=== PATIENT | female | born 1985 | race Caucasian/White ===

== ENCOUNTER → 2020-01-05 | Outpatient (REF) | payer OTHER ==
[2020-01-05 17:22] LABS: BASO % 0.4 % (0.0-1.0); EOS # 0.1 10^3/uL (0.0-0.5); HEMATOCRIT 44.6 % (36.0-47.0); HEMOGLOBIN 14.8 g/dl (12.0-15.5); LYMPH # 2.4 10^3/uL (1.5-5.0); LYMPH % 30.1 % (24.0-44.0); MEAN CORPUSCULAR HEMOGLOBIN 30.1 pg (27.0-33.0); MEAN CORPUSCULAR HGB CONC 33.2 g/dl (32.0-36.5); MEAN CORPUSCULAR VOLUME 90.8 fl (80.0-96.0); MONO # 0.5 10^3/uL (0.0-0.8); MONO % 6.7 % (0.0-5.0); NEUTROPHILS # 4.8 10^3/uL (1.5-8.5); NEUTROPHILS % 61.7 % (36.0-66.0); PLATELET COUNT, AUTOMATED 226 10^3/uL (150-450); RED BLOOD COUNT 4.91 10^6/uL (4.00-5.40); WHITE BLOOD COUNT 7.8 10^3/uL (4.0-10.0)
[2020-01-05 18:02] LABS: ALBUMIN 3.8 GM/DL (3.2-5.2); ALT/SGPT 25 U/L (12-78); BILIRUBIN,TOTAL 0.3 MG/DL (0.2-1.0); BLOOD UREA NITROGEN 18 MG/DL (7-18); CALCIUM LEVEL 8.4 MG/DL (8.5-10.1); CARBON DIOXIDE LEVEL 25 MEQ/L (21-32); CHLORIDE LEVEL 107 MEQ/L (98-107); CHOLESTEROL LEVEL 192 MG/DL (<200); CREATININE FOR GFR 0.81 MG/DL (0.55-1.30); GLOMERULAR FILTRATION RATE > 60.0 (>60); GLUCOSE, FASTING 75 MG/DL (70-100); HDL CHOLESTEROL 55 MG/DL (>40); LDL CHOLESTEROL 112 MG/DL (<100); NON-HDL-C 137 MG/DL; POTASSIUM SERUM 4.4 MEQ/L (3.5-5.1); SODIUM LEVEL 142 MEQ/L (136-145); TOTAL PROTEIN 6.8 GM/DL (6.4-8.2); TRIGLYCERIDES LEVEL 123 MG/DL (<150)
== END ==
LOC: M LAB REF 16:31
PROVIDERS: ATTEND Family Medicine Addiction Medicine
DX: Z00.00 Encounter for general adult medical examination without abnormal findings (principal); F41.9 Anxiety disorder, unspecified

== ENCOUNTER 2020-05-10 11:20 | Emergency (ER) | payer OTHER ==
[~2020-05-10] VITALS: Ht 154.9 cm; Wt 92.9 kg
[2020-05-10] MEDS ORDERED: AMPH1CAP14 (11:31)
[2020-05-10] MEDS ORDERED: LORA-674 (11:31)
[2020-05-10] MEDS ORDERED: MONT10TA4 (11:31)
[2020-05-10] MEDS ORDERED: ESCI20TA (11:31)
--- NOTE | 2020-05-10 12:25 | REP ---
RIGHT ANKLE SERIES: Four views. HISTORY: Injury in a fall. FINDINGS: Four views right ankle demonstrate intact ankle mortise. No fracture or subluxation is seen. Soft tissues are unremarkable. IMPRESSION: Negative radiographs of the right ankle. Electronically Signed by Magdy Lindsay MD 05/10/2020 01:38 P
[2020-05-10 12:29] VITALS: BP 125/69
== END 2020-05-10 12:30 | disposition home or self-care (01) ==
LOC: M ED 11:20
DX: S93.601A Unspecified sprain of right foot, initial encounter (principal); S80.211A Abrasion, right knee, initial encounter; S80.212A Abrasion, left knee, initial encounter; X50.9XXA Other and unspecified overexertion or strenuous movements or postures, initial encounter; Y92.89 Other specified places as the place of occurrence of the external cause; Y99.0 Civilian activity done for income or pay; F33.9 Major depressive disorder, recurrent, unspecified; F41.9 Anxiety disorder, unspecified; N80.9 Endometriosis, unspecified; Z79.899 Other long term (current) drug therapy; F17.210 Nicotine dependence, cigarettes, uncomplicated

== ENCOUNTER 2020-11-15 16:19 | Emergency (ER) | payer OTHER ==
[~2020-11-15] VITALS: Ht 154.9 cm; Wt 93.6 kg
[~2020-11-15 16:19] MED LIST: AMPH1CAP14; ESCI20TA; LORA-674; MONT5TAB2
[2020-11-15] MEDS ORDERED: CETI-24 (16:33)
[2020-11-15] MEDS ORDERED: DULO1CAP5 (16:33)
[2020-11-15] MEDS ORDERED: ALBU8.5H (16:33)
[2020-11-15] MEDS ORDERED: IPRA0.00 (16:33)
[2020-11-15] MEDS ORDERED: HYDR-3363 (16:33)
[2020-11-15] MEDS ORDERED: QUET5TAB (16:33)
[2020-11-15] MEDS ORDERED: KETOROLAC 60MG 2ML VIAL IM ONE (17:15)
[2020-11-15] MEDS ORDERED: NS 1,000 ML IV ONE (17:30)
[2020-11-15] MEDS ORDERED: KETOROLAC 30 MG/ML 1ML VIAL IV ONE (17:30)
[2020-11-15 17:57] LABS: BASO % 0.4 % (0.0-1.0); EOS # 0.1 10^3/uL (0.0-0.5); EOS % 1.3 % (0.0-3.0); HEMATOCRIT 42.4 % (36.0-47.0); HEMOGLOBIN 13.6 g/dl (12.0-15.5); MEAN CORPUSCULAR HGB CONC 32.1 g/dl (32.0-36.5); MEAN CORPUSCULAR VOLUME 90.4 fl (80.0-96.0); MONO # 0.6 10^3/uL (0.0-0.8); MONO % 7.7 % (0.0-5.0); NEUTROPHILS % 64.3 % (36.0-66.0); PLATELET COUNT, AUTOMATED 249 10^3/uL (150-450); RED BLOOD COUNT 4.69 10^6/uL (4.00-5.40); WHITE BLOOD COUNT 7.8 10^3/uL (4.0-10.0)
[2020-11-15 18:22] LABS: BLOOD UREA NITROGEN 12 MG/DL (7-18); CALCIUM LEVEL 8.9 MG/DL (8.5-10.1); CARBON DIOXIDE LEVEL 28 MEQ/L (21-32); CHLORIDE LEVEL 109 MEQ/L (98-107); CK-MB VALUE MASS 1.5 NG/ML (<3.6); CPK CREATINE PHOSPHOKINASE 109 U/L (26-192); CREATININE FOR GFR 0.82 MG/DL (0.55-1.30); GLOMERULAR FILTRATION RATE > 60.0 (>60); GLUCOSE, FASTING 81 MG/DL (70-100); MB/CK RELATIVE INDEX 1.38 (< OR =4); NT-PRO BNP 134 PG/ML (<125); SODIUM LEVEL 142 MEQ/L (136-145); TROPONIN I < 0.02 NG/ML (< 0.10)
[2020-11-15 18:25] LABS: RSV AMPLIFICATION NEGATIVE (NEGATIVE)
[2020-11-15] MEDS ORDERED: ALBUTEROL 90 MCG/ACT 8GM HFA INHALER INH ONE (19:30)
--- NOTE | 2020-11-15 19:52 | REPVR ---
PROCEDURE INFORMATION: Exam: XR Chest, 2 Views Exam date and time: 11/15/2020 5:15 PM Age: 35 years old Clinical indication: Chest pain; Type not specified; Additional info: SOB c exertion, chest pain TECHNIQUE: Imaging protocol: XR of the chest Views: 2 views. COMPARISON: No relevant prior studies available. FINDINGS: Lungs: Unremarkable. No consolidation. Pleural space: Unremarkable. No pleural effusion. No pneumothorax. Heart/Mediastinum: Unremarkable. No cardiomegaly. Bones/joints: Unremarkable. Soft tissues: There are moderately generous overlying soft tissues. IMPRESSION: Negative chest. Electronically signed by: Dewayne Ochoa On 11/15/2020 19:52:45 PM
[2020-11-15 20:01] VITALS: BP 126/68
--- NOTE | 2020-11-16 07:42 | ECGEPIP ---
[facility] - ED Test Date: 2020-11-15 Pat Name: KIRSTIN MERRILL Department: Room: - Gender: Female Senior Windows Engineer: : 1985 Requested By: REUBEN Almanza PA-C Order Number: [id number] Reading MD: Sheridan Bates Measurements Intervals [place] Rate: 67 P: 36 PA: 157 QRS: 58 QRSD: 78 T: 29 QT: 417 QTc: 442 Interpretive Statements SINUS RHYTHM No prior Electronically Signed on 11-16-2020 7:42:11 EST by Sheridan Bates
== END 2020-11-15 20:10 | disposition home or self-care (01) ==
LOC: M ED 16:19
DX: R06.00 Dyspnea, unspecified (principal); R07.89 Other chest pain; R53.83 Other fatigue; R05 Cough; J45.909 Unspecified asthma, uncomplicated; N80.9 Endometriosis, unspecified; Z79.899 Other long term (current) drug therapy; Z91.040 Latex allergy status; F17.210 Nicotine dependence, cigarettes, uncomplicated
CPT/HCPCS: 71046; 80048; 82550; 82553; 83880; 84702; 85025; 85379; 87631; 93005; 96361; 96374; 99284; J1885

== ENCOUNTER 2021-01-11 12:53 | Emergency (ER) | payer OTHER ==
[~2021-01-11] VITALS: Ht 154.9 cm; Wt 95.5 kg
[~2021-01-11 12:53] MED LIST changes: +ALBU8.5H; +CETI-24; +DULO1CAP5; -ESCI20TA; +ESCI20TA16; +HYDR-3363; +IPRA0.00; +MONT10TA10; -MONT5TAB2; +QUET50TA3
--- OUTSIDE RECORDS SUMMARY | 2021-01-11 12:59 | CCD ---
Author Organization Unknown Address [address] [place] [address] Phone [phone] Care Team Providers Care Cathode Ray Tube Salvage Processor Name Role Phone Petey Linder Unavailable Unavailable Allergies Code Code System Name Reaction Severity Status Onset 5092167 RxNorm Latex Active 11/08/2019 Medications Name Status Start Date Stop Date albuterol sulfate HFA 90 mcg/actuation aerosol inhaler Active Not available amoxicillin 875 mg-potassium clavulanate 125 mg tablet TAKE ONE TABLET BY MOUTH EVERY 12 HOURS FOR 14 DAYS Active Not available azithromycin 250 mg tablet Completed 09/19 Banophen 50 mg capsule Completed 0 benzonatate 200 mg capsule Completed 09/19 betamethasone dipropionate 0.05 % topical ointment Completed 11/02/2020 cetirizine 10 mg tablet TAKE ONE TABLET BY MOUTH EVERY DAY Active Not available Chantix Continuing Month Box 1 mg tablet Completed 09/19/2020 Chantix Starting Month Box 0.5 mg (11)-1 mg (42) tablets in dose pack Completed 09/19/2020 Comp-Air Nebulizer Compressor USE DIRECTED NEEDED Active Not available dextroamphetamine-amphetamine ER 10 mg 24hr capsule,extend relea se Completed 09/19/2020 duloxetine 20 mg capsule,delayed release TAKE ONE CAPSULE BY MOUTH EVERY DAY Completed 03/2021 duloxetine 30 mg capsule,delayed release Completed 11/30/2020 duloxetine 60 mg capsule,delayed release TAKE ONE CAPSULE BY MOUTH EVERY DAY Active Not available escitalopram 10 mg tablet Completed 2019 escitalopram 20 mg tablet Completed 2019 fluconazole 150 mg tablet Active Not av ailable fluoxetine 20 mg capsule Completed 020 fluticasone propionate 50 mcg/actuation nasal spray,suspension C ompleted 11/02/2020 hydroxyzine HCl 25 mg tablet Completed ipratropium 0.5 mg-albuterol 3 mg (2.5 m g base)/3 mL nebulization soln INHALE THE CONTENTS OF ONE VIAL VIA NEBULIZER THREE TIMES A DAY NEEDED Active Not available ketoprofen 25 mg capsule Completed 020 Lamictal 25 mg tablet Take 1 tablet every day by oral route. Active Not available loratadine 10 mg tablet Completed 09/19/20 montelukast 10 mg tablet Active Not nima ilable niacin 500 mg tablet Completed 09/19/2020 oseltamivir 75 mg capsule Completed 2019 prednisone 10 mg tablet Completed 09/19/20 prednisone 20 mg tablet TAKE TWO TABLETS BY MOUTH EVERY DAY WITH A MEAL FOR 5 DAYS Active Not available prednisone 5 mg tablet Completed 0 Probiotic and Acidophilus 300 million ce ll-250 mg capsule 1 tablet once daily Active Not available quetiapine 50 mg tablet TAKE ONE TABLET BY MOUTH AT BEDTIME Completed sumatriptan 25 mg tablet TAKE ONE TABLET BY MOUTH AT ONSET OF HEADACHE REPEAT IN 2 HOURS NEEDED Completed 12/11/2020 venlafaxine ER 75 mg capsule,extended release 24 hr Completed 09/19/2020 Vyvanse 30 mg capsule Completed 09/19/2020 Vyvanse 40 mg capsule Take 1 capsule every day by oral route in the morning for 30 days. Active Not available Problems Name Status Onset Date Source Nicotine Dependence Active 11/08/2019 History Screening for Malignant Neoplasm of Cervix Unknown 11/08 History Eruption Unknown 12/21/[address] Concept Unknown 12/21/2019 History Influenza Vaccine Needed Unknown 12/28/2019 History Chronic Urticaria Active 01/05/2020 History Severe Recurrent Major Depression without Psychotic Features Unk nown 03/05/2020 History Generalized Anxiety Disorder Unknown 03/05/2020 His tory Attention Deficit Hyperactivity Disorder , Predominantly Hyperactive Impulsive Type Active 04/13/2020 History Finding of Lower Limb Unknown 04/13/2020 History Mild Intermittent Asthma Active 10/12/2020 Migraine Active 11/02/2020 Bipolar II Disorder, Most Recent Episode Major Depressive Active 11/30/2020 Procedures Notes: x2 Results Lab Results Date Name Specimen Result Interpretation Description Value Range Status Address 11/15/2020 Istat B-HCG Normal Istat B-HCG < 5.0 F [facility]: [address] [facility] 11/02/2020 Rapid Flu (A+B) Flu negative [facility]: [address], [place] 11/01/2020 SARS CoV 2 RdRp Gene, QL Probe, Respiratory Spec imen Nasopharyngeal Normal Sars-cov-2 negative negative Final [facility]: [address] [facility] Past Encounters 12/11/2020 Bipolar II Disorder, Most Recent Episode Major Depressive; Attention Deficit Hyperactivity Disorder, Combined Type Radha Gupta, NPP: [address] [place] [address], Ph. 12/07/2020 Bipolar II Disorder, Most Recent Episode Major Depressive Hafsa Merida, [facility]: [address] [facility], [facility] [address], [place] [address], Ph. 12/07/2020 Diarrhea; Acute Vaginitis; Bipolar II Disorder, Most Recent Episode Major Depressive; Acute Sinusitis Loraine NAYANA Marie-C: [address] [place] [address], Ph. 11/30/2020 Bipolar Disorder; Acute Sinusitis Loraine Marie PA-C: [address] [place] [address], Ph. 11/30/2020 Bipolar II Disorder, Most Recent Episode Major Depressive Hafsa Merida, [facility]: [address] [facility], [facility] [address], [place] [address], Ph. 11/27/2020 Bipolar Disorder; Acute Upper Respiratory Infection SNEHAL BarajasC: [address] [facility], [facility] [address], [place] [address], Ph. 11/06/2020 Generalized Anxiety Disorder; Severe Recurrent Major Depression without Psychotic Features Hafsa Merida [facility]: [address] [facility], [facility] [address], [place] [address], Ph. 11/02/2020 Fever; Mild Intermittent Asthma; Migraine Petey Linder RPA-C: [address] [facility], [facility] [address], [place] [address], Ph. 11/01/2020 Exposure to SARS-CoV-2 Melecio Qiu MD: [address] [place] [address], Ph. 10/12/2020 Chronic Urticaria; Mild Intermittent Asthma; Severe Recurrent Major Depression without Psychotic Features; Generalized Anxiety Disorder; Nicotine Dependence Petey Linder, [facility]-C: [address] [facility], [facility] [address], [place] [address], Ph. 10/12/2020 Severe Recurrent Major Depression without Psychotic Features; Generalized Anxiety Disorder Hafsa Merida [facility]: [address] [facility], [facility] [address], [place] [address], Ph. Social History Tobacco Smoking Status Light Tobacco Smoker (11/26 PPD) Vaccine List Vaccine Type influenza, injectable, quadrivalent, pre servative free 12/28/20190.5 mL influenza, unspecified formulation 12/21/2019 Plan of Care Patient Instructions Start on lamictal and follow-up in -thu Reminders Provider Appointments None recorded. Lab None recorded. Referral None recorded. Procedures None recorded. Surgeries None recorded. Imaging None recorded. Vitals 12/11/2020 01:00PM TELEPSYCH 60 Height Weight BMI 61 in 222 lbs 41.9 kg/m2 12/07/2020 08:40AM TELEHEALTH 20 Height 61 in 11/30/2020 02:20PM ESTABLISHED [id number] Height Weight BMI Blood Pressure 61 in 224 lbs 16 oz 42.5 kg/m2 133/79 mm[Hg] 11/27/2020 11:50AM TELEHEALTH 20 Height 61 in 11/02/2020 02:30PM TELEHEALTH 20 Height 61 in 07/18/2020 Height Weight Blood Pressure 61 in 211 lbs 9.6 oz 104/65 mm[Hg] 04/13/2020 Height 61 in 01/20/2020 Height Weight Blood Pressure 61 in 213 lbs 103/68 mm[Hg] 01/18/2020 Height Weight Blood Pressure 61 in 213 lbs 150/69 mm[Hg] 01/05/2020 Height Weight Blood Pressure 61 in 209 lbs 6.4 oz 118/76 mm[Hg] 12/21/2019 Height Weight Blood Pressure 61 in 209 lbs 121/76 mm[Hg] 11/08/2019 Height Weight Blood Pressure 61 in 205 lbs 135/81 mm[Hg]
--- OUTSIDE RECORDS SUMMARY | 2021-01-11 12:59 | CCD ---
Author Organization Unknown Address [address] [place] [address] Phone [phone] Care Team Providers Care Animal Nurse Name Role Phone Petey Linder Unavailable Unavailable Allergies Code Code System Name Reaction Severity Status Onset [id number] RxNorm Latex Active 11/08/2019 Medications Name Status Start Date Stop Date albuterol sulfate HFA 90 mcg/actuation aerosol inhaler Active Not available Align 4 mg capsule Take 1 capsule by oral route in the morning for 30 days. Active Not available amoxicillin 875 mg-potassium clavulanate 125 mg tablet TAKE ONE TABLET BY MOUTH EVERY 12 HOURS FOR 14 DAYS Completed 12/25/2020 azithromycin 250 mg tablet Completed 09/19 Banophen [...] (42) tablets in dose pack Completed 09/19/2020 clarithromycin ER 500 mg tablet,extended release 24 hr Take 2 tablets every day by oral route for 7 days. Active Not available Comp-Air Nebulizer Compressor USE DIRECTED NEEDED Active [...] 020 fluticasone propionate 50 mcg/actuation nasal spray,suspension [place] 1 spray every day by intranasal route. Active Not available hydroxyzine HCl 25 mg tablet Completed ipratropium 0.5 mg-albuterol 3 mg (2.5 m g base)/3 mL nebulization soln INHALE THE CONTENTS OF ONE VIAL VIA NEBULIZER THREE TIMES A DAY NEEDED Active Not available ketoprofen 25 mg capsule Completed lamotrigine 25 mg tablet TAKE ONE TABLET BY MOUTH EVERY DAY FOR 2 WEEKS THEN 2 DAILY THEREAFTER Active Not available loratadine 10 mg tablet Completed 09/19/20 montelukast 10 mg tablet Active Not nima ilable niacin 500 mg tablet Completed 09/19/2020 oseltamivir 75 mg capsule Completed 2019 prednisone 10 mg tablet Completed 09/19/20 prednisone 20 mg tablet TAKE TWO TABLETS BY MOUTH EVERY DAY WITH A MEAL FOR 5 DAYS Completed 12/25/2020 prednisone 5 mg tablet Completed 0 Probiotic [...] capsule Completed 09/19/2020 Vyvanse 40 mg capsule Active Not availa ble Problems Name Status Onset Date Source Nicotine [...] Finding of Lower Limb Unknown 04/13/2020 History Allergic Rhinitis Active 08/22/2020 History Mild Intermittent Asthma Active 10/12/2020 Migraine Active 11/02/2020 Bipolar II Disorder, Most Recent Episode Major Depressive Active 11/30/2020 Procedures Notes: x2 Results Lab Results Date Name Specimen Result Interpretation Description Value Range Status Address 11/15/2020 Istat B-HCG Normal Istat B-HCG < 5.0 F [facility]: [address] [facility] 11/02/2020 Rapid Flu (A+B) Flu negative [facility] Medical: [address] [facility] [address], [place] 11/01/2020 SARS CoV 2 RdRp Gene, QL Probe, Respiratory Spec imen Nasopharyngeal Normal Sars-cov-2 negative negative Final [facility] Medical: [address] [facility] Past Encounters 12/25/2020 Congestion of Nasal Sinus; Respiratory Tract Congestion and Cough; Antibiotic- associated Diarrhea; Bipolar II Disorder, Most Recent Episode Major Depressive Connie Lambert MD: [address] [facility] [address], [place] [address], Ph. 12/21/2020 Bipolar II Disorder, Most Recent Episode Major Depressive [facility] [address] [facility] [address], [place] [address], Ph. 12/11/2020 Bipolar II Disorder, Most Recent Episode Major Depressive; Attention Deficit Hyperactivity Disorder, Combined Type Radha Gupta, [facility]: [address] [place] [address], Ph. 12/07/2020 Bipolar II Disorder, Most Recent Episode Major Depressive [facility] [address] [facility] [address], [place] [address], Ph. 12/07/2020 Diarrhea; Acute Vaginitis; Bipolar II Disorder, Most Recent Episode Major Depressive; Acute Sinusitis Loraine Marie PA-C: [address] [place] [address], Ph. 11/30/2020 Bipolar Disorder; Acute Sinusitis Loraine Marie PA-C: [address] [place] [address], Ph. 11/30/2020 Bipolar II Disorder, Most Recent Episode Major Depressive [facility] [address] [facility] [address], [place] [address], Ph. 11/27/2020 Bipolar Disorder; Acute Upper Respiratory Infection Loraine Marie PA-C: [address] [facility], [facility] [address], [place] [address], Ph. 11/06/2020 Generalized Anxiety Disorder; Severe Recurrent Major Depression without Psychotic Features Hafsajeff Merida [facility]: [address] [facility] [address], [place] [address], Ph. 11/02/2020 Fever; Mild Intermittent Asthma; Migraine JENNA NguyenC: [address] [facility] [address], [place] [address], Ph. 11/01/2020 Exposure to SARS-CoV-2 Melecio Qiu MD: [address] [place] [address], Ph. 10/12/2020 Chronic Urticaria; Mild Intermittent Asthma; Severe Recurrent Major Depression without Psychotic Features; Generalized Anxiety Disorder; Nicotine Dependence Petey Linder RPA-C: [address] [facility], [facility] [address], [place] [address], Ph. 10/12/2020 Severe Recurrent Major Depression without Psychotic Features; Generalized Anxiety Disorder Hafsajeff Merida [facility]: [address] [facility] [address], [place] [address], Ph. Social History Tobacco Smoking Status Light Tobacco Smoker (11/26 PPD) Vaccine List Vaccine Type influenza, injectable, quadrivalent, pre servative free 12/28/20190.5 mL 08/22/20200.5 mL influenza, unspecified formulation 12/21/2019 Plan of Care Patient Instructions Use the nebulizer 4 times daily, start p robiotic, alternate antibiotic for symptoms with suspicion of atypical infection (hives). Stool testing for c.diff. Start on lamictal and follow-up in 1-mon th Reminders Provider Appointments None recorded. Lab None recorded. Referral None recorded. Procedures None recorded. Surgeries None recorded. Imaging None recorded. Vitals 12/25/2020 10:00AM TELEHEALTH 20 Height 61 in 12/11/2020 01:00PM TELEPSYCH 60 Height Weight BMI 61 in 222 lbs 41.9 kg/m2 12/07/2020 08:40AM TELEHEALTH 20 Height 61 in 11/30/2020 02:20PM ESTABLISHED [id number] Height Weight BMI Blood Pressure 61 in 224 lbs 16 oz 42.5 kg/m2 133/79 mm[Hg] 11/27/2020 11:50AM TELEHEALTH 20 Height 61 in 11/02/2020 02:30PM TELEHEALTH 20 Height 61 in 08/22/2020 Height Weight BMI Blood Pressure 61 in 216 lbs 6.4 oz 41.04 kg/m2 167/93 mm[Hg ] 07/18/2020 Height Weight BMI Blood Pressure 61 in 211 lbs 9.6 oz 40.13 kg/m2 104/65 mm[Hg ] 04/13/2020 Height 61 in 01/20/2020 Height Weight BMI Blood Pressure 61 in 213 lbs 40.39 kg/m2 103/68 mm[Hg] 01/18/2020 Height Weight BMI Blood Pressure 61 in 213 lbs 40.39 kg/m2 150/69 mm[Hg] 01/05/2020 Height Weight BMI Blood Pressure 61 in 209 lbs 6.4 oz 39.71 kg/m2 118/76 mm[Hg ] 12/21/2019 Height Weight BMI Blood Pressure 61 in 209 lbs 39.63 kg/m2 121/76 mm[Hg] 11/08/2019 Height Weight BMI Blood Pressure 61 in 205 lbs 38.87 kg/m2 135/81 mm[Hg]
--- OUTSIDE RECORDS SUMMARY | 2021-01-11 12:59 | CCD ---
Author Organization Unknown Address [address] [place] [address] Phone [phone] Care Team Providers Care Coke Loader Name Role Phone Petey Linder Unavailable Unavailable Allergies Code Code System Name Reaction Severity Status Onset [id number] RxNorm Latex Active 11/08/2019 Medications Name Status Start Date Stop Date albuterol sulfate HFA 90 mcg/actuation aerosol inhaler Active Not available amoxicillin 875 mg-potassium clavulanate 125 mg tablet Completed 09/19/2020 azithromycin 250 mg tablet Completed 09/19 Banophen [...] Completed 03/2021 duloxetine 30 mg capsule,delayed release Active Not available escitalopram 10 mg tablet Completed 2019 escitalopram 20 mg tablet Completed 2019 fluconazole 150 mg tablet Completed 2019 fluoxetine 20 mg capsule Completed fluticasone propionate 50 mcg/actuation nasal spray,suspension C ompleted 11/02/2020 hydroxyzine HCl 25 mg tablet Completed ipratropium 0.5 mg-albuterol 3 mg (2.5 m g base)/3 mL nebulization soln INHALE THE CONTENTS OF ONE VIAL VIA NEBULIZER THREE TIMES A DAY NEEDED Active Not available ketoprofen 25 mg capsule Completed 10/28/2 020 loratadine 10 mg tablet Completed 09/19/20 20 montelukast 10 mg tablet Active Not nima ilable niacin 500 mg tablet Completed 09/19/2020 oseltamivir 75 mg capsule Completed 2019 prednisone 10 mg tablet Completed 09/19/20 20 prednisone 20 mg tablet Completed 11/02/20 20 prednisone 5 mg tablet Completed 0 quetiapine 50 mg tablet TAKE ONE TABLET BY MOUTH AT BEDTIME Active Not available sumatriptan 25 mg tablet TAKE ONE TABLET BY MOUTH AT ONSET OF HEADACHE REPEAT IN 2 HOURS NEEDED Active Not available venlafaxine ER 75 mg capsule,extended release 24 hr Completed 09/19/2020 Vyvanse 30 mg capsule Completed 09/19/2020 Vyvanse 40 mg capsule TAKE ONE CAPSULE BY MOUTH EVERY MORNING MAXIMUM DAILY DOSE 1 CAPSULE Active Not available Problems Name Status Onset Date Source Nicotine Dependence Active 11/08/2019 History Screening for Malignant Neoplasm of Cervix Unknown 11/08 History Eruption Unknown 12/21/[address] Concept Unknown 12/21/2019 History Influenza Vaccine Needed Unknown 12/28/2019 History Chronic Urticaria Active 01/05/2020 History Severe Recurrent Major Depression without Psychotic Features Act [place] 03/05/2020 History Generalized Anxiety Disorder Active 03/05/2020 His tory Attention Deficit Hyperactivity Disorder , Predominantly Hyperactive Impulsive Type Active 04/13/2020 History Finding of Lower Limb Unknown 04/13/2020 History Mild Intermittent Asthma Active 10/12/2020 Migraine Active 11/02/2020 Procedures Notes: x2 Results Lab Results Date Name Specimen Result Interpretation Description Value Range Status Address 11/15/2020 Istat B-HCG Normal Istat B-HCG < 5.0 F [facility]: [address] [facility] 11/02/2020 Rapid Flu (A+B) Flu negative [facility] Medical: [address] [facility] [address], [place] 11/01/2020 SARS CoV 2 RdRp Gene, QL Probe, Respiratory Spec imen Nasopharyngeal Normal Sars-cov-2 negative negative Final [facility]: [address] [facility] Past Encounters 11/27/2020 Bipolar Disorder; Acute Upper Respiratory Infection SNEHAL BarajasC: [address] [facility], [facility] [address], [place] [address], Ph. 11/06/2020 Generalized Anxiety Disorder; Severe Recurrent Major Depression without Psychotic Features Hafsa Fuad [facility]: [address] [facility] [address], [place] [address], Ph. 11/02/2020 Fever; Mild Intermittent Asthma; Migraine Petey Linder, RPA-C: [address] [facility], [facility] [address], [place] [address], Ph. 11/01/2020 Exposure to SARS-CoV-2 Melecio Qiu MD: [address] [place] [address], Ph. 10/12/2020 Chronic Urticaria; Mild Intermittent Asthma; Severe Recurrent Major Depression without Psychotic Features; Generalized Anxiety Disorder; Nicotine Dependence Petey Linder, RPA-C: [address] [facility] [address], [place] [address], Ph. 10/12/2020 Severe Recurrent Major Depression without Psychotic Features; Generalized Anxiety Disorder Hafsa Merida [facility]: [address] [facility] [address], [place] [address], Ph. Social History Tobacco Smoking Status Light Tobacco Smoker (11/26 PPD) Vaccine List Vaccine Type influenza, injectable, quadrivalent, pre servative free 12/28/20190.5 mL influenza, unspecified formulation 12/21/2019 Plan of Care Reminders Provider Appointments None recorded. Lab None recorded. Referral None recorded. Procedures None recorded. Surgeries None recorded. Imaging None recorded. Vitals 11/27/2020 11:50AM TELEHEALTH 20 Height 61 in [...]
--- OUTSIDE RECORDS SUMMARY | 2021-01-11 12:59 | CCD ---
Author Organization Unknown Address [address] [place] [address] Phone [phone] Care Team Providers Care Machine Egg Washer Name Role Phone Petey Linder Sarah Unavailable Unavailable Allergies Code Code System Name Reaction Severity Status Onset [id number] RxNorm Latex Active 11/08/2019 Medications Name Status [...] B-HCG Normal Istat B-HCG < 5.0 F [facility]: [address] [facility] 11/02/2020 Rapid Flu (A+B) Flu negative [facility]: [address] [facility] [address], [place] 11/01/2020 SARS CoV 2 RdRp Gene, QL Probe, Respiratory Spec imen Nasopharyngeal Normal Sars-cov-2 negative negative Final [facility]: [address] [facility] [place] [facility] Past Encounters 12/21/2020 Bipolar II Disorder, Most Recent Episode Major Depressive Hafsa Merida, [facility]: [address] [facility], [facility] [address], [place] [address], Ph. 12/11/2020 Bipolar II Disorder, Most Recent Episode Major Depressive; Attention Deficit Hyperactivity Disorder, Combined Type Rdaha Gupta, NPP: [address] [place] [address], Ph. 12/07/2020 Bipolar II Disorder, Most Recent Episode Major Depressive Hafsa Merida, [facility]: [address] [facility], [facility] [address], [place] [address], Ph. 12/07/2020 Diarrhea; Acute Vaginitis; Bipolar II Disorder, Most Recent Episode Major Depressive; Acute Sinusitis SNEHAL BarajasC: [address] [place] [address], Ph. 11/30/2020 Bipolar Disorder; Acute Sinusitis Loraine SNEHAL MarieC: [address] [place] [address], Ph. 11/30/2020 Bipolar II Disorder, Most Recent Episode Major Depressive Hafsa Merida, [facility]: [address] [facility], [address], [place] [address], Ph. 11/27/2020 Bipolar Disorder; Acute Upper Respiratory Infection SNEHAL BarajasC: [address] [facility], [address], [place] [address], Ph. 11/06/2020 Generalized Anxiety Disorder; Severe Recurrent Major Depression without Psychotic Features Hafsa Merida, [facility]: [address] [facility], [address], [place] [address], Ph. 11/02/2020 Fever; Mild Intermittent Asthma; Migraine Petey Smith Kailash, RPA-C: [address] [facility], [facility] [address], [place] [address], Ph. 11/01/2020 Exposure to SARS-CoV-2 Melecio Qiu MD: [address] [place] [address], Ph. 10/12/2020 Chronic Urticaria; Mild Intermittent Asthma; Severe Recurrent Major Depression without Psychotic Features; Generalized Anxiety Disorder; Nicotine Dependence Pteey Linder RPA-C: [address] [facility], [facility] [address], [place] [address], Ph. 10/12/2020 Severe Recurrent Major Depression without Psychotic Features; Generalized Anxiety Disorder Hafsa Merida [facility]: [address] [facility], [facility] [address], [place] [address], Ph. Social History Tobacco Smoking Status Light [...] 20 Height 61 in 11/30/2020 02:20PM ESTABLISHED [id number] Height Weight BMI Blood Pressure 61 in [...]
--- OUTSIDE RECORDS SUMMARY | 2021-01-11 12:59 | CCD ---
Author Organization Unknown Address [address] [place] [address] Phone [phone] Care Team Providers Care Coroner Technician Name Role Phone Petey Linder Unavailable Unavailable Allergies Code Code System Name Reaction Severity Status Onset [id number] RxNorm Latex Active 11/08/2019 Medications Name Status [...] available ketoprofen 25 mg capsule Completed 020 loratadine 10 mg tablet Completed 09/19/20 montelukast [...] B-HCG Normal Istat B-HCG < 5.0 F [facility]: [address] [facility], [place] 11/02/2020 Rapid Flu (A+B) Flu negative [facility]: [address] [facility] [address], [place] 11/01/2020 SARS CoV 2 RdRp Gene, QL Probe, Respiratory Spec imen Nasopharyngeal Normal Sars-cov-2 negative negative Final [facility]: [address] [facility] Past Encounters 12/07/2020 Bipolar II Disorder, Most Recent Episode Major Depressive Hafsa Merida [facility]: [address] [facility], [facility] [address], [place] [address], Ph. 12/07/2020 Diarrhea; Acute Vaginitis; Bipolar II Disorder, Most Recent Episode Major Depressive; Acute Sinusitis SNEHAL BarajasC: [address] [place] [address], Ph. 11/30/2020 Bipolar Disorder; Acute Sinusitis Loraine SNEHAL MarieC: [address] [place] [address], Ph. 11/30/2020 Bipolar II Disorder, Most Recent Episode [facility] Dep[facility] [address] [facility], [facility] [address], [place] [address], Ph. 11/27/2020 Bipolar Disorder; Acute Upper Respiratory Infection SNEHLA BarajasC: [address] [facility], [facility] [address], [place] [address], Ph. 11/06/2020 Generalized Anxiety Disorder; Severe Recurrent Major Depression without Psychotic Features [facility] [address] [facility], [facility] [address], [place] [address], Ph. 11/02/2020 Fever; Mild Intermittent Asthma; Migraine Petey Linder RPA-C: [address] [facility], [facility] [address], [place] [address], Ph. 11/01/2020 Exposure to SARS-CoV-2 Melecio Qiu MD: [address] [place] [address], Ph. 10/12/2020 Chronic Urticaria; Mild Intermittent Asthma; Severe Recurrent Major Depression without Psychotic Features; Generalized Anxiety Disorder; Nicotine Dependence Petey Linder RPA-C: [address] [facility], [facility] [address], [place] [address], Ph. 10/12/2020 Severe Recurrent Major Depression without Psychotic Features; Generalized Anxiety Disorder Hafsa ShahLELO henrySW: [address], [place] [address], Ph. Social History Tobacco Smoking Status Light Tobacco Smoker (/ PPD) Vaccine List Vaccine Type influenza, injectable, quadrivalent, pre servative free 12/28/20190.5 mL influenza, unspecified formulation 12/21/2019 Plan of Care Reminders Provider Appointments None recorded. Lab None recorded. Referral None recorded. Procedures None recorded. Surgeries None recorded. Imaging None recorded. Vitals 12/07/2020 08:40AM TELEHEALTH 20 Height 61 in 11/30/2020 02:20PM ESTABLISHED [id number] Height Weight BMI Blood Pressure 61 in [...]
--- OUTSIDE RECORDS SUMMARY | 2021-01-11 12:59 | CCD ---
Author Organization Unknown Address [address] [place] [address] Phone [phone] Care Team Providers Care Fish Receiver Name Role Phone Petey Linder Unavailable Unavailable Allergies Code Code System Name Reaction Severity Status Onset [id number] RxNorm Latex Active 11/08/2019 Medications Name Status [...] tablet Completed 2019 fluconazole 150 mg tablet 1 tablet on day 1 and repeat on day 3 if symptoms are persistent Active Not available fluoxetine 20 mg capsule Completed 020 fluticasone [...] B-HCG Normal Istat B-HCG < 5.0 F [facility]: [address] [facility], [place] 11/02/2020 Rapid Flu (A+B) Flu negative [facility]: [address] [facility] [address], [place] 11/01/2020 SARS CoV 2 RdRp Gene, QL Probe, Respiratory Spec imen Nasopharyngeal Normal Sars-cov-2 negative negative Final [facility]: [address] [facility] Past Encounters 12/07/2020 Bipolar II Disorder, Most Recent Episode [facility] [address] [facility], [facility] [address], [place] [address], Ph. 12/07/2020 Diarrhea; Acute Vaginitis; Bipolar II Disorder, Most Recent Episode Major Depressive Loraine Marie PA-C: [address] [place] [address], Ph. 11/30/2020 Bipolar Disorder; Acute Sinusitis Loraine Marie PA-C: [address] [place] [address], Ph. 11/30/2020 Bipolar II Disorder, Most Recent Episode Major Depressive [facility] [address] [facility], [facility] [address], [place] [address], Ph. 11/27/2020 Bipolar Disorder; Acute Upper Respiratory Infection Loraine Marie PA-C: [address] [facility], [facility] [address], [place] [address], Ph. 11/06/2020 Generalized Anxiety Disorder; Severe Recurrent Major Depression without Psychotic Features [facility] [address] [facility] [address], [place] [address], Ph. 11/02/2020 Fever; Mild Intermittent Asthma; Migraine Petey Linder RPA-C: [address] [facility], [facility] [address], [place] [address], Ph. 11/01/2020 Exposure to SARS-CoV-2 Melecio Qiu MD: [address] [place] [address], Ph. 10/12/2020 Chronic Urticaria; Mild Intermittent Asthma; Severe Recurrent Major Depression without Psychotic Features; Generalized Anxiety Disorder; Nicotine Dependence Petey Linder RPA-C: [address] [facility], [facility] [address], [place] [address], Ph. 10/12/2020 Severe Recurrent Major Depression without Psychotic Features; Generalized Anxiety Disorder Hafsa Merida [facility]: [address] [facility], [facility] [address], [place] [address], Ph. Social History Tobacco Smoking Status Light Tobacco Smoker (11/26 PPD) Vaccine List Vaccine Type influenza, injectable, quadrivalent, pre servative free 12/28/20190.5 mL influenza, unspecified formulation 12/21/2019 Plan of Care Reminders Provider Appointments None recorded. Lab None recorded. Referral None recorded. Procedures None recorded. Surgeries None recorded. Imaging None recorded. Vitals 12/07/2020 08:40AM TELEHEALTH 20 Height 61 in 11/30/2020 02:20PM ESTABLISHED [id number] Height Weight BMI Blood Pressure 61 in [...]
--- OUTSIDE RECORDS SUMMARY | 2021-01-11 12:59 | CCD ---
Author Organization Unknown Address [address] [place] [address] Phone [phone] Care Team Providers Care Computing Machine Operator Name Role Phone Petey Linder Unavailable Unavailable Allergies Code Code System Name Reaction Severity Status Onset [id number] RxNorm Latex Active 11/08/2019 Medications Name Status Start Date Stop Date albuterol sulfate HFA 90 mcg/actuation aerosol inhaler Active Not available Augmentin 875 mg-125 mg tablet Take 1 tablet every 12 hours by oral route for 14 days. Active Not available azithromycin 250 mg tablet [...] Completed 11/30/2020 duloxetine 60 mg capsule,delayed release Take 1 capsule every day by oral route. Active Not available escitalopram 10 mg tablet Completed 2019 escitalopram 20 mg tablet Completed 2019 fluconazole 150 mg tablet Completed 2019 fluoxetine 20 mg capsule Completed 020 fluticasone [...] tablet Completed 09/19/20 prednisone 20 mg tablet Take 2 tablets every day by oral route with meals for 5 days. Active Not available prednisone 5 mg tablet Completed 0 quetiapine [...] B-HCG Normal Istat B-HCG < 5.0 F [facility]: [address] [facility], [place] 11/02/2020 Rapid Flu (A+B) Flu negative [facility]: [address] [facility] [address], [place] 11/01/2020 SARS CoV 2 RdRp Gene, QL Probe, Respiratory Spec imen Nasopharyngeal Normal Sars-cov-2 negative negative Final [facility]: [address] [facility] [place] [facility] Past Encounters 11/30/2020 Bipolar Disorder; Acute Sinusitis Loraine VERNA Marie: [address] [place] [address], Ph. 11/30/2020 Bipolar II Disorder, Most Recent Episode Major Depressive Hafsa Merida [facility]: [address] [facility], [facility] [address], [place] [address], Ph. 11/27/2020 Bipolar Disorder; Acute Upper Respiratory Infection Loraine Marie PA-C: [address] [facility], [facility] [address], [place] [address], Ph. 11/06/2020 Generalized Anxiety Disorder; Severe Recurrent Major Depression without Psychotic Features Hafsa Merida [facility]: [address] [facility], [facility] [address], [place] [address], Ph. 11/02/2020 Fever; Mild Intermittent Asthma; Migraine Petey Linder RPA-C: [address] [facility], [facility] [address], [place] [address], Ph. 11/01/2020 Exposure to SARS-CoV-2 Melecio Qiu MD: [address] [place] [address], Ph. 10/12/2020 Chronic Urticaria; Mild Intermittent Asthma; Severe Recurrent Major Depression without Psychotic Features; Generalized Anxiety Disorder; Nicotine Dependence Petey Linder RPA-C: [address] [facility], [facility] [address], [place] [address], Ph. 10/12/2020 Severe Recurrent Major Depression without Psychotic Features; Generalized Anxiety Disorder Hafsa Shahcarl [facility]: [address] [facility] [address], [place] [address], Ph. Social History Tobacco Smoking Status Light Tobacco Smoker (/ PPD) Vaccine List Vaccine Type influenza, injectable, quadrivalent, pre servative free 12/28/20190.5 mL influenza, unspecified formulation 12/21/2019 Plan of Care Reminders Provider Appointments None recorded. Lab None recorded. Referral None recorded. Procedures None recorded. Surgeries None recorded. Imaging None recorded. Vitals 11/30/2020 02:20PM ESTABLISHED [id number] Height Weight BMI Blood Pressure 61 in [...]
--- OUTSIDE RECORDS SUMMARY | 2021-01-11 12:59 | CCD ---
Author Organization Unknown Address [address] [place] [address] Phone [phone] Care Team Providers Care Claim Approver Name Role Phone Petey Linder Unavailable Unavailable Allergies Code Code System Name Reaction Severity Status Onset [id number] RxNorm Latex Active 11/08/2019 Medications Name Status [...] B-HCG Normal Istat B-HCG < 5.0 F [facility]: [address] [facility], [place] 11/02/2020 Rapid Flu (A+B) Flu negative [facility]: [address] [facility] [address], [place] 11/01/2020 SARS CoV 2 RdRp Gene, QL Probe, Respiratory Spec imen Nasopharyngeal Normal Sars-cov-2 negative negative Final [facility]: [address] [facility] Past Encounters 11/30/2020 Bipolar Disorder; Acute Sinusitis Loraine VERNA Marie: [address] [place] [address], Ph. 11/30/2020 Hafsa Mreida [facility]: [address] [facility] [address], [place] [address], Ph. 11/27/2020 Bipolar Disorder; Acute Upper Respiratory Infection Loraine Marie PA-C: [address] [facility], [facility] [address], [place] [address], Ph. 11/06/2020 Generalized Anxiety Disorder; Severe Recurrent Major Depression without Psychotic Features Hafsa Merida [facility]: [address] [facility], [facility] [address], [place] [address], Ph. 11/02/2020 Fever; Mild Intermittent Asthma; Migraine JENNA NguyenC: [address] [facility], [facility] [address], [place] [address], Ph. 11/01/2020 Exposure to SARS-CoV-2 Melecio Qiu MD: [address] [place] [address], Ph. 10/12/2020 Chronic Urticaria; Mild Intermittent Asthma; Severe Recurrent Major Depression without Psychotic Features; Generalized Anxiety Disorder; Nicotine Dependence JENNA NguyenC: [address] [facility] [address], [place] [address], Ph. 10/12/2020 Severe Recurrent Major Depression without Psychotic Features; Generalized Anxiety Disorder Hafsa Merida [facility]: [address] [facility] [address], [place] [address], Ph. Social History Tobacco Smoking Status Light Tobacco Smoker (11/26 PPD) Vaccine List Vaccine Type influenza, injectable, quadrivalent, pre servative free 12/28/20190.5 mL influenza, unspecified formulation 12/21/2019 Plan of Care Reminders Provider Appointments None recorded. Lab None recorded. Referral None recorded. Procedures None recorded. Surgeries None recorded. Imaging None recorded. Vitals 11/30/2020 02:20PM ESTABLISHED [id number] Height Weight BMI Blood Pressure 61 in [...]
--- OUTSIDE RECORDS SUMMARY | 2021-01-11 13:01 | CCD ---
Author Author [facility] Organization [facility] Address Unknown Phone Unavailable Care Team Providers Care Adhesive Sprayer Name Role Phone LINDER, ELADIA PETEY RPA-C Unavailable Unavailable LINDER, ELADIA PETEY RPA-C Unavailable Unavailable LINDER, ELADIA PETEY RPA-C Unavailable Unavailable LINDER, ELADIA PETEY RPA-C Unavailable Unavailable LINDER, ELADIA PETEY RPA-C Unavailable Unavailable LINDER, ELADIA PETEY RPA-C Unavailable Unavailable LINDER, ELADIA PETEY RPA-C Unavailable Unavailable LINDER, ELADIA PETEY RPA-C Unavailable Unavailable LINDER, ELADIA PETEY RPA-C Unavailable Unavailable LINDER, ELADIA PETEY RPA-C Unavailable Unavailable LINDER, ELADIA PETEY RPA-C Unavailable Unavailable LINDER, ELADIA PETEY RPA-C Unavailable Unavailable LINDER, ELADIA PETEY RPA-C Unavailable Unavailable LINDER, ELADIA PETEY RPA-C Unavailable Unavailable LINDER, ELADIA PETEY RPA-C Unavailable Unavailable LINDER, ELADIA PETEY RPA-C Unavailable Unavailable LINDER, ELADIA PETEY RPA-C Unavailable Unavailable LINDER, ELADIA PETEY RPA-C Unavailable Unavailable LINDER, ELADIA PETEY RPA-C Unavailable Unavailable LINDER, ELADIA PETEY RPA-C Unavailable Unavailable LINDER, ELADIA PETEY RPA-C Unavailable Unavailable LINDER, ELADIA PETEY RPA-C Unavailable Unavailable LINDER, ELADIA PETEY RPA-C Unavailable Unavailable LINDER, ELADIA PETEY RPA-C Unavailable Unavailable LINDER, ELADIA PETEY RPA-C Unavailable Unavailable LINDER, ELADIA PETEY RPA-C Unavailable Unavailable LINDER, ELADIA PETEY RPA-C Unavailable Unavailable LINDER, ELADIA PETEY RPA-C Unavailable Unavailable LINDER, ELADIA PETEY RPA-C Unavailable Unavailable LINDER, ELADIA PETEY RPA-C Unavailable Unavailable LINDER, ELADIA PETEY RPA-C Unavailable Unavailable LINDER, ELADIA PETEY RPA-C Unavailable Unavailable LINDER, ELADIA PETEY RPA-C Unavailable Unavailable LINDER, ELADIA PETEY RPA-C Unavailable Unavailable LINDER, ELADIA PETEY RPA-C Unavailable Unavailable LINDER, ELADIA PETEY RPA-C Unavailable Unavailable LINDER, ELADIA PETEY RPA-C Unavailable Unavailable LINDER, ELADIA PETEY RPA-C Unavailable Unavailable LINDER, ELADIA PETEY RPA-C Unavailable Unavailable MONSERRAT, RADHA DRAFTER ELECTRICAL Unavailable Unavailable MONSERRAT, RADHA DRAFTER ELECTRICAL Unavailable Unavailable MONSERRAT, RADHA DRAFTER ELECTRICAL Unavailable Unavailable MONSERRAT, RADHA DRAFTER ELECTRICAL Unavailable Unavailable MONSERRAT, RADHA DRAFTER ELECTRICAL Unavailable Unavailable MONSERRAT, RADHA DRAFTER ELECTRICAL Unavailable Unavailable Sarah Qiu MD Unavailable Unavailable Sarah Qiu MD Unavailable Unavailable Sarah Qiu MD Unavailable Unavailable Sarah Qiu MD Unavailable Unavailable Sarah Qiu MD Unavailable Unavailable Sarah Qiu MD Unavailable Unavailable Sarah Qiu MD Unavailable Unavailable Sarah Qiu MD Unavailable Unavailable Sarah Qiu MD Unavailable Unavailable Sarah Qiu MD Unavailable Unavailable Sarah Qiu MD Unavailable Unavailable Sarah Qiu MD Unavailable Unavailable Sarah Qiu MD Unavailable Unavailable Sarah Qiu MD Unavailable Unavailable Sarah Qiu MD Unavailable Unavailable Sarah Qiu MD Unavailable Unavailable Sarah Qiu MD Unavailable Unavailable Sarah Qiu MD Unavailable Unavailable Sarah Qiu MD Unavailable Unavailable Sarah Qiu MD Unavailable Unavailable Sarah Qiu MD Unavailable Unavailable Sarah Qiu MD Unavailable Unavailable Sarah Qiu MD Unavailable Unavailable Sarah Qiu MD Unavailable Unavailable Sarah Qiu MD Unavailable Unavailable Sarah Qiu MD Unavailable Unavailable Sarah Qiu MD Unavailable Unavailable Sarah Qiu MD Unavailable Unavailable Sarah Qiu MD Unavailable Unavailable Sarah Qiu MD Unavailable Unavailable Sarah Qiu MD Unavailable Unavailable Sarah Qiu MD Unavailable Unavailable Sarah Qiu MD Unavailable Unavailable Sarah Qiu MD Unavailable Unavailable Sarah Qiu MD Unavailable Unavailable Sarah Qiu MD Unavailable Unavailable Sarah Qiu MD Unavailable Unavailable Sarah Qiu MD Unavailable Unavailable Sarah Qiu MD Unavailable Unavailable Sarah Qiu MD Unavailable Unavailable Sarah Qiu MD Unavailable Unavailable Sarah Qiu MD Unavailable Unavailable Sarah Qiu MD Unavailable Unavailable Sarah Qiu MD Unavailable Unavailable Sarah Qiu MD Unavailable Unavailable Sarah Qiu MD Unavailable Unavailable Sarah Qiu MD Unavailable Unavailable Sarah Qiu MD Unavailable Unavailable Sarah Qiu MD Unavailable Unavailable Sarah Qiu MD Unavailable Unavailable Sarah Qiu MD Unavailable Unavailable Sarah Qiu MD Unavailable Unavailable Sarah Qiu MD Unavailable Unavailable Sarah Qiu MD Unavailable Unavailable Sarah Qiu MD Unavailable Unavailable Sarah Qiu MD Unavailable Unavailable Sarah Qiu MD Unavailable Unavailable Sarah Qiu MD Unavailable Unavailable Sarah Qiu MD Unavailable Unavailable Sarah Qiu MD Unavailable Unavailable Sarah Qiu MD Unavailable Unavailable Sarah Qiu MD Unavailable Unavailable Sarah Qiu MD Unavailable Unavailable Sarah Qiu MD Unavailable Unavailable Sarah Qiu MD Unavailable Unavailable Sarah Qiu MD Unavailable Unavailable Sarah Qiu MD Unavailable Unavailable Sarah Qiu MD Unavailable Unavailable Sarah Qiu MD Unavailable Unavailable Sarah Qiu MD Unavailable Unavailable Sarah Qiu MD Unavailable Unavailable Sarah Qiu MD Unavailable Unavailable Sarah Qiu MD Unavailable Unavailable Sarah Qiu MD Unavailable Unavailable Sarah Qiu MD Unavailable Unavailable Sarah Qiu MD Unavailable Unavailable Sarah Qiu MD Unavailable Unavailable Sarah Qiu MD Unavailable Unavailable Sarah Qiu MD Unavailable Unavailable Sarah Qiu MD Unavailable Unavailable Sarah Qiu MD Unavailable Unavailable Sarah Qiu MD Unavailable Unavailable Sarah Qiu MD Unavailable Unavailable Sarah Qiu MD Unavailable Unavailable Sarah Qiu MD Unavailable Unavailable Saarh Qiu MD Unavailable Unavailable Sarah Qiu MD Unavailable Unavailable Sarah Qiu MD Unavailable Unavailable Sarah Qiu MD Unavailable Unavailable Scordo, M Loraine PA Unavailable Unavailable Scordo, M Loraine PA Unavailable Unavailable Scordo, M Loraine PA Unavailable Unavailable Scordo, M Loraine PA Unavailable Unavailable Scordo, M Loraine PA Unavailable Unavailable Scordo, M Loraine PA Unavailable Unavailable Scordo, M Loraine PA Unavailable Unavailable Scordo, M Loraine PA Unavailable Unavailable Scordo, M Loraine PA Unavailable Unavailable Scordo, M Loraine PA Unavailable Unavailable Scordo, M Loraine PA Unavailable Unavailable Scordo, M Loraine PA Unavailable Unavailable Scordo, M Loraine PA Unavailable Unavailable Scordo, M Loraine PA Unavailable Unavailable Scordo, M Loraine PA Unavailable Unavailable Scordo, M Loraine PA Unavailable Unavailable Scordo, M Loraine PA Unavailable Unavailable Scordo, M Loraine PA Unavailable Unavailable Scordo, M Loraine PA Unavailable Unavailable Scordo, M Loraine PA Unavailable Unavailable Scordo, M Loraine PA Unavailable Unavailable Scordo, M Loraine PA Unavailable Unavailable Scordo, M Loraine PA Unavailable Unavailable Scordo, M Loraine PA Unavailable Unavailable Scordo, M Loranie PA Unavailable Unavailable Scordo, M Loraine PA Unavailable Unavailable Scordo, M Loraine PA Unavailable Unavailable Scordo, M Loraine PA Unavailable Unavailable Scordo, M Loraine PA Unavailable Unavailable Scordo, M Loraine PA Unavailable Unavailable Scordo, M Loraine PA Unavailable Unavailable Scordo, M Loraine PA Unavailable Unavailable Scordo, M Loraine PA Unavailable Unavailable Scordo, M Loraine PA Unavailable Unavailable Scordo, M Loraine PA Unavailable Unavailable Scordo, M Loraine PA Unavailable Unavailable Scordo, M Loraine PA Unavailable Unavailable Scordo, M Loraine PA Unavailable Unavailable Scordo, M Loraine PA Unavailable Unavailable Scordo, M Loraine PA Unavailable Unavailable Scordo, M Loraine PA Unavailable Unavailable Scordo, M Loraine PA Unavailable Unavailable Scordo, M Loraine PA Unavailable Unavailable Pupillo, Hafsa Unavailable [phone] Sarah Qiu MD Unavailable Unavailable Sarah Qiu MD Unavailable Unavailable Sarah Qiu MD Unavailable Unavailable Sarah Qiu MD Unavailable Unavailable Sarah Qiu MD Unavailable Unavailable Sarah Qiu MD Unavailable Unavailable Sarah Qiu MD Unavailable Unavailable Sarah Qiu MD Unavailable Unavailable Sarah Qiu MD Unavailable Unavailable Sarah Qiu MD Unavailable Unavailable Sarah Qiu MD Unavailable Unavailable Sarah Qiu MD Unavailable Unavailable Sarah Qiu MD Unavailable Unavailable Sarah Qiu MD Unavailable Unavailable Sarah Qiu MD Unavailable Unavailable Sarah Qiu MD Unavailable Unavailable Sarah Qiu MD Unavailable Unavailable Sarah Qiu MD Unavailable Unavailable Sarah Qiu MD Unavailable Unavailable Sarah Qiu MD Unavailable Unavailable Sarah Qiu MD Unavailable Unavailable Sarah Qiu MD Unavailable Unavailable Sarah Qiu MD Unavailable Unavailable Sarah Qiu MD Unavailable Unavailable Sarah Qiu MD Unavailable Unavailable Sarah Qiu MD Unavailable Unavailable Sarah Qiu MD Unavailable Unavailable Sarah Qiu MD Unavailable Unavailable Sarah Qiu MD Unavailable Unavailable Sarah Qiu MD Unavailable Unavailable Sarah Qiu MD Unavailable Unavailable Sarah Qiu MD Unavailable Unavailable Sarah Qiu MD Unavailable Unavailable Sarah Qiu MD Unavailable Unavailable Sarah Qiu MD Unavailable Unavailable Sarah Qiu MD Unavailable Unavailable Sarah Qiu MD Unavailable Unavailable Sarah Qiu MD Unavailable Unavailable Sarah Qiu MD Unavailable Unavailable Sarah Qiu MD Unavailable Unavailable Sarah Qiu MD Unavailable Unavailable Sarah Qiu MD Unavailable Unavailable Sarah Qiu MD Unavailable Unavailable Sarah Qiu MD Unavailable Unavailable Sarah Qiu MD Unavailable Unavailable Sarah Qiu MD Unavailable Unavailable Sarah Qiu MD Unavailable Unavailable Sarah Qiu MD Unavailable Unavailable Sarah Qiu MD Unavailable Unavailable Sarah Qiu MD Unavailable Unavailable Sarah Qiu MD Unavailable Unavailable Sarah Qiu MD Unavailable Unavailable Sarah Qiu MD Unavailable Unavailable Sarah Qiu MD Unavailable Unavailable Sarah Qiu MD Unavailable Unavailable Sarah Qiu MD Unavailable Unavailable Sarah Qiu MD Unavailable Unavailable Sarah Qiu MD Unavailable Unavailable Sarah Qiu MD Unavailable Unavailable Sarah Qiu MD Unavailable Unavailable Sarah Qiu MD Unavailable Unavailable Sarah Qiu MD Unavailable Unavailable Sarah Qiu MD Unavailable Unavailable Sarah Qiu MD Unavailable Unavailable Sarah Qiu MD Unavailable Unavailable Sarah Qiu MD Unavailable Unavailable Sarah Qiu MD Unavailable Unavailable Sarah Qiu MD Unavailable Unavailable Sarah Qiu MD Unavailable Unavailable Sarah Qiu MD Unavailable Unavailable Sarah Qiu MD Unavailable Unavailable Sarah Qiu MD Unavailable Unavailable Sarah Qiu MD Unavailable Unavailable Sarah Qiu MD Unavailable Unavailable Sarah Qiu MD Unavailable Unavailable Sarah Qiu MD Unavailable Unavailable Sarah Qiu MD Unavailable Unavailable Sarah Qiu MD Unavailable Unavailable Sarah Qiu MD Unavailable Unavailable Sarah Qiu MD Unavailable Unavailable Sarah Qiu MD Unavailable Unavailable Sarah Qiu MD Unavailable Unavailable Sarah Qiu MD Unavailable Unavailable Sarah iQu MD Unavailable Unavailable Sarah Qiu MD Unavailable Unavailable Sarah Qiu MD Unavailable Unavailable Sarah Qiu MD Unavailable Unavailable Sarah Qiu MD Unavailable Unavailable Sarah Qiu MD Unavailable Unavailable MollisonSylvie MD Unavailable Unavailable MollisonSylvie MD Unavailable Unavailable MollisonSylvie MD Unavailable Unavailable MollisonSylvie MD Unavailable Unavailable MollisonSylvie MD Unavailable Unavailable MollisonSylvie MD Unavailable Unavailable MollisonSylvie MD Unavailable Unavailable MollisonSylvie MD Unavailable Unavailable MollisonSylvie MD Unavailable Unavailable MollisonSylvie MD Unavailable Unavailable MollisonSylvie MD Unavailable Unavailable MollisonSylvie MD Unavailable Unavailable MollisonSylvie MD Unavailable Unavailable MollisonSylvie MD Unavailable Unavailable MollisonSylvie MD Unavailable Unavailable MollisonSylvie MD Unavailable Unavailable MollisonSylvie MD Unavailable Unavailable MollisonSylvie MD Unavailable Unavailable MollisonSylvie MD Unavailable Unavailable MollisonSylvie MD Unavailable Unavailable MollisonSylvie MD Unavailable Unavailable MollisonSylvie MD Unavailable Unavailable Sylvie Jones MD Unavailable Unavailable Sylvie Jones MD Unavailable Unavailable Sylvie Jones MD Unavailable Unavailable Damaso MOSER MD Unavailable Unavailable Damaso MOSER MD Unavailable Unavailable Damaso MOSER MD Unavailable Unavailable Damaso MOSER MD Unavailable Unavailable Damaso MOSER MD Unavailable Unavailable Damaso MOSER MD Unavailable Unavailable Damaso MOSER MD Unavailable Unavailable Damaso MOSER MD Unavailable Unavailable Damaso MOSER MD Unavailable Unavailable Damaso MOSER MD Unavailable Unavailable Damaso MOSER MD Unavailable Unavailable Damaso MOSER MD Unavailable Unavailable Damaso MOSER MD Unavailable Unavailable Damaso MOSER MD Unavailable Unavailable Damaso MOSER MD Unavailable Unavailable Damaso MOSER MD Unavailable Unavailable Damaso MOSER MD Unavailable Unavailable Damaso MOSER MD Unavailable Unavailable Damaso MOSER MD Unavailable Unavailable Damaso MOSER MD Unavailable Unavailable Damaso MOSER MD Unavailable Unavailable Damaso MOSER MD Unavailable Unavailable Damaso MOSER MD Unavailable Unavailable Damaso MOSER MD Unavailable Unavailable Damaso MOSER MD Unavailable Unavailable Damaso MOSER MD Unavailable Unavailable Damaso MOSER MD Unavailable Unavailable Damaso MOSER MD Unavailable Unavailable Damaso MOSER MD Unavailable Unavailable Damaso MOSER MD Unavailable Unavailable Damaso MOSER MD Unavailable Unavailable Damaso MOSER MD Unavailable Unavailable Damaso MOSER MD Unavailable Unavailable Damaso MOSER MD Unavailable Unavailable Damaso MOSER MD Unavailable Unavailable Damaso MOSER MD Unavailable Unavailable Damaso MOSER MD Unavailable Unavailable Damaso MOSER MD Unavailable Unavailable Damaso MOSER MD Unavailable Unavailable Damaso MOSER MD Unavailable Unavailable Damaso MOSER MD Unavailable Unavailable Damaso MOSER MD Unavailable Unavailable Damaso MOSER MD Unavailable Unavailable Damaso MOSER MD Unavailable Unavailable Damaso MOSER MD Unavailable Unavailable Damaso MOSER MD Unavailable Unavailable Damaso MOSER MD Unavailable Unavailable Damaso MOSER MD Unavailable Unavailable Damaso MOSER MD Unavailable Unavailable Damaso MOSER MD Unavailable Unavailable Damaso MOSER MD Unavailable Unavailable Damaso MOSER MD Unavailable Unavailable Damaso MOSER MD Unavailable Unavailable Damaso MOSER MD Unavailable Unavailable Damaso MOSER MD Unavailable Unavailable Damaso MOSER MD Unavailable Unavailable Damaso MOSER MD Unavailable Unavailable Damaso MOSER MD Unavailable Unavailable Damaso MOSER MD Unavailable Unavailable Damaso MOSER MD Unavailable Unavailable Damaso MOSER MD Unavailable Unavailable Damaso MOSER MD Unavailable Unavailable Damaso MOSER MD Unavailable Unavailable Damaso MOSER MD Unavailable Unavailable Damaso MOSER MD Unavailable Unavailable Damaso MOSER MD Unavailable Unavailable Damaso MOSER MD Unavailable Unavailable Damaso MOSER MD Unavailable Unavailable Damaso MOSER MD Unavailable Unavailable Damaso MOSER MD Unavailable Unavailable Damaso MOSER MD Unavailable Unavailable Damaso MOSER MD Unavailable Unavailable Damaso MOSER MD Unavailable Unavailable Damaso MOSER MD Unavailable Unavailable Damaso MOSER MD Unavailable Unavailable Damaso MOSER MD Unavailable Unavailable Damaso MOSER MD Unavailable Unavailable Damaso MOSER MD Unavailable Unavailable Damaso MOSER MD Unavailable Unavailable Damaso MOSER MD Unavailable Unavailable Damaso MOSER MD Unavailable Unavailable Damaso MOSER MD Unavailable Unavailable Damaso MOSER MD Unavailable Unavailable LINDERELADIAIN RPA-C Unavailable Unavailable LINDERELADIA PETEY RPA-C Unavailable Unavailable LINDER, ELADIA PETEY RPA-C Unavailable Unavailable LINDER, ELADIA PETEY RPA-C Unavailable Unavailable LINDER, ELADIA PETEY RPA-C Unavailable Unavailable LINDER, ELADIA PETEY RPA-C Unavailable Unavailable LINDER, ELADIA PETEY RPA-C Unavailable Unavailable LINDER, ELADIA PETEY RPA-C Unavailable Unavailable LINDER, ELADIA PETEY RPA-C Unavailable Unavailable LINDER, ELADIA PETEY RPA-C Unavailable Unavailable LINDER, ELADIA PETEY RPA-C Unavailable Unavailable LINDER, ELADIA PETEY RPA-C Unavailable Unavailable LINDER, ELADIA PETEY RPA-C Unavailable Unavailable LINDER, ELADIA PETEY RPA-C Unavailable Unavailable LINDER, ELADIA PETEY RPA-C Unavailable Unavailable LINDER, ELADIA PETEY RPA-C Unavailable Unavailable LINDER, ELADIA PETEY RPA-C Unavailable Unavailable LINDER, ELADIA PETEY RPA-C Unavailable Unavailable LINDER, ELADIA PETEY RPA-C Unavailable Unavailable LINDER, ELADIA PETEY RPA-C Unavailable Unavailable LINDER, ELADIA PETEY RPA-C Unavailable Unavailable LINDER, ELADIA PETEY RPA-C Unavailable Unavailable LINDER, ELADIA PETEY RPA-C Unavailable Unavailable LINDER, ELADIA PETEY RPA-C Unavailable Unavailable LINDER, ELADIA PETEY RPA-C Unavailable Unavailable LINDER, ELADIA PETEY RPA-C Unavailable Unavailable LINDER, ELADIA PETEY RPA-C Unavailable Unavailable LINDER, ELADIA PETEY RPA-C Unavailable Unavailable LINDER, ELADIA PETEY RPA-C Unavailable Unavailable LINDER, ELADIA PETEY RPA-C Unavailable Unavailable LINDER, ELADIA PETEY RPA-C Unavailable Unavailable LINDER, ELADIA PETEY RPA-C Unavailable Unavailable LINDER, ELADIA PETEY RPA-C Unavailable Unavailable LINDER, ELADIA PETEY RPA-C Unavailable Unavailable LINDER, ELADIA PETEY RPA-C Unavailable Unavailable LINDER, ELADIA PETEY RPA-C Unavailable Unavailable LINDER, ELADIA PETEY RPA-C Unavailable Unavailable LIDNER, ELADIA PETEY RPA-C Unavailable Unavailable LINDER, ELADIA PETEY RPA-C Unavailable Unavailable Connie Lambert Unavailable [phone] Connie Lambert Unavailable [phone] [facility], RFROST LINDER PA PETEY Unavailable Unavailable Re-disclosure Warning The records that you are about to access may contain information from federally-assisted alcohol or drug abuse programs. If such information is present, then the following federally mandated warning applies: This information has been disclosed to you from records protected by federal confidentiality rules (42 CFR part 2). The federal rules prohibit you from making any further disclosure of this information unless further disclosure is expressly permitted by the written consent of the person to whom it pertains or as otherwise permitted by 42 CFR part 2. A general authorization for the release of medical or other information is NOT sufficient for this purpose. The Federal rules restrict any use of the information to criminally investigate or prosecute any alcohol or drug abuse patient.The records that you are about to access may contain highly sensitive health information, the redisclosure of which is protected by Article 27-F of the [facility] Public Health law. If you continue you may have access to information: Regarding HIV / AIDS; Provided by facilities licensed or operated by the [facility] Office of Mental Health; or Provided by the [facility] Office for People With Developmental Disabilities. If such information is present, then the following [facility] mandated warning applies: This information has been disclosed to you from confidential records which are protected by state law. State law prohibits you from making any further disclosure of this information without the specific written consent of the person to whom it pertains, or as otherwise permitted by law. Any unauthorized further disclosure in violation of state law may result in a fine or shelter sentence or both. A general authorization for the release of medical or other information is NOT sufficient authorization for further disc losure. Encounters Encounter Providers Location Date Indications Data Source(s ) Connie Lambert MD: [address], [place] [address], Ph. Attender: Connie Lambert [facility] 12/25/2020 12:00:00 AM ROGER OLIVEIRA ([facility]) Hafsa Merida LMSW: [address], [place] [address], Ph. Attender: Hafsa Merida [facility] 12/21/2020 12:00:00 AM EST TEE ([facility]) Hafsa Merida LMSW: [address], [place] [address], Ph. Attender: Hafsa Merida [facility] 12/21/2020 12:00:00 AM EST TEE ([facility]) Radha German, NPP: [address], [place] [address], Ph. Attender: RADHA GERMAN NP [facility] 12/11/2020 12:00:00 AM EST TEE ([facility]) Radha German NPP: [address], [place] [address], Ph. Attender: RADHA GERMAN NP [facility] 12/11/2020 12:00:00 AM EST TEE ([facility]) Radha German NPP: [address], [place] [address], Ph. Attender: RADHA GERMAN NP [facility] 12/11/2020 12:00:00 AM EST TEE ([facility]) SNEHAL BarajasC: [address], [facility] [place] [address], Ph. Attender: Loraine KRAUS [facility] 12/07/2020 12:00:00 AM EST TEE ([facility]) Hafsa Merida, [facility]: [address], [place] [address], Ph. Attender: Hafsa Merida [facility] 12/07/2020 12:00:00 AM EST TEE ([facility]) SNEHAL BarajasC: [address], [place] [address], Ph. Attender: Loraine KRAUS [facility] 12/07/2020 12:00:00 AM EST TEE ([facility]) Hafsa Merida, NETWORK ACCOUNT MANAGER: [address], [place] [address], Ph. Attender: Hafsa Pablocarl [facility] 12/07/2020 12:00:00 AM EST TEE ([facility]) Loraine Marie PA-C: [address], [place] [address], Ph. Attender: Loraine KRAUS [facility] 12/07/2020 12:00:00 AM EST TEE ([facility]) Hafsa Merida, NETWORK ACCOUNT MANAGER: [address], [place] [address], Ph. Attender: Hafsa Merida [facility] 12/07/2020 12:00:00 AM EST TEE ([facility]) Loraine Marie PA-C: [address], [place] [address], Ph. Attender: Loraine KRAUS [facility] 12/07/2020 12:00:00 AM EST TEE ([facility]) Hafsa Merida, NETWORK ACCOUNT MANAGER: [address], [place] [address], Ph. Attender: Hafsa Pablocarl [facility] 12/07/2020 12:00:00 AM EST TEE ([facility]) Loraine Marie PA-C: [address], [place] [address], Ph. Attender: Loraine KRAUS [facility] 12/07/2020 12:00:00 AM EST TEE ([facility]) Hafsa Merida, NETWORK ACCOUNT MANAGER: [address], [place] [address], Ph. Attender: Hafsa Merida [facility] 12/07/2020 12:00:00 AM EST TEE ([facility]) Hafsa Merida, NETWORK ACCOUNT MANAGER: [address], [place] [address], Ph. Attender: Hafsa Merida [facility] 11/30/2020 12:00:00 AM EST TEE ([facility]) Loraine Marie PA-C: [address], [place] [address], Ph. Attender: Loraine KRAUS [facility] Medical 11/30/2020 12:00:00 AM EST TEE ([facility]) Hafsa Merida, NETWORK ACCOUNT MANAGER: [address], [place] [address], Ph. Attender: Hafsa Pablocarl [facility] 11/30/2020 12:00:00 AM EST TEE ([facility]) SNEHAL BarajasC: [address], [place] [address], Ph. Attender: Loraine KRAUS [facility] Medical 11/30/2020 12:00:00 AM EST TEE ([facility]) Hafsa Merida, NETWORK ACCOUNT MANAGER: [address], [place] [address], Ph. Attender: Hafsa Merida [facility] 11/30/2020 12:00:00 AM EST TEE ([facility]) Loraine Marie PA-C: [address], [place] [facility] [place] [address], Ph. Attender: Loraine [facility] Medical 11/30/2020 12:00:00 AM EST TEE ([facility]) Hafsa Merida, NETWORK ACCOUNT MANAGER: [address], [place] [address], Ph. Attender: Hafsajeff Merida [facility] Medical 11/30/2020 12:00:00 AM EST TEE ([facility]) Loraine Marie PA-C: [address], [place] [address], Ph. Attender: Loraine [facility] Medical 11/30/2020 12:00:00 AM EST TEE ([facility]) Hafsa Fuad, NETWORK ACCOUNT MANAGER: [address], [place] [address], Ph. Attender: Hafsa Merida [facility] Medical 11/30/2020 12:00:00 AM EST TEE ([facility]) Loraine Marie PA-C: [address], [place] [address], Ph. Attender: Loraine [facility] Medical 11/30/2020 12:00:00 AM EST TEE ([facility]) Hafsajeff Merida, NETWORK ACCOUNT MANAGER: [address], [place] [address], Ph. Attender: Hafsa Merida [facility] Medical 11/30/2020 12:00:00 AM EST TEE ([facility]) Loraine Marie PA-C: [address], [place] [address], Ph. Attender: Loraine KRAUS [facility] Medical 11/30/2020 12:00:00 AM EST TEE ([facility]) Hafsa Merida, [facility]: [address], [address], [place] [address], Ph. Attender: Hafsa Pablocarl [facility] Medical 11/30/2020 12:00:00 AM EST TEE ([facility]) Loraine Marie PA-C: [address], [place] [address], Ph. Attender: Loraine KRAUS [facility] Medical 11/30/2020 12:00:00 AM EST TEE ([facility]) Loraine Marie PA-C: [address], [place] [address], Ph. Attender: Loraine KRAUS [facility] Medical 11/27/2020 12:00:00 AM EST TEE ([facility]) Loraine Marie PA-C: [address], [address], [place] [address], Ph. Attender: Loraine KRAUS [facility] Medical 11/27/2020 12:00:00 AM EST TEE ([facility]) Loraine Marie PA-C: [address], [address], [place] [address], Ph. Attender: Loraine KRAUS [facility] Medical 11/27/2020 12:00:00 AM EST TEE ([facility]) Loraine Marie PA-C: [address], [address], [place] [address], Ph. Attender: Loraine KRAUS [facility] Medical 11/27/2020 12:00:00 AM EST TEE ([facility]) Loraine Marie PA-C: [address], [address], [place] [address], Ph. Attender: Loraine KRAUS [facility] Medical 11/27/2020 12:00:00 AM EST TEE ([facility]) Loraine Marie PA-C: [address], [address], [place] [address], Ph. Attender: Loraine KRAUS [facility] Medical 11/27/2020 12:00:00 AM EST TEE ([facility]) Loraine Marie PA-C: [address], [address], [place] [address], Ph. Attender: Loraine KRAUS [facility] Medical 11/27/2020 12:00:00 AM EST TEE ([facility]) Loraine Marie PA-C: [address], [address], [place] [address], Ph. Attender: Loraine KRAUS [facility] Medical 11/27/2020 12:00:00 AM EST TEE ([facility]) Hafsa Merida LMSW: [address], [place] [address], Ph. Attender: Hafsa Merida [facility] Medical 11/06/2020 12:00:00 AM EST TEE ([facility]) Hafsa Merida, NETWORK ACCOUNT MANAGER: [address], [place] [address], Ph. Attender: Hafsa Merida [facility] Medical 11/06/2020 12:00:00 AM EST TEE ([facility]) Hafsa Merida, NETWORK ACCOUNT MANAGER: [address], [place] [address], Ph. Attender: Hafsa Merida [facility] Medical 11/06/2020 12:00:00 AM EST TEE ([facility]) Hafsa Merida, NETWORK ACCOUNT MANAGER: [address], [address], [place] [address], Ph. Attender: Hafsa Merida [facility] Medical 11/06/2020 12:00:00 AM EST TEE ([facility]) Hafsa Merida, NETWORK ACCOUNT MANAGER: [address], [place] [address], Ph. Attender: Hafsa Merida [facility] Medical 11/06/2020 12:00:00 AM EST TEE ([facility]) Hafsa Merida, NETWORK ACCOUNT MANAGER: [address], [place] [address], Ph. Attender: Hafsa Merida [facility] Medical 11/06/2020 12:00:00 AM EST TEE ([facility]) Hafsa Merida, NETWORK ACCOUNT MANAGER: [address], [place] [address], Ph. Attender: Hafsa Merida [facility] Medical 11/06/2020 12:00:00 AM EST TEE ([facility]) Hafsa Merida, NETWORK ACCOUNT MANAGER: [address], [place] [address], Ph. Attender: Hafsa Merida [facility] Medical 11/06/2020 12:00:00 AM EST TEE ([facility]) Hafsa Merida, [facility]: [address], [address], [place] [address], Ph. Attender: Hafsa Merida [facility] Medical 11/06/2020 12:00:00 AM EST TEE ([facility]) Hafsa Merida [facility]: [address], [place] [address], Ph. Attender: Hafsa Merida [facility] Medical 11/06/2020 12:00:00 AM EST TEE ([facility]) Petey Linder RPA-C: [address], [address], [place] [address], Ph. Attender: PETEY LINDER RPA-C [facility] Medical 11/02/2020 12:00:00 AM EST TEE ([facility]) Petey Linder RPA-C: [address], [place] [address], Ph. Attender: PETEY LINDER RPA-C [facility] Medical 11/02/2020 12:00:00 AM EST TEE ([facility]) Petey Linder RPA-C: [address], [address], [place] [address], Ph. Attender: PETEY LINDER RPA-C [facility] Medical 11/02/2020 12:00:00 AM EST TEE ([facility]) Petey Linder RPA-C: [address], [place] [address], Ph. Attender: PETEY LINDER RPA-C [facility] Medical 11/02/2020 12:00:00 AM EST TEE ([facility]) Petey Linder RPA-C: [address], [address], [place] [address], Ph. Attender: PETEY LINDER RPA-C [facility] Medical 11/02/2020 12:00:00 AM EST TEE ([facility]) Petey Linder RPA-C: [address], [address], [place] [address], Ph. Attender: PETEY LINDER RPA-C [facility] Medical 11/02/2020 12:00:00 AM EST TEE ([facility]) Petey Linder RPA-C: [address], [place] [address], Ph. Attender: PETEY LINDER RPA-C [facility] Medical 11/02/2020 12:00:00 AM EST TEE ([facility]) Petey Linder RPA-C: [address], [place] [address], Ph. Attender: PETEY LINEDR RPA-C [facility] Medical 11/02/2020 12:00:00 AM EST TEE ([facility]) Petey D Linder, RPA-C: [address], [address], [place] [address], Ph. Attender: PETEY LINDER RPA-C [facility] Medical 11/02/2020 12:00:00 AM EST TEE ([facility]) Petey Linder RPA-C: [address], [address], [place] [address], Ph. Attender: PETEY LINDER RPA-C [facility] Medical 11/02/2020 12:00:00 AM EST TEE ([facility]) Melecio Qiu MD: [address] [place] [address], Ph. Attender: Melecio Qiu MD [facility] Medical 11/01/2020 12:00:00 AM EST TEE ([facility]) Melecio Qiu MD: [address] [place] [address], Ph. Attender: Melecio Qiu MD [facility] Medical 11/01/2020 12:00:00 AM EST TEE ([facility]) Melecio Qiu MD: [address] [place] [address], Ph. Attender: Melecio Qiu MD [facility] Medical 11/01/2020 12:00:00 AM EST TEE ([facility]) Melecio Qiu MD: [address] [place] [address], Ph. Attender: Melecio Qiu MD [facility] Medical 11/01/2020 12:00:00 AM EST TEE ([facility]) Melecio Qiu MD: [address] [place] [address], Ph. Attender: Melecio Qiu MD [facility] Medical 11/01/2020 12:00:00 AM EST TEE ([facility]) Melecio Qiu MD: [address] [place] [address], Ph. Attender: Melecio Qiu MD [facility] Medical 11/01/2020 12:00:00 AM EST TEE ([facility]) Melecio Qiu MD: [address] [place] [address], Ph. Attender: Melecio Qiu MD [facility] Medical 11/01/2020 12:00:00 AM EST TEE ([facility]) Melecio Qiu MD: [address] [place] [address], Ph. Attender: Melecio Qiu MD [facility] Medical 11/01/2020 12:00:00 AM EST TEE ([facility]) Melecio Qiu MD: [address] [place] [address], Ph. Attender: Melecio Qiu MD [facility] Medical 11/01/2020 12:00:00 AM EST TEE ([facility]) Melecio Qiu MD: [address] [place] [address], Ph. Attender: Melecio Qiu MD [facility] Medical 11/01/2020 12:00:00 AM EST TEE ([facility]) Melecio Qiu MD: [address] [place] [address], Ph. Attender: Melecio Qiu MD [facility] Medical 11/01/2020 12:00:00 AM EST TEE ([facility]) Hafsa Merida, NETWORK ACCOUNT MANAGER: [address], [address], [place] [address], Ph. Attender: Hafsa Merida [facility] Medical 10/12/2020 12:00:00 AM EST TEE ([facility]) Petey Linder RPA-C: [address], [address], [place] [address], Ph. Attender: PETEY LINDER RPA-C [facility] Medical 10/12/2020 12:00:00 AM EST TEE ([facility]) Hafsa Merida, NETWORK ACCOUNT MANAGER: [address], [address], [place] [address], Ph. Attender: Hafsa Pablocarl [facility] Medical 10/12/2020 12:00:00 AM EST TEE ([facility]) Petey Linder RPA-C: [address], [address], [place] [address], Ph. Attender: PETEY LINDER RPA-C [facility] Medical 10/12/2020 12:00:00 AM EST TEE ([facility]) Hafsa Merida, [facility]: [address], [address], [place] [address], Ph. Attender: Hafsa Pablocarl [facility] Medical 10/12/2020 12:00:00 AM EST TEE ([facility]) Petey Linder RPA-C: [address], [address], [place] [address], Ph. Attender: PETEY LINDER RPA-C [facility] Medical 10/12/2020 12:00:00 AM EST TEE ([facility]) Hafsa Merida, NETWORK ACCOUNT MANAGER: [address], [address], [place] [address], Ph. Attender: Hafsa Shahcarl [facility] Medical 10/12/2020 12:00:00 AM EST TEE ([facility]) Petey Linder RPA-C: [address], [address], [place] [address], Ph. Attender: PETEY LINDER RPA-C [facility] Medical 10/12/2020 12:00:00 AM EST TEE ([facility]) Hafsa Merida, NETWORK ACCOUNT MANAGER: [address], [address], [place] [address], Ph. Attender: Hafsa Shahcarl [facility] Medical 10/12/2020 12:00:00 AM EST TEE ([facility]) Petey Linder RPA-C: [address], [address], [place] [address], Ph. Attender: PETEY LINDER RPA-C [facility] Medical 10/12/2020 12:00:00 AM EST TEE ([facility]) Hafsa Merida, NETWORK ACCOUNT MANAGER: [address], [address], [place] [address], Ph. Attender: Hafsa Pablocarl [facility] Medical 10/12/2020 12:00:00 AM EST TEE ([facility]) ePtey Linder RPA-C: [address], [address], [place] [address], Ph. Attender: PETEY LINDER RPA-C [facility] Medical 10/12/2020 12:00:00 AM EST TEE ([facility]) Hafsa Merida, NETWORK ACCOUNT MANAGER: [address], [address], [place] [address], Ph. Attender: Hafsa Merida [facility] Medical 10/12/2020 12:00:00 AM EST TEE ([facility]) Petey Linder RPA-C: [address], [address], [place] [address], Ph. Attender: PETEY LINDER RPA-C [facility] Medical 10/12/2020 12:00:00 AM EST TEE ([facility]) Hafsa Merida, NETWORK ACCOUNT MANAGER: [address], [address], [place] [address], Ph. Attender: Hafsa Merida [facility] Medical 10/12/2020 12:00:00 AM EST TEE ([facility]) Petey Linder RPA-C: [address], [address], [place] [address], Ph. Attender: PETEY LINDER RPA-C [facility] Medical 10/12/2020 12:00:00 AM EST TEE ([facility]) Hafsa Merida, NETWORK ACCOUNT MANAGER: [address], [address], [place] [address], Ph. Attender: Hafsa Merida [facility] Medical 10/12/2020 12:00:00 AM EST TEE ([facility]) Petey Linder RPA-C: [address], [address], [place] [address], Ph. Attender: PETEY LINDER RPA-C [facility] Medical 10/12/2020 12:00:00 AM EST TEE ([facility]) Hafsa Merida, NETWORK ACCOUNT MANAGER: [address], [address], [place] [address], Ph. Attender: Hafsa Merida [facility] Medical 10/12/2020 12:00:00 AM EST TEE ([facility]) Petey Linder RPA-C: [address], [address], [place] [address], Ph. Attender: PETEY LINDER RPA-C [facility] Medical 10/12/2020 12:00:00 AM EST TEE ([facility]) Hafsa Merida, NETWORK ACCOUNT MANAGER: [address], [place] [address], Ph. Attender: Hafsa Merida [facility] Medical 10/12/2020 12:00:00 AM EST TEE ([facility]) Petey Linder RPA-C: [address], [address], [place] [address], Ph. Attender: PETEY LINDER RPA-C [facility] Medical 10/12/2020 12:00:00 AM EST TEE ([facility]) Hafsa Merida, NETWORK ACCOUNT MANAGER: [address], [address], [place] [address], Ph. Attender: Hafsa Merida [facility] Medical 10/12/2020 12:00:00 AM EST TEE ([facility]) Petey Linder RPA-C: [address], [address], [place] [address], Ph. Attender: PETEY LINDER RPA-C [facility] Medical 10/12/2020 12:00:00 AM EST TEE ([facility]) Petey Linder RPA-C: [address], [place] [address], Ph. Attender: PETEY LINDER RPA-C [facility] 10/12/2020 12:00:00 AM EST TEE ([facility]) Outpatient Attender: RFROST LINDER NAYANA [facility] 08/23 08:01:03 PM EDT [facility] Outpatient Attender: RFROST LINDER PA [facility] 08/23 05:20:02 PM EDT [facility] Outpatient Attender: RFROST LINDER PA [facility] 08/23 05:10:59 PM EDT [facility] Outpatient Attender: RFROST LINDER PA [facility] 08/23 04:31:01 PM EDT [facility] Outpatient Attender: RFROST LINDER PA [facility] 07/2020 10:34:01 AM EDT [facility] Outpatient Attender: RFROST LINDER PA [facility] 12/2019 02:57:01 PM EDT [facility] Outpatient Attender: RFROST LINDER PA [facility] 12/2019 02:55:02 PM EDT [facility] Outpatient Attender: PETEY LINDER RPA-C [facility] 08/22/2020 04:28:02 PM EDT [facility] Outpatient Attender: RFROST LINDER PA [facility] 07/24 09:28:00 AM EDT [facility] Outpatient Attender: RFROST LINDER PA [facility] 07/24 08:01:05 PM EDT [facility] Outpatient Attender: PETEY NUNOST RPA-C [facility] 08/03/2020 09:48:01 AM EDT [facility] Outpatient Attender: RFROST LINDER PA [facility] 07/24 08:05:01 AM EDT [facility] Outpatient Attender: PETEY LINDER RPA-C 08/02/2020 03:45:01 PM EDT [facility] Outpatient Attender: PETEY LINDER RPA-C 08/02/2020 03:41:00 PM EDT [facility] Outpatient Attender: SANDRA LINDER NAYANA [facility] FP 08/02/2020 02:50:48 PM EDT [facility] Outpatient Attender: PETEY LINDER RPA-C FP 07/31/2020 08:01:07 PM EDT [facility] Outpatient Attender: PETEY LINDER RPA-C FP 07/27/2020 03:49:00 PM EDT [facility] Outpatient Attender: SANDRA KEYS COMPA FP 07/09/2020 11:58:02 AM EDT [facility] Outpatient Attender: PETEY LINDER RPA-C FP 07/06/2020 12:34:01 PM EDT [facility] Outpatient Attender: Melecio Liu/Carisa/Taran/Re indl 06/28/2020 09:40:00 AM EDT [facility] Outpatient Attender: SANDRA LINDER NAYANA PETEY COMPA FP 05/18/2020 08:01:06 PM EDT [facility] Outpatient Attender: PETEY LINDER RPA-C FP 05/18/2020 08:01:03 PM EDT [facility] Outpatient Attender: SANDRA KEYS COMPA FP 05/18/2020 01:11:00 PM EDT [facility] Outpatient Attender: PETEY LINDER RPA-C FP 05/18/2020 01:02:00 PM EDT [facility] Outpatient 05/18/2020 11:35:00 AM EDT [facility] Outpatient Attender: Melecio Qiu MD FP 05/17/2020 01:44:00 PM EDT [facility] Outpatient Attender: Melecio Liu/Carisa/Taran/Re indl 05/15/2020 02:00:00 PM EDT [facility] ([facility]) Outpatient Attender: Melecio Qiu MD FP 05/15/2020 09:08:01 AM EDT [facility] Outpatient Attender: Melecio Qiu MD FP 05/14/2020 04:11:00 PM EDT [facility] Outpatient Attender: Melecio Qiu MD FP 05/11/2020 11:21:00 AM EDT [facility] Outpatient Attender: Melecio Qiu MD FP 05/03/2020 03:41:01 PM EDT [facility] Outpatient Attender: Melecio Qiu MD FP 05/01/2020 08:01:04 PM EDT [facility] Outpatient Attender: Melecio Qiu MD FP 05/01/2020 09:37:01 AM EDT [facility] Outpatient Attender: Melecio Qiu MD FP 04/30/2020 04:58:01 PM EDT [facility] Outpatient Attender: Melecio Qiu MD FP 04/13/2020 11:23:59 AM EDT [facility] Outpatient Attender: Melecio Qiu MD FP 04/11/2020 02:04:00 PM EDT [facility] Outpatient Attender: Melecio Qiu MD FP 03/29/2020 03:42:00 PM EDT [facility] Outpatient Attender: Melecio Qiu MD FP 03/29/2020 01:58:01 PM EDT [facility] Outpatient Attender: Melecio Qiu MD FP 03/29/2020 01:08:00 PM EDT [facility] Outpatient Attender: Melecio Qiu MD FP 03/12/2020 08:01:03 PM EDT [facility] Outpatient Attender: Melecio Qiu MD FP 03/12/2020 08:01:02 PM EDT [facility] Outpatient Attender: Melecio Qiu MD FP 03/12/2020 10:33:01 AM EDT [facility] Outpatient Attender: Melecio Qiu MD FP 03/05/2020 04:15:01 PM EDT [facility] Outpatient Attender: Melecio Qiu MD FP 03/05/2020 12:16:01 PM EDT [facility] Outpatient Attender: Melecio Qiu MD FP 03/01/2020 03:25:00 PM EDT [facility] Outpatient Attender: Melecio Qui MD FP 02/23/2020 11:12:00 AM EDT [facility] Outpatient Attender: Melecio Qiu MD FP 02/10/2020 04:30:04 PM EDT [facility] Outpatient Attender: Mleecio Qiu MD FP 02/08/2020 10:32:01 AM EDT [facility] Outpatient Attender: Melecio Qiu MD FP 02/07/2020 10:43:01 AM EDT [facility] Outpatient Attender: Melecio Qiu MD FP 02/07/2020 10:21:01 AM EDT [facility] Outpatient Attender: Melecio Qiu MD FP 02/03/2020 09:18:03 AM [facility] Outpatient Attender: Melecio Qiu MD FP 01/30/2020 09:32:01 AM [facility] Outpatient Attender: Melecio Qiu MD 01/20/2020 10:22:01 AM [facility] Outpatient Attender: Melecio Qiu MD 01/20/2020 09:57:01 AM [facility] Outpatient Attender: Melecio Qiu MD 01/18/2020 11:39:02 AM [facility] Outpatient Attender: Melecio Qiu MD 01/18/2020 10:39:01 AM [facility] Outpatient Attender: Melecio Qiu MD 01/16/2020 03:30:01 PM [facility] Outpatient Attender: GUERA MOSER MD 01/10/2020 11:54:02 A [facility] Outpatient Attender: GUERA MOSER MD 01/10/2020 11:54:01 A [facility] Outpatient Attender: GUERA MOSER MD 01/10/2020 10:44:01 A [facility] Outpatient Attender: GUERA MOSER MD 01/06/2020 09:28:07 A [facility] Outpatient Attender: GUERA MOSER MD 01/06/2020 09:25:28 A [facility] Outpatient Attender: GUERA MOSER MD 01/06/2020 09:16:55 A [facility] Outpatient Attender: GUERA MOSER MD 01/04/2020 01:51:00 P [facility] Outpatient Attender: GUERA MOSER MD 12/29/2019 06:03:59 P [facility] Outpatient Attender: GUERA MOSER MD 12/29/2019 06:03:01 P [facility] Outpatient Attender: GUERA MOSER MD 12/28/2019 11:23:00 A [facility] Outpatient Attender: GUERA MOSER MD 12/26/2019 03:57:01 P [facility] Outpatient Attender: GUERA MOSER MD 12/26/2019 01:32:11 P [facility] Outpatient Attender: GUERA MOSER MD 12/21/2019 04:46:02 P M EST [facility] Outpatient Attender: GUERA MOSER MD FP 12/21/2019 04:45:02 P Outpatient Attender: GUERA MOSER MD FP 12/20/2019 03:50:01 P Outpatient Attender: GUERA MOSER MD FP 12/13/2019 10:37:01 A [facility] Outpatient Attender: GUERA MOSER MD FP 12/12/2019 02:52:00 P Outpatient Attender: GUERA MOSER MD FP 12/07/2019 02:07:00 P Outpatient Attender: GUERA MOSER MD FP 11/18/2019 03:42:01 P Immunizations Vaccine Date Status Description Data Source(s) New in 2011. IIV4 08/22/2020 12:00:00 AM EDT completed .5 mL TEE ([facility]) New in 2011. IIV4 12/28/2019 12:00:00 AM EST completed .5 mL TEE ([facility]) New in 2011. IIV4 12/28/2019 12:00:00 AM EST completed .5 mL TEE ([facility]) New in 2011. IIV4 12/28/2019 12:00:00 AM EST completed .5 mL TEE ([facility]) New in 2011. IIV4 12/28/2019 12:00:00 AM EST completed .5 mL TEE ([facility]) New in 2011. IIV4 12/28/2019 12:00:00 AM EST completed .5 mL TEE ([facility]) New in 2011. IIV4 12/28/2019 12:00:00 AM EST completed .5 mL TEE ([facility]) New in 2011. IIV4 12/28/2019 12:00:00 AM EST completed .5 mL TEE ([facility]) New in 2011. IIV4 12/28/2019 12:00:00 AM EST completed 0.5 mL TEE ([facility]) New in 2011. IIV4 12/28/2019 12:00:00 AM EST completed 0.5 mL TEE ([facility]) New in 2011. IIV4 12/28/2019 12:00:00 AM EST completed 0.5 mL TEE ([facility]) New in 2011. IIV4 12/28/2019 12:00:00 AM EST completed 0.5 mL TEE ([facility]) New in 2011. IIV4 12/28/2019 12:00:00 AM EST completed 0.5 mL TEE ([facility]) New in 2011. IIV4 12/28/2019 12:00:00 AM EST completed 0.5 mL TEE ([facility]) This CVX code allows reporting of a vacc ination when formulation is unknown (for example, when recording a Influenza vaccination when noted on a vaccination card) 12/21/2019 12:00:00 AM EST completed 12/21/2019 NATE Christensen ([facility]) This CVX code allows reporting of a vacc ination when formulation is unknown (for example, when recording a Influenza vaccination when noted on a vaccination card) 12/21/2019 12:00:00 AM EST completed 12/21/2019 NATE Christensen ([facility]) This CVX code allows reporting of a vacc ination when formulation is unknown (for example, when recording a Influenza vaccination when noted on a vaccination card) 12/21/2019 12:00:00 AM EST completed 12/21/2019 NATE Christensen ([facility]) This CVX code allows reporting of a vacc ination when formulation is unknown (for example, when recording a Influenza vaccination when noted on a vaccination card) 12/21/2019 12:00:00 AM EST completed 12/21/2019 NATE Christensen ([facility]) This CVX code allows reporting of a vacc ination when formulation is unknown (for example, when recording a Influenza vaccination when noted on a vaccination card) 12/21/2019 12:00:00 AM EST completed 12/21/2019 [facility] ([facility]) This CVX code allows reporting of a vacc ination when formulation is unknown (for example, when recording a Influenza vaccination when noted on a vaccination card) 12/21/2019 12:00:00 AM EST completed 12/21/2019 [facility] ([facility]) This CVX code allows reporting of a vacc ination when formulation is unknown (for example, when recording a Influenza vaccination when noted on a vaccination card) 12/21/2019 12:00:00 AM EST completed 12/21/2019 [facility] ([facility]) This CVX code allows reporting of a vacc ination when formulation is unknown (for example, when recording a Influenza vaccination when noted on a vaccination card) 12/21/2019 12:00:00 AM EST completed 12/21/2019 [facility]) This CVX code allows reporting of a vacc ination when formulation is unknown (for example, when recording a Influenza vaccination when noted on a vaccination card) 12/21/2019 12:00:00 AM EST completed 12/21/2019 [facility] ([facility]) This CVX code allows reporting of a vacc ination when formulation is unknown (for example, when recording a Influenza vaccination when noted on a vaccination card) 12/21/2019 12:00:00 AM EST completed 12/21/2019 [facility] ([facility]) This CVX code allows reporting of a vacc ination when formulation is unknown (for example, when recording a Influenza vaccination when noted on a vaccination card) 12/21/2019 12:00:00 AM EST completed 12/21/2019 [facility] ([facility]) This CVX code allows reporting of a vacc ination when formulation is unknown (for example, when recording a Influenza vaccination when noted on a vaccination card) 12/21/2019 12:00:00 AM EST completed 12/21/2019 [facility] ([facility]) This CVX code allows reporting of a vacc ination when formulation is unknown (for example, when recording a Influenza vaccination when noted on a vaccination card) 12/21/2019 12:00:00 AM EST completed 12/21/2019 [facility] ([facility]) Medications Medication Brand Name Start Date Product Form Dose Route Admi nistrative Instructions Pharmacy Instructions Status Indications Reaction Description Data Source(s) 0.5 mg (11)- 1 mg (42) 02/10/2020 12:00:00 AM EDT tablets,do se pack 53 USE DIRECTED USE DIRECTED SOLD: 02/11/2020 [facility] 0.05 % 02/01/2020 12:00:00 AM EDT ointment 75 APPLY LOCALLY TO RASH UP TO TWO TIMES A DAY, RUB N OINTMENT APPLY LOCALLY TO RASH UP TO TWO TIMES A DAY, RUB N OINTMENT SOLD: 02/03/2020 [facility] 50 mg 01/31/2020 12:00:00 AM EDT capsule 60 TAKE ONE CAPSULE BY MOUTH UP TO THREE TIMES A DAY NEEDED FOR BREAKTHROUGH RASH TAKE ONE CAPSULE BY MOUTH UP TO THREE TIMES A DAY NEEDED FOR BREAKTHROUGH RASH SOLD: 02/03/2020 [facility] 10 mg 01/21/2020 12:00:00 AM EST tablet 30 TAKE ONE TABLET BY MOUTH EVERY DAY NEEDED BREAK THROUGH RASH TAKE ONE TABLET BY MOUTH EVERY DAY NE EDED BREAK THROUGH RASH SOLD: 01/22/2020 [facility] Escitalopram 20 MG Oral Tablet ESCITALOPRAM OXALATE 01/18/2020 1 2:00:00 AM EST tablet 30 TAKE ONE TABLET BY MOUTH EVERY D AY TAKE ONE TABLET BY MOUTH EVERY DAY SOLD: 01/22/2020 [facility] 75 mg 01/07/2020 12:00:00 AM EST capsule 7 TAKE ONE CAPSULE BY MOUTH EVERY DAY FOR 7 DAYS TAKE ONE CAPSULE BY MOUTH EVERY DAY FOR 7 DAYS SOLD: 020 [facility] montelukast 10 MG Oral Tablet MONTELUKAST SODIUM 01/05/2020 12:0 0:00 AM EST tablet 30 TAKE ONE TABLET BY MOUTH EVERY D AY TAKE ONE TABLET BY MOUTH EVERY DAY SOLD: 01/05/2020 [facility] montelukast 10 MG Oral Tablet MONTELUKAST SODIUM 01/05/2020 12:0 0:00 AM EST tablet 30 TAKE ONE TABLET BY MOUTH EVERY D AY TAKE ONE TABLET BY MOUTH EVERY DAY SOLD: 02/04/2020 [facility] 10 mg 01/05/2020 12:00:00 AM EST tablet 30 TAKE FOUR TABLETS BY MOUTH ONCE DAILY, DECREASE BY 1 TABLET EVERY 3 DAYS TAKE FOUR TABLETS BY MOUTH ONCE DAILY, DECREASE BY 1 TABLET EVERY 3 DAYS SOLD: 01/05/2020 [facility] Escitalopram 20 MG Oral Tablet ESCITALOPRAM OXALATE 12/27/2019 1 2:00:00 AM EST tablet 30 TAKE ONE TABLET BY MOUTH EVERY D AY TAKE ONE TABLET BY MOUTH EVERY DAY SOLD: 12/28/2019 [facility] 1 mg 12/14/2019 12:00:00 AM EST tablet 56 USE A S DIRECTED USE DIRECTED SOLD: 12/14/2019 [facility] 5 mg 11/24/2019 12:00:00 AM EST tablet 15 TAKE ONE-HALF TABLET BY MOUTH EVERY DAY FOR 3 DAYS ONCE 10MG TABLETS ARE DONE TAKE ONE-HALF TABLET BY MOUTH EVERY DAY FOR 3 DAYS ONCE 10MG TABLETS ARE DONE SOLD: 11/24/2019 [facility] 10 mg 11/24/2019 12:00:00 AM EST tablet 20 TAKE THREE TABLETS BY MOUTH EVERY DAY FOR 3 DAYS THEN 2 FOR 3 DAYS THEN 1 FOR 3 DAYS THEN TAKE ONE-HALF TABLET FOR 3 DAYS TAKE THREE TABLETS BY MOUTH EVERY DAY FO R 3 DAYS THEN 2 FOR 3 DAYS THEN 1 FOR 3 DAYS THEN TAKE ONE-HALF TABLET FOR 3 DAYS SOLD: 11/24/2019 [facility] Escitalopram 10 MG Oral Tablet ESCITALOPRAM OXALATE 11/08/2019 1 2:00:00 AM EST tablet 30 TAKE ONE TABLET BY MOUTH EVERY D AY TAKE ONE TABLET BY MOUTH EVERY DAY SOLD: 12/10/2019 [facility] 24 HR Amphetamine aspartate 2.5 MG / Amp hetamine Sulfate 2.5 MG / Dextroamphetamine saccharate 2.5 MG / Dextroamphetamine Sulfate 2.5 MG Extended Release Oral Capsule dextroamphetamine-amphetamine ER 10 mg 24hr capsule,extend release dextroamphetamine-amphetamine ER 10 mg 24hr capsule,extend relea se completed 24 HR amph etamine aspartate 2.5 MG / amphetamine sulfate 2.5 MG / dextroamphetamine saccharate 2.5 MG / dextroamphetamine sulfate 2.5 MG Extended Release Oral Capsule TEE ([facility]) Amoxicillin 875 MG / Clavulanate 125 MG Oral Tablet amoxicillin 875 mg-potassium clavulanate 125 mg tablet amoxicillin 875 mg-potassium clavulanate 125 mg tablet completed amoxicillin 875 MG / clavulanate 125 MG Oral Tablet TEE ([facility]) Niacin 500 MG Oral Tablet niacin 500 mg tablet niacin 500 mg tablet completed niacin 500 MG Oral Tablet TEE ([facility]) 24 HR venlafaxine 75 MG Extended Release Oral Capsule venlafaxine ER 75 mg capsule,extended release 24 hr venlafaxine ER 75 mg capsule,extended re lease 24 hr completed 24 HR v enlafaxine 75 MG Extended Release Oral Capsule TEE ([facility]) Escitalopram 20 MG Oral Tablet escitalopram 20 mg tabl et escitalopram 20 mg tablet completed escitalopram 20 MG Oral Tablet [facility] ([facility]) Escitalopram 20 MG Oral Tablet escitalopram 20 mg tabl et escitalopram 20 mg tablet completed escitalopram 20 MG Oral Tablet [facility] ([facility]) Prednisone 5 MG Oral Tablet prednisone 5 mg tablet prednisone 5 mg ta blet completed prednisone 5 MG Oral Tablet [facility] ([facility]) 24 HR Amphetamine aspartate 2.5 MG / Amp hetamine Sulfate 2.5 MG / Dextroamphetamine saccharate 2.5 MG / Dextroamphetamine Sulfate 2.5 MG Extended Release Oral Capsule dextroamphetamine-amphetamine ER 10 mg 24hr capsule,extend release dextroamphetamine-amphetamine ER 10 mg 24hr capsule,extend relea se completed 24 HR amph etamine aspartate 2.5 MG / amphetamine sulfate 2.5 MG / dextroamphetamine saccharate 2.5 MG / dextroamphetamine sulfate 2.5 MG Extended Release Oral Capsule TEE ([facility]) Azithromycin 250 MG Oral Tablet azithromycin 250 mg ta blet azithromycin 250 mg tablet completed azithromycin 25 0 MG Oral Tablet [facility] ([facility]) lisdexamfetamine dimesylate 30 MG Oral Capsule [Vyvans e] Vyvanse 30 mg capsule Vyvanse 30 mg capsule completed lisdexamfetamine dimesylate 30 MG Oral Capsule [Vyvanse] TEE ([facility]) 24 HR Amphetamine aspartate 2.5 MG / Amp hetamine Sulfate 2.5 MG / Dextroamphetamine saccharate 2.5 MG / Dextroamphetamine Sulfate 2.5 MG Extended Release Oral Capsule dextroamphetamine-amphetamine ER 10 mg 24hr capsule,extend release dextroamphetamine-amphetamine ER 10 mg 24hr capsule,extend relea se completed 24 HR amph etamine aspartate 2.5 MG / amphetamine sulfate 2.5 MG / dextroamphetamine saccharate 2.5 MG / dextroamphetamine sulfate 2.5 MG Extended Release Oral Capsule TEE ([facility]) Fluoxetine 20 MG Oral Capsule fluoxetine 20 mg capsule fluox etine 20 mg capsule completed fluoxetine 20 MG Oral Capsule TEE ([facility]) Prednisone 5 MG Oral Tablet prednisone 5 mg tablet prednisone 5 mg ta blet completed prednisone 5 MG Oral Tablet TEE ([facility]) Prednisone 20 MG Oral Tablet prednisone 20 mg tablet prednisone 20 mg tablet completed prednisone 20 MG Oral Tablet TEE ([facility]) Prednisone 20 MG Oral Tablet prednisone 20 mg tablet prednisone 20 mg tablet completed prednisone 20 MG Oral Tablet TEE ([facility]) Escitalopram 10 MG Oral Tablet escitalopram 10 mg tabl et escitalopram 10 mg tablet completed escitalopram 10 MG Oral Tablet TEE ([facility]) Chantix Starting Month Box 0.5 mg (11)-1 mg (42) tablets in dose pack [id number] completed Chantix Starti ng Month Box 0.5 mg (11)-1 mg (42) tablets in dose pack TEE ([facility]) varenicline 1 MG Oral Tablet Chantix Continuing Month Box 1 mg tablet Chantix Continuing Month Box 1 mg tablet compl eted varenicline 1 MG Oral Tablet TEE ([facility]) Ketoprofen 25 MG Oral Capsule ketoprofen 25 mg capsule ketop rofen 25 mg capsule completed ketoprofen 25 MG Oral Capsule [facility] ([facility]) lisdexamfetamine dimesylate 30 MG Oral Capsule [Vyvans e] Vyvanse 30 mg capsule Vyvanse 30 mg capsule completed lisdexamfetamine dimesylate 30 MG Oral Capsule [Vyvanse] TEE ([facility]) Escitalopram 10 MG Oral Tablet escitalopram 10 mg tabl et escitalopram 10 mg tablet completed escitalopram 10 MG Oral Tablet TEE ([facility]) Fluoxetine 20 MG Oral Capsule fluoxetine 20 mg capsule fluox etine 20 mg capsule completed fluoxetine 20 MG Oral Capsule TEE ([facility]) Chantix Starting Month Box 0.5 mg (11)-1 mg (42) tablets in dose pack [id number] completed Chantix Starti ng Month Box 0.5 mg (11)-1 mg (42) tablets in dose pack TEE ([facility]) Loratadine 10 MG Oral Tablet loratadine 10 mg tablet loratadine 10 mg tablet completed loratadine 10 MG Oral Tablet TEE ([facility]) Betamethasone 0.0005 MG/MG Topical Ointm ent betamethasone dipropionate 0.05 % topical ointment betamethasone dipropionate 0.05 % topical ointment completed betamethasone 0.0005 MG/MG Topic al Ointment TEE ([facility]) 24 HR Amphetamine aspartate 2.5 MG / Amp hetamine Sulfate 2.5 MG / Dextroamphetamine saccharate 2.5 MG / Dextroamphetamine Sulfate 2.5 MG Extended Release Oral Capsule dextroamphetamine-amphetamine ER 10 mg 24hr capsule,extend release dextroamphetamine-amphetamine ER 10 mg 24hr capsule,extend relea se completed 24 HR amph etamine aspartate 2.5 MG / amphetamine sulfate 2.5 MG / dextroamphetamine saccharate 2.5 MG / dextroamphetamine sulfate 2.5 MG Extended Release Oral Capsule TEE ([facility]) Hydroxyzine Hydrochloride 25 MG Oral Tablet hydroxyzin e HCl 25 mg tablet hydroxyzine HCl 25 mg tablet completed hydroxyzine hydrochloride 25 MG Oral Tablet TEE ([facility]) varenicline 1 MG Oral Tablet Chantix Continuing Month Box 1 mg tablet Chantix Continuing Month Box 1 mg tablet compl eted varenicline 1 MG Oral Tablet TEE ([facility]) 24 HR Amphetamine aspartate 2.5 MG / Amp hetamine Sulfate 2.5 MG / Dextroamphetamine saccharate 2.5 MG / Dextroamphetamine Sulfate 2.5 MG Extended Release Oral Capsule dextroamphetamine-amphetamine ER 10 mg 24hr capsule,extend release dextroamphetamine-amphetamine ER 10 mg 24hr capsule,extend relea se completed 24 HR amph etamine aspartate 2.5 MG / amphetamine sulfate 2.5 MG / dextroamphetamine saccharate 2.5 MG / dextroamphetamine sulfate 2.5 MG Extended Release Oral Capsule TEE ([facility]) 24 HR venlafaxine 75 MG Extended Release Oral Capsule venlafaxine ER 75 mg capsule,extended release 24 hr venlafaxine ER 75 mg capsule,extended re lease 24 hr completed 24 HR v enlafaxine 75 MG Extended Release Oral Capsule TEE ([facility]) benzonatate 200 MG Oral Capsule benzonatate 200 mg cap herlinda benzonatate 200 mg capsule completed benzonatate 20 0 MG Oral Capsule TEE ([facility]) Fluconazole 150 MG Oral Tablet fluconazole 150 mg tabl et fluconazole 150 mg tablet completed fluconazole 150 MG Oral Tablet TEE ([facility]) Hydroxyzine Hydrochloride 25 MG Oral Tablet hydroxyzin e HCl 25 mg tablet hydroxyzine HCl 25 mg tablet completed hydroxyzine hydrochloride 25 MG Oral Tablet TEE ([facility]) benzonatate 200 MG Oral Capsule benzonatate 200 mg cap herlinda benzonatate 200 mg capsule completed benzonatate 20 0 MG Oral Capsule [facility] ([facility]) varenicline 1 MG Oral Tablet Chantix Continuing Month Box 1 mg tablet Chantix Continuing Month Box 1 mg tablet compl eted varenicline 1 MG Oral Tablet [facility] ([facility]) lisdexamfetamine dimesylate 30 MG Oral Capsule [Vyvans e] Vyvanse 30 mg capsule Vyvanse 30 mg capsule completed lisdexamfetamine dimesylate 30 MG Oral Capsule [Vyvanse] [facility] ([facility]) Niacin 500 MG Oral Tablet niacin 500 mg tablet niacin 500 mg tablet completed niacin 500 MG Oral Tablet [facility] ([facility]) Oseltamivir 75 MG Oral Capsule oseltamivir 75 mg capsu le oseltamivir 75 mg capsule completed oseltamivir 75 MG Oral Capsule [facility] ([facility]) Escitalopram 20 MG Oral Tablet escitalopram 20 mg tabl et escitalopram 20 mg tablet completed escitalopram 20 MG Oral Tablet [facility] ([facility]) Amoxicillin 875 MG / Clavulanate 125 MG Oral Tablet amoxicillin 875 mg-potassium clavulanate 125 mg tablet amoxicillin 875 mg-potassium clavulanate 125 mg tablet completed amoxici llin 875 MG / clavulanate 125 MG Oral Tablet ETE ([facility]) lisdexamfetamine dimesylate 30 MG Oral Capsule [Vyvans e] Vyvanse 30 mg capsule Vyvanse 30 mg capsule completed lisdexamfetamine dimesylate 30 MG Oral Capsule [Vyvanse] TEE ([facility]) Prednisone 5 MG Oral Tablet prednisone 5 mg tablet prednisone 5 mg ta blet completed prednisone 5 MG Oral Tablet TEE ([facility]) Oseltamivir 75 MG Oral Capsule oseltamivir 75 mg capsu le oseltamivir 75 mg capsule completed oseltamivir 75 MG Oral Capsule [facility] ([facility]) duloxetine 30 MG Delayed Release Oral Ca psule duloxetine 30 mg capsule,delayed release duloxetine 30 mg capsule,delayed release completed duloxetine 30 MG Delayed Release Oral Capsule [facility] ([facility]) Escitalopram 10 MG Oral Tablet escitalopram 10 mg tabl et escitalopram 10 mg tablet completed escitalopram 10 MG Oral Tablet [facility] ([facility]) Chantix Starting Month Box 0.5 mg (11)-1 mg (42) tablets in dose pack [id number] completed Chantix Starti ng Month Box 0.5 mg (11)-1 mg (42) tablets in dose pack [facility]ANCE ([facility]) duloxetine 20 MG Delayed Release Oral Ca psule duloxetine 20 mg capsule,delayed release TAKE ONE CAPSULE BY MOUTH EVERY DAY duloxetine 20 mg capsule,delayed release TAKE ONE CAPSULE BY MOUTH EVERY DAY completed duloxetine 20 MG Delayed Release Oral Capsule [facility] ([facility]) Diphenhydramine Hydrochloride 50 MG Oral Capsule [Banophen] Banophen 50 mg capsule Banophen 50 mg capsule completed diphenhydramine hydrochloride 50 MG Oral Capsule [Banophen] [facility] ([facility]) Azithromycin 250 MG Oral Tablet azithromycin 250 mg ta blet azithromycin 250 mg tablet completed azithromycin 25 0 MG Oral Tablet [facility]) Hydroxyzine Hydrochloride 25 MG Oral Tablet hydroxyzin e HCl 25 mg tablet hydroxyzine HCl 25 mg tablet completed hydroxyzine hydrochloride 25 MG Oral Tablet [facility] ([facility]) Escitalopram 10 MG Oral Tablet escitalopram 10 mg tabl et escitalopram 10 mg tablet completed escitalopram 10 MG Oral Tablet [facility] ([facility]) Amoxicillin 875 MG / Clavulanate 125 MG Oral Tablet amoxicillin 875 mg-potassium clavulanate 125 mg tablet amoxicillin 875 mg-potassium clavulanate 125 mg tablet completed amoxici llin 875 MG / clavulanate 125 MG Oral Tablet ESP[facility] ([facility]) Ketoprofen 25 MG Oral Capsule ketoprofen 25 mg capsule ketop rofen 25 mg capsule completed ketoprofen 25 MG Oral Capsule [facility]) Niacin 500 MG Oral Tablet niacin 500 mg tablet niacin 500 mg tablet completed niacin 500 MG Oral Tablet TEE ([facility]) Prednisone 5 MG Oral Tablet prednisone 5 mg tablet prednisone 5 mg ta blet completed prednisone 5 MG Oral Tablet TEE ([facility]) Ketoprofen 25 MG Oral Capsule ketoprofen 25 mg capsule ketop rofen 25 mg capsule completed ketoprofen 25 MG Oral Capsule TEE ([facility]) Prednisone 5 MG Oral Tablet prednisone 5 mg tablet prednisone 5 mg ta blet completed prednisone 5 MG Oral Tablet TEE ([facility]) 24 HR venlafaxine 75 MG Extended Release Oral Capsule venlafaxine ER 75 mg capsule,extended release 24 hr venlafaxine ER 75 mg capsule,extended re lease 24 hr completed 24 HR v enlafaxine 75 MG Extended Release Oral Capsule TEE ([facility]) Betamethasone 0.0005 MG/MG Topical Ointm ent betamethasone dipropionate 0.05 % topical ointment betamethasone dipropionate 0.05 % topical ointment completed betamethasone 0.0005 MG/MG Topic al Ointment TEE ([facility]) Niacin 500 MG Oral Tablet niacin 500 mg tablet niacin 500 mg tablet completed niacin 500 MG Oral Tablet TEE ([facility]) Prednisone 10 MG Oral Tablet prednisone 10 mg tablet prednisone 10 mg tablet completed prednisone 10 MG Oral Tablet TEE ([facility]) varenicline 1 MG Oral Tablet Chantix Continuing Month Box 1 mg tablet Chantix Continuing Month Box 1 mg tablet compl eted varenicline 1 MG Oral Tablet TEE ([facility]) Niacin 500 MG Oral Tablet niacin 500 mg tablet niacin 500 mg tablet completed niacin 500 MG Oral Tablet TEE ([facility]) 24 HR Amphetamine aspartate 2.5 MG / Amp hetamine Sulfate 2.5 MG / Dextroamphetamine saccharate 2.5 MG / Dextroamphetamine Sulfate 2.5 MG Extended Release Oral Capsule dextroamphetamine-amphetamine ER 10 mg 24hr capsule,extend release dextroamphetamine-amphetamine ER 10 mg 24hr capsule,extend relea se completed 24 HR amph etamine aspartate 2.5 MG / amphetamine sulfate 2.5 MG / dextroamphetamine saccharate 2.5 MG / dextroamphetamine sulfate 2.5 MG Extended Release Oral Capsule TEE ([facility]) Fluoxetine 20 MG Oral Capsule fluoxetine 20 mg capsule fluox etine 20 mg capsule completed fluoxetine 20 MG Oral Capsule [facility] ([facility]) fluticasone propionate 50 mcg/actuation nasal spray,suspension [id number] completed fluticasone propionate 0.05 MG/ACTUAT Metered Dose Nasal Cadet [facility] ([facility]) duloxetine 30 MG Delayed Release Oral Ca psule duloxetine 30 mg capsule,delayed release duloxetine 30 mg capsule,delayed release completed duloxetine 30 MG Delayed Release Oral Capsule TEE ([facility]) Amoxicillin 875 MG / Clavulanate 125 MG Oral Tablet amoxicillin 875 mg-potassium clavulanate 125 mg tablet TAKE ONE TABLET BY MOUTH EVERY 12 HOURS FOR 14 DAYS amoxicillin 875 mg-potassium clavulanate 125 mg tablet TAKE ONE TABLET BY MOUTH EVERY 12 HOURS FOR 14 DAYS completed amoxicillin 875 MG / clavulanate 125 MG Oral Tablet TEE ([facility]) Hydroxyzine Hydrochloride 25 MG Oral Tablet hydroxyzin e HCl 25 mg tablet hydroxyzine HCl 25 mg tablet completed hydroxyzine hydrochloride 25 MG Oral Tablet TEE ([facility]) Chantix Starting Month Box 0.5 mg (11)-1 mg (42) tablets in dose pack [id number] completed Chantix Starti ng Month Box 0.5 mg (11)-1 mg (42) tablets in dose pack ESPERANCE ([facility]) Prednisone 10 MG Oral Tablet prednisone 10 mg tablet prednisone 10 mg tablet completed prednisone 10 MG Oral Tablet [facility] ([facility]) Loratadine 10 MG Oral Tablet loratadine 10 mg tablet loratadine 10 mg tablet completed loratadine 10 MG Oral Tablet TEE ([facility]) Ketoprofen 25 MG Oral Capsule ketoprofen 25 mg capsule ketop rofen 25 mg capsule completed ketoprofen 25 MG Oral Capsule [facility] ([facility]) lisdexamfetamine dimesylate 30 MG Oral Capsule [Vyvans e] Vyvanse 30 mg capsule Vyvanse 30 mg capsule completed lisdexamfetamine dimesylate 30 MG Oral Capsule [Vyvanse] TEE ([facility]) Sumatriptan 25 MG Oral Tablet sumatripta n 25 mg tablet TAKE ONE TABLET BY MOUTH AT ONSET OF HEADACHE REPEAT IN 2 HOURS NEEDED sumatriptan 25 mg tablet TAKE ONE TABLET BY MOUTH AT ONSET OF HEADACHE REPEAT IN 2 HOURS NEEDED completed sumatriptan 25 MG Oral Table t [facility] ([facility]) Loratadine 10 MG Oral Tablet loratadine 10 mg tablet loratadine 10 mg tablet completed loratadine 10 MG Oral Tablet [facility] ([facility]) fluticasone propionate 50 mcg/actuation nasal spray,suspension [id number] completed fluticasone propionate 0.05 MG/ACTUAT Metered Dose Nasal [employer]et [facility] ([facility]) Chantix Starting Month Box 0.5 mg (11)-1 mg (42) tablets in dose pack [id number] completed Chantix Starti ng Month Box 0.5 mg (11)-1 mg (42) tablets in dose pack ESP[facility]ANCE ([facility]) Ketoprofen 25 MG Oral Capsule ketoprofen 25 mg capsule ketop rofen 25 mg capsule completed ketoprofen 25 MG Oral Capsule ESPERANCE ([facility]) Chantix Starting Month Box 0.5 mg (11)-1 mg (42) tablets in dose pack [id number] completed Chantix Starti ng Month Box 0.5 mg (11)-1 mg (42) tablets in dose pack ESPERANCE ([facility]) Betamethasone 0.0005 MG/MG Topical Ointm ent betamethasone dipropionate 0.05 % topical ointment betamethasone dipropionate 0.05 % topical ointment completed betamethasone 0.0005 MG/MG Topic al Ointment ESPERANCE ([facility]) Diphenhydramine Hydrochloride 50 MG Oral Capsule [Banophen] Banophen 50 mg capsule Banophen 50 mg capsule completed diphenhydramine hydrochloride 50 MG Oral Capsule [Banophen] ESPERANCE ([facility]) 24 HR venlafaxine 75 MG Extended Release Oral Capsule venlafaxine ER 75 mg capsule,extended release 24 hr venlafaxine ER 75 mg capsule,extended re lease 24 hr completed 24 HR v enlafaxine 75 MG Extended Release Oral Capsule ESPERANCE ([facility]) benzonatate 200 MG Oral Capsule benzonatate 200 mg cap herlinda benzonatate 200 mg capsule completed benzonatate 20 0 MG Oral Capsule ESPERANCE ([facility]) Betamethasone 0.0005 MG/MG Topical Ointm ent betamethasone dipropionate 0.05 % topical ointment betamethasone dipropionate 0.05 % topical ointment completed betamethasone 0.0005 MG/MG Topic al Ointment ESPERANCE ([facility]) Sumatriptan 25 MG Oral Tablet sumatripta n 25 mg tablet TAKE ONE TABLET BY MOUTH AT ONSET OF HEADACHE REPEAT IN 2 HOURS NEEDED sumatriptan 25 mg tablet TAKE ONE TABLET BY MOUTH AT ONSET OF HEADACHE REPEAT IN 2 HOURS NEEDED completed sumatriptan 25 MG Oral Table t ESPERANCE ([facility]) duloxetine 20 MG Delayed Release Oral Ca psule duloxetine 20 mg capsule,delayed release TAKE ONE CAPSULE BY MOUTH EVERY DAY duloxetine 20 mg capsule,delayed release TAKE ONE CAPSULE BY MOUTH EVERY DAY completed duloxetine 20 MG Delayed Release Oral Capsule ESPERANCE ([facility]) Escitalopram 10 MG Oral Tablet escitalopram 10 mg tabl et escitalopram 10 mg tablet completed escitalopram 10 MG Oral Tablet ESPERANCE ([facility]) Betamethasone 0.0005 MG/MG Topical Ointm ent betamethasone dipropionate 0.05 % topical ointment betamethasone dipropionate 0.05 % topical ointment completed betamethasone 0.0005 MG/MG Topic al Ointment ESPERANCE ([facility]) Fluconazole 150 MG Oral Tablet fluconazole 150 mg tabl et fluconazole 150 mg tablet completed fluconazole 150 MG Oral Tablet ESPERANCE ([facility]) lisdexamfetamine dimesylate 30 MG Oral Capsule [Vyvans e] Vyvanse 30 mg capsule Vyvanse 30 mg capsule completed lisdexamfetamine dimesylate 30 MG Oral Capsule [Vyvanse] ESPERANCE ([facility]) Azithromycin 250 MG Oral Tablet azithromycin 250 mg ta blet azithromycin 250 mg tablet completed azithromycin 25 0 MG Oral Tablet ESPERANCE ([facility]) Oseltamivir 75 MG Oral Capsule oseltamivir 75 mg capsu le oseltamivir 75 mg capsule completed oseltamivir 75 MG Oral Capsule ESPERANCE ([facility]) Escitalopram 20 MG Oral Tablet escitalopram 20 mg tabl et escitalopram 20 mg tablet completed escitalopram 20 MG Oral Tablet ESPERANCE ([facility]) Ketoprofen 25 MG Oral Capsule ketoprofen 25 mg capsule ketop rofen 25 mg capsule completed ketoprofen 25 MG Oral Capsule ESPERANCE ([facility]) varenicline 1 MG Oral Tablet Chantix Continuing Month Box 1 mg tablet Chantix Continuing Month Box 1 mg tablet compl eted varenicline 1 MG Oral Tablet TEE ([facility]) fluticasone propionate 50 mcg/actuation nasal spray,suspension [id number] completed fluticasone propionate 0.05 MG/ACTUAT Metered Dose Nasal Cadet ESPERANCE ([facility]) duloxetine 30 MG Delayed Release Oral Ca psule duloxetine 30 mg capsule,delayed release duloxetine 30 mg capsule,delayed release completed duloxetine 30 MG Delayed Release Oral Capsule ESPERANCE ([facility]) 24 HR Amphetamine aspartate 2.5 MG / Amp hetamine Sulfate 2.5 MG / Dextroamphetamine saccharate 2.5 MG / Dextroamphetamine Sulfate 2.5 MG Extended Release Oral Capsule dextroamphetamine-amphetamine ER 10 mg 24hr capsule,extend release dextroamphetamine-amphetamine ER 10 mg 24hr capsule,extend relea se completed 24 HR amph etamine aspartate 2.5 MG / amphetamine sulfate 2.5 MG / dextroamphetamine saccharate 2.5 MG / dextroamphetamine sulfate 2.5 MG Extended Release Oral Capsule TEE ([facility]) 24 HR venlafaxine 75 MG Extended Release Oral Capsule venlafaxine ER 75 mg capsule,extended release 24 hr venlafaxine ER 75 mg capsule,extended re lease 24 hr completed 24 HR v enlafaxine 75 MG Extended Release Oral Capsule TEE ([facility]) Chantix Starting Month Box 0.5 mg (11)-1 mg (42) tablets in dose pack [id number] completed Chantix Starti ng Month Box 0.5 mg (11)-1 mg (42) tablets in dose pack TEE ([facility]) Azithromycin 250 MG Oral Tablet azithromycin 250 mg ta blet azithromycin 250 mg tablet completed azithromycin 25 0 MG Oral Tablet ESPERANCE ([facility]) Betamethasone 0.0005 MG/MG Topical Ointm ent betamethasone dipropionate 0.05 % topical ointment betamethasone dipropionate 0.05 % topical ointment completed betamethasone 0.0005 MG/MG Topic al Ointment ESPERANCE ([facility]) duloxetine 30 MG Delayed Release Oral Ca psule duloxetine 30 mg capsule,delayed release duloxetine 30 mg capsule,delayed release completed duloxetine 30 MG Delayed Release Oral Capsule ESPERANCE ([facility]) Fluoxetine 20 MG Oral Capsule fluoxetine 20 mg capsule fluox etine 20 mg capsule completed fluoxetine 20 MG Oral Capsule ESPERANCE ([facility]) Prednisone 10 MG Oral Tablet prednisone 10 mg tablet prednisone 10 mg tablet completed prednisone 10 MG Oral Tablet ESPERANCE ([facility]) 24 HR Amphetamine aspartate 2.5 MG / Amp hetamine Sulfate 2.5 MG / Dextroamphetamine saccharate 2.5 MG / Dextroamphetamine Sulfate 2.5 MG Extended Release Oral Capsule dextroamphetamine-amphetamine ER 10 mg 24hr capsule,extend release dextroamphetamine-amphetamine ER 10 mg 24hr capsule,extend relea se completed 24 HR amph etamine aspartate 2.5 MG / amphetamine sulfate 2.5 MG / dextroamphetamine saccharate 2.5 MG / dextroamphetamine sulfate 2.5 MG Extended Release Oral Capsule ESPERANCE ([facility]) Fluoxetine 20 MG Oral Capsule fluoxetine 20 mg capsule fluox etine 20 mg capsule completed fluoxetine 20 MG Oral Capsule ESPERANCE ([facility]) Niacin 500 MG Oral Tablet niacin 500 mg tablet niacin 500 mg tablet completed niacin 500 MG Oral Tablet ESPERANCE ([facility]) Escitalopram 20 MG Oral Tablet escitalopram 20 mg tabl et escitalopram 20 mg tablet completed escitalopram 20 MG Oral Tablet ESPERANCE ([facility]) Escitalopram 20 MG Oral Tablet escitalopram 20 mg tabl et escitalopram 20 mg tablet completed escitalopram 20 MG Oral Tablet ESPERANCE ([facility]) Chantix Starting Month Box 0.5 mg (11)-1 mg (42) tablets in dose pack [id number] completed Chantix Starti ng Month Box 0.5 mg (11)-1 mg (42) tablets in dose pack ESPERANCE ([facility]) varenicline 1 MG Oral Tablet Chantix Continuing Month Box 1 mg tablet Chantix Continuing Month Box 1 mg tablet compl eted varenicline 1 MG Oral Tablet ESPERANCE ([facility]) 24 HR Amphetamine aspartate 2.5 MG / Amp hetamine Sulfate 2.5 MG / Dextroamphetamine saccharate 2.5 MG / Dextroamphetamine Sulfate 2.5 MG Extended Release Oral Capsule dextroamphetamine-amphetamine ER 10 mg 24hr capsule,extend release dextroamphetamine-amphetamine ER 10 mg 24hr capsule,extend relea se completed 24 HR amph etamine aspartate 2.5 MG / amphetamine sulfate 2.5 MG / dextroamphetamine saccharate 2.5 MG / dextroamphetamine sulfate 2.5 MG Extended Release Oral Capsule ESPERANCE ([facility]) quetiapine 50 MG Oral Tablet quetiapine 50 mg tablet TAKE ONE TABLET BY MOUTH AT BEDTIME quetiapine 50 mg tablet TAKE ONE TABLET BY MOUTH AT BEDTIME completed quetiapine 50 MG Oral Tablet ESPERANCE ([facility]) Hydroxyzine Hydrochloride 25 MG Oral Tablet hydroxyzin e HCl 25 mg tablet hydroxyzine HCl 25 mg tablet completed hydroxyzine hydrochloride 25 MG Oral Tablet ESPERANCE ([facility]) Fluconazole 150 MG Oral Tablet fluconazole 150 mg tabl et fluconazole 150 mg tablet completed fluconazole 150 MG Oral Tablet ESPERANCE ([facility]) Oseltamivir 75 MG Oral Capsule oseltamivir 75 mg capsu le oseltamivir 75 mg capsule completed oseltamivir 75 MG Oral Capsule ESPERANCE ([facility]) Fluoxetine 20 MG Oral Capsule fluoxetine 20 mg capsule fluox etine 20 mg capsule completed fluoxetine 20 MG Oral Capsule ESPERANCE ([facility]) Oseltamivir 75 MG Oral Capsule oseltamivir 75 mg capsu le oseltamivir 75 mg capsule completed oseltamivir 75 MG Oral Capsule ESPERANCE ([facility]) Diphenhydramine Hydrochloride 50 MG Oral Capsule [Banophen] Banophen 50 mg capsule Banophen 50 mg capsule completed diphenhydramine hydrochloride 50 MG Oral Capsule [Banophen] ESPERANCE ([facility]) Escitalopram 20 MG Oral Tablet escitalopram 20 mg tabl et escitalopram 20 mg tablet completed escitalopram 20 MG Oral Tablet ESPERANCE ([facility]) varenicline 1 MG Oral Tablet Chantix Continuing Month Box 1 mg tablet Chantix Continuing Month Box 1 mg tablet compl eted varenicline 1 MG Oral Tablet ESPERANCE ([facility]) Azithromycin 250 MG Oral Tablet azithromycin 250 mg ta blet azithromycin 250 mg tablet completed azithromycin 25 0 MG Oral Tablet ESPERANCE ([facility]) 24 HR Amphetamine aspartate 2.5 MG / Amp hetamine Sulfate 2.5 MG / Dextroamphetamine saccharate 2.5 MG / Dextroamphetamine Sulfate 2.5 MG Extended Release Oral Capsule dextroamphetamine-amphetamine ER 10 mg 24hr capsule,extend release dextroamphetamine-amphetamine ER 10 mg 24hr capsule,extend relea se completed 24 HR amph etamine aspartate 2.5 MG / amphetamine sulfate 2.5 MG / dextroamphetamine saccharate 2.5 MG / dextroamphetamine sulfate 2.5 MG Extended Release Oral Capsule TEE ([facility]) Hydroxyzine Hydrochloride 25 MG Oral Tablet hydroxyzin e HCl 25 mg tablet hydroxyzine HCl 25 mg tablet completed hydroxyzine hydrochloride 25 MG Oral Tablet TEE ([facility]) Chantix Starting Month Box 0.5 mg (11)-1 mg (42) tablets in dose pack [id number] completed Chantix Starti ng Month Box 0.5 mg (11)-1 mg (42) tablets in dose pack TEE ([facility]) Oseltamivir 75 MG Oral Capsule oseltamivir 75 mg capsu le oseltamivir 75 mg capsule completed oseltamivir 75 MG Oral Capsule TEE ([facility]) Fluconazole 150 MG Oral Tablet fluconazole 150 mg tabl et fluconazole 150 mg tablet completed fluconazole 150 MG Oral Tablet ESPERANCE ([facility]) Azithromycin 250 MG Oral Tablet azithromycin 250 mg ta blet azithromycin 250 mg tablet completed azithromycin 25 0 MG Oral Tablet TEE ([facility]) Azithromycin 250 MG Oral Tablet azithromycin 250 mg ta blet azithromycin 250 mg tablet completed azithromycin 25 0 MG Oral Tablet ESPERANCE ([facility]) Prednisone 5 MG Oral Tablet prednisone 5 mg tablet prednisone 5 mg ta blet completed prednisone 5 MG Oral Tablet TEE ([facility]) Ketoprofen 25 MG Oral Capsule ketoprofen 25 mg capsule ketop rofen 25 mg capsule completed ketoprofen 25 MG Oral Capsule ESPERANCE ([facility]) benzonatate 200 MG Oral Capsule benzonatate 200 mg cap herlinda benzonatate 200 mg capsule completed benzonatate 20 0 MG Oral Capsule TEE ([facility]) Loratadine 10 MG Oral Tablet loratadine 10 mg tablet loratadine 10 mg tablet completed loratadine 10 MG Oral Tablet ESPERANCE ([facility]) benzonatate 200 MG Oral Capsule benzonatate 200 mg cap herlinda benzonatate 200 mg capsule completed benzonatate 20 0 MG Oral Capsule TEE ([facility]) duloxetine 30 MG Delayed Release Oral Ca psule duloxetine 30 mg capsule,delayed release duloxetine 30 mg capsule,delayed release completed duloxetine 30 MG Delayed Release Oral Capsule ESPERANCE ([facility]) Sumatriptan 25 MG Oral Tablet sumatripta n 25 mg tablet TAKE ONE TABLET BY MOUTH AT ONSET OF HEADACHE REPEAT IN 2 HOURS NEEDED sumatriptan 25 mg tablet TAKE ONE TABLET BY MOUTH AT ONSET OF HEADACHE REPEAT IN 2 HOURS NEEDED completed sumatriptan 25 MG Oral Table t TEE ([facility]) Prednisone 10 MG Oral Tablet prednisone 10 mg tablet prednisone 10 mg tablet completed prednisone 10 MG Oral Tablet ESPERANCE ([facility]) 24 HR Amphetamine aspartate 2.5 MG / Amp hetamine Sulfate 2.5 MG / Dextroamphetamine saccharate 2.5 MG / Dextroamphetamine Sulfate 2.5 MG Extended Release Oral Capsule dextroamphetamine-amphetamine ER 10 mg 24hr capsule,extend release dextroamphetamine-amphetamine ER 10 mg 24hr capsule,extend relea se completed 24 HR amph etamine aspartate 2.5 MG / amphetamine sulfate 2.5 MG / dextroamphetamine saccharate 2.5 MG / dextroamphetamine sulfate 2.5 MG Extended Release Oral Capsule ESPERANCE ([facility]) varenicline 1 MG Oral Tablet Chantix Continuing Month Box 1 mg tablet Chantix Continuing Month Box 1 mg tablet compl eted varenicline 1 MG Oral Tablet ESPERANCE ([facility]) Niacin 500 MG Oral Tablet niacin 500 mg tablet niacin 500 mg tablet completed niacin 500 MG Oral Tablet ESPERANCE ([facility]) Oseltamivir 75 MG Oral Capsule oseltamivir 75 mg capsu le oseltamivir 75 mg capsule completed oseltamivir 75 MG Oral Capsule ESPERANCE ([facility]) Escitalopram 20 MG Oral Tablet escitalopram 20 mg tabl et escitalopram 20 mg tablet completed escitalopram 20 MG Oral Tablet ESPERANCE ([facility]) lisdexamfetamine dimesylate 30 MG Oral Capsule [Vyvans e] Vyvanse 30 mg capsule Vyvanse 30 mg capsule completed lisdexamfetamine dimesylate 30 MG Oral Capsule [Vyvanse] ESPERANCE ([facility]) Prednisone 5 MG Oral Tablet prednisone 5 mg tablet prednisone 5 mg ta blet completed prednisone 5 MG Oral Tablet TEE ([facility]) Azithromycin 250 MG Oral Tablet azithromycin 250 mg ta blet azithromycin 250 mg tablet completed azithromycin 25 0 MG Oral Tablet TEE ([facility]) benzonatate 200 MG Oral Capsule benzonatate 200 mg cap herlinda benzonatate 200 mg capsule completed benzonatate 20 0 MG Oral Capsule TEE ([facility]) varenicline 1 MG Oral Tablet Chantix Continuing Month Box 1 mg tablet Chantix Continuing Month Box 1 mg tablet compl eted varenicline 1 MG Oral Tablet TEE ([facility]) Prednisone 10 MG Oral Tablet prednisone 10 mg tablet prednisone 10 mg tablet completed prednisone 10 MG Oral Tablet TEE ([facility]) Hydroxyzine Hydrochloride 25 MG Oral Tablet hydroxyzin e HCl 25 mg tablet hydroxyzine HCl 25 mg tablet completed hydroxyzine hydrochloride 25 MG Oral Tablet TEE ([facility]) Niacin 500 MG Oral Tablet niacin 500 mg tablet niacin 500 mg tablet completed niacin 500 MG Oral Tablet TEE ([facility]) Escitalopram 10 MG Oral Tablet escitalopram 10 mg tabl et escitalopram 10 mg tablet completed escitalopram 10 MG Oral Tablet TEE ([facility]) Prednisone 5 MG Oral Tablet prednisone 5 mg tablet prednisone 5 mg ta blet completed prednisone 5 MG Oral Tablet TEE ([facility]) varenicline 1 MG Oral Tablet Chantix Continuing Month Box 1 mg tablet Chantix Continuing Month Box 1 mg tablet compl eted varenicline 1 MG Oral Tablet TEE ([facility]) duloxetine 20 MG Delayed Release Oral Ca psule duloxetine 20 mg capsule,delayed release TAKE ONE CAPSULE BY MOUTH EVERY DAY duloxetine 20 mg capsule,delayed release TAKE ONE CAPSULE BY MOUTH EVERY DAY completed duloxetine 20 MG Delayed Release Oral Capsule TEE ([facility]) 24 HR venlafaxine 75 MG Extended Release Oral Capsule venlafaxine ER 75 mg capsule,extended release 24 hr venlafaxine ER 75 mg capsule,extended re lease 24 hr completed 24 HR v enlafaxine 75 MG Extended Release Oral Capsule TEE ([facility]) Loratadine 10 MG Oral Tablet loratadine 10 mg tablet loratadine 10 mg tablet completed loratadine 10 MG Oral Tablet TEE ([facility]) Niacin 500 MG Oral Tablet niacin 500 mg tablet niacin 500 mg tablet completed niacin 500 MG Oral Tablet ESPERANCE ([facility]) Azithromycin 250 MG Oral Tablet azithromycin 250 mg ta blet azithromycin 250 mg tablet completed azithromycin 25 0 MG Oral Tablet ESPERANCE ([facility]) Oseltamivir 75 MG Oral Capsule oseltamivir 75 mg capsu le oseltamivir 75 mg capsule completed oseltamivir 75 MG Oral Capsule ESPERANCE ([facility]) Diphenhydramine Hydrochloride 50 MG Oral Capsule [Banophen] Banophen 50 mg capsule Banophen 50 mg capsule completed diphenhydramine hydrochloride 50 MG Oral Capsule [Banophen] ESPERANCE ([facility]) Oseltamivir 75 MG Oral Capsule oseltamivir 75 mg capsu le oseltamivir 75 mg capsule completed oseltamivir 75 MG Oral Capsule ESPERANCE ([facility]) duloxetine 20 MG Delayed Release Oral Ca psule duloxetine 20 mg capsule,delayed release TAKE ONE CAPSULE BY MOUTH EVERY DAY duloxetine 20 mg capsule,delayed release TAKE ONE CAPSULE BY MOUTH EVERY DAY completed duloxetine 20 MG Delayed Release Oral Capsule ESPERANCE ([facility]) Hydroxyzine Hydrochloride 25 MG Oral Tablet hydroxyzin e HCl 25 mg tablet hydroxyzine HCl 25 mg tablet completed hydroxyzine hydrochloride 25 MG Oral Tablet ESPERANCE ([facility]) Prednisone 5 MG Oral Tablet prednisone 5 mg tablet prednisone 5 mg ta blet completed prednisone 5 MG Oral Tablet ESPERANCE ([facility]) Prednisone 5 MG Oral Tablet prednisone 5 mg tablet prednisone 5 mg ta blet completed prednisone 5 MG Oral Tablet ESPERANCE ([facility]) 24 HR venlafaxine 75 MG Extended Release Oral Capsule venlafaxine ER 75 mg capsule,extended release 24 hr venlafaxine ER 75 mg capsule,extended re lease 24 hr completed 24 HR v enlafaxine 75 MG Extended Release Oral Capsule ESPERANCE ([facility]) Fluconazole 150 MG Oral Tablet fluconazole 150 mg tabl et fluconazole 150 mg tablet completed fluconazole 150 MG Oral Tablet ESPERANCE ([facility]) Diphenhydramine Hydrochloride 50 MG Oral Capsule [Banophen] Banophen 50 mg capsule Banophen 50 mg capsule completed diphenhydramine hydrochloride 50 MG Oral Capsule [Banophen] [facility]) Loratadine 10 MG Oral Tablet loratadine 10 mg tablet loratadine 10 mg tablet completed loratadine 10 MG Oral Tablet ESPERANCE ([facility]) Loratadine 10 MG Oral Tablet loratadine 10 mg tablet loratadine 10 mg tablet completed loratadine 10 MG Oral Tablet ESPERANCE ([facility]) benzonatate 200 MG Oral Capsule benzonatate 200 mg cap herlinda benzonatate 200 mg capsule completed benzonatate 20 0 MG Oral Capsule ESPERANCE ([facility]) Fluconazole 150 MG Oral Tablet fluconazole 150 mg tabl et fluconazole 150 mg tablet completed fluconazole 150 MG Oral Tablet ESPERANCE ([facility]) lisdexamfetamine dimesylate 30 MG Oral Capsule [Vyvans e] Vyvanse 30 mg capsule Vyvanse 30 mg capsule completed lisdexamfetamine dimesylate 30 MG Oral Capsule [Vyvanse] [facility]) Escitalopram 20 MG Oral Tablet escitalopram 20 mg tabl et escitalopram 20 mg tablet completed escitalopram 20 MG Oral Tablet [facility]) Betamethasone 0.0005 MG/MG Topical Ointm ent betamethasone dipropionate 0.05 % topical ointment betamethasone dipropionate 0.05 % topical ointment completed betamethasone 0.0005 MG/MG Topic al Ointment [facility]) Hydroxyzine Hydrochloride 25 MG Oral Tablet hydroxyzin e HCl 25 mg tablet hydroxyzine HCl 25 mg tablet completed hydroxyzine hydrochloride 25 MG Oral Tablet [facility]) Prednisone 10 MG Oral Tablet prednisone 10 mg tablet prednisone 10 mg tablet completed prednisone 10 MG Oral Tablet [facility]) fluticasone propionate 50 mcg/actuation nasal spray,suspension [id number] completed fluticasone propionate 0.05 MG/ACTUAT Metered Dose Nasal Cadet ESPERANCE ([facility]) Oseltamivir 75 MG Oral Capsule oseltamivir 75 mg capsu le oseltamivir 75 mg capsule completed oseltamivir 75 MG Oral Capsule [facility]) Escitalopram 10 MG Oral Tablet escitalopram 10 mg tabl et escitalopram 10 mg tablet completed escitalopram 10 MG Oral Tablet [facility]) quetiapine 50 MG Oral Tablet quetiapine 50 mg tablet TAKE ONE TABLET BY MOUTH AT BEDTIME quetiapine 50 mg tablet TAKE ONE TABLET BY MOUTH AT BEDTIME completed quetiapine 50 MG Oral Tablet TEE ([facility]) Escitalopram 10 MG Oral Tablet escitalopram 10 mg tabl et escitalopram 10 mg tablet completed escitalopram 10 MG Oral Tablet TEE ([facility]) Chantix Starting Month Box 0.5 mg (11)-1 mg (42) tablets in dose pack [id number] completed Chantix Starti ng Month Box 0.5 mg (11)-1 mg (42) tablets in dose pack TEE ([facility]) Diphenhydramine Hydrochloride 50 MG Oral Capsule [Banophen] Banophen 50 mg capsule Banophen 50 mg capsule completed diphenhydramine hydrochloride 50 MG Oral Capsule [Banophen] TEE ([facility]) lisdexamfetamine dimesylate 30 MG Oral Capsule [Vyvans e] Vyvanse 30 mg capsule Vyvanse 30 mg capsule completed lisdexamfetamine dimesylate 30 MG Oral Capsule [Vyvanse] TEE ([facility]) duloxetine 20 MG Delayed Release Oral Ca psule duloxetine 20 mg capsule,delayed release TAKE ONE CAPSULE BY MOUTH EVERY DAY duloxetine 20 mg capsule,delayed release TAKE ONE CAPSULE BY MOUTH EVERY DAY completed duloxetine 20 MG Delayed Release Oral Capsule TEE ([facility]) Chantix Starting Month Box 0.5 mg (11)-1 mg (42) tablets in dose pack [id number] completed Chantix Starti ng Month Box 0.5 mg (11)-1 mg (42) tablets in dose pack TEE ([facility]) benzonatate 200 MG Oral Capsule benzonatate 200 mg cap herlinda benzonatate 200 mg capsule completed benzonatate 20 0 MG Oral Capsule TEE ([facility]) Diphenhydramine Hydrochloride 50 MG Oral Capsule [Banophen] Banophen 50 mg capsule Banophen 50 mg capsule completed diphenhydramine hydrochloride 50 MG Oral Capsule [Banophen] TEE ([facility]) Hydroxyzine Hydrochloride 25 MG Oral Tablet hydroxyzin e HCl 25 mg tablet hydroxyzine HCl 25 mg tablet completed hydroxyzine hydrochloride 25 MG Oral Tablet TEE ([facility]) Chantix Starting Month Box 0.5 mg (11)-1 mg (42) tablets in dose pack [id number] completed Chantix Starti ng Month Box 0.5 mg (11)-1 mg (42) tablets in dose pack TEE ([facility]) Prednisone 20 MG Oral Tablet prednisone 20 mg tablet TAKE TWO TABLETS BY MOUTH EVERY DAY WITH A MEAL FOR 5 DAYS prednisone 20 mg tablet TAKE TWO TABLETS BY MOUTH EVERY DAY WITH A MEAL FOR 5 DAYS completed prednisone 20 MG Oral Tablet TEE ([facility]) Diphenhydramine Hydrochloride 50 MG Oral Capsule [Banophen] Banophen 50 mg capsule Banophen 50 mg capsule completed diphenhydramine hydrochloride 50 MG Oral Capsule [Banophen] TEE ([facility]) Prednisone 5 MG Oral Tablet prednisone 5 mg tablet prednisone 5 mg ta blet completed prednisone 5 MG Oral Tablet ESPERANCE ([facility]) Escitalopram 10 MG Oral Tablet escitalopram 10 mg tabl et escitalopram 10 mg tablet completed escitalopram 10 MG Oral Tablet ESPERANCE ([facility]) Ketoprofen 25 MG Oral Capsule ketoprofen 25 mg capsule ketop rofen 25 mg capsule completed ketoprofen 25 MG Oral Capsule TEE ([facility]) duloxetine 20 MG Delayed Release Oral Ca psule duloxetine 20 mg capsule,delayed release TAKE ONE CAPSULE BY MOUTH EVERY DAY duloxetine 20 mg capsule,delayed release TAKE ONE CAPSULE BY MOUTH EVERY DAY completed duloxetine 20 MG Delayed Release Oral Capsule TEE ([facility]) quetiapine 50 MG Oral Tablet quetiapine 50 mg tablet TAKE ONE TABLET BY MOUTH AT BEDTIME quetiapine 50 mg tablet TAKE ONE TABLET BY MOUTH AT BEDTIME completed quetiapine 50 MG Oral Tablet TEE ([facility]) Betamethasone 0.0005 MG/MG Topical Ointm ent betamethasone dipropionate 0.05 % topical ointment betamethasone dipropionate 0.05 % topical ointment completed betamethasone 0.0005 MG/MG Topic al Ointment TEE ([facility]) Fluoxetine 20 MG Oral Capsule fluoxetine 20 mg capsule fluox etine 20 mg capsule completed fluoxetine 20 MG Oral Capsule ESPERANCE ([facility]) Betamethasone 0.0005 MG/MG Topical Ointm ent betamethasone dipropionate 0.05 % topical ointment betamethasone dipropionate 0.05 % topical ointment completed betamethasone 0.0005 MG/MG Topic al Ointment TEE ([facility]) lisdexamfetamine dimesylate 30 MG Oral Capsule [Vyvans e] Vyvanse 30 mg capsule Vyvanse 30 mg capsule completed lisdexamfetamine dimesylate 30 MG Oral Capsule [Vyvanse] ESPERANCE ([facility]) benzonatate 200 MG Oral Capsule benzonatate 200 mg cap herlinda benzonatate 200 mg capsule completed benzonatate 20 0 MG Oral Capsule ESPERANCE ([facility]) lisdexamfetamine dimesylate 30 MG Oral Capsule [Vyvans e] Vyvanse 30 mg capsule Vyvanse 30 mg capsule completed lisdexamfetamine dimesylate 30 MG Oral Capsule [Vyvanse] ESPERANCE ([facility]) Diphenhydramine Hydrochloride 50 MG Oral Capsule [Banophen] Banophen 50 mg capsule Banophen 50 mg capsule completed diphenhydramine hydrochloride 50 MG Oral Capsule [Banophen] ESPERANCE ([facility]) Ketoprofen 25 MG Oral Capsule ketoprofen 25 mg capsule ketop rofen 25 mg capsule completed ketoprofen 25 MG Oral Capsule ESPERANCE ([facility]) Fluoxetine 20 MG Oral Capsule fluoxetine 20 mg capsule fluox etine 20 mg capsule completed fluoxetine 20 MG Oral Capsule ESPERANCE ([facility]) Diphenhydramine Hydrochloride 50 MG Oral Capsule [Banophen] Banophen 50 mg capsule Banophen 50 mg capsule completed diphenhydramine hydrochloride 50 MG Oral Capsule [Banophen] ESPERANCE ([facility]) benzonatate 200 MG Oral Capsule benzonatate 200 mg cap herlinda benzonatate 200 mg capsule completed benzonatate 20 0 MG Oral Capsule ESPERANCE ([facility]) Loratadine 10 MG Oral Tablet loratadine 10 mg tablet loratadine 10 mg tablet completed loratadine 10 MG Oral Tablet ESPERANCE ([facility]) Niacin 500 MG Oral Tablet niacin 500 mg tablet niacin 500 mg tablet completed niacin 500 MG Oral Tablet ESPERANCE ([facility]) duloxetine 30 MG Delayed Release Oral Ca psule duloxetine 30 mg capsule,delayed release duloxetine 30 mg capsule,delayed release completed duloxetine 30 MG Delayed Release Oral Capsule ESPERANCE ([facility]) varenicline 1 MG Oral Tablet Chantix Continuing Month Box 1 mg tablet Chantix Continuing Month Box 1 mg tablet compl eted varenicline 1 MG Oral Tablet ESPERANCE ([facility]) benzonatate 200 MG Oral Capsule benzonatate 200 mg cap herlinda benzonatate 200 mg capsule completed benzonatate 20 0 MG Oral Capsule ESPERANCE ([facility]) Ketoprofen 25 MG Oral Capsule ketoprofen 25 mg capsule ketop rofen 25 mg capsule completed ketoprofen 25 MG Oral Capsule ESPERANCE ([facility]) Azithromycin 250 MG Oral Tablet azithromycin 250 mg ta blet azithromycin 250 mg tablet completed azithromycin 25 0 MG Oral Tablet ESPERANCE ([facility]) Fluconazole 150 MG Oral Tablet fluconazole 150 mg tabl et fluconazole 150 mg tablet completed fluconazole 150 MG Oral Tablet ESPERANCE ([facility]) Ketoprofen 25 MG Oral Capsule ketoprofen 25 mg capsule ketop rofen 25 mg capsule completed ketoprofen 25 MG Oral Capsule ESPERANCE ([facility]) Prednisone 10 MG Oral Tablet prednisone 10 mg tablet prednisone 10 mg tablet completed prednisone 10 MG Oral Tablet ESPERANCE ([facility]) Escitalopram 10 MG Oral Tablet escitalopram 10 mg tabl et escitalopram 10 mg tablet completed escitalopram 10 MG Oral Tablet ESPERANCE ([facility]) Amoxicillin 875 MG / Clavulanate 125 MG Oral Tablet amoxicillin 875 mg-potassium clavulanate 125 mg tablet amoxicillin 875 mg-potassium clavulanate 125 mg tablet completed amoxici llin 875 MG / clavulanate 125 MG Oral Tablet ESPERANCE ([facility]) Amoxicillin 875 MG / Clavulanate 125 MG Oral Tablet amoxicillin 875 mg-potassium clavulanate 125 mg tablet amoxicillin 875 mg-potassium clavulanate 125 mg tablet completed amoxici llin 875 MG / clavulanate 125 MG Oral Tablet ESPERANCE ([facility]) 24 HR Amphetamine aspartate 2.5 MG / Amp hetamine Sulfate 2.5 MG / Dextroamphetamine saccharate 2.5 MG / Dextroamphetamine Sulfate 2.5 MG Extended Release Oral Capsule dextroamphetamine-amphetamine ER 10 mg 24hr capsule,extend release dextroamphetamine-amphetamine ER 10 mg 24hr capsule,extend relea se completed 24 HR amph etamine aspartate 2.5 MG / amphetamine sulfate 2.5 MG / dextroamphetamine saccharate 2.5 MG / dextroamphetamine sulfate 2.5 MG Extended Release Oral Capsule TEE ([facility]) 24 HR venlafaxine 75 MG Extended Release Oral Capsule venlafaxine ER 75 mg capsule,extended release 24 hr venlafaxine ER 75 mg capsule,extended re lease 24 hr completed 24 HR v enlafaxine 75 MG Extended Release Oral Capsule TEE ([facility]) fluticasone propionate 50 mcg/actuation nasal spray,suspension [id number] completed fluticasone propionate 0.05 MG/ACTUAT Metered Dose Nasal Cadet TEE ([facility]) fluticasone propionate 50 mcg/actuation nasal spray,suspension [id number] completed fluticasone propionate 0.05 MG/ACTUAT Metered Dose Nasal Cadet ESPERANCE ([facility]) Prednisone 10 MG Oral Tablet prednisone 10 mg tablet prednisone 10 mg tablet completed prednisone 10 MG Oral Tablet ESPERANCE ([facility]) Ketoprofen 25 MG Oral Capsule ketoprofen 25 mg capsule ketop rofen 25 mg capsule completed ketoprofen 25 MG Oral Capsule TEE ([facility]) 24 HR venlafaxine 75 MG Extended Release Oral Capsule venlafaxine ER 75 mg capsule,extended release 24 hr venlafaxine ER 75 mg capsule,extended re lease 24 hr completed 24 HR v enlafaxine 75 MG Extended Release Oral Capsule TEE ([facility]) 24 HR Amphetamine aspartate 2.5 MG / Amp hetamine Sulfate 2.5 MG / Dextroamphetamine saccharate 2.5 MG / Dextroamphetamine Sulfate 2.5 MG Extended Release Oral Capsule dextroamphetamine-amphetamine ER 10 mg 24hr capsule,extend release dextroamphetamine-amphetamine ER 10 mg 24hr capsule,extend relea se completed 24 HR amph etamine aspartate 2.5 MG / amphetamine sulfate 2.5 MG / dextroamphetamine saccharate 2.5 MG / dextroamphetamine sulfate 2.5 MG Extended Release Oral Capsule TEE ([facility]) Loratadine 10 MG Oral Tablet loratadine 10 mg tablet loratadine 10 mg tablet completed loratadine 10 MG Oral Tablet TEE ([facility]) Chantix Starting Month Box 0.5 mg (11)-1 mg (42) tablets in dose pack [id number] completed Chantix Starti ng Month Box 0.5 mg (11)-1 mg (42) tablets in dose pack TEE ([facility]) Oseltamivir 75 MG Oral Capsule oseltamivir 75 mg capsu le oseltamivir 75 mg capsule completed oseltamivir 75 MG Oral Capsule TEE ([facility]) Prednisone 10 MG Oral Tablet prednisone 10 mg tablet prednisone 10 mg tablet completed prednisone 10 MG Oral Tablet TEE ([facility]) Hydroxyzine Hydrochloride 25 MG Oral Tablet hydroxyzin e HCl 25 mg tablet hydroxyzine HCl 25 mg tablet completed hydroxyzine hydrochloride 25 MG Oral Tablet TEE ([facility]) duloxetine 30 MG Delayed Release Oral Ca psule duloxetine 30 mg capsule,delayed release duloxetine 30 mg capsule,delayed release completed duloxetine 30 MG Delayed Release Oral Capsule ESPERANCE ([facility]) varenicline 1 MG Oral Tablet Chantix Continuing Month Box 1 mg tablet Chantix Continuing Month Box 1 mg tablet compl eted varenicline 1 MG Oral Tablet TEE ([facility]) Loratadine 10 MG Oral Tablet loratadine 10 mg tablet loratadine 10 mg tablet completed loratadine 10 MG Oral Tablet ESPERANCE ([facility]) Diphenhydramine Hydrochloride 50 MG Oral Capsule [Banophen] Banophen 50 mg capsule Banophen 50 mg capsule completed diphenhydramine hydrochloride 50 MG Oral Capsule [Banophen] ESPERANCE ([facility]) Fluoxetine 20 MG Oral Capsule fluoxetine 20 mg capsule fluox etine 20 mg capsule completed fluoxetine 20 MG Oral Capsule ESPERANCE ([facility]) Prednisone 5 MG Oral Tablet prednisone 5 mg tablet prednisone 5 mg ta blet completed prednisone 5 MG Oral Tablet TEE ([facility]) Fluoxetine 20 MG Oral Capsule fluoxetine 20 mg capsule fluox etine 20 mg capsule completed fluoxetine 20 MG Oral Capsule ESPERANCE ([facility]) Escitalopram 20 MG Oral Tablet escitalopram 20 mg tabl et escitalopram 20 mg tablet completed escitalopram 20 MG Oral Tablet ESPERANCE ([facility]) Hydroxyzine Hydrochloride 25 MG Oral Tablet hydroxyzin e HCl 25 mg tablet hydroxyzine HCl 25 mg tablet completed hydroxyzine hydrochloride 25 MG Oral Tablet TEE ([facility]) Prednisone 10 MG Oral Tablet prednisone 10 mg tablet prednisone 10 mg tablet completed prednisone 10 MG Oral Tablet ESPERANCE ([facility]) Prednisone 10 MG Oral Tablet prednisone 10 mg tablet prednisone 10 mg tablet completed prednisone 10 MG Oral Tablet ESPERANCE ([facility]) duloxetine 20 MG Delayed Release Oral Ca psule duloxetine 20 mg capsule,delayed release TAKE ONE CAPSULE BY MOUTH EVERY DAY duloxetine 20 mg capsule,delayed release TAKE ONE CAPSULE BY MOUTH EVERY DAY completed duloxetine 20 MG Delayed Release Oral Capsule ESPERANCE ([facility]) Escitalopram 10 MG Oral Tablet escitalopram 10 mg tabl et escitalopram 10 mg tablet completed escitalopram 10 MG Oral Tablet ESPERANCE ([facility]) Fluconazole 150 MG Oral Tablet fluconazole 150 mg tabl et fluconazole 150 mg tablet completed fluconazole 150 MG Oral Tablet ESPERANCE ([facility]) fluticasone propionate 50 mcg/actuation nasal spray,suspension [id number] completed fluticasone propionate 0.05 MG/ACTUAT Metered Dose Nasal Cadet ESPERANCE ([facility]) Fluoxetine 20 MG Oral Capsule fluoxetine 20 mg capsule fluox etine 20 mg capsule completed fluoxetine 20 MG Oral Capsule ESPERANCE ([facility]) 24 HR venlafaxine 75 MG Extended Release Oral Capsule venlafaxine ER 75 mg capsule,extended release 24 hr venlafaxine ER 75 mg capsule,extended re lease 24 hr completed 24 HR v enlafaxine 75 MG Extended Release Oral Capsule ESPERANCE ([facility]) Prednisone 10 MG Oral Tablet prednisone 10 mg tablet prednisone 10 mg tablet completed prednisone 10 MG Oral Tablet ESPERANCE ([facility]) fluticasone propionate 50 mcg/actuation nasal spray,suspension [id number] completed fluticasone propionate 0.05 MG/ACTUAT Metered Dose Nasal Cadet ESPERANCE ([facility]) 24 HR venlafaxine 75 MG Extended Release Oral Capsule venlafaxine ER 75 mg capsule,extended release 24 hr venlafaxine ER 75 mg capsule,extended re lease 24 hr completed 24 HR v enlafaxine 75 MG Extended Release Oral Capsule ESPERANCE ([facility]) Fluoxetine 20 MG Oral Capsule fluoxetine 20 mg capsule fluox etine 20 mg capsule completed fluoxetine 20 MG Oral Capsule ESPERANCE ([facility]) Azithromycin 250 MG Oral Tablet azithromycin 250 mg ta blet azithromycin 250 mg tablet completed azithromycin 25 0 MG Oral Tablet TEE ([facility]) Escitalopram 20 MG Oral Tablet escitalopram 20 mg tabl et escitalopram 20 mg tablet completed escitalopram 20 MG Oral Tablet ESPERANCE ([facility]) Amoxicillin 875 MG / Clavulanate 125 MG Oral Tablet amoxicillin 875 mg-potassium clavulanate 125 mg tablet amoxicillin 875 mg-potassium clavulanate 125 mg tablet completed amoxici llin 875 MG / clavulanate 125 MG Oral Tablet ESPERANCE ([facility]) varenicline 1 MG Oral Tablet Chantix Continuing Month Box 1 mg tablet Chantix Continuing Month Box 1 mg tablet compl eted varenicline 1 MG Oral Tablet ESPERANCE ([facility]) Niacin 500 MG Oral Tablet niacin 500 mg tablet niacin 500 mg tablet completed niacin 500 MG Oral Tablet ESPERANCE ([facility]) Betamethasone 0.0005 MG/MG Topical Ointm ent betamethasone dipropionate 0.05 % topical ointment betamethasone dipropionate 0.05 % topical ointment completed betamethasone 0.0005 MG/MG Topic al Ointment ESPERANCE ([facility]) Diphenhydramine Hydrochloride 50 MG Oral Capsule [Banophen] Banophen 50 mg capsule Banophen 50 mg capsule completed diphenhydramine hydrochloride 50 MG Oral Capsule [Banophen] [facility]) Fluoxetine 20 MG Oral Capsule fluoxetine 20 mg capsule fluox etine 20 mg capsule completed fluoxetine 20 MG Oral Capsule [facility]) Loratadine 10 MG Oral Tablet loratadine 10 mg tablet loratadine 10 mg tablet completed loratadine 10 MG Oral Tablet [facility]) Oseltamivir 75 MG Oral Capsule oseltamivir 75 mg capsu le oseltamivir 75 mg capsule completed oseltamivir 75 MG Oral Capsule [facility]) Escitalopram 10 MG Oral Tablet escitalopram 10 mg tabl et escitalopram 10 mg tablet completed escitalopram 10 MG Oral Tablet ESPERANCE ([facility]) Azithromycin 250 MG Oral Tablet azithromycin 250 mg ta blet azithromycin 250 mg tablet completed azithromycin 25 0 MG Oral Tablet [facility]) Azithromycin 250 MG Oral Tablet azithromycin 250 mg ta blet azithromycin 250 mg tablet completed azithromycin 25 0 MG Oral Tablet [facility]) Loratadine 10 MG Oral Tablet loratadine 10 mg tablet loratadine 10 mg tablet completed loratadine 10 MG Oral Tablet ESPERANCE ([facility]) Loratadine 10 MG Oral Tablet loratadine 10 mg tablet loratadine 10 mg tablet completed loratadine 10 MG Oral Tablet ESPERANCE ([facility]) Prednisone 10 MG Oral Tablet prednisone 10 mg tablet prednisone 10 mg tablet completed prednisone 10 MG Oral Tablet ESPERANCE ([facility]) Escitalopram 20 MG Oral Tablet escitalopram 20 mg tabl et escitalopram 20 mg tablet completed escitalopram 20 MG Oral Tablet ESPERANCE ([facility]) Hydroxyzine Hydrochloride 25 MG Oral Tablet hydroxyzin e HCl 25 mg tablet hydroxyzine HCl 25 mg tablet completed hydroxyzine hydrochloride 25 MG Oral Tablet ESPERANCE ([facility]) lisdexamfetamine dimesylate 30 MG Oral Capsule [Vyvans e] Vyvanse 30 mg capsule Vyvanse 30 mg capsule completed lisdexamfetamine dimesylate 30 MG Oral Capsule [Vyvanse] ESPERANCE ([facility]) Escitalopram 20 MG Oral Tablet escitalopram 20 mg tabl et escitalopram 20 mg tablet completed escitalopram 20 MG Oral Tablet ESPERANCE ([facility]) benzonatate 200 MG Oral Capsule benzonatate 200 mg cap herlinda benzonatate 200 mg capsule completed benzonatate 20 0 MG Oral Capsule ESPERANCE ([facility]) 24 HR venlafaxine 75 MG Extended Release Oral Capsule venlafaxine ER 75 mg capsule,extended release 24 hr venlafaxine ER 75 mg capsule,extended re lease 24 hr completed 24 HR v enlafaxine 75 MG Extended Release Oral Capsule ESPERANCE ([facility]) Oseltamivir 75 MG Oral Capsule oseltamivir 75 mg capsu le oseltamivir 75 mg capsule completed oseltamivir 75 MG Oral Capsule ESPERANCE ([facility]) 24 HR venlafaxine 75 MG Extended Release Oral Capsule venlafaxine ER 75 mg capsule,extended release 24 hr venlafaxine ER 75 mg capsule,extended re lease 24 hr completed 24 HR v enlafaxine 75 MG Extended Release Oral Capsule ESPERANCE ([facility]) Niacin 500 MG Oral Tablet niacin 500 mg tablet niacin 500 mg tablet completed niacin 500 MG Oral Tablet ESPERANCE ([facility]) duloxetine 20 MG Delayed Release Oral Ca psule duloxetine 20 mg capsule,delayed release TAKE ONE CAPSULE BY MOUTH EVERY DAY duloxetine 20 mg capsule,delayed release TAKE ONE CAPSULE BY MOUTH EVERY DAY completed duloxetine 20 MG Delayed Release Oral Capsule ESPERANCE ([facility]) benzonatate 200 MG Oral Capsule benzonatate 200 mg cap herlinda benzonatate 200 mg capsule completed benzonatate 20 0 MG Oral Capsule ESPERANCE ([facility]) Prednisone 20 MG Oral Tablet prednisone 20 mg tablet prednisone 20 mg tablet completed prednisone 20 MG Oral Tablet TEE ([facility]) Prednisone 5 MG Oral Tablet prednisone 5 mg tablet prednisone 5 mg ta blet completed prednisone 5 MG Oral Tablet ESPERANCE ([facility]) Niacin 500 MG Oral Tablet niacin 500 mg tablet niacin 500 mg tablet completed niacin 500 MG Oral Tablet ESPERANCE ([facility]) fluticasone propionate 50 mcg/actuation nasal spray,suspension [id number] completed fluticasone propionate 0.05 MG/ACTUAT Metered Dose Nasal Cadet ESPERANCE ([facility]) lisdexamfetamine dimesylate 30 MG Oral Capsule [Vyvans e] Vyvanse 30 mg capsule Vyvanse 30 mg capsule completed lisdexamfetamine dimesylate 30 MG Oral Capsule [Vyvanse] ESPERANCE ([facility]) Escitalopram 10 MG Oral Tablet escitalopram 10 mg tabl et escitalopram 10 mg tablet completed escitalopram 10 MG Oral Tablet ESPERANCE ([facility]) Ketoprofen 25 MG Oral Capsule ketoprofen 25 mg capsule ketop rofen 25 mg capsule completed ketoprofen 25 MG Oral Capsule ESPERANCE ([facility]) Diphenhydramine Hydrochloride 50 MG Oral Capsule [Banophen] Banophen 50 mg capsule Banophen 50 mg capsule completed diphenhydramine hydrochloride 50 MG Oral Capsule [Banophen] TEE ([facility]) Insurance Providers Payer name Policy type / Coverage type Policy ID Covered green party ID Covered green party's relationship to rae Policy Rae [id number] [id number] [facility] O [id number] S [id number] HOME DEPOT SP [facility] [place] [id number] SP [id number] Medicaid S [id number] S [id number] Managed Care - MVP P [id number] S [id number] HOME DEPOT O [id number] S [id number] HOME DEPOT [id number] SP [id number] MVP [id number] SP [id number] [facility] C[facility] [id number] SP [id number] Medicaid S [id number] S [id number] Managed Care - MVP P [id number] S [id number] Managed Care - MVP S UNAVAILABLE S UNAVAILABLE Self Pay P UNAVAILABLE S UNAVAILA BLE Problems, Conditions, and Diagnoses Code Display Name Description Problem Type Effective Dates Data Source(s) 51506803 Bipolar II disorder, most recent episode major depressive Bipolar II Disorder, Most Recent Episode Major Depressive Problem 12:00:00 AM EST TEE ([facility]) [id number] Bipolar II disorder, most recent episode major depressive Bipolar II Disorder, Most Recent Episode Major Depressive Problem 12:00:00 AM EST TEE ([facility]) [id number] Bipolar II disorder, most recent episode major depressive Bipolar II Disorder, Most Recent Episode Major Depressive Problem 12:00:00 AM EST TEE ([facility]) [id number] Bipolar II disorder, most recent episode major depressive Bipolar II Disorder, Most Recent Episode Major Depressive Problem 12:00:00 AM EST TEE ([facility]) [id number] Bipolar II disorder, most recent episode major depressive Bipolar II Disorder, Most Recent Episode Major Depressive Problem 12:00:00 AM EST TEE ([facility]) [id number] Bipolar II disorder, most recent episode major depressive Bipolar II Disorder, Most Recent Episode Major Depressive Problem 12:00:00 AM EST TEE ([facility]) [id number] Bipolar II disorder, most recent episode major depressive Bipolar II Disorder, Most Recent Episode Major Depressive Problem 12:00:00 AM EST TEE ([facility]) [id number] Migraine Migraine Problem 11/02/2020 12:00:00 AM THEA OLIVEIRA ([facility]) [id number] Migraine Migraine Problem 11/02/2020 12:00:00 AM ES Damaso TEE ([facility]) [id number] Migraine Migraine Problem 11/02/2020 12:00:00 AM ES T TEE ([facility]) [id number] Migraine Migraine Problem 11/02/2020 12:00:00 AM ES T TEE ([facility]) [id number] Migraine Migraine Problem 11/02/2020 12:00:00 AM ES T TEE ([facility]) [id number] Migraine Migraine Problem 11/02/2020 12:00:00 AM ES T TEE ([facility]) [id number] Migraine Migraine Problem 11/02/2020 12:00:00 AM ES T TEE ([facility]) [id number] Migraine Migraine Problem 11/02/2020 12:00:00 AM ES T TEE ([facility]) [id number] Migraine Migraine Problem 11/02/2020 12:00:00 AM ES T TEE ([facility]) [id number] Migraine Migraine Problem 11/02/2020 12:00:00 AM ES Damaso TEE ([facility]) [id number] Mild intermittent asthma Mild Intermittent Asthma Prob sal 10/12/2020 12:00:00 AM EST TEE ([facility]) [id number] Mild intermittent asthma Mild Intermittent Asthma Prob sal 10/12/2020 12:00:00 AM EST TEE ([facility]) [id number] Mild intermittent asthma Mild Intermittent Asthma Prob sal 10/12/2020 12:00:00 AM EST TEE ([facility]) [id number] Mild intermittent asthma Mild Intermittent Asthma Prob sal 10/12/2020 12:00:00 AM EST TEE ([facility]) [id number] Mild intermittent asthma Mild Intermittent Asthma Prob sal 10/12/2020 12:00:00 AM EST TEE ([facility]) [id number] Mild intermittent asthma Mild Intermittent Asthma Prob sal 10/12/2020 12:00:00 AM EST TEE ([facility]) [id number] Mild intermittent asthma Mild Intermittent Asthma Prob sal 10/12/2020 12:00:00 AM EST TEE ([facility]) [id number] Mild intermittent asthma Mild Intermittent Asthma Prob sal 10/12/2020 12:00:00 AM EST TEE ([facility]) [id number] Mild intermittent asthma Mild Intermittent Asthma Prob sal 10/12/2020 12:00:00 AM EST TEE ([facility]) [id number] Mild intermittent asthma Mild Intermittent Asthma Prob sal 10/12/2020 12:00:00 AM EST TEE ([facility]) [id number] Mild intermittent asthma Mild Intermittent Asthma Prob sal 10/12/2020 12:00:00 AM EST TEE ([facility]) [id number] Mild intermittent asthma Mild Intermittent Asthma Prob sal 10/12/2020 12:00:00 AM EST TEE ([facility]) [id number] Mild intermittent asthma Mild Intermittent Asthma Prob sal 10/12/2020 12:00:00 AM EST TEE ([facility]) [id number] Allergic rhinitis, unspecified Allergic rhinitis, unsp ecified 08/22/2020 04:27:56 PM EDT [facility] [id number] Allergic rhinitis Allergic Rhinitis Problem 08/22/2020 12:00:00 AM EDT [facility]) V01.79 Contact with and (suspected) exposure to other viral communicable diseases Contact with and (suspected) exposure to other viral communicable diseases 08/03/2020 09:46:52 AM EDT [facility] R22.41 Localized swelling, mass and lump, right lower limb Mass of subcutaneous tissue of right lower limb 04/13/2020 11:23:37 AM EDT [facility] 314.01 Attention-deficit hyperactivity disorder , predominantly hyperactive type Attention-deficit hyperactivity disorder, predominantly hyperactive type 04/13/2020 11:23:37 AM EDT [facility] [id number] Finding of lower limb Finding of Lower Limb Problem 04/13/2020 12:00:00 AM EDT - 11/27/2020 12:00:00 AM EST [place]ER[place] ([facility]) [id number] Attention deficit hyperactiv ity disorder, predominantly hyperactive impulsive type Attention Deficit Hyperactivity Disorder , Predominantly Hyperactive Impulsive Type Problem 04/13/2020 12:00:00 AM EDT [place] ([facility]) [id number] Finding of lower limb Finding of Lower Limb Problem 04/13/2020 12:00:00 AM EDT - 11/27/2020 12:00:00 AM EST TEE ([facility]) [id number] Attention deficit hyperactiv ity disorder, predominantly hyperactive impulsive type Attention Deficit Hyperactivity Disorder , Predominantly Hyperactive Impulsive Type Problem 04/13/2020 12:00:00 AM EDT TEE ([facility]) [id number] Finding of lower limb Finding of Lower Limb Problem 04/13/2020 12:00:00 AM EDT - 11/27/2020 12:00:00 AM EST TEE ([facility]) [id number] Attention deficit hyperactiv ity disorder, predominantly hyperactive impulsive type Attention Deficit Hyperactivity Disorder , Predominantly Hyperactive Impulsive Type Problem 04/13/2020 12:00:00 AM EDT TEE ([facility]) [id number] Finding of lower limb Finding of Lower Limb Problem 04/13/2020 12:00:00 AM EDT - 11/27/2020 12:00:00 AM EST TEE ([facility]) [id number] Attention deficit hyperactiv ity disorder, predominantly hyperactive impulsive type Attention Deficit Hyperactivity Disorder , Predominantly Hyperactive Impulsive Type Problem 04/13/2020 12:00:00 AM EDT TEE ([facility]) [id number] Finding of lower limb Finding of Lower Limb Problem 04/13/2020 12:00:00 AM EDT - 11/27/2020 12:00:00 AM EST TEE ([facility]) [id number] Attention deficit hyperactiv ity disorder, predominantly hyperactive impulsive type Attention Deficit Hyperactivity Disorder , Predominantly Hyperactive Impulsive Type Problem 04/13/2020 12:00:00 AM EDT TEE ([facility]) [id number] Finding of lower limb Finding of Lower Limb Problem 04/13/2020 12:00:00 AM EDT - 11/27/2020 12:00:00 AM EST TEE ([facility]) [id number] Attention deficit hyperactiv ity disorder, predominantly hyperactive impulsive type Attention Deficit Hyperactivity Disorder , Predominantly Hyperactive Impulsive Type Problem 04/13/2020 12:00:00 AM EDT TEE ([facility]) [id number] Finding of lower limb Finding of Lower Limb Problem 04/13/2020 12:00:00 AM EDT - 11/27/2020 12:00:00 AM EST TEE ([facility]) [id number] Attention deficit hyperactiv ity disorder, predominantly hyperactive impulsive type Attention Deficit Hyperactivity Disorder , Predominantly Hyperactive Impulsive Type Problem 04/13/2020 12:00:00 AM EDT TEE ([facility]) [id number] Finding of lower limb Finding of Lower Limb Problem 04/13/2020 12:00:00 AM EDT - 11/27/2020 12:00:00 AM EST TEE ([facility]) [id number] Attention deficit hyperactiv ity disorder, predominantly hyperactive impulsive type Attention Deficit Hyperactivity Disorder , Predominantly Hyperactive Impulsive Type Problem 04/13/2020 12:00:00 AM EDT TEE ([facility]) [id number] Finding of lower limb Finding of Lower Limb Problem 04/13/2020 12:00:00 AM EDT TEE ([facility]) [id number] Attention deficit hyperactiv ity disorder, predominantly hyperactive impulsive type Attention Deficit Hyperactivity Disorder , Predominantly Hyperactive Impulsive Type Problem 04/13/2020 12:00:00 AM EDT TEE ([facility]) [id number] Finding of lower limb Finding of Lower Limb Problem 04/13/2020 12:00:00 AM EDT TEE ([facility]) [id number] Attention deficit hyperactiv ity disorder, predominantly hyperactive impulsive type Attention Deficit Hyperactivity Disorder , Predominantly Hyperactive Impulsive Type Problem 04/13/2020 12:00:00 AM EDT TEE ([facility]) [id number] Finding of lower limb Finding of Lower Limb Problem 04/13/2020 12:00:00 AM EDT TEE ([facility]) 4780438 Attention deficit hyperactiv ity disorder, predominantly hyperactive impulsive type Attention Deficit Hyperactivity Disorder , Predominantly Hyperactive Impulsive Type Problem 04/13/2020 12:00:00 AM EDT TEE ([facility]) [id number] Finding of lower limb Finding of Lower Limb Problem 04/13/2020 12:00:00 AM EDT TEE ([facility]) [id number] Attention deficit hyperactiv ity disorder, predominantly hyperactive impulsive type Attention Deficit Hyperactivity Disorder , Predominantly Hyperactive Impulsive Type Problem 04/13/2020 12:00:00 AM EDT TEE ([facility]) [id number] Finding of lower limb Finding of Lower Limb Problem 04/13/2020 12:00:00 AM EDT TEE ([facility]) [id number] Attention deficit hyperactiv ity disorder, predominantly hyperactive impulsive type Attention Deficit Hyperactivity Disorder , Predominantly Hyperactive Impulsive Type Problem 04/13/2020 12:00:00 AM EDT TEE ([facility]) 300.02 GENERALIZED ANXIETY DISORDER GENERALIZED ANXIETY DISOR DONAL 03/05/2020 12:15:23 PM EDT [facility] F33.2 Major depressive disorder, recurrent sev ere without psychotic features DEPRESSIVE DISORDER, MAJOR, RECURRENT EPISODE, SEVERE 03/05/2020 12:15:23 PM EDT [facility] [id number] Generalized anxiety disorder Generalized Anxiety Disor donal Problem 03/05/2020 12:00:00 AM EDT - 11/30/2020 12:00:00 AM EST TEE ([facility]) [id number] Severe recurrent major depression withou t psychotic features Severe Recurrent Major Depression without Psychotic Features Problem 03/05/2020 12:00:00 AM EDT - 11/30/2020 12:00:00 AM EST TEE ([facility]) [id number] Generalized anxiety disorder Generalized Anxiety Disor donal Problem 03/05/2020 12:00:00 AM EDT - 11/30/2020 12:00:00 AM EST TEE ([facility]) [id number] Severe recurrent major depression withou t psychotic features Severe Recurrent Major Depression without Psychotic Features Problem 03/05/2020 12:00:00 AM EDT - 11/30/2020 12:00:00 AM EST TEE ([facility]) [id number] Generalized anxiety disorder Generalized Anxiety Disor donal Problem 03/05/2020 12:00:00 AM EDT - 11/30/2020 12:00:00 AM EST TEE ([facility]) [id number] Severe recurrent major depression withou t psychotic features Severe Recurrent Major Depression without Psychotic Features Problem 03/05/2020 12:00:00 AM EDT - 11/30/2020 12:00:00 AM EST TEE ([facility]) [id number] Generalized anxiety disorder Generalized Anxiety Disor donal Problem 03/05/2020 12:00:00 AM EDT - 11/30/2020 12:00:00 AM EST TEE ([facility]) [id number] Severe recurrent major depression withou t psychotic features Severe Recurrent Major Depression without Psychotic Features Problem 03/05/2020 12:00:00 AM EDT - 11/30/2020 12:00:00 AM EST TEE ([facility]) [id number] Generalized anxiety disorder Generalized Anxiety Disor donal Problem 03/05/2020 12:00:00 AM EDT - 11/30/2020 12:00:00 AM EST TEE ([facility]) [id number] Severe recurrent major depression withou t psychotic features Severe Recurrent Major Depression without Psychotic Features Problem 03/05/2020 12:00:00 AM EDT - 11/30/2020 12:00:00 AM EST TEE ([facility]) [id number] Generalized anxiety disorder Generalized Anxiety Disor donal Problem 03/05/2020 12:00:00 AM EDT - 11/30/2020 12:00:00 AM EST TEE ([facility]) [id number] Severe recurrent major depression withou t psychotic features Severe Recurrent Major Depression without Psychotic Features Problem 03/05/2020 12:00:00 AM EDT - 11/30/2020 12:00:00 AM EST TEE ([facility]) 55410013 Generalized anxiety disorder Generalized Anxiety Disor donal Problem 03/05/2020 12:00:00 AM EDT - 11/30/2020 12:00:00 AM EST TEE ([facility]) [id number] Severe recurrent major depression withou t psychotic features Severe Recurrent Major Depression without Psychotic Features Problem 03/05/2020 12:00:00 AM EDT - 11/30/2020 12:00:00 AM EST TEE ([facility]) 85108435 Generalized anxiety disorder Generalized Anxiety Disor donal Problem 03/05/2020 12:00:00 AM EDT TEE ([facility]) 65322494 Severe recurrent major depression withou t psychotic features Severe Recurrent Major Depression without Psychotic Features Problem 03/05/2020 12:00:00 AM EDT TEE ([facility]) 21424566 Generalized anxiety disorder Generalized Anxiety Disor donal Problem 03/05/2020 12:00:00 AM EDT TEE ([facility]) 79341647 Severe recurrent major depression withou t psychotic features Severe Recurrent Major Depression without Psychotic Features Problem 03/05/2020 12:00:00 AM EDT TEE ([facility]) [id number] Generalized anxiety disorder Generalized Anxiety Disor donal Problem 03/05/2020 12:00:00 AM EDT TEE ([facility]) [id number] Severe recurrent major depression withou t psychotic features Severe Recurrent Major Depression without Psychotic Features Problem 03/05/2020 12:00:00 AM EDT TEE ([facility]) [id number] Generalized anxiety disorder Generalized Anxiety Disor donal Problem 03/05/2020 12:00:00 AM EDT TEE ([facility]) [id number] Severe recurrent major depression withou t psychotic features Severe Recurrent Major Depression without Psychotic Features Problem 03/05/2020 12:00:00 AM EDT TEE ([facility]) [id number] Generalized anxiety disorder Generalized Anxiety Disor donal Problem 03/05/2020 12:00:00 AM EDT TEE ([facility]) 79563618 Severe recurrent major depression withou t psychotic features Severe Recurrent Major Depression without Psychotic Features Problem 03/05/2020 12:00:00 AM EDT TEE ([facility]) [id number] Generalized anxiety disorder Generalized Anxiety Disor donal Problem 03/05/2020 12:00:00 AM EDT TEE ([facility]) [id number] Severe recurrent major depression withou t psychotic features Severe Recurrent Major Depression without Psychotic Features Problem 03/05/2020 12:00:00 AM EDT TEE ([facility]) L50.8 Other urticaria Chronic idiopathic urticaria 10:51:32 AM EST [facility] [id number] Chronic urticaria Chronic Urticaria Problem 01/05/2020 12:00:00 AM EST TEE ([facility]) 40499981 Chronic urticaria Chronic Urticaria Problem 01/05/2020 12:00:00 AM EST TEE ([facility]) [id number] Chronic urticaria Chronic Urticaria Problem 01/05/2020 12:00:00 AM EST TEE ([facility]) [id number] Chronic urticaria Chronic Urticaria Problem 01/05/2020 12:00:00 AM EST TEE ([facility]) [id number] Chronic urticaria Chronic Urticaria Problem 01/05/2020 12:00:00 AM EST TEE ([facility]) 16286261 Chronic urticaria Chronic Urticaria Problem 01/05/2020 12:00:00 AM EST TEE ([facility]) [id number] Chronic urticaria Chronic Urticaria Problem 01/05/2020 12:00:00 AM EST TEE ([facility]) 49049135 Chronic urticaria Chronic Urticaria Problem 01/05/2020 12:00:00 AM EST TEE ([facility]) [id number] Chronic urticaria Chronic Urticaria Problem 01/05/2020 12:00:00 AM EST TEE ([facility]) [id number] Chronic urticaria Chronic Urticaria Problem 01/05/2020 12:00:00 AM EST TEE ([facility]) 48417874 Chronic urticaria Chronic Urticaria Problem 01/05/2020 12:00:00 AM EST TEE ([facility]) [id number] Chronic urticaria Chronic Urticaria Problem 01/05/2020 12:00:00 AM EST TEE ([facility]) 39989861 Chronic urticaria Chronic Urticaria Problem 01/05/2020 12:00:00 AM EST [place] ([facility]) V05.9 Vaccination Vaccination 12/29/2019 06:02:37 PM [facility] [id number] Influenza vaccine needed Influenza Vaccine Needed [facility] 12/28/2019 12:00:00 AM [facility] - 10/12/2020 12:00:00 AM EST TEE ([facility]) [id number] Influenza vaccine needed Influenza Vaccine Needed [facility] 12/28/2019 12:00:00 AM [facility] - 10/12/2020 12:00:00 AM EST TEE ([facility]) [id number] Influenza vaccine needed Influenza Vaccine Needed [facility] 12/28/2019 12:00:00 AM [facility] - 10/12/2020 12:00:00 AM EST TEE ([facility]) [id number] Influenza vaccine needed Influenza Vaccine Needed [facility] 12/28/2019 12:00:00 AM [facility] - 10/12/2020 12:00:00 AM EST TEE ([facility]) [id number] Influenza vaccine needed Influenza Vaccine Needed [facility] 12/28/2019 12:00:00 AM EST - 10/12/2020 12:00:00 AM EST TEE ([facility]) [id number] Influenza vaccine needed Influenza Vaccine Needed [facility] 12/28/2019 12:00:00 AM EST - 10/12/2020 12:00:00 AM EST TEE ([facility]) [id number] Influenza vaccine needed Influenza Vaccine Needed Pro [facility] 12/28/2019 12:00:00 AM EST - 10/12/2020 12:00:00 AM EST TEE ([facility]) [id number] Influenza vaccine needed Influenza Vaccine Needed Pro [facility] 12/28/2019 12:00:00 AM EST - 10/12/2020 12:00:00 AM EST TEE ([facility]) [id number] Influenza vaccine needed Influenza Vaccine Needed Pro [facility] 12/28/2019 12:00:00 AM EST - 10/12/2020 12:00:00 AM EST TEE ([facility]) [id number] Influenza vaccine needed Influenza Vaccine Needed Pro [facility] 12/28/2019 12:00:00 AM EST - 10/12/2020 12:00:00 AM EST TEE ([facility]) [id number] Influenza vaccine needed Influenza Vaccine Needed Pro [facility] 12/28/2019 12:00:00 AM [facility] - 10/12/2020 12:00:00 AM EST TEE ([facility]) [id number] Influenza vaccine needed Influenza Vaccine Needed Pro [facility] 12/28/2019 12:00:00 AM [facility] - 10/12/2020 12:00:00 AM EST TEE ([facility]) [id number] Influenza vaccine needed Influenza Vaccine Needed Pro [facility] 12/28/2019 12:00:00 AM [facility] - 10/12/2020 12:00:00 AM EST TEE ([facility]) 782.1 Eruption Eruption 12/21/2019 04:44:44 PM ES T [facility] [id number] Encounter for general adult medical examination without abnormal findings Encounter for general adult medical exam ination without abnormal findings 12/21/2019 04:44:44 PM EST [facility] [id number] SNOMED CT Concept SNOMED CT Concept Problem 12/21 12:00:00 AM [facility] - 10/12/2020 12:00:00 AM EST TEE ([facility]) [id number] Eruption Eruption Problem 12/21/2019 12:0 0:00 AM EST - 10/12/2020 12:00:00 AM EST TEE ([facility]) 234489102 SNOMED CT Concept SNOMED CT Concept Problem 12/21 12:00:00 AM EST - 10/12/2020 12:00:00 AM EST TEE ([facility]) [id number] Eruption Eruption Problem 12/21/2019 12:0 0:00 AM EST - 10/12/2020 12:00:00 AM EST TEE ([facility]) [id number] SNOMED CT Concept SNOMED CT Concept Problem 12/21 12:00:00 AM EST - 10/12/2020 12:00:00 AM EST TEE ([facility]) [id number] Eruption Eruption Problem 12/21/2019 12:0 0:00 AM EST - 10/12/2020 12:00:00 AM EST TEE ([facility]) [id number] SNOMED CT Concept SNOMED CT Concept Problem 12/21 12:00:00 AM EST - 10/12/2020 12:00:00 AM EST TEE ([facility]) [id number] Eruption Eruption Problem 12/21/2019 12:0 0:00 AM EST - 10/12/2020 12:00:00 AM EST TEE ([facility]) [id number] SNOMED CT Concept SNOMED CT Concept Problem 12/21 12:00:00 AM EST - 10/12/2020 12:00:00 AM EST TEE ([facility]) [id number] Eruption Eruption Problem 12/21/2019 12:0 0:00 AM EST - 10/12/2020 12:00:00 AM EST TEE ([facility]) 766451584 SNOMED CT Concept SNOMED CT Concept Problem 12/21 12:00:00 AM EST - 10/12/2020 12:00:00 AM EST TEE ([facility]) [id number] Eruption Eruption Problem 12/21/2019 12:0 0:00 AM EST - 10/12/2020 12:00:00 AM EST TEE ([facility]) [id number] SNOMED CT Concept SNOMED CT Concept Problem 12/21 12:00:00 AM EST - 10/12/2020 12:00:00 AM EST TEE ([facility]) [id number] Eruption Eruption Problem 12/21/2019 12:0 0:00 AM EST - 10/12/2020 12:00:00 AM EST TEE ([facility]) [id number] SNOMED CT Concept SNOMED CT Concept Problem 12/21 12:00:00 AM EST - 10/12/2020 12:00:00 AM EST TEE ([facility]) [id number] Eruption Eruption Problem 12/21/2019 12:0 0:00 AM EST - 10/12/2020 12:00:00 AM EST TEE ([facility]) [id number] SNOMED CT Concept SNOMED CT Concept Problem 12/21 12:00:00 AM EST - 10/12/2020 12:00:00 AM EST TEE ([facility]) [id number] Eruption Eruption Problem 12/21/2019 12:0 0:00 AM EST - 10/12/2020 12:00:00 AM EST TEE ([facility]) [id number] SNOMED CT Concept SNOMED CT Concept Problem 12/21 12:00:00 AM EST - 10/12/2020 12:00:00 AM EST TEE ([facility]) [id number] Eruption Eruption Problem 12/21/2019 12:0 0:00 AM EST - 10/12/2020 12:00:00 AM EST TEE ([facility]) [id number] SNOMED CT Concept SNOMED CT Concept Problem 12/21 12:00:00 AM EST - 10/12/2020 12:00:00 AM EST TEE ([facility]) [id number] Eruption Eruption Problem 12/21/2019 12:0 0:00 AM EST - 10/12/2020 12:00:00 AM EST TEE ([facility]) [id number] SNOMED CT Concept SNOMED CT Concept Problem 12/21 12:00:00 AM EST - 10/12/2020 12:00:00 AM EST TEE ([facility]) [id number] Eruption Eruption Problem 12/21/2019 12:0 0:00 AM EST - 10/12/2020 12:00:00 AM EST TEE ([facility]) [id number] SNOMED CT Concept SNOMED CT Concept Problem 12/21 12:00:00 AM EST - 10/12/2020 12:00:00 AM EST TEE ([facility]) [id number] Eruption Eruption Problem 12/21/2019 12:0 0:00 AM EST - 10/12/2020 12:00:00 AM EST TEE ([facility]) [id number] Screening for malignant neoplasm of cerv ix Screening for Malignant Neoplasm of Cervix Problem 11/08/2019 12:00:00 AM EST - 10/12/2020 12:00:00 AM EST TEE ([facility]) [id number] Screening for malignant neoplasm of cerv ix Screening for Malignant Neoplasm of Cervix Problem 11/08/2019 12:00:00 AM EST - 10/12/2020 12:00:00 AM EST TEE ([facility]) [id number] Screening for malignant neoplasm of cerv ix Screening for Malignant Neoplasm of Cervix Problem 11/08/2019 12:00:00 AM EST - 10/12/2020 12:00:00 AM EST TEE ([facility]) [id number] Screening for malignant neoplasm of cerv ix Screening for Malignant Neoplasm of Cervix Problem 11/08/2019 12:00:00 AM EST - 10/12/2020 12:00:00 AM EST TEE ([facility]) [id number] Screening for malignant neoplasm of cerv ix Screening for Malignant Neoplasm of Cervix Problem 11/08/2019 12:00:00 AM EST - 10/12/2020 12:00:00 AM EST TEE ([facility]) [id number] Screening for malignant neoplasm of cerv ix Screening for Malignant Neoplasm of Cervix Problem 11/08/2019 12:00:00 AM EST - 10/12/2020 12:00:00 AM EST TEE ([facility]) [id number] Screening for malignant neoplasm of cerv ix Screening for Malignant Neoplasm of Cervix Problem 11/08/2019 12:00:00 AM EST - 10/12/2020 12:00:00 AM EST TEE ([facility]) [id number] Screening for malignant neoplasm of cerv ix Screening for Malignant Neoplasm of Cervix Problem 11/08/2019 12:00:00 AM EST - 10/12/2020 12:00:00 AM EST TEE ([facility]) [id number] Screening for malignant neoplasm of cerv ix Screening for Malignant Neoplasm of Cervix Problem 11/08/2019 12:00:00 AM EST - 10/12/2020 12:00:00 AM EST TEE ([facility]) [id number] Screening for malignant neoplasm of cerv ix Screening for Malignant Neoplasm of Cervix Problem 11/08/2019 12:00:00 AM EST - 10/12/2020 12:00:00 AM EST TEE ([facility]) [id number] Screening for malignant neoplasm of cerv ix Screening for Malignant Neoplasm of Cervix Problem 11/08/2019 12:00:00 AM EST - 10/12/2020 12:00:00 AM EST TEE ([facility]) [id number] Screening for malignant neoplasm of cerv ix Screening for Malignant Neoplasm of Cervix Problem 11/08/2019 12:00:00 AM EST - 10/12/2020 12:00:00 AM EST TEE ([facility]) [id number] Screening for malignant neoplasm of cerv ix Screening for Malignant Neoplasm of Cervix Problem 11/08/2019 12:00:00 AM EST - 10/12/2020 12:00:00 AM EST TEE ([facility]) Surgeries/Procedures Procedure Description Date Indications Data Source(s) X-Ray Foot Complete 05/15/2020 12:00:00 AM EDT MEDENT ([facility]) RADEX FOOT COMPLETE MINIMUM 3 VIEWS 05/15/2020 12:00:0 0 AM EDT MEDENT ([facility]) Results ID Date Data Source [id number] 11/15/2020 05:41:00 PM EST TEE ([facility]) Name Value Range Interpretation Code Description Data Michelle rce(s) Supporting Document(s) istat B-HCG < 5.0 normal Istat B-HCG TEE ([facility]) ID Date Data Source [id number] 11/15/2020 05:41:00 PM EST TEE ([facility]) Name Value Range Interpretation Code Description Data Michelle rce(s) Supporting Document(s) istat B-HCG < 5.0 normal Istat B-HCG TEE ([facility]) ID Date Data Source [id number] 11/15/2020 05:41:00 PM EST TEE ([facility]) Name Value Range Interpretation Code Description Data Michelle rce(s) Supporting Document(s) istat B-HCG < 5.0 normal Istat B-HCG TEE ([facility]) ID Date Data Source [id number] 11/15/2020 05:41:00 PM EST TEE ([facility]) Name Value Range Interpretation Code Description Data Michelle rce(s) Supporting Document(s) istat B-HCG < 5.0 normal Istat B-HCG TEE ([facility]) ID Date Data Source [id number] 11/15/2020 05:41:00 PM EST TEE ([facility]) Name Value Range Interpretation Code Description Data Michelle rce(s) Supporting Document(s) istat B-HCG < 5.0 normal Istat B-HCG TEE ([facility]) ID Date Data Source [id number] 11/15/2020 05:41:00 PM EST TEE ([facility]) Name Value Range Interpretation Code Description Data Michelle rce(s) Supporting Document(s) istat B-HCG < 5.0 normal Istat B-HCG TEE ([facility]) ID Date Data Source [id number] 11/15/2020 05:41:00 PM EST TEE ([facility]) Name Value Range Interpretation Code Description Data Michelle rce(s) Supporting Document(s) istat B-HCG < 5.0 normal Istat B-HCG TEE ([facility]) ID Date Data Source [id number] 11/15/2020 05:41:00 PM EST TEE ([facility]) Name Value Range Interpretation Code Description Data Michelle rce(s) Supporting Document(s) istat B-HCG < 5.0 normal Istat B-HCG TEE ([facility]) ID Date Data Source [id number] 11/15/2020 05:21:00 PM EST [facility] Name Value Range Interpretation Code Description Data Michelle rce(s) Supporting Document(s) SARS coronavirus 2 RNA [Presence] in Res piratory specimen by DRAKE with probe detection [facility] This lab was ordered by [facility] a nd reported by [facility]. ID Date Data Source [id number] 11/02/2020 03:43:00 PM EST TEE ([facility]) Name Value Range Interpretation Code Description Data Michelle rce(s) Supporting Document(s) Flu negative Flu TEE ([facility]) ID Date Data Source [id number] 11/02/2020 03:43:00 PM EST TEE ([facility]) Name Value Range Interpretation Code Description Data Michelle rce(s) Supporting Document(s) Flu negative Flu TEE ([facility]) ID Date Data Source [id number] 11/02/2020 03:43:00 PM EST ETE ([facility]) Name Value Range Interpretation Code Description Data Michelle rce(s) Supporting Document(s) Flu negative Flu TEE ([facility]) ID Date Data Source [id number] 11/02/2020 03:43:00 PM EST TEE ([facility]) Name Value Range Interpretation Code Description Data Michelle rce(s) Supporting Document(s) Flu negative Flu TEE ([facility]) ID Date Data Source [id number] 11/02/2020 03:43:00 PM EST TEE ([facility]) Name Value Range Interpretation Code Description Data Michelle rce(s) Supporting Document(s) Flu negative Flu TEE ([facility]) ID Date Data Source [id number] 11/02/2020 03:43:00 PM EST TEE ([facility]) Name Value Range Interpretation Code Description Data Michelle rce(s) Supporting Document(s) Flu negative Flu TEE ([facility]) ID Date Data Source [id number] 11/02/2020 03:43:00 PM EST TEE ([facility]) Name Value Range Interpretation Code Description Data Michelle rce(s) Supporting Document(s) Flu negative Flu TEE ([facility]) ID Date Data Source [id number] 11/02/2020 03:43:00 PM EST TEE ([facility]) Name Value Range Interpretation Code Description Data Michelle rce(s) Supporting Document(s) Flu negative Flu TEE ([facility]) ID Date Data Source [id number] 11/02/2020 03:43:00 PM EST TEE ([facility]) Name Value Range Interpretation Code Description Data Michelle rce(s) Supporting Document(s) Flu negative Flu TEE ([facility]) ID Date Data Source [id number] 11/02/2020 03:43:00 PM EST TEE ([facility]) Name Value Range Interpretation Code Description Data Michelle rce(s) Supporting Document(s) Flu negative Flu TEE ([facility]) ID Date Data Source [id number] 11/01/2020 02:54:00 PM EST [facility] Name Value Range Interpretation Code Description Data Michelle rce(s) Supporting Document(s) SARS coronavirus 2 RdRp gene [Presence] in Respiratory specimen by DRAKE with probe detection [facility] This lab was ordered by [facility] and reported by [facility]. ID Date Data Source [id number] 11/01/2020 02:53:00 PM EST TEE ([facility]) Name Value Range Interpretation Code Description Data Michelle rce(s) Supporting Document(s) sars-cov-2 negative negative normal Sars-cov-2 TEE ([facility]) ID Date Data Source [id number] 11/01/2020 02:53:00 PM EST ESPERANCE ([facility]) Name Value Range Interpretation Code Description Data Michelle rce(s) Supporting Document(s) sars-cov-2 negative negative normal Sars-cov-2 ESPERANCE ([facility]) ID Date Data Source [id number] 11/01/2020 02:53:00 PM EST TEE ([facility]) Name Value Range Interpretation Code Description Data Michelle rce(s) Supporting Document(s) sars-cov-2 negative negative normal Sars-cov-2 ESPERANCE ([facility]) ID Date Data Source [id number] 11/01/2020 02:53:00 PM EST ESPERANCE ([facility]) Name Value Range Interpretation Code Description Data Michelle rce(s) Supporting Document(s) sars-cov-2 negative negative normal Sars-cov-2 ESPERANCE ([facility]) ID Date Data Source [id number] 11/01/2020 02:53:00 PM EST TEE ([facility]) Name Value Range Interpretation Code Description Data Michelle rce(s) Supporting Document(s) sars-cov-2 negative negative normal Sars-cov-2 TEE ([facility]) ID Date Data Source [id number] 11/01/2020 02:53:00 PM EST TEE ([facility]) Name Value Range Interpretation Code Description Data Michelle rce(s) Supporting Document(s) sars-cov-2 negative negative normal Sars-cov-2 TEE ([facility]) ID Date Data Source [id number] 11/01/2020 02:53:00 PM EST TEE ([facility]) Name Value Range Interpretation Code Description Data Michelle rce(s) Supporting Document(s) sars-cov-2 negative negative normal Sars-cov-2 TEE ([facility]) ID Date Data Source [id number] 11/01/2020 02:53:00 PM EST TEE ([facility]) Name Value Range Interpretation Code Description Data Michelle rce(s) Supporting Document(s) sars-cov-2 negative negative normal Sars-cov-2 TEE ([facility]) ID Date Data Source [id number] 11/01/2020 02:53:00 PM EST TEE ([facility]) Name Value Range Interpretation Code Description Data Michelle rce(s) Supporting Document(s) sars-cov-2 negative negative normal Sars-cov-2 TEE ([facility]) ID Date Data Source [id number] 11/01/2020 02:53:00 PM EST TEE ([facility]) Name Value Range Interpretation Code Description Data Michelle rce(s) Supporting Document(s) sars-cov-2 negative negative normal Sars-cov-2 TEE ([facility]) ID Date Data Source [id number] 11/01/2020 02:53:00 PM EST TEE ([facility]) Name Value Range Interpretation Code Description Data Michelle rce(s) Supporting Document(s) sars-cov-2 negative negative normal Sars-cov-2 TEE ([facility]) ID Date Data Source [id number] 08/22/2020 03:57:41 PM EDT [facility] Measurements & CalculationsHeight: 61 inches (5 ft. 1 in.) 154.94 cm Weight: 216.4 pounds 98.36 kg Body Mass Index (BMI): 41.04BMI Interpretation: Morbidly ObeseBody Surface Area (BSA): 1.96Weight Management Education Done (Nutrition/Physical Activity)Vital SignsTemperature: 97.5F 36.39C tympanic Pulse Rate: 95 beats/minuteRespiratory Rate: 18 respirations/minuteBlood Pressure: 167/93 left arm sitting automaticO2 Saturation: 97% Vital Signs performed by: Mel Nunn LPN, August 22, 2020 4:06 PMAdult Questionnaire1) Does the patient have a long-term health problem with heart disease, lung disease, asthma, kidney disease, metabolic disease (e.g., diabetes), anemia, or other blood disorder? No2) Does the patient have allergies to medications, food, a vaccine component, or latex? No3) Does the patient have cancer, leukemia, AIDS, or any other immune system problem? No4) Does the patient live with or expect to have close contact with a person whose immune system is severely compromised and who must be in protective isolation (e.g., an isolation room of a bone marrow transplant unit)? No5) Does the patient take cortisone, prednisone, other steroids, or anticancer drugs, or has the patient had radiation treatments? No6) During the past year, has the patient received a transfusion of blood or blood products, or been given immune (gamma) globulin or an antiviral drug? No7) For women: Is the patient or is there a chance she could become during the next month? No8) Has the patient ever had a serious reaction to a vaccine in the past? No9) Has the patient had a seizure or a brain or other nervous system problem? No10) Has the patient received any vaccinations in the past 4 weeks? No11) Is the patient older than age 49 years? No12) Is the patient sick today? No13) Vaccine information given and explained to patient? YesVaccines Adminis tered/Entered:Vaccination Group: InfluenzaSeries: 1Vaccination: Flulaval Quadrivalent Intramuscular Suspension Prefilled Syringe 0.5 MLMfr / Lot# / Exp.Date: [employer] / [id number] 1Amt. Given / Route / Site: 0.5 mL / IM / Left DeltoidNDC / CVX: [id number] / 150Administered Date: 08/22/2020 16:30VFC Eligibility: Not VFC EligibleVIS Date: 07/07/2019VIS Given / VIS Given On: Yes / 08/22/2020Comments: Administered by: Mel Nunn LPN Initial Intake Information From: patientRoom #: 1Infectious Disease / Travel ScreeningRecent travel for you or any close contacts? NoHave you had any close contact with anyone diagnosed with or under investigation for COVID-19 (coronavirus)? NoFever? NoRespiratory symptoms: cough, cold, congestion, shortness of breath, difficulty breathing? NoLoss of smell? NoLoss of taste? NoSmoking, Tobacco, Vaping or Smoke Exposure StatusSmoke Status: current every day smokerTobacco Use: YesAdv to Quit: YesDo you vape? NoMenstrual HistoryLast Menstrual Period (LMP): 08/09/2020LMP History: ApproximateAny possibility of ? NoHealthcare HistorySince your last office visit...Have you been admitted to the hospital? NoHave you been to an emergency room (ER) or urgent care clinic? No - [facility]c-fell at workHave you seen another healthcare provider? Yes - orthoHave you seen a dentist? Yes - NOCOIntake performed by: Mel Nunn LPN, August 22, 2020 4:00 PMRate Your HealthIn general, would you say your health is? FairPain AssessmentAre you currently having any pain which... You would like your provider to address? Yes Affects your activity level? NoDepression Screening - PHQ-2Over the last two weeks, have you... Had little interest or pleasure in doing things? More than half the days Been feeling down, depressed, or hopeless? More than half the days PHQ-2 Score: 4Anxiety Screening - ENMA-2Over the last two weeks, have you been... Feeling nervous, anxious, or on edge? More than half the days Unable to stop or control worrying? More than half the days ENMA-2 Score: 4Food InsecurityWithin the past year...Did you worry whether your food would run out before you got money to buy more? Never trueWas there a time when the food you bought didn't last and you didn't have money to get more? Never trueGeneralized Anxiety Disorder 7-Item Screening (ENMA-7)Answer Guide:0 = Not at all1 = Several days2 = Over half the days3 = Nearly every dayOver the last 2 weeks, how often have you been bothered by the following problems?Feeling nervous, anxious, or on edge: 2Not being able to stop or control worryinWorrying too much about different things: 2Trouble relaxinBeing so restless that it's hard to sit still: 2Becoming easily annoyed or irritable: 2Feeling afraid as if something awful might happen: 2Answer Guide:0 = Not difficult at all1 = Somewhat difficult2 = Very difficult3 = Extremely difficultHow difficult have these made it for you to do your work, take care of things at home, or get along with other people? 2GAD-7 Screening Results ENMA-2 Score: 4GAD-7 Score: 14Functional Impairment: Very difficultRecommendation: Moderate anxietyPHQ-9 1. Over the last 2 weeks, patient reports the following frequency of symptoms: a. Little interest or pleasure in doing things -More than half the days b. Feeling down, depressed, or hopeless - More than half the days c. Trouble falling asleep, staying asleep, or sleeping too much -More than half the days d. Feeling tired or having little energy -More than half the days e. Poor appetite or overeating -More than half the days f. Feeling bad about yourself, feeling that you are a failure, or feeling that you have let yourself or your family down -More than half the days g. Trouble concentrating on things such as reading the newspaper or watching television -More than half the days h. Moving or speaking so slowly that other people could have noticed. Or being so fidgety or restless that you have been moving around a lot more than usual -More than half the days i. Thinking that you would be better off or that you want to hurt yourself in some way -Not at all2. If you checked off any problems, how difficult have these problems made it for you to do your work, take care of things at home, or get along with other people? -Very DifficultToday's PHQ-9 Results Score: 16 Severity: Moderately Severe Diagnosis Recommendation: Major Depression Functional Impairment: Very DifficultToday's Follow-Up Action Depression follow-up done. Follow-Up Action: Continue To Take Medications as PrescribedPain AssessmentLocation: chestDuration: 2 weeksFrequency: DailyScreening, Brief Intervention, & Referral to Treatment (SBIRT)Pre-Screening Questions How many times have you have 4 or more drinks in a day? 0How many times have you used an illegal drug or used a prescription medication for a non- medical reason? 0Performed by: Mel Nunn LPN, August 22, 2020 4:02 PMPatient History Medical History:ADHDAnxietyDepressionSurgical History:c- section [id number] History:Cancer- Both SidesSocial/Personal History: Advised to Quit/Tobacco Education: YesChief Complaintfollow-up visitHistory of Present Illness (HPI)34 yo female pt presents for one month follow-up.Pt feels exhausted and lack of motivation for the last 2-2.5 weeks, she feels that was as she weaned off of prior Lexapro and onto Prozac. Pt takes Prozac in the morning. Pt feels still irritable, has been on the Prozac 3 weeks now. Pt states she has her period every 2 weeks, last was 08/09/2020 and feels it may be starting tomorrow due to how she feels. They last 3-4 days light bleeding and 1 day of heavy. This has been going on x 3 years, since having a twin . Prior to 3 years age was extremely heavy symptomatic periods and questionable endometriosis. Last pap was about 3 years ago. Pt plans to schedule an updated appt with her [employer]. Pt is interested in allergy medicine, but is unsure of what allergy medication to use. Pt feels postnasal drainage, sneezing 4-5 times daily, and sinus pressure that is nearly constant. Transitions of Care InboundProblem ReviewProblem List was reviewed and/or updated during this visit.Medication Reconciliation & ReviewMedication List was reviewed and/or updated during this visit, including review of any sucn-axw-wpisjxq medications, herbal therapies, and/or supplements.Allergy ReviewAllergy List was reviewed and/or updated during this visit.Adult Preventive CareScreening Tobacco Screening: Smoking Status: current every day smoker (08/22/2020) Tobacco Use: Currently (08/22/2020) Advised to Quit: Yes (08/22/2020)Labs/Meds/Other Counseling-Nutrition and Physical Activity:BMI Interpretation: Morbidly Obese (08/22/2020) Counseling: Done (08/22/2020) Physical Activity: Done (08/22/2020)Review of Systems General: Complains of see HPI, fatigue. Denies l oss of appetite, chills, dizziness, fever. Ears/Nose/Throat: Complains of see HPI, nasal congestion, runny nose. Cardiovascular: Denies chest pain, palpitations, feeling faint. Respiratory: Denies cough, difficulty breathing, shortness of breath. Gastrointestinal: Denies nausea, vomiting, diarrhea. Genitourinary: Complains of see HPI. Denies pelvic pain. Neurologic: Denies weakness, feeling faint. Psychiatric: Complains of see HPI, depression, anxiety. Physical ExamGeneral Appearance: well nourished, well hydrated, no acute distress, obese femaleEyes, External: conjunctivae and lids normal, E OMIExternal Ears: normal, no lesions or deformitiesOtoscopy: canals clear, tympanic membranes intact, no fluid, light reflex intact bilaterallyNasal: clear rhinorrhea, turbinates mildly edematousRespiratory, Auscultation: clear to auscultation bilaterally; no rales, rhonchi, or wheezesCardiovascular, Auscultation: S1, S2 audible; no murmur, rub, or gallop; RRRPeripheral Circulation: no clubbing, cyanosis, edema, or varicositiesAbdomen: soft, non- tender, no masses, bowel sounds normalGait & Station: normalOrientation: oriented to time, place, and personMood & Affect: mildly anxious appearing, rapid speech, flighty at timesJudgment & Insight: intactCare Management Plan Transitions of CareInboundRate Your HealthIn general, would you say your health is? FairAssessment & Plan Problems:Added: Allergic rhinitis, unspecified (ICD10- J30.9) Assessment: Instructions: Allergy medications as prescribed.Assessed:DEPRESSIVE DISORDER, MAJOR, RECURRENT EPISODE, SEVERE (ICD- 296.33) (UPF98-M99.2) Assessment: Instructions: Take Prozac at bedtime and evaluate if your fatigue improves. If not, call next week to discuss alternative medication options.GENERALIZED ANXIETY DISORDER (ICD-300.02) (ICD10- F41.1) Assessment: Instructions: As above. Continue per Hafsa.Vaccination (ICD-V05.9) (KBT52-T21) Assessment: Instructions: Flu vaccine today.Removed:Contact with and (suspected) exposure to other viral communicable diseases (ICD-V01.79) (SWP04-B23.828)Patient Instructions/Care Plan: DEPRESSIVE DISORDER- MAJOR- RECURRENT EPISODE- SEVERE: Take Prozac at bedtime and evaluate if your fatigue improves. If not, call next week to discuss alternative medication options.GENERALIZED ANXIETY DISORDER: As above. Continue per Hafsa.Allergic rhinitis- unspecified: Allergy medications as prescribed.Vaccination: Flu vaccine today. Plan developed in collaboration with patient and/or familyMedications:FLONASE ALLERGY RELIEF 50 MCG/ACT NASAL SUSPENSIONCETIRIZINE HCL 10 MG ORAL TABLETHYDROXYZINE HCL 25 MG ORAL TABLETPROZAC 20 MG ORAL CAPSULEVYVANSE 40 MG ORAL CAPSULEBETAMETHASONE DIPROPIONATE 0.05 % EXTERNAL OINTMENTCHANTIX STARTING MONTH ANJALI 0.5 MG X 11 & 1 MG X 42 ORAL TABLETMedication Changes:New Prescription:CETIRIZINE HCL 10 MG ORAL TABLET-take 1 tablet po daily Qty: 90[Tablet] Refills: 3 Method: ElectronicFLONASE ALLERGY RELIEF 50 MCG/ACT NASAL SUSPENSION-1 spray in each nostril once daily Qty: 1[Container] Refills: 5 Method: ElectronicRemoved:ZYRTEC ALLERGY 10 MG ORAL TABLET-1 tab po daily, DIPHENHYDRAMINE HCL 50 MG ORAL CAPSULE-one tab po up to TID prn breakthrough rash, SINGULAIR 10 MG ORAL TABLET-one tab po QDAllergies:* LATEX (Moderate)Orders:FluLaval Quadrivalent, preservative free [CPT-48247] Adult - Ofc Vst, EST, Level III [CPT-58675] Follow-Up Return to clinic: in 30 days for follow upAdditional Follow-Up: med checkClinical Visit Summary Completed Name Value Range Interpretation Code Description Data Michelle rce(s) Supporting Document(s) ID Date Data Source [id number] 08/03/2020 10:00:00 AM EDT [facility] In-House Lab TestsDate/Time Collect ed: August 03, 2020 10:00 AMDate/Time Received: August 03, 2020 10:00 AMComments: Covid testing performed without difficulty in left nostril. Patient tolerated procedure well. Patient education given.Amparo Escobar LPN, August 06, 2020 8:36 PMAssessment & Plan Orders:Specimen Handling [CPT-20020] Name Value Range Interpretation Code Description Data Michelle rce(s) Supporting Document(s) ID Date Data Source [id number] 08/03/2020 12:00:00 AM EDT [facility] Name Value Range Interpretation Code Description Data Michelle rce(s) Supporting Document(s) SARS-COV-2 RNA RESP QL DRAKE+PROBE [facility] This lab was ordered by [facility] and reported by [facility]. ID Date Data Source [id number] 07/18/2020 03:49:59 PM EDT [facility] Measurements & CalculationsHeight: 61 inches (5 ft. 1 in.) 154.94 cm Weight: 211.6 pounds 96.18 kg Body Mass Index (BMI): 40.13BMI Interpretation: Morbidly ObeseBody Surface Area (BSA): 1.94Weight Management Education Done (Nutrition/Physical Activity)Vital SignsTemperature: 97.5F 36.39C tympanic Pulse Rate: 78 beats/minuteRespiratory Rate: 18 respirations/minuteBlood Pressure: 104/65 left arm sitting automaticO2 Saturation: 97% Vital Signs performed by: Mel Nunn LPN, July 18, 2020 3:50 PMInitial Intake Information From: patientRoom #: 1Infectious Disease / Travel ScreeningRecent travel for you or any close contacts? NoHave you had any close contact with anyone diagnosed with or under investigation for COVID-19 (coronavirus)? NoFever? NoRespiratory symptoms: cough, cold, congestion, shortness of breath, difficulty breathing? NoLoss of smell? NoLoss of taste? N oSmoking, Tobacco, Vaping or Smoke Exposure StatusSmoke Status: current every day smokerTobacco Use: YesAdv to Quit: YesDo you vape? NoPassive Smoke Exposure: YesMenstrual HistoryLast Menstrual Period (LMP): 07/12/2020LMP History: ApproximateAny possibility of ? NoHealthcare HistorySince your last office visit...Have you been admitted to the hospital? NoHave you been to an emergency room (ER) or urgent care clinic? NoHave you seen another healthcare provider? YesHave you seen a dentist? YesIntake performed by: Mel Nunn LPN, July 18, 2020 3:53 PMRate Your HealthIn general, would you say your health is? FairPain AssessmentAre you currently having any pain which... You would like your provider to address? Yes Affects your activity level? YesDepression Screening - PHQ-2Over the last two weeks, have you... Had little interest or pleasure in doing things? Not at all Been feeling down, depressed, or hopeless? Not at all PHQ-2 Score: 0Anxiety Screening - ENMA-2Over the last two weeks, have you been... Feeling nervous, anxious, or on edge? Not at all Unable to stop or control worrying? Not at all ENMA-2 Score: 0Food InsecurityWithin the past year...Did you worry whether your food would run out before you got money to buy more? Never trueWas there a time when the food you bought didn't last and you didn't have money to get more? Never truePain AssessmentLocation: lower backOnset: 07/15/2020Duration: 4-7 daysCharacter/Quality: achingScreening, Brief Intervention, & Referral to Treatment (SBIRT)Pre-Screening Questions How many times have you have 4 or more drinks in a day? 0How many times have you used an illegal drug or used a prescription medication for a non-medical reason? 0Performed by: Mel Nunn LPN, July 18, 2020 3:55 PMPatient History Medical History:ADHDAnxietyDepressionSurgical History: [id number] History:Cancer- Both SidesSocial/Personal History: Advised to Quit/Tobacco Education: YesChief Complaintfollow-up visitHistory of Present Illness (HPI)PT is a 34 y/o female, presents for mood follow-up. Doesn't feel Lexapro 20mg is effective and longer, on this since November 2019. Previously has taken Wellbutrin, Buspar, Celexa, Z oloft, Effexor (up to 225mg) all without effect. Has never taken Paxil or Prozac. She also feels her Vyvanse is helpful but wears off in the afternoon, otherwise tolerating well and is quite happy with the medication. Pt reports slow growing lumps under the skin on b/l thighs, present x 6 months. Denies pain, redness, injury. Transitions of Care InboundProblem ReviewProblem List was reviewed and/or updated during this visit.Medication Reconciliation & ReviewMedication List was reviewed and/or updated during this visit, including review of any fbjq-oml-svwqdtt medications, herbal therapies, and/or supplements.Allergy ReviewAllergy List was reviewed and/or updated during this visit.Adult Preventive CareScreening Tobacco Screening: Smoking Status: current every day smoker (07/18/2020) Tobacco Use: Currently (07/18/2020) Advised to Quit: Yes (07/18/2020)Labs/Meds/Other Counseling-Nutrition and Physical Activity:BMI Interpretation: Morbidly Obese (07/18/2020) Counseling: Done (07/18/2020) Physical Activity: Done (07/18/2020)Review of Systems General: Denies loss of appetite, chills, dizziness, fatigue, fever, headache. Cardiovascular: Denies chest pain, palpitations, feeling faint, elevated blood pressure. Respiratory: Denies cough, difficulty breathing, shortness of breath. Gastrointestinal: Denies nausea, vomiting, diarrhea. Musculoskeletal: Denies leg pain. Skin: Complains of see HPI. Denies rash, redness, itching, suspicious lesions. Neurologic: Denies weakness, feeling faint. Psychiatric: Complains of see HPI. Physical ExamGeneral Appearance: well nourished, well hy drated, no acute distress, obese femaleEyes, External: conjunctivae and lids normal, EOMIRespiratory, Auscultation: clear to auscultation bilaterally; no rales, rhonchi, or wheezesCardiovascular, Auscultation: S1, S2 audible; no murmur, rub, or gallop; RRRPeripheral Circulation: no clubbing, cyanosis, edema, or varicositiesAbdomen: soft, non-tender, no masses, bowel sounds normalGait & Station: normalSkin, Inspection: subcutaneous firm mobile masses <1cm in size on b/l anterior thighs without erythema or fluctuanceOrientation: oriented to time, place, and personMood & Affect: mildly anxious appearing, rapid speech, flighty at timesJudgment & Insight: intactCare Management Plan Transitions of CareInboundRate Your HealthIn general, would you say your health is? FairAssessment & Plan Problems:Assessed:Attention-deficit hyperactivity disorder, predominantly hyperactive type (ICD-314.01) (ISJ76-X48.1) Assessment: [facility] Prescription Monitoring Program was consulted to day prior to prescribing controlledsubstances for the patient. Instructions: Tolerating well, will increase to 40mg daily for improved effect. Follow-up in 1 month for med check.DEPRESSIVE DISORDER, MAJOR, RECURRENT EPISODE, SEVERE (ICD-296.33) (QMI89-V10.2) Assessment: Instructions: Taper off Lexapro (1/2 tablet daily x 7 days then stop), and replace with Prozac daily. Reschedule with [facility] for counseling services.GENERALIZED ANXIETY DISORDER (ICD-300.02) (XXU04-E52.1) Assessment: Instructions: As above.Chronic idiopathic urticaria (ICD-708.1) (NAT46-U55.8) Assessment: Instructions: Switch from Loratidine to Zyrtec daily. Continue Singulair daily.Nicotine dependence (ICD- 305.1) (QXN29-A59.200) Assessment: Instructions: Chantix Starter pack again. Call when ready for continuing pack.Mass of subcutaneous tissue of right lower limb (FGM69-X19.41) Assessment: Instructions: Likely lipoma. Monitor. If they get to a point of wanting removal, call for surgical referral .Attention-deficit hyperactivity disorder, predominantly hyperactive type (ICD- 314.01) (LTY20-P10.1) Assessment: Resent with corrected Sig for Vyvanse.Removed:Anxiety disorder, unspecified (IDS33-W69.9)Patient Instructions/Care Plan: Attention-deficit hyperactivity disorder- predominantly hyperactive type: Tolerating well, will increase to 40mg daily for improved effect. Follow-up in 1 month for med check.DEPRESSIVE DISORDER- MAJOR- RECURRENT EPISODE- SEVERE: Taper off Lexapro (1/2 tablet daily x 7 days then stop), and replace with Prozac daily. Reschedule with [facility] for counseling services.GENERALIZED ANXIETY DISORDER: As above.Chronic idiopathic urticaria: Switch from Loratidine to Zyrtec daily. Continue Singulair daily.Nicotine dependence: Chantix Starter pack again. Call when ready for continuing pack.Mass of subcutaneous tissue of right lower limb: Likely lipoma. Monitor. If they get to a point of wanting removal, call for surgical referral. Plan developed in collaboration with patient and/or familyMedications:PROZAC 20 MG ORAL CAPSULEVYVANSE 40 MG ORAL CAPSULEZYRTEC ALLERGY 10 MG ORAL TABLETBETAMETHASONE DIPROPIONATE 0.05 % EXTERNAL OINTMENTDIPHENHYDRAMINE HCL 50 MG ORAL CAPSULESINGULAIR 10 MG ORAL TABLETCHANTIX STARTING MONTH ANJALI 0.5 MG X 11 & 1 MG X 42 ORAL TABLETMedication Changes:Refilled:CHANTIX STARTING MONTH ANJALI 0.5 MG X 11 & 1 MG X 42 ORAL TABLET- use as directed Qty: 1[Kit] Refills: 0 Method: ElectronicVYVANSE 40 MG ORAL CAPSULE-Take 1 capsule po daily in the morning; MDD 30mg Qty: 30[Capsule] Refills: 0 Method: ElectronicVYVANSE 40 MG ORAL CAPSULE-Take 1 capsule po daily in the morning; MDD 40mg Qty: 30[Capsule] Refills: 0 Method: ElectronicNew Prescription:PROZAC 20 MG ORAL CAPSULE-Take 1 capsule po daily Qty: 30[Capsule] Refills: 1 Method: ElectronicRemoved:CHANTIX CONTINUING MONTH ANJALI 1 MG ORAL TABLET-Take 1 tablet daily, LEXAPRO 20 MG ORAL TABLET-One tablet by mouth every day Qty: 30[Tablet] Refills: 5Changed:From: ORAL LORAT ADINE 10 MG ORAL TABLET Qty: [id number] To: ZYRTEC ALLERGY 10 MG ORAL TABLET-1 tab po daily To: CHANTIX STARTING MONTH ANJALI 0.5 MG X 11 & 1 MG X 42 ORAL TABLET-use as directed Qty: 1[Kit] Refills: 0From: ORAL VYVANSE 30 MG ORAL CAPSULE Qty: [id number] Refills: 30[Capsule] To: VYVANSE 40 MG ORAL CAPSULE- Take 1 capsule po daily in the morning; MDD 30mg Qty: 30[Capsule] Refills: 0From: ORAL VYVANSE 40 MG ORAL CAPSULE Qty: [id number] Refills: 30[Capsule] To: VYVANSE 40 MG ORAL CAPSULE-Take 1 capsule po daily in the morning; MDD 40mg Qty: 30[Capsule] Refills: 0Allergies:* LATEX (Moderate)Orders:Adult - Ofc Vst, EST, Level III [CPT-39580] Follow-Up Return to clinic: in 4 weeks for follow upAdditional Follow-Up: med checkClinical Visit Summary CompletedMedications:VYVANSE 40 MG ORAL CAPSULE (LISDEXAMFETAMINE DIMESYLATE) Take 1 capsule po daily in the morning; MDD 40mg #30[Capsule] x 0 Route:ORAL Entered and Authorized by: Petey KRAUS Method used: Electronically to [facility] (retail) [address] [place] [address] Fax: Note to Pharmacy: Route: ORAL; Indications: ATTENTION-DEFICIT HYPERACTIVITY DISORDER, PREDOMINANTLY HYPERACTIVE TYPE RxID: [id number] 20 MG ORAL CAPSULE (FLUOXETINE HCL) Take 1 capsule po daily #30[Capsule] x 1 Route:ORAL Entered and Authorized by: Petey KRAUS Method used: Electronically to [facility] (retail) [address] [place] [address] Note to Pharmacy: Route: ORAL; Indications: ATTENTION-DEFICIT HYPERACTIVITY DISORDER, PREDOMINANTLY HYPERACTIVE TYPE;GENERALIZED ANXIETY DISORDER RxID: [id number] LEXAPRO 20 MG ORAL TABLET (ESCITALOPRAM OXALATE) One tablet by mouth every day #30[Tablet] x 5 Entered by: Petey KRAUS Authorized by: Melecio Qiu MD Method used: Electronically to [facility] (retail) [address] [place] [address] RxID: [id number] 40 MG ORAL CAPSULE (LISDEXAMFETAMINE DIMESYLATE) Take 1 capsule po daily in the morning; MDD 30mg #30[Capsule] x 0 Route:ORAL Entered and Authorized by: Petey KRAUS Method used: Electronically to [facility] (retail) [address] [place] [address] Note to Pharmacy: Route: ORAL; Indications: ATTENTION-DEFICIT HYPERACTIVITY DISORDER, PREDOMINANTLY HYPERACTIVE TYPE RxID: [id number] STARTING MONTH ANJALI 0.5 MG X 11 & 1 MG X 42 ORAL TABLET (VARENICLINE TARTRATE) use as directed #1[Kit] x 0 Entered and Authorized by: Petey KRAUS Method used: Electronically to [facility] (retail) [address] [place] [address] Indications: NICOTINE DEPENDENCE RxID: [id number] signed by Petey KRAUS on 08/03/2020 at 8:04 AM Name Value Range Interpretation Code Description Data Michelle rce(s) Supporting Document(s) ID Date Data Source [id number] 05/18/2020 12:40:48 PM EDT [facility] Measurements & CalculationsWeight: unable to obtain patient weight Reason: telephoneVital Signs performed by: Petey KRAUS, May 18, 2020 12:52 PMNurses Note adderall doesn't seem to be working"i don't feel any different"did go up to 20mg made no differencevyvanse works well for her sonInitial Intake Information From: patientRoom #: phoneVisit Type: phone/audio onlyInfectious Disease / Travel ScreeningRecent travel for you or any close contacts? NoHave you had any close contact with anyone diagnosed with or under investigation for COVID-19 (coronavirus)? NoFever? NoRespiratory symptoms: cough, cold, congestion, shortness of breath, difficulty breathing? NoLoss of smell? NoLoss of taste? NoSmoking, Tobacco, Vaping or Smoke Exposure StatusSmoke Status: current every day smokerTobacco Use: YesAdv to Quit: YesDo you vape? NoPassive Smoke Exposure: YesMenstrual HistoryLast Menstrual Period (LMP): 04/26/2020LMP History: ApproximateAny possibility of ? NoHealthcare HistorySince your last office visit...Have you been admitted to the hospital? NoHave you been to an emergency room (ER) or urgent care clinic? Yes - [facility]-fell at workHave you seen another healthcare provider? Yes - orthoHave you seen a dentist? YesIntake performed by: Bel Cast , May 18, 2020 12:42 PMRate Your HealthIn general, would you say your health is? GoodPain AssessmentAre you currently having any pain which... You would like your provider to address? No Affects your activity level? NoDepression Screening - PHQ-2Over the last two weeks, have you... Had little interest or pleasure in doing things? Not at all Been feeling down, depressed, or hopeless? Not at all PHQ-2 Score: 0Anxiety Screening - ENMA-2Over the last two weeks, have you been... Feeling nervous, anxious, or on edge? Not at all Unable to stop or control worrying? Not at all ENMA-2 Score: 0Food InsecurityWithin the past year...Did you worry whether your food would run out before you got money to buy more? NoWas there a time when the food you bought didn't last and you didn't have money to get more? NoScreening, Brief Intervention, & Referral to Treatment (SBIRT)Pre-Screening Questions How many times have you have 4 or more drinks in a day? 0How many times have you used an illegal drug or used a prescription medication for a non- medical reason? 0Performed by: Bel Cast , May 18, 2020 12:44 PMPatient History Medical History:ADHDAnxietyDepressionSurgical History: [id number] History:Cancer- Both SidesSocial/Personal History: Advised to Quit/Tobacco Education: YesChief Complaintmedication reviewHistory of Present Illness (HPI)Pt is a 34 y/o female, presents for ADHD follow-up.This visit was conducted via telephone. ULYSSES Almonte has received verbal consent from the pa tient/guardian to conduct this visit via telehealth. The patient has been made aware that they have the right to refuse telehealth; of my location and the security of the telehealth software; any other parties present in the session; and that they have a right to select another provider if chosen for a face to face visit. Pt states the Adderall XR is not working well, she even increased to 20mg in a day and didn't feel it was effective. Pt is interested in Vyvanse, states her son takes that and does incredibly well. States son is allergic to Methylphenidate, so she is apprehensive about taking that. Pt continues to experience constant fidgiting and restlessness. HPI performed by: Petey KRAUS, May 18, 2020 12:53 PMTransitions of Care InboundProblem ReviewProblem List was reviewed and/or updated during this visit.Medication Reconciliation & ReviewMedication List was reviewed and/or updated during this visit, including review of any powo-qxq-flxpmmx medications, herbal therapies, and/or supplements.Allergy ReviewAllergy List was reviewed and/or updated during this visit.Adult Preventive CareProvider Calculated and Reviewed all Clinical Protocols for patient today. Screening Tobacco Screening: Smoking Status: current every day smoker (05/18/2020) Tobacco Use: Currently (05/18/2020) Advised to Quit: Yes (05/18/2020)Cancer Screening Pap Smear/HPV TestingReviewed: Previous Comments: will schedule in house (04/13/2020)Today's Comments: no overdueReview of Systems General: Denies loss of appetite, chills, dizziness, fatigue, fever, headache, feeling ill. Cardiovascular: Denies chest pain, palpitations, feeling faint. Gastrointestinal: Denies nausea, vomiting, diarrhea. Psychiatric: Complains of see HPI. Physical ExamRespiratory, Effort: speaking in complete sentences, no apparent respiratory distressOrientation: normal mental status, oriented to person, place and timeJudgment & Insight: intactCare Management Plan Transitions of CareInboundRate Your HealthIn general, would you say your health is? GoodAssessment & Plan Problems:Assessed:Attention-deficit hyperactivity disorder, predominantly hyperactive type (ICD-314.01) (SMY48-E57.1) Assessment: Instructions: Failed multiple doses of Adderall due to ineffectiveness. Will send for Vyvanse as family has responded well. Reviewed how to take, common side effects, when to stop and call for evaluation. Follow-up 1 month after starting medication in person for appointment to check vitals.GENERALIZED ANXIETY DISORDER (ICD-300.02) (DMC74-W83.1) Assessment: Instructions: Continue Lexapro, tolerating well with good effect.DEPRESSIVE DISORDER, MAJOR, RECURRENT EPISODE, SEVERE (ICD- 296.33) (GMU77-W36.2) Assessment: Instructions: Continue Lexapro, tolerating well with good effect.Patient Instructions/Care Plan: Attention- deficit hyperactivity disorder- predominantly hyperactive type: Failed multiple doses of Adderall due to ineffectiveness. Will send for Vyvanse as family has responded well. Reviewed how to take, common side effects, when to stop and call for evaluation. Follow-up 1 month after starting medication in person for appointment to check vitals.GENERALIZED ANXIETY DISORDER: Continue Lexapro, tolerating well with good effect.DEPRESSIVE DISORDER- MAJOR- RECURRENT EPISODE- SEVERE: Continue Lexapro, tolerating well with good effect. Plan developed in collaboration with patient and/or familyMedications:VYVANSE 30 MG ORAL CAPSULECHANTIX CONTINUING MONTH ANJALI 1 MG ORAL TABLETLORATADINE 10 MG ORAL TABLETBETAMETHASONE DIPROPIONATE 0.05 % EXTERNAL OINTMENTDIPHENHYDRAMINE HCL 50 MG ORAL CAPSULESINGULAIR 10 MG ORAL TABLETLEXAPRO 20 MG ORAL TABLETCHANTIX STARTING MONTH ANJALI 0.5 MG X 11 & 1 MG X 42 ORAL TABLETMedication Changes:New Prescription:VYVANSE 30 MG ORAL CAPSULE-Take 1 capsule po daily in the morning; MDD 30mg Qty: 30[Capsule] Refills: 0 Method: ElectronicRemoved:ADDERALL XR 10 MG ORAL CAPSULE EXTENDED RELEASE 24 HOUR-Take 1 tablet po daily in the AM; MDD 10mg Qty: 30[Capsule] Refills: 0Allergies:* LATEX (Moderate)Orders:Telephone E&M 5-10 min Medical Discussion [CPT-[id number]] Follow-Up Return to clinic: in 30 days for follow upAdditional Follow-Up: ADHDClinical Visit Summary DeclinedMedications:VYVANSE 30 MG ORAL CAPSULE (LISDEXAMFETAMINE DIMESYLATE) Take 1 capsule po daily in the morning; MDD 30mg #30[Capsule] x 0 Route:ORAL Entered and Authorized by: Petey KRAUS Method used: Electronically to [facility] (retail) [address] [place] [address] Note to Pharmacy: Route: ORAL; Indications: ATTENTION-DEFICIT HYPERACTIVITY DISORDER, PREDOMINANTLY HYPERACTIVE TYPE RxID: [id number] ADDERALL XR 10 MG ORAL CAPSULE EXTENDED RELEASE 24 HOUR (AMPHETAMINE-DEXTROAMPHETAMINE) Take 1 tablet po daily in the AM; MDD 10mg #30[Capsule] x 0 Route:ORAL Entered and Authorized by: Petey KRAUS Method used: Electronically to [facility] (retail) [address] [place] [address] RxID: [id number] signed by Petey KRAUS on 05/18/2020 at 1:10 PM Time spent 8-9 minutes on the phone with patient. Name Value Range Interpretation Code Description Data Michelle rce(s) Supporting Document(s) ID Date Data Source [id number] 04/13/2020 10:50:49 AM EDT [facility] Measurements & CalculationsHeight: 61 inches (5 ft. 1 in.) 154.94 cm unable to obtain patient weightReason: zoomVital Signs performed by: Renay Tian LPN, April 13, 2020 10:51 AMInitial Intake Information From: patientVisit Type: telehealth visitInfectious Disease / Travel ScreeningRecent travel for you or any close contacts? NoHave you had any close contact with anyone diagnosed with or under investigation for COVID-19 (coronavirus)? NoFever? NoRespiratory symptoms: cough, cold, congestion, shortness of breath, difficulty breathing? NoLoss of smell? NoLoss of taste? NoSmoking, Tobacco, Vaping or Smoke Exposure StatusSmoke Status: current every day smokerTobacco Use: YesAdv to Quit: YesDo you vape? NoPassive Smoke Exposure: YesMenstrual HistoryLast Menstrual Period (LMP): 04/01/2020Healthcare HistorySince your last office visit...Have you been admitted to the hospital? NoHave you been to an emergency room (ER) or urgent care clinic? NoHave you seen another healthcare provider? NoHave you seen a dentist? NoIntake performed by: Renay Tian LPN, April 13, 2020 10:53 AMRate Your HealthIn general, would you say your health is? GoodPain AssessmentAre you currently having any pain which... You would like your provider to address? No Affects your activity level? NoDepression Screening - PHQ-2Over the last two weeks, have you... Had little interest or pleasure in doing things? Not at all Been feeling down, depressed, or hopeless? Several days PHQ-2 Score: 1Anxiety Screening - ENMA-2Over the last two weeks, have you been... Feeling nervous, anxious, or on edge? Nearly every day Unable to stop or control worrying? Several days ENMA-2 Score: 4Generalized Anxiety Disorder 7-Item Screening (ENMA-7)Answer Guide:0 = Not at all1 = Several days2 = Over half the days3 = Nearly every dayOver the last 2 weeks, how often have you been bothered by the following problems?Feeling nervous, anxious, or on edge: 3Not being able to stop or control worryinWorrying too much about different things: 1Trouble relaxinBeing so restless that it's hard to sit still: 3Becoming easily annoyed or irritable: 2Feeling afraid as if something awful might happen: 2Answer Guide:0 = Not difficult at all1 = Somewhat difficult2 = Very difficult3 = Extremely difficultHow difficult have these made it for you to do your work, take care of things at home, or get along with other people? 2GAD -7 Screening Results ENMA-2 Score: 4GAD-7 Score: 15Functional Impairment: Very difficultRecommendation: Severe anxietyPHQ-9 1. Over the last 2 weeks, patient reports the following frequency of symptoms: a. Little interest or pleasure in doing things -Not at all b. Feeling down, depressed, or hopeless -Several days c. Trouble falling asleep, staying asleep, or sleeping too much -Nearly every day d. Feeling tired or having little energy -Nearly every day e. Poor appetite or overeating -Not at all f. Feeling bad about yourself, feeling that you are a failure, or feeling that you have let yourself or your family down -Not at all g. Trouble concentrating on things such as reading the newspaper or watching television -Nearly every day h. Moving or speaking so slowly that other people could have noticed. Or being so fidgety or restless that you have been moving around a lot more than usual -Nearly every day i. Thinking that you would be better off or that you want to hurt yourself in some way -Not at all2. If you checked off any problems, how difficult have these problems made it for you to do your work, take care of things at home, or get along with other people? -Very DifficultToday's PHQ-9 Results Score: 13 Severity: Moderate Diagnosis Recommendation: No recommendation Functional Impairment: Very DifficultToday's Follow-Up Action Depression follow-up done. Follow-Up Action: Scheduled with Behavioral Health - existing careScreening, Brief Intervention, & Referral to Treatment (SBIRT)Pre-Screening Questions How many times have you have 4 or more drinks in a day? 0How many times have you used an illegal drug or used a prescription medication for a non-medical reason? 0Performed by: Renay Tian LPN, April 13, 2020 10:56 AMPatient History Medical History:ADHDAnxietyDepressionSurgical History: [id number] History:Cancer- Both SidesSocial/Personal History: Advised to Quit/Tobacco Education: YesChief Complaintmed checkHistory of Present Illness (HPI)34 yo female here for ADHD medication. Telemedicine visit with patient's location at their home and provider's location at [facility]. Additional person(s)participating in the visit: none. ULYSSES Almonte has received verbal consent from the patient/guardian to conduct this visit via telehealth. The patient has been made aware that they have the right to refuse telehealth; o f my location and the security of the telehealth software; any other parties present in the session; and that they have a right to select another provider if chosen for a face to face visit. Pt states she was diagnosed with ADHD at age 12, was put on medications then but her mother d/c as her mother didn't like the medications. Pt states she is being told at work that she needs to sit, is too hyper, is fidgity, and it is bothering her job. Pt requests the lowest possible dose of ADHD medication. Pt states her son has ADHD, he is allergic to methylphenate and is on Vyvanse with good relief. Pt states she is smoking 7- 12 cigarettes daily again due to not being able to get her continuing pack of Chantix. She is currently on day 13 of the starter pack. Pt states she has 2 nontender bumps right thigh about 2 inches in diameter. Timing is unknown, she just noticed a few weeks ago. HPI performed by: Petey KRAUS, April 13, 2020 11:08 AMProblem ReviewProblem List was reviewed and/or updated during this visit.Medication Reconciliation & ReviewMedication List was reviewed and/or updated during this visit, including review of any bkcr-knk-aohriqg medications, herbal therapies, and/or supplements.Allergy ReviewAllergy List was reviewed and/or updated during this visit.Adult Preventive CareProvider Calculated and Reviewed all Clinical Protocols for patient today. Screening Tobacco Screening: Smoking Status: current every day smoker (04/13/2020) Tobacco Use: Currently (04/13/2020) Advised to Quit: Yes (04/13/2020)Cancer Screening Pap Smear/HPV TestingReviewed: Previous Comments: needs referral (01/20/2020)Today's Comments: will schedule in houseReview of Systems General: Denies loss of appetite, chills, dizziness, fatigue, fever, headache, feeling ill. Cardiovascular: Denies chest pain, palpitations, feeling faint, peripheral edema, elevated blood pressure. Respiratory: Denies cough, difficulty breathing, shortness of breath. Gastrointestinal: Denies nausea, vomiting, diarrhea, constipation, pain or discomfort. Skin: Complains of see HPI. Neurologic: Denies weakness, numbness/tingling, feeling faint. Psychiatric: Complains of see HPI, depression, anxiety, feeling stressed. Physical ExamGeneral Appearance: well nourished, well hydrated, no acute distressEyes, External: conjunctivae and lids normal, EOMIRespiratory, Effort: speaking in complete sentences, no apparent respiratory distressGait & Station: normalOrientation: oriented to time, place, and personMood & Affect: mildly anxious appearing, rapid speech, flighty at timesJudgment & Insight: intactCare Management Plan Medication Adherence & Education Information on new prescriptions provided to patient/family/caregiver.Rate Your HealthIn general, would you say your health is? GoodAssessment & Plan Problems:Added: Attention- deficit hyperactivity disorder, predominantly hyperactive type (ICD-314.01) (RBN45-N10.1) Assessment: Instructions: Start Adderall. Reviewed how to take, common side effects, when to stop and call for evaluation. Medications/refills have been sent to your preferred pharmacy electronically. Please take medications as prescribed. Notify the office of any significant si de effects or concerns regarding your medications. The medication you were prescribed today is a controlled substance. We have reviewed alternative treatment options and agree this is the most appropriate treatment at this time. We reviewed risks of taking this medication, including but not limited to: addiction, misuse, overdose. Taking more than prescribed or taking with another controlled substance can result in overdose or . Keep out of the reach of [facility] of subcutaneous tissue of right lower limb (CVZ70-S87.41) Assessment: Instructions: Unable to assess over telehealth. Recommend in- office appointment. Possibly cyst versus lipoma.Assessed:GENERALIZED ANXIETY DISORDER (ICD-300.02) (OHK91-X97.1) Assessment: Instructions: Continue with your mental health counselor.DEPRESSIVE DISORDER, MAJOR, RECURRENT EPISODE, SEVERE (ICD-296.33) (NID64-P85.2) Assessment: Instructions: As above.Nicotine dependence (ICD-305.1) (EWZ25-C31.200) Assessment: Instructions: Finish Starter Pack of Chantix, then take continuing pack for as long as necessary. Call with any concerns, counseled on how to take appropriately.Patient Instructions/Care Plan: Attention-deficit hyperactivity disorder- predominantly hyperactive type: Start Adderall. Reviewed how to take, common side effects, when to stop and call for evaluation. Medications/refills have been sent to your preferred pharmacy electronically. Please take medications as prescribed. Notify the office of any significant side effects or concerns regarding your medications. The medication you were prescribed today is a controlled substance. We have reviewed alternative treatment options and agree this is the most appropriate treatment at this time. We reviewed risks of taking this medication, including but not limited to: addiction, misuse, overdose. Taking more than prescribed or taking with another controlled substance can result in overdose or . Keep out of the reach of childrenGENERALIZED ANXIETY DISORDER: Continue with your mental health counselor.DEPRESSIVE DISORDER- MAJOR- RECURRENT EPISODE- SEVERE: As above.Nicotine dependence: Finish Starter Pack of Chantix, then take continuing pack for as long as necessary. Call with any concerns, counseled on how to take appropriately.Mass of subcutaneous tissue of right lower limb: Unable to assess over telehealth. Recommend in-office appointment. Possibly cyst versus lipoma. Plan developed in collaboration with patient and/or familyMedications:ADDERALL XR 10 MG ORAL CAPSULE EXTENDED RELEASE 24 HOURCHANTIX CONTINUING MONTH ANJALI 1 MG ORAL TABLETLORATADINE 10 MG ORAL TABLETBETAMETHASONE DIPROPIONATE 0.05 % EXTERNAL OINTMENTDIPHENHYDRAMINE HCL 50 MG ORAL CAPSULESINGULAIR 10 MG ORAL TABLETLEXAPRO 20 MG ORAL TABLETCHANTIX STARTING MONTH ANJALI 0.5 MG X 11 & 1 MG X 42 ORAL TABLETMedication Changes:Added: LORATADINE 10 MG ORAL TABLET-1 tab po dailyNew Prescription:CHANTIX CONTINUING MONTH ANJALI 1 MG ORAL TABLET-Take 1 tablet daily Qty: 1[Package] Refills: 3 Method: ElectronicADDERALL XR 10 MG ORAL CAPSULE EXTENDED RELEASE 24 HOUR-Take 1 tablet po daily in the AM; MDD 10mg Qty: 30[Capsule] Refills: 0 Method: ElectronicRemoved:FLUCONAZOLE 150 MG ORAL TABLET-one tab QD X 2 days Qty: 2[Tablet] Refills: 0Allergies:* LATEX (Moderate)Information on new prescriptions provided to patient.Orders:Office Visit - Established, Level 3 [CPT-43959SV] Follow-Up Return to clinic: in 30 days for follow upAdditional Follow-Up: ADHD follow-upMedications:ADDERALL XR 10 MG ORAL CAPSULE EXTENDED RELEASE 24 HOUR (AMPHETAMINE-DEXTROAMPHETAMINE) Take 1 tablet po daily in the AM; MDD 10mg #30[Capsule] x 0 Route:ORAL Entered and Authorized by: Petey KRAUS Method used: Electronically to [facility] (retail) [address] [place] [address] Note to Pharmacy: Route: ORAL; Indications: ATTENTION-DEFICIT HYPERACTIVITY DISORDER, PREDOMINANTLY HYPERACTIVE TYPE RxID: [id number] CONTINUING MONTH ANJALI 1 MG ORAL TABLET (VARENICLINE TARTRATE) Take 1 tablet daily #1[Package] x 3 Route:ORAL Entered and Authorized by: Petey KRAUS Method used: Electronically to [facility] (retail) [address] [place] [address] Note to Pharmacy: Route: ORAL; Indications: NICOTINE DEPENDENCE RxID: [id number] FLUCONAZOLE 150 MG ORAL TABLET (FLUCONAZOLE) one tab QD X 2 days #2[Tablet] x 0 Route:ORAL Entered by: Renay Tian LPN Authorized by: Kendell Whipple DO Method used: Electronically to [facility] (retail) [address] [place] [address] RxID: [id number] signed by Petey KRAUS on 04/30/2020 at 4:57 PM Name Value Range Interpretation Code Description Data Michelle rce(s) Supporting Document(s) ID Date Data Source [id number] 01/20/2020 10:05:17 AM [facility] Measurements & CalculationsHeight: 61 inches (5 ft. 1 in.) 154.94 cm Weight: 213 pounds 96.82 kg Body Mass Index (BMI): 40.39BMI Interpretation: Morbidly ObeseBody Surface Area (BSA): 1.94Weight Management Education Done (Nutrition/Physical Activity)Vital SignsTemperature: 98.3F oral Pulse Rate: 80 beats/minuteRespiratory Rate: 17 respirations/minuteBlood Pressure: 103/68 left arm sitting automaticO2 Saturation: 97% room airVital Signs performed by: Tequila Majano MA, January 20, 2020 10:12 AMInitial Intake Information from: patientRoom #: 14Smoking, Tobacco, Vaping or Smoke Exposure StatusSmoke Status: current every day smokerTobacco Use: YesDo you vape? NoMenstrual HistoryLast Menstrual Period (LMP): 01/14/2020Any possibility of ? NoHealthcare HistorySince your last office visit...Have you been admitted to the hospital? NoHave you been to an emergency room (ER) or urgent care clinic? NoHave you seen another healthcare provider? NoHave you seen a dentist? Yes - NOCOIntake performed by: Tequila Majano MA, January 20, 2020 10:06 AMRate Your HealthIn general, would you say your health is? GoodPain AssessmentAre you currently having any pain which... You would like your provider to address? No Affects your activity level? NoDepression Screening - PHQ-2Over the last two weeks, have you... Had little interest or pleasure in doing things? Not at all Been feeling down, depressed, or hopeless? Not at all PHQ-2 Score: 0Anxiety Screening - ENMA-2Over the last two weeks, have you been... Feeling nervous, anxious, or on edge? Not at all Unable to stop or control worrying? Not at all ENMA-2 Score: 0Infectious Disease / Travel ScreeningRecent travel for you, your family, and/or any sexual partners? NoScreening, Brief Intervention, & Referral to Treatment (SBIRT)Pre- Screening Questions How many times have you have 4 or more drinks in a day? 0How many times have you used an illegal drug or used a prescription medication for a non-medical reason? 0Performed by: Tequila Majano MA, January 20, 2020 10:08 AMPatient History Medical History:ADHDAnxietyDepressionSurgical History:csection g4Oyhnfs History:Cancer- Both SidesSocial/Personal History: Chief Complaintfollow-up visit rashHistory of Present Illness (HPI)I, Tequila Majano MA, am scribing for and in the presence of, Dr Kendell Whipple, DO34 yo female here for a follow up for rash & for ear pain bilaterally. Has been using Peroxide in ears for approx a week. After review in office today, she has wax built up.States that the Singular has helped but she is having breakthrough rashes. Will begin on Claritain so if the rash begins to come back as a booster. Transitions of Care InboundProblem ReviewProblem List was reviewed and/or updated during this visit.Medication Reconciliation & ReviewMedication List was reviewed and/or updated during this visit, including review of any xagb-yaz-ipj nter medications, herbal therapies, and/or supplements.Allergy ReviewAllergy List was reviewed and/or updated during this visit.Adult Preventive CareProvider Calculated and Reviewed all Clinical Protocols for patient today. Labs/Meds/Other Counseling-Nutrition and Physical Activity:BMI Interpretation: Morbidly Obese (01/20/2020) Counseling: Done (01/20/2020) Physical Activity: Done (01/20/2020)Review of Systems General: Denies loss of appetite, chills, dizziness, fatigue, fever, continued fever, headache, feeling ill, sweats, night sweats, sleep disturbances, weight loss. Cardiovascular: Denies chest pain, palpitations, feeling faint, trouble breathing w/exertion, SOB upon lying down, SOB at night, peripheral edema, elevated blood pressure, decreased heart rate. Respiratory: Denies cough, difficulty breathing, shortness of breath, excessive sputum, coughing up blood, wheezing, chest pain. Skin: Complains of rash. Physical ExamGeneral Appearance: well nourished, well hydrated, no acute dist ressEyes, External: conjunctivae and lids normal, EOMIExternal Ears: normal, no lesions or deformitiesHearing: grossly intactOtoscopy: canals clear, tympanic membranes intact, no fluid, light reflex intact bilaterally, patch of wax on left TMExternal Nose: normal, no lesions or deformitiesNasal: mucosa, septum, and turbinates normal, nares patentLips/Teeth/Gums: normal dentition, no gingival inflammation, no labial lesionsPharynx: tongue normal, posterior pharynx without erythema or exudate, no thrush/aphthous ulcerRespiratory, Auscultation: clear to auscultation bilaterally; no rales, rhonchi, or w heezesRespiratory, Effort: no intercostal retractions or use of accessory musclesCardiovascular, Auscultation: S1, S2 audible; no murmur, rub, or gallop; RRRPeripheral Circulation: no clubbing, cyanosis, edema, or varicositiesAbdomen: soft, non-tender, no masses, bowel sounds normalGait & Station: normalSkin, Inspection: urticarial wheals all overOrientation: oriented to time, place, and personMood & Affect: no depression, anxiety, or agitationJudgment & Insight: intactCare Management Plan Transitions of CareInboundRate Your HealthIn general, would you say your health is? GoodAssessment & Plan Assessment not SavedChronic idiopathic urticaria (TUG88-K45.8): Medications:EQ LORATADINE 10 MG ORAL TABLETSINGULAIR 10 MG ORAL TABLETLEXAPRO 20 MG ORAL TABLETCHANTIX STARTING MONTH ANJALI 0.5 MG X 11 & 1 MG X 42 ORAL TABLETMedication Changes:New Prescription:EQ LORATADINE 10 MG ORAL TABLET-i tab po D for breakthrough rash Qty: 30[Tablet] Refills: 5 Method: ElectronicAllergies:* LATEX (Moderate)] Name Value Range Interpretation Code Description Data Michelle rce(s) Supporting Document(s) ID Date Data Source [id number] 01/18/2020 10:51:12 AM [facility] Measurements & CalculationsHeight: 61 inches (5 ft. 1 in.) 154.94 cm Weight: 213 pounds 96.82 kg Body Mass Index (BMI): 40.39BMI Interpretation: Morbidly ObeseBody Surface Area (BSA): 1.94Weight Management Education Done (Nutrition/Physical Activity)Vital SignsTemperature: 97.2FPulse Rate: 84 beats/minuteRespiratory Rate: 16 respirations/minuteBlood Pressure: 150/69 Vital Signs performed by: Nannette Ruiz MA, January 18, 2020 10:51 AMInitial Intake Information from: patientSmoking, Tobacco, Vaping or Smoke Exposure StatusSmoke Status: current every day smokerTobacco Use: YesAdv to Quit: YesDo you vape? NoPassive Smoke Exposure: YesMenstrual HistoryLast Menstrual Period (LMP): 01/14/2020Any possibility of ? NoHealthcare HistorySince your last office visit...Have you been admitted to the hospital? NoHave you been to an emergency room (ER) or urgent care clinic? NoHave you seen another healthcare provider? NoHave you seen a dentist? Yes - NOCOIntake performed by: Nannette Ruiz MA, January 18, 2020 10:52 AMRate Your HealthIn general, would you say your health is? GoodPain AssessmentAre you currently having any pain which... You would like your provider to address? No Affects your activity level? NoDepression Screening - PHQ-2Over the last two weeks, have you... Had little interest or pleasure in doing things? Not at all Been feeling down, depressed, or hopeless? Several days PHQ-2 Score: 1Anxiety Screening - ENMA-2Over the last two weeks, have you been... Feeling nervous, anxious, or on edge? Nearly every day Unable to stop or control worrying? Not at all ENMA-2 Score: 3Infectious Disease / Travel ScreeningRecent travel for you, your family, and/or any sexual partners? NoGeneralized Anxiety Disorder 7-Item Screening (ENMA- 7)Answer Guide:0 = Not at all1 = Several days2 = Over half the days3 = Nearly every dayOver the last 2 weeks, how often have you been bothered by the following problems?Feeling nervous, anxious, or on edge: 3Not being able to stop or control worryinWorrying too much about different things: 0Trouble relaxinBeing so restless that it's hard to sit still: 3Becoming easily annoyed or irritable: 1Feeling afraid as if something awful might happen: 0Answer Guide:0 = Not difficult at all1 = Somewhat difficult2 = Very difficult3 = Extremely difficultHow difficult have these made it for you to do your work, take care of things at home, or get along with other people? 0GAD-7 Screening Results ENMA-2 Score: 3GAD-7 Score: 10Functional Impairment: Not difficult at allRecommendation: Moderate anxietyPHQ-9 1. Over the last 2 weeks, patient reports the following frequency of symptoms: a. Little interest or pleasure in doing things -Not at all b. Feeling down, depressed, or hopeless -Several days c. Trouble falling asleep, staying asleep, or sleeping too much -Nearly every day d. Feeling tired or having little energy -Nearly every day e. Poor appetite or overeating -Nearly every day f. Feeling bad about yourself, feeling that you are a failure, or feeling that you have let yourself or your family down -Not at all g. Trouble concentrating on things such as reading the newspaper or watching television -Not at all h. Moving or speaking so slowly that other people could have noticed. Or being so fidgety or restless that you have been moving around a lot more than usual -Nearly every day i. Thinking that you would be better off or that you want to hurt yourself in some way -Not at all2. If you checked off any problems, how difficult have these problems made it for you to do your work, take care of things at home, or get along with other people? -Not Difficult at AllToday's PHQ-9 Results Score: 13 Severity: Moderate Diagnosis Recommendation: No recommendation Functional Impairment: Not Difficult at AllScreening, Brief Intervention, & Referral to Treatment (SBIRT)Pre-Screening Questions How many times have you have 4 or more drinks in a day? 0How many times have you used an illegal drug or used a prescription medication for a non-medical reason? 0Performed by: Nannette Ruiz MA, January 18, 2020 10:55 AMPatient History Medical History:ADHDAnxietyDepressionSurgical History:csection [id number] History:Cancer- Both SidesSocial/Personal History: Advised to Quit/Tobacco Education: YesChief Complaintlab work History of Present Illness (HPI)needs referral for pap would like referral to psyc The Lexapro is somewhat helpful but she would like to feel better. No thoughts of self harm. No adverse effects of Lexapro. Has also been on Effexor and Buspar in the past with minimal relief.Saw Dr. Whipple here who thinks the rash might be due to a miscarriage she had 3 years ago and a resulting autoimmune issue. Started on Singulair. Tis has resolved the rash.Telemedicine visit with patient[facility] and provider's location at offsite office. Additional person(s)participating in the visit: Children.HPI performed by: Melecio Qiu MD, January 18, 2020 11:00 AMTransitions of Care InboundProblem ReviewProblem List was reviewed and/or updated during this visit.Medication Reconciliation & ReviewMedication List was reviewed and/or updated during this visit, including review of any zzfa-igo-jiminwr medications, herbal therapies, and/or supplements.Allergy ReviewAllergy List was reviewed and/or updated during this visit.Adult Preventive CareProvider Calculated and Reviewed all Clinical Protocols for patient today. Screening Tobacco Screening: Smoking Status: current every day smoker (01/18/2020) Tobacco Use: Currently (01/18/2020) Advised to Quit: Yes (01/18/2020)Labs/Meds/Other Counseling-Nutrition and Physical Activity:BMI Interpretation: Morbidly Obese (01/18/2020) Counseling: Done (01/18/2020) Physical Activity: Done (01/18/2020)Cancer Screening Pap Smear/HPV TestingReviewed: Previous Comments: referral sent in to specialist (12/21/2019)Today's Comments: needs referral Review of Systems Cardiovascular: Denies chest pain. Respiratory: Denies shortness of breath. Gastrointestinal: Denies diarrhea, constipation. Genitourinary: Denies pain with urination. Physical ExamGeneral Appearance: well nourished, well hydrated, no acute distressGait & Station: normalOrientation: oriented to time, place, and personMood & Affect: no depression, anxiety, or agitationJudgment & Insight: intactCare Management Plan Transitions of CareInboundRate Your HealthIn general, would you say your health is? GoodAssessment & Plan Problems:Assessed:Anxiety disorder, unspecified (UOQ59-Q84.9) Assessment: Instructions: In partial reission.No relief with multiple medications.Refer for telepsychiatry and in house counselling.Continue current dose of Lexapro.Recheck 3 months.Patient Instructions/Care Plan: Anxiety disorder- unspecified: In partial reission.No relief with multiple medications.Refer for telepsychiatry and in house counselling.Continue current dose of Lexapro.Recheck 3 months. Plan developed in collaboration with patient and/or familyMedications:SINGULAIR 10 MG ORAL TABLETLEXAPRO 20 MG ORAL TABLETCHANTIX STARTING MONTH ANJALI 0.5 MG X 11 & 1 MG X 42 ORAL TABLETMedication Changes:Refilled:LEXAPRO 20 MG ORAL TABLET-One tablet by mouth every day Qty: 30[Tablet] Refills: 5 Method: ElectronicRemoved:CHANTIX CONTINUING MONTH ANJALI 1 MG ORAL TABLET-uad- begin after starter pack completed Qty: 1[Tablet] Refills: 5Allergies:* LATEX (Moderate)Orders:Mental Health Consult [CPT-36227] Adult - Ofc Vst, EST, Level III [CPT-54082] Telemedicine - Site Fee [CPT-Q3014] Telepsychiatry Consult [CPT- 62086] Medications:LEXAPRO 20 MG ORAL TABLET (ESCITALOPRAM OXALATE) One tablet by mouth every day #30[Tablet] x 5 Entered and Authorized by: Melecio Qiu MD Method used: Electronically to [facility] (retail) [address] [place] [address] RxID: [id number] CHANTIX CONTINUING MONTH ANJALI 1 MG ORAL TABLET (VARENICLINE TARTRATE) uad- begin after starter pack completed #1[Tablet] x 5 Route:ORAL Entered by: Nannette Ruiz MA Authorized by: Guera Moser MD Method used: Electronically to [facility] (retail) [address] [place] [address] RxID: [id number]] Name Value Range Interpretation Code Description Data Michelle rce(s) Supporting Document(s) ID Date Data Source [id number] 01/05/2020 10:35:00 AM EST [facility] Name Value Range Interpretation Code Description Data Michelle rce(s) Supporting Document(s) HCT 44.6 % 36.0-47.0 [facility] HGB 14.8 g/dL 12.0-15.5 [facility] MCH 33.2 G/DL pg 32.0-36.5 [facility] MCHC 30.1 PG % 27.0-33.0 [facility] PLATELETS 226 10 10*3/mm3 150-450 N [facility] RBC 4.91 10 10*6/mm3 4.00-5.40 [facility] RDW 12.2 % 11.5-14.5 [facility] WBC TOTAL 7.8 4.0-10.0 [facility] ID Date Data Source [id number] 01/05/2020 10:35:00 AM [facility] Name Value Range Interpretation Code Description Data Michelle rce(s) Supporting Document(s) BG FASTING 75 mg/dL 70-100 N [facility] TSH 2.690 microintl units/mL 0.358-3.740 N [facility] ID Date Data Source [id number] 01/05/2020 10:05:57 AM [facility] Measurements & CalculationsHeight: 61 inches 154.94 cm Weight: 209.4 pounds 95.18 kg Body Mass Index (BMI): 39.71BMI Interpretation: ObeseBody Surface Area (BSA): 1.93Weight Management Education Done (Nutrition/Physical Activity)Vital SignsTemperature: 98.1F oral Pulse Rate: 75 beats/minuteRespiratory Rate: 20 respirations/minuteBlood Pressure: 118/76 right arm sitting automaticO2 Saturation: 97% room airVital Signs performed by: Chris Bejarano MA, January 05, 2020 10:17 AMInitial Intake Information from: ptRm #: 14Smoking, Tobacco, Vaping or Smoke Exposure StatusSmoke Status: current every day smokerTobacco Use: YesDo you vape? NoPassive Smoke Exposure: YesMenstrual HistoryLast Menstrual Period (LMP): 12/05/2019LMP History: ApproximateAny possibility of ? NoHealthcare HistorySince your last office visit...Have you been admitted to the hospital? NoHave you been to an emergency room (ER) or urgent care clinic? NoHave you seen another healthcare provider? NoHave you seen a dentist? Yes - NOCOIntake performed by: Chris Bejarano MA, January 05, 2020 10:17 AMRate Your HealthIn general, would you say your health is? PoorPain AssessmentAre you currently having any pain which... You would like your provider to address? No Affects your activity level? NoDepression Screening - PHQ-2Over the last two weeks, have you... Had little interest or pleasure in doing things? More than half the days Been feeling down, depressed, or hopeless? Not at all PHQ- 2 Score: 2Anxiety Screening - ENMA-2Over the last two weeks, have you been... Feeling nervous, anxious, or on edge? Several days Unable to stop or control worrying? Several days ENMA-2 Score: 2Infectious Disease / Travel ScreeningRecent travel for you, your family, and/or any sexual partners? NoGeneralized Anxiety Disorder 7-Item Screening (ENMA-7)Answer Guide:0 = Not at all1 = Several days2 = Over half the days3 = Nearly every dayOver the last 2 weeks, how often have you been bothered by the following problems?Feeling nervous, anxious, or on edge: 1Not being able to stop or control worryinWorrying too much about different things: 1Trouble relaxinBeing so restless that it's hard to sit still: 0Becoming easily annoyed or irritable: 1Feeling afraid as if something awful might happen: 0Answer Guide:0 = Not difficult at all1 = Somewhat difficult2 = Very difficult3 = Extremely difficultHow difficult have these made it for you to do your work, take care of things at home, or get along with other people? 1GAD- 7 Screening Results ENMA-2 Score: 2GAD-7 Score: 5Functional Impairment: Somewhat difficultRecommendation: Mild anxietyPHQ-9 1. Over the last 2 weeks, patient reports the following frequency of symptoms: a. Little interest or pleasure in doing things -More than half the days b. Feeling down, depressed, or hopeless -Not at all c. Trouble falling asleep, staying asleep, or sleeping too much - Several days d. Feeling tired or having little energy -Several days e. Poor appetite or overeating -Nearly every day g. Trouble concentrating on things such as reading the newspaper or watching television -Not at all h. Moving or speaking so slowly that other people could have noticed. Or being so fidgety or restless that you have been moving around a lot more than usual - Several days i. Thinking that you would be better off or that you want to hurt yourself in some way -Not at all2. If you checked off any problems, how difficult have these problems made it for you to do your work, take care of things at home, or get along with other people? -Somewhat DifficultScreening, Brief Intervention, & Referral to Treatment (SBIRT)Pre-Screening Questions How many times have you have 4 or more drinks in a day? 0How many times have you used an illegal drug or used a prescription medication for a non-medical reason? 0Performed by: Chris Bejarano MA, January 05, 2020 10:20 AMPatient History Medical History:ADHDAnxietyDepressionSurgical History:csection c1Ehynhb History:Cancer- Both SidesSocial/Personal History: Chief Complainthives all over body History of Present Illness (HPI)I, Tequila Majano MA, am scribing for and in the presence of, Dr Kendell Whippel, DOpt has hives all over body pt states it has had it for over 3 years. she said steriods are the only thing that takes it away. she does not have a derm appt until march 28, has tried topical and oral benadryl cortisone cream fungus cream. nothing has worked. shw thinks the hives are stress induced and she also states that her hives are hot to the touch. Have reviewed records from her previous office & will complete a dose of steriods & allergy medications. States that this began after she had the twins and she [facility] - this could be the cause. Transitions of Care InboundProblem ReviewProblem List was reviewed and/or updated during this visit.Medication Reconciliation & ReviewMedication List was reviewed and/or updated during this visit, including review of any atql-bed-zeusvdj medications, herbal therapies, and/or supplements.Allergy ReviewAllergy List was reviewed and/or updated during this visit.Adult Preventive CareLabs/Meds/Other Counseling-Nutrition and Physical Activity:BMI Interpretation: Obese (01/05/2020) Counseling: Done (01/05/2020) Physical Activity: Done (01/05/2020)Review of Systems General: GEN: No night sweats, weight loss, fevers, chillsEyes: No vision changesEars: No hearing lossNose: No sinus painThroat: No sore throatResp: No sob, wheezingCV: No chest painGI: No abdominal painGU: No dysuria, urinary frequencyMusculoskeletal: No myalgias, arthralgiasNeuro: No LEIVA, unilateral paresthesias, weaknessLympatics: No Lymph node swellingEndocrine: No polydipsia, polyuriaPhysical ExamGeneral Appearance: well nourished, well hydrated, no acute distressEyes, External: conjunctivae and lids normal, EOMIExternal Ears: normal, no lesions or deformitiesHearing: grossly intactOtoscopy: canals clear, tympanic membranes intact, no fluid, light reflex intact bilaterallyExternal Nose: normal, no lesions or deformitiesNasal: mucosa, septum, and turbinates normal, nares patentLips/Teeth/Gums: normal dentition, no gingival inflammation, no labial lesionsPharynx: tongue normal, posterior pharynx without erythema or exudate, no thrush/aphthous ulcerRespiratory, Auscultation: clear to auscultation bilaterally; no rales, rhonchi, or wheezesRespiratory, Effort: no intercostal retractions or use of accessory musclesCardiovascular, Auscultation: S1, S2 audible; no murmur, rub, or gallop; RRRPeripheral Circulation: no clubbing, cyanosis, edema, or varicositiesAbdomen: soft, non-tender, no masses, bowel sounds normalGait & Station: normalSkin, Inspection: urticarial wheals all overOrientation: oriented to time, place, and personMood & Affect: no depression, anxiety, or agitationJudgment & Insight: intactCare Management Plan Transitions of CareInboundRate Your HealthIn general, would you say your health is? PoorAssessment & Plan Problems:Added: Chronic idiopathic urticaria (ICD- 708.1) (NAA50-G23.8)Assessment not SavedChronic idiopathic urticaria (ICD10- L50.8): prescribed singulair and prednisone. f/u in 2.5 weeks.Medic ations:PREDNISONE 10 MG ORAL TABLETSINGULAIR 10 MG ORAL TABLETLEXAPRO 20 MG ORAL TABLETCHANTIX STARTING MONTH ANJALI 0.5 MG X 11 & 1 MG X 42 ORAL TABLETCHANTIX CONTINUING MONTH ANJALI 1 MG ORAL TABLETMedication Changes:New Prescription:SINGULAIR 10 MG ORAL TABLET-one tab po QD Qty: 30[Tablet] Refills: 5 Method: ElectronicPREDNISONE 10 MG ORAL TABLET-40mg po QD, decrease by 10mg q 3d Qty: 30[Tablet] Refills: 0 Method: ElectronicRemoved:* BUPROPION 10 MG-bidAllergies:* LATEX (Moderate)Orders:[id number] Vst-Est Level I [CPT- 34075] 32143 - Venipuncture [CPT-05754] Adult - Ofc Vst, EST, Level IV [CPT- 24479] Medications:PREDNISONE 10 MG ORAL TABLET (PREDNISONE) 40mg po QD, decrease by 10mg q 3d #30[Tablet] x 0 Route:ORAL Entered and Authorized by: Kendell Whipple DO Method used: Electronically to [facility] (retail) [address] [place] [address] Note to Pharmacy: Route: ORAL; RxID: [id number] 10 MG ORAL TABLET (MONTELUKAST SODIUM) one tab po QD #30[Tablet] x 5 Route:ORAL Entered and Authorized by: Kendell Whipple DO Method used: Electronically to [facility] (retail) [address] [place] [address] Note to Pharmacy: Route: ORAL; RxID: [id number]]Labs In-House Blood TestsDate/Time Collected: January 05, 2020 10:35 AMTest Result Reference Range Normal ValueComments: lood draw done in offcie done in the right ac tolerated well Ravi hSipley MA, January 05, 2020 10:35 AM Name Value Range Interpretation Code Description Data Michelle rce(s) Supporting Document(s) ID Date Data Source [id number] 12/28/2019 01:10:13 PM EST [facility] Initial Intake Chief Complaintflu vaccin e Vaccines Administered/Entered:Vaccination Group: InfluenzaSeries: 2Vaccination: Flulaval Quadrivalent Intramuscular Suspension Prefilled Syringe 0.5 MLMfr / Lot# / Exp.Date: RuffaloCODY / [id number] / 05/22/2020Amt. Given / Route / Site: 0.5 mL / IM / Left DeltoidNDC / CVX: [id number] / 150Administered Date: 12/28/2019 13:11VFC Eligibility: Not VFC EligibleVIS Date: 07/07/2019VIS Given / VIS Given On: Yes / 12/28/2019Comments: Administered by: Isidra Quiros LPN Assessment & Plan Problems:Added: Vaccination (ICD-V05.9) ([id number])Orders:[id number] Vst-Est Level I [CPT-29742] FluLaval Quadrivalent, preservative free [CPT-71352] 79391 - Immo Admin (under 19 yrs), 1st Toxoid [CPT-10551] Name Value Range Interpretation Code Description Data Michelle rce(s) Supporting Document(s) ID Date Data Source [id number] 12/21/2019 03:53:30 PM EST [facility] Measurements & CalculationsHeight: 61 inches (5 ft. 1 in.) 154.94 cm Weight: 209 pounds 95 kg Body Mass Index (BMI): 39.63BMI Interpretation: ObeseBody Surface Area (BSA): 1.93Weight Management Education Done (Nutrition/Physical Activity)Vital SignsTemperature: 99.0F 37.22C oral Pulse Rate: 70 beats/minuteRespiratory Rate: 16 respirations/minuteBlood Pressure: 121/76 left arm sitting automaticO2 Saturation: 98% room airVital Signs performed by: Dalila Canales MA, December 21, 2019 3:53 PMInitial Intake Information from: patientRoom #: 14Infectious Disease- Travel Have you or your sexual partner travelled outside of the country recently? NoSmoking, Tobacco or Smoke Exposure StatusSmoke Status: current every day smokerTobacco Use: YesAdv to Quit: YesPassive Smoke Exposure: YesMenstrual HistoryLast Menstrual Period (LMP): 12/13/2019Healthcare HistorySince your last office visit...Have you been admitted to the hospital? NoHave you been to an emergency room (ER) or urgent care clinic? NoHave you seen another healthcare provider? NoHave you seen a dentist? Yes - NCFHCIntake performed by: Dalila Canales MA, December 21, 2019 3:54 PMRate Your HealthIn general, would you say your health is? FairPain AssessmentAre you currently having any pain which... You would like your provider to address? No Affects your activity level? NoDepression Screening - PHQ-2Over the last two weeks, have you... Had little interest or pleasure in doing things? Not at all Been feeling down, depressed, or hopeless? Not at all PHQ-2 Score: 0Anxiety Screening - ENMA-2Over the last two weeks, have you been... Feeling nervous, anxious, or on edge? Not at all Unable to stop or control worrying? Not at all ENMA-2 Score: 0Screening, Brief Intervention, & Referral to Treatment (SBIRT)Pre-Screening Questions How many times have you have 4 or more drinks in a day? 0How many times have you used an illegal drug or used a prescription medication for a non- medical reason? 0Performed by: Dalila Canales MA, December 21, 2019 3:54 PMPatient History Medical History:ADHDAnxietyDepressionSurgical History:csection s2Jkuzmn History:Cancer- Both SidesSocial/Personal History: Smoking Status: current every day smokerAdvised to Quit/Tobacco Education: YesChief Complaintfollow-up visitHistory of Present Illness (HPI)Was switched from Effexor to Lexapro last month and so far has not noticed any difference. No adverse effects of change. Also on another medication at 30 mg daily but it is not clear if this is buspirone or wellbutrin. Old records are unavailable. No thoughts of hurting herself.Also has had diffuse hive like rash for the past 3 years on and off. Has tried multiple edications for treatment wihtou much success. [employer] with no relief. Reauesting dermatology referral.Telemedicine visit with patient's location at [facility] and provider's location at offsite office. Additional person(s)participating in the visit: Her four young children.HPI performed by: Melecio Qiu MD, December 21, 2019 4:38 PMTransitions of Care InboundProblem ReviewProblem List was reviewed and/or updated during this visit.Medication Reconciliation & ReviewMedication List was reviewed and/or updated during this visit, including review of any sccm-jkm-nxdjfef medications, herbal therapies, and/or supplements.Allergy ReviewAllergy List was reviewed and/or updated during this visit.Adult Preventive CareProvider Calculated and Reviewed all Clinical Protocols for patient today. Screening Tobacco Screening: Smoking Status: current every day smoker (12/21/2019) Advised to Quit: Yes (12/21/2019)Labs/Meds/Other Counseling-Nutrition and Physical Activity:BMI Interpretation: Obese (2019) Counseling: Done (12/21/2019) Physical Activity: Done (12/21/2019)Cancer Screening Pap Smear/HPV TestingReviewed: Today's Comments: referral sent in to specialistReview of Systems General: Complains of fatigue. Denies dizziness. Cardiovascular: Denies chest pain. Respiratory: Denies shortness of breath. Gastrointestinal: Denies constipation. Genitourinary: Denies incomplete emptying. Physical ExamGeneral Appearance: well nourished, well hydrated, no acute distressGait & Station: normalOrientation: oriented to time, place, and personMood & Affect: no depression, anxiety, or agitationCare Management Plan Transitions of CareInboundRate Your HealthIn general, would you say your health is? FairAssessment & Plan Problems:Added: Encounter for general adult medical examination without abnormal findings (UEZ29-R53.00)Eruption (ICD-782.1) (ICD10- R21) Assessment: Instructions: Chronic urticarial rash. No clear cause. Difficult to treat. Refer to Derm.Assessed:Anxiety disorder, unspecified (ICD10- F41.9) Assessment: Instructions: Fair relief with current combination.Continue ciurrent plan and hopefully old records can help us with what has and has not worked and clear up questions about current regimen.Patient Instructions/Care Plan: Anxiety disorder- unspecified: Fair relief with current combination.Continue ciurrent plan and hopefully old records can help us with wh at has and has not worked and clear up questions about current regimen.Eruption: Chronic urticarial rash. No clear cause. Difficult to treat. Refer to Derm. Plan developed in collaboration with patient and/or familyMedications:LEXAPRO 20 MG ORAL TABLETCHANTIX STARTING MONTH ANJALI 0.5 MG X 11 & 1 MG X 42 ORAL TABLETCHANTIX CONTINUING MONTH ANJALI 1 MG ORAL TABLETBUPROPION 10 MGMedication Changes:Added: LEXAPRO 20 MG ORAL TABLETRemoved:LEXAPRO 10 MG ORAL TABLET-1 po qday Qty: 30[Tablet] Refills: 5, PREDNISONE 5 MG ORAL TABLET- 1/2 tab daily x 3 d once 10 mg tabs completed Qty: 30[Tablet] Refills: 2, PREDNISONE 10 MG ORAL TABLET-3 tabs daily x 3 d, then 2 x 3d, then 1 3 d, then 1/2 x 3 d Qty: 20[Tablet] Refills: 2, VENLAFAXINE HCL ER 225 MG ORAL TABLET EXTENDED RELEASE 24 HOUR-1 po qod x 1 wk, then 1 po every 3 days x 1 wk, then 1 po every 4 days for 1 wk then stop Qty: 10[Tablet] Refills: 1Allergies:* LATEX (Moderate)Orders:COMP METABOLIC PANEL [CPT-95470] LIPID PANEL [CPT-83026] TSH [C PT-54008] CBC W/DIFF [CPT-87956] Telepsychiatry Consult [CPT-41776] Adult - Ofc Vst, EST, Level III [CPT-98084] Dermatology Consult [CPT-73531] Telemedicine - Site Fee [CPT-Q3014] Medications:Cancelled VENLAFAXINE HCL ER 225 MG ORAL TABLET EXTENDED RELEASE 24 HOUR (VENLAFAXINE HCL) 1 po qod x 1 wk, then 1 po every 3 days x 1 wk, then 1 po every 4 days for 1 wk then stop #10[Tablet] x 1 Route:ORAL Entered by: Melecio Qiu MD Authorized by: Guera Moser MD Method used: Electronically to [facility] (retail) [address] [place] [address] RxID: [id number] PREDNISONE 10 MG ORAL TABLET (PREDNISONE) 3 tabs daily x 3 d, then 2 x 3d, then 1 3 d, then 1/2 x 3 d #20[Tablet] x 2 Route:ORAL Entered by: Dalila Canales MA Authorized by: Guera Moser MD Method used: Electronically to [facility] (retail) [address] [place] [address] RxID: [id number] PREDNISONE 5 MG ORAL TABLET (PREDNISONE) 1/2 tab daily x 3 d once 10 mg tabs completed #30[Tablet] x 2 Route:ORAL Entered by: Dalila Canales MA Authorized by: Guera Moser MD Method used: Electronically to [facility] (retail) [address] [place] [address] RxID: [id number] LEXAPRO 10 MG ORAL TABLET (ESCITALOPRAM OXALATE) 1 po qday #30[Tablet] x 5 Route:ORAL Entered by: Dalila Canales MA Authorized by: Guera Moser MD Method used: Electronically to [facility] (retail) [address] [place] [address] RxID: [id number] patient was counseled by the physician on immunizations due, and on the risks and benefits of immunizations.Vaccines Administered/Entered:Vaccination Group: InfluenzaHistorical Source: Historical information - from other providerSeries: 1Vaccination: Unspecified FormulationMfr / Lot# / Exp.Date: Amt. Given / Route / Site: NDC / CVX: 88Administered Date: 12/21/2019VFC Eligibility: Not recordedVIS Date: Comments: Entered by: Dalila Canales MA Name Value Range Interpretation Code Description Data Michelle rce(s) Supporting Document(s) Procedure Vital Signs ID Date Data Source UNK Name Value Range Interpretation Code Description Data Source(s) Body height 61 [in_i] 61 [in_i] TEE ([facility]) Body weight 3552 [oz_av] 3552 [oz_av] TEE ([facility]) Body mass index (BMI) [Ratio] 41.9 kg/m2 41.9 k g/m2 TEE ([facility]) Body height 61 [in_i] 61 [in_i] TEE ([facility]) Body weight 3552 [oz_av] 3552 [oz_av] TEE ([facility]) Body mass index (BMI) [Ratio] 41.9 kg/m2 41.9 k g/m2 TEE ([facility]) Body height 61 [in_i] 61 [in_i] TEE ([facility]) Body weight 3552 [oz_av] 3552 [oz_av] TEE ([facility]) Body mass index (BMI) [Ratio] 41.9 kg/m2 41.9 k g/m2 TEE ([facility]) Body height 61 [in_i] 61 [in_i] TEE ([facility]) Body height 61 [in_i] 61 [in_i] TEE ([facility]) Body height 61 [in_i] 61 [in_i] TEE ([facility]) Body height 61 [in_i] 61 [in_i] TEE ([facility]) Body height 61 [in_i] 61 [in_i] TEE ([facility]) Body height 61 [in_i] 61 [in_i] TEE ([facility]) Body weight 3600 [oz_av] 3600 [oz_av] TEE ([facility]) Systolic blood pressure 133 mm[Hg] 133 mm[Hg] A THENA ([facility]) Body mass index (BMI) [Ratio] 42.5 kg/m2 42.5 k g/m2 TEE ([facility]) Body height 61 [in_i] 61 [in_i] TEE ([facility]) Diastolic blood pressure 79 mm[Hg] 79 mm[Hg] TEE ([facility]) Body weight 3600 [oz_av] 3600 [oz_av] TEE ([facility]) Systolic blood pressure 133 mm[Hg] 133 mm[Hg] A [facility] ([facility]) Body mass index (BMI) [Ratio] 42.5 kg/m2 42.5 k g/m2 TEE ([facility]) Body height 61 [in_i] 61 [in_i] TEE ([facility]) Diastolic blood pressure 79 mm[Hg] 79 mm[Hg] TEE ([facility]) Body weight 3600 [oz_av] 3600 [oz_av] TEE ([facility]) Systolic blood pressure 133 mm[Hg] 133 mm[Hg] A THENA ([facility]) Body mass index (BMI) [Ratio] 42.5 kg/m2 42.5 k g/m2 TEE ([facility]) Body height 61 [in_i] 61 [in_i] TEE ([facility]) Diastolic blood pressure 79 mm[Hg] 79 mm[Hg] TEE ([facility]) Body weight 3600 [oz_av] 3600 [oz_av] TEE ([facility]) Systolic blood pressure 133 mm[Hg] 133 mm[Hg] A THEN ([facility]) Body mass index (BMI) [Ratio] 42.5 kg/m2 42.5 k g/m2 TEE ([facility]) Body height 61 [in_i] 61 [in_i] TEE ([facility]) Diastolic blood pressure 79 mm[Hg] 79 mm[Hg] TEE ([facility]) Body weight 3600 [oz_av] 3600 [oz_av] TEE ([facility]) Systolic blood pressure 133 mm[Hg] 133 mm[Hg] A THENA ([facility]) Body mass index (BMI) [Ratio] 42.5 kg/m2 42.5 k g/m2 TEE ([facility]) Body height 61 [in_i] 61 [in_i] TEE ([facility]) Diastolic blood pressure 79 mm[Hg] 79 mm[Hg] TEE ([facility]) Body weight 3600 [oz_av] 3600 [oz_av] TEE ([facility]) Systolic blood pressure 133 mm[Hg] 133 mm[Hg] A THENA ([facility]) Body mass index (BMI) [Ratio] 42.5 kg/m2 42.5 k g/m2 TEE ([facility]) Body height 61 [in_i] 61 [in_i] TEE ([facility]) Diastolic blood pressure 79 mm[Hg] 79 mm[Hg] TEE ([facility]) Body weight 3600 [oz_av] 3600 [oz_av] TEE ([facility]) Systolic blood pressure 133 mm[Hg] 133 mm[Hg] A THENA ([facility]) Body mass index (BMI) [Ratio] 42.5 kg/m2 42.5 k g/m2 TEE ([facility]) Body height 61 [in_i] 61 [in_i] TEE ([facility]) Diastolic blood pressure 79 mm[Hg] 79 mm[Hg] TEE ([facility]) Body height 61 [in_i] 61 [in_i] TEE ([facility]) Body height 61 [in_i] 61 [in_i] TEE ([facility]) Body height 61 [in_i] 61 [in_i] TEE ([facility]) Body height 61 [in_i] 61 [in_i] TEE ([facility]) Body height 61 [in_i] 61 [in_i] TEE ([facility]) Body height 61 [in_i] 61 [in_i] TEE ([facility]) Body height 61 [in_i] 61 [in_i] TEE ([facility]) Body height 61 [in_i] 61 [in_i] TEE ([facility]) Body height 61 [in_i] 61 [in_i] TEE ([facility]) Body height 61 [in_i] 61 [in_i] TEE ([facility]) Body height 61 [in_i] 61 [in_i] TEE ([facility]) Body height 61 [in_i] 61 [in_i] TEE ([facility]) Body height 61 [in_i] 61 [in_i] TEE ([facility]) Body height 61 [in_i] 61 [in_i] TEE ([facility]) Body height 61 [in_i] 61 [in_i] TEE ([facility]) Body height 61 [in_i] 61 [in_i] TEE ([facility]) Body height 61 [in_i] 61 [in_i] TEE ([facility]) Body height 61 [in_i] 61 [in_i] TEE ([facility]) Body weight 3462.4 [oz_av] 3462.4 [oz_av] ATHEN A ([facility]) Systolic blood pressure 167 mm[Hg] 167 mm[Hg] A THENA ([facility]) Body mass index (BMI) [Ratio] 41.04 kg/m2 41.04 kg/m2 TEE ([facility]) Body height 61 [in_i] 61 [in_i] TEE ([facility]) Diastolic blood pressure 93 mm[Hg] 93 mm[Hg] TEE ([facility]) Body weight 3385.6 [oz_av] 3385.6 [oz_av] ATHEN A ([facility]) Systolic blood pressure 104 mm[Hg] 104 mm[Hg] [facility]) Body mass index (BMI) [Ratio] 40.13 kg/m2 40.13 kg/m2 TEE ([facility]) Body height 61 [in_i] 61 [in_i] TEE ([facility]) Diastolic blood pressure 65 mm[Hg] 65 mm[Hg] TEE ([facility]) Body weight 3385.6 [oz_av] 3385.6 [oz_av] ATHEN A ([facility]) Systolic blood pressure 104 mm[Hg] 104 mm[Hg] A [facility] ([facility]) Body height 61 [in_i] 61 [in_i] TEE ([facility]) Diastolic blood pressure 65 mm[Hg] 65 mm[Hg] TEE ([facility]) Body weight 3385.6 [oz_av] 3385.6 [oz_av] ATHEN A ([facility]) Systolic blood pressure 104 mm[Hg] 104 mm[Hg] A [facility] ([facility]) Body height 61 [in_i] 61 [in_i] TEE ([facility]) Diastolic blood pressure 65 mm[Hg] 65 mm[Hg] TEE ([facility]) Body weight 3385.6 [oz_av] 3385.6 [oz_av] ATHEN A ([facility]) Systolic blood pressure 104 mm[Hg] 104 mm[Hg] A [facility] ([facility]) Body height 61 [in_i] 61 [in_i] TEE ([facility]) Diastolic blood pressure 65 mm[Hg] 65 mm[Hg] TEE ([facility]) Body weight 3385.6 [oz_av] 3385.6 [oz_av] ATHEN A ([facility]) Systolic blood pressure 104 mm[Hg] 104 mm[Hg] A [facility] ([facility]) Body height 61 [in_i] 61 [in_i] TEE ([facility]) Diastolic blood pressure 65 mm[Hg] 65 mm[Hg] TEE ([facility]) Body weight 3385.6 [oz_av] 3385.6 [oz_av] ATHEN A ([facility]) Systolic blood pressure 104 mm[Hg] 104 mm[Hg] A [facility] ([facility]) Body height 61 [in_i] 61 [in_i] TEE ([facility]) Diastolic blood pressure 65 mm[Hg] 65 mm[Hg] TEE ([facility]) Body weight 3385.6 [oz_av] 3385.6 [oz_av] ATHEN A ([facility]) Systolic blood pressure 104 mm[Hg] 104 mm[Hg] A [facility] ([facility]) Body height 61 [in_i] 61 [in_i] TEE ([facility]) Diastolic blood pressure 65 mm[Hg] 65 mm[Hg] TEE ([facility]) Body weight 3385.6 [oz_av] 3385.6 [oz_av] ATHEN A ([facility]) Systolic blood pressure 104 mm[Hg] 104 mm[Hg] A [facility] ([facility]) Body height 61 [in_i] 61 [in_i] TEE ([facility]) Diastolic blood pressure 65 mm[Hg] 65 mm[Hg] TEE ([facility]) Body weight 3385.6 [oz_av] 3385.6 [oz_av] ATHEN A ([facility]) Systolic blood pressure 104 mm[Hg] 104 mm[Hg] A [facility] ([facility]) Body height 61 [in_i] 61 [in_i] TEE ([facility]) Diastolic blood pressure 65 mm[Hg] 65 mm[Hg] TEE ([facility]) Body weight 3385.6 [oz_av] 3385.6 [oz_av] ATHEN A ([facility]) Systolic blood pressure 104 mm[Hg] 104 mm[Hg] A [facility] ([facility]) Body height 61 [in_i] 61 [in_i] TEE ([facility]) Diastolic blood pressure 65 mm[Hg] 65 mm[Hg] TEE ([facility]) Body weight 3385.6 [oz_av] 3385.6 [oz_av] ATHEN A ([facility]) Systolic blood pressure 104 mm[Hg] 104 mm[Hg] A THENA ([facility]) Body height 61 [in_i] 61 [in_i] TEE ([facility]) Diastolic blood pressure 65 mm[Hg] 65 mm[Hg] TEE ([facility]) Body weight 3385.6 [oz_av] 3385.6 [oz_av] ATHEN A ([facility]) Systolic blood pressure 104 mm[Hg] 104 mm[Hg] A THENA ([facility]) Body height 61 [in_i] 61 [in_i] TEE ([facility]) Diastolic blood pressure 65 mm[Hg] 65 mm[Hg] TEE ([facility]) Body weight 3385.6 [oz_av] 3385.6 [oz_av] ATHEN A ([facility]) Systolic blood pressure 104 mm[Hg] 104 mm[Hg] A THENA ([facility]) Body height 61 [in_i] 61 [in_i] TEE ([facility]) Diastolic blood pressure 65 mm[Hg] 65 mm[Hg] TEE ([facility]) Body weight 87.545 kg 87.545 kg KENNY ([facility], ) Body mass index (BMI) [Ratio] 35.9 kg/m2 35.9 k g/m2 KENNY ([facility], ) Body weight 193.00 [lb_av] 193.00 [lb_av] YOANA T ([facility], ) Body height 61.5 [in_i] 61.5 [in_i] KENNY ([facility], ) 5'1.50" Body temperature 96.8 [degF] 96.8 [degF] KENNY ([facility], ) Body height 61 [in_i] 61 [in_i] TEE ([facility]) Body height 61 [in_i] 61 [in_i] TEE ([facility]) Body height 61 [in_i] 61 [in_i] TEE ([facility]) Body height 61 [in_i] 61 [in_i] TEE ([facility]) Body height 61 [in_i] 61 [in_i] TEE ([facility]) Body height 61 [in_i] 61 [in_i] TEE ([facility]) Body height 61 [in_i] 61 [in_i] TEE ([facility]) Body height 61 [in_i] 61 [in_i] TEE ([facility]) Body height 61 [in_i] 61 [in_i] TEE ([facility]) Body height 61 [in_i] 61 [in_i] TEE ([facility]) Body height 61 [in_i] 61 [in_i] TEE ([facility]) Body height 61 [in_i] 61 [in_i] TEE ([facility]) Body height 61 [in_i] 61 [in_i] TEE ([facility]) Body weight 3408 [oz_av] 3408 [oz_av] TEE ([facility]) Systolic blood pressure 103 mm[Hg] 103 mm[Hg] A [facility] ([facility]) Body mass index (BMI) [Ratio] 40.39 kg/m2 40.39 kg/m2 TEE ([facility]) Body height 61 [in_i] 61 [in_i] TEE ([facility]) Diastolic blood pressure 68 mm[Hg] 68 mm[Hg] TEE ([facility]) Body weight 3408 [oz_av] 3408 [oz_av] TEE ([facility]) Systolic blood pressure 103 mm[Hg] 103 mm[Hg] A THENA ([facility]) Body height 61 [in_i] 61 [in_i] TEE ([facility]) Diastolic blood pressure 68 mm[Hg] 68 mm[Hg] TEE ([facility]) Body weight 3408 [oz_av] 3408 [oz_av] TEE ([facility]) Systolic blood pressure 103 mm[Hg] 103 mm[Hg] A [facility] ([facility]) Body height 61 [in_i] 61 [in_i] TEE ([facility]) Diastolic blood pressure 68 mm[Hg] 68 mm[Hg] TEE ([facility]) Body weight 3408 [oz_av] 3408 [oz_av] TEE ([facility]) Systolic blood pressure 103 mm[Hg] 103 mm[Hg] A [facility] ([facility]) Body height 61 [in_i] 61 [in_i] TEE ([facility]) Diastolic blood pressure 68 mm[Hg] 68 mm[Hg] TEE ([facility]) Body weight 3408 [oz_av] 3408 [oz_av] TEE ([facility]) Systolic blood pressure 103 mm[Hg] 103 mm[Hg] A [facility] ([facility]) Body height 61 [in_i] 61 [in_i] TEE ([facility]) Diastolic blood pressure 68 mm[Hg] 68 mm[Hg] TEE ([facility]) Body weight 3408 [oz_av] 3408 [oz_av] TEE ([facility]) Systolic blood pressure 103 mm[Hg] 103 mm[Hg] A [facility] ([facility]) Body height 61 [in_i] 61 [in_i] TEE ([facility]) Diastolic blood pressure 68 mm[Hg] 68 mm[Hg] TEE ([facility]) Body weight 3408 [oz_av] 3408 [oz_av] TEE ([facility]) Systolic blood pressure 103 mm[Hg] 103 mm[Hg] A THENA ([facility]) Body height 61 [in_i] 61 [in_i] TEE ([facility]) Diastolic blood pressure 68 mm[Hg] 68 mm[Hg] TEE ([facility]) Body weight 3408 [oz_av] 3408 [oz_av] TEE ([facility]) Systolic blood pressure 103 mm[Hg] 103 mm[Hg] A [facility] ([facility]) Body height 61 [in_i] 61 [in_i] TEE ([facility]) Diastolic blood pressure 68 mm[Hg] 68 mm[Hg] TEE ([facility]) Body weight 3408 [oz_av] 3408 [oz_av] TEE ([facility]) Systolic blood pressure 103 mm[Hg] 103 mm[Hg] A [facility] ([facility]) Body height 61 [in_i] 61 [in_i] TEE ([facility]) Diastolic blood pressure 68 mm[Hg] 68 mm[Hg] TEE ([facility]) Body weight 3408 [oz_av] 3408 [oz_av] TEE ([facility]) Systolic blood pressure 103 mm[Hg] 103 mm[Hg] A [facility] ([facility]) Body height 61 [in_i] 61 [in_i] TEE ([facility]) Diastolic blood pressure 68 mm[Hg] 68 mm[Hg] TEE ([facility]) Body weight 3408 [oz_av] 3408 [oz_av] TEE ([facility]) Systolic blood pressure 103 mm[Hg] 103 mm[Hg] A [facility] ([facility]) Body height 61 [in_i] 61 [in_i] TEE ([facility]) Diastolic blood pressure 68 mm[Hg] 68 mm[Hg] TEE ([facility]) Body weight 3408 [oz_av] 3408 [oz_av] TEE ([facility]) Systolic blood pressure 103 mm[Hg] 103 mm[Hg] A [facility] ([facility]) Body height 61 [in_i] 61 [in_i] TEE ([facility]) Diastolic blood pressure 68 mm[Hg] 68 mm[Hg] TEE ([facility]) Body weight 3408 [oz_av] 3408 [oz_av] TEE ([facility]) Systolic blood pressure 103 mm[Hg] 103 mm[Hg] A [facility] ([facility]) Body height 61 [in_i] 61 [in_i] TEE ([facility]) Diastolic blood pressure 68 mm[Hg] 68 mm[Hg] TEE ([facility]) Body weight 3408 [oz_av] 3408 [oz_av] TEE ([facility]) Systolic blood pressure 150 mm[Hg] 150 mm[Hg] A [facility] ([facility]) Body mass index (BMI) [Ratio] 40.39 kg/m2 40.39 kg/m2 TEE ([facility]) Body height 61 [in_i] 61 [in_i] TEE ([facility]) Diastolic blood pressure 69 mm[Hg] 69 mm[Hg] TEE ([facility]) Body weight 3408 [oz_av] 3408 [oz_av] TEE ([facility]) Systolic blood pressure 150 mm[Hg] 150 mm[Hg] A [facility] ([facility]) Body height 61 [in_i] 61 [in_i] TEE ([facility]) Diastolic blood pressure 69 mm[Hg] 69 mm[Hg] TEE ([facility]) Body weight 3408 [oz_av] 3408 [oz_av] TEE ([facility]) Systolic blood pressure 150 mm[Hg] 150 mm[Hg] A [facility] ([facility]) Body height 61 [in_i] 61 [in_i] TEE ([facility]) Diastolic blood pressure 69 mm[Hg] 69 mm[Hg] TEE ([facility]) Body weight 3408 [oz_av] 3408 [oz_av] TEE ([facility]) Systolic blood pressure 150 mm[Hg] 150 mm[Hg] A [facility] ([facility]) Body height 61 [in_i] 61 [in_i] TEE ([facility]) Diastolic blood pressure 69 mm[Hg] 69 mm[Hg] TEE ([facility]) Body weight 3408 [oz_av] 3408 [oz_av] TEE ([facility]) Systolic blood pressure 150 mm[Hg] 150 mm[Hg] A [facility] ([facility]) Body height 61 [in_i] 61 [in_i] TEE ([facility]) Diastolic blood pressure 69 mm[Hg] 69 mm[Hg] TEE ([facility]) Body weight 3408 [oz_av] 3408 [oz_av] TEE ([facility]) Systolic blood pressure 150 mm[Hg] 150 mm[Hg] A [facility] ([facility]) Body height 61 [in_i] 61 [in_i] TEE ([facility]) Diastolic blood pressure 69 mm[Hg] 69 mm[Hg] TEE ([facility]) Body weight 3408 [oz_av] 3408 [oz_av] TEE ([facility]) Systolic blood pressure 150 mm[Hg] 150 mm[Hg] A THENA ([facility]) Body height 61 [in_i] 61 [in_i] TEE ([facility]) Diastolic blood pressure 69 mm[Hg] 69 mm[Hg] TEE ([facility]) Body weight 3408 [oz_av] 3408 [oz_av] TEE ([facility]) Systolic blood pressure 150 mm[Hg] 150 mm[Hg] A [facility] ([facility]) Body height 61 [in_i] 61 [in_i] TEE ([facility]) Diastolic blood pressure 69 mm[Hg] 69 mm[Hg] TEE ([facility]) Body weight 3408 [oz_av] 3408 [oz_av] TEE ([facility]) Systolic blood pressure 150 mm[Hg] 150 mm[Hg] A [facility] ([facility]) Body height 61 [in_i] 61 [in_i] TEE ([facility]) Diastolic blood pressure 69 mm[Hg] 69 mm[Hg] TEE ([facility]) Body weight 3408 [oz_av] 3408 [oz_av] TEE ([facility]) Systolic blood pressure 150 mm[Hg] 150 mm[Hg] A THENA ([facility]) Body height 61 [in_i] 61 [in_i] TEE ([facility]) Diastolic blood pressure 69 mm[Hg] 69 mm[Hg] TEE ([facility]) Body weight 3408 [oz_av] 3408 [oz_av] TEE ([facility]) Systolic blood pressure 150 mm[Hg] 150 mm[Hg] A THENA ([facility]) Body height 61 [in_i] 61 [in_i] TEE ([facility]) Diastolic blood pressure 69 mm[Hg] 69 mm[Hg] TEE ([facility]) Body weight 3408 [oz_av] 3408 [oz_av] TEE ([facility]) Systolic blood pressure 150 mm[Hg] 150 mm[Hg] A THENA ([facility]) Body height 61 [in_i] 61 [in_i] TEE ([facility]) Diastolic blood pressure 69 mm[Hg] 69 mm[Hg] TEE ([facility]) Body weight 3408 [oz_av] 3408 [oz_av] TEE ([facility]) Systolic blood pressure 150 mm[Hg] 150 mm[Hg] A [facility] ([facility]) Body height 61 [in_i] 61 [in_i] TEE ([facility]) Diastolic blood pressure 69 mm[Hg] 69 mm[Hg] TEE ([facility]) Body weight 3350.4 [oz_av] 3350.4 [oz_av] ATHEN A ([facility]) Systolic blood pressure 118 mm[Hg] 118 mm[Hg] A [facility] ([facility]) Body mass index (BMI) [Ratio] 39.71 kg/m2 39.71 kg/m2 TEE ([facility]) Body height 61 [in_i] 61 [in_i] TEE ([facility]) Diastolic blood pressure 76 mm[Hg] 76 mm[Hg] TEE ([facility]) Body weight 3350.4 [oz_av] 3350.4 [oz_av] ATHEN A ([facility]) Systolic blood pressure 118 mm[Hg] 118 mm[Hg] A THENA ([facility]) Body height 61 [in_i] 61 [in_i] TEE ([facility]) Diastolic blood pressure 76 mm[Hg] 76 mm[Hg] TEE ([facility]) Body weight 3350.4 [oz_av] 3350.4 [oz_av] ATHEN A ([facility]) Systolic blood pressure 118 mm[Hg] 118 mm[Hg] A THENA ([facility]) Body height 61 [in_i] 61 [in_i] TEE ([facility]) Diastolic blood pressure 76 mm[Hg] 76 mm[Hg] TEE ([facility]) Body weight 3350.4 [oz_av] 3350.4 [oz_av] ATHEN A ([facility]) Systolic blood pressure 118 mm[Hg] 118 mm[Hg] A [facility] ([facility]) Body height 61 [in_i] 61 [in_i] TEE ([facility]) Diastolic blood pressure 76 mm[Hg] 76 mm[Hg] TEE ([facility]) Body weight 3350.4 [oz_av] 3350.4 [oz_av] ATHEN A ([facility]) Systolic blood pressure 118 mm[Hg] 118 mm[Hg] A [facility] ([facility]) Body height 61 [in_i] 61 [in_i] TEE ([facility]) Diastolic blood pressure 76 mm[Hg] 76 mm[Hg] TEE ([facility]) Body weight 3350.4 [oz_av] 3350.4 [oz_av] ATHEN A ([facility]) Systolic blood pressure 118 mm[Hg] 118 mm[Hg] A [facility] ([facility]) Body height 61 [in_i] 61 [in_i] TEE ([facility]) Diastolic blood pressure 76 mm[Hg] 76 mm[Hg] TEE ([facility]) Body weight 3350.4 [oz_av] 3350.4 [oz_av] ATHEN A ([facility]) Systolic blood pressure 118 mm[Hg] 118 mm[Hg] A [facility] ([facility]) Body height 61 [in_i] 61 [in_i] TEE ([facility]) Diastolic blood pressure 76 mm[Hg] 76 mm[Hg] TEE ([facility]) Diastolic blood pressure 76 mm[Hg] 76 mm[Hg] TEE ([facility]) Body weight 3350.4 [oz_av] 3350.4 [oz_av] ATHEN A ([facility]) Systolic blood pressure 118 mm[Hg] 118 mm[Hg] A [facility] ([facility]) Body height 61 [in_i] 61 [in_i] TEE ([facility]) Diastolic blood pressure 76 mm[Hg] 76 mm[Hg] TEE ([facility]) Body weight 3350.4 [oz_av] 3350.4 [oz_av] ATHEN A ([facility]) Systolic blood pressure 118 mm[Hg] 118 mm[Hg] A [facility] ([facility]) Body height 61 [in_i] 61 [in_i] TEE ([facility]) Diastolic blood pressure 76 mm[Hg] 76 mm[Hg] TEE ([facility]) Body weight 3350.4 [oz_av] 3350.4 [oz_av] ATHEN A ([facility]) Systolic blood pressure 118 mm[Hg] 118 mm[Hg] A [facility] ([facility]) Body height 61 [in_i] 61 [in_i] TEE ([facility]) Diastolic blood pressure 76 mm[Hg] 76 mm[Hg] TEE ([facility]) Body weight 3350.4 [oz_av] 3350.4 [oz_av] ATHEN A ([facility]) Systolic blood pressure 118 mm[Hg] 118 mm[Hg] A [facility] ([facility]) Body height 61 [in_i] 61 [in_i] TEE ([facility]) Diastolic blood pressure 76 mm[Hg] 76 mm[Hg] TEE ([facility]) Body weight 3350.4 [oz_av] 3350.4 [oz_av] ATHEN A ([facility]) Systolic blood pressure 118 mm[Hg] 118 mm[Hg] A [facility] ([facility]) Body height 61 [in_i] 61 [in_i] TEE ([facility]) Diastolic blood pressure 76 mm[Hg] 76 mm[Hg] TEE ([facility]) Body weight 3350.4 [oz_av] 3350.4 [oz_av] ATHEN A ([facility]) Systolic blood pressure 118 mm[Hg] 118 mm[Hg] A [facility] ([facility]) Body height 61 [in_i] 61 [in_i] TEE ([facility]) Body weight 3344 [oz_av] 3344 [oz_av] TEE ([facility]) Systolic blood pressure 121 mm[Hg] 121 mm[Hg] A [facility] ([facility]) Body mass index (BMI) [Ratio] 39.63 kg/m2 39.63 kg/m2 TEE ([facility]) Body height 61 [in_i] 61 [in_i] TEE ([facility]) Diastolic blood pressure 76 mm[Hg] 76 mm[Hg] TEE ([facility]) Body weight 3344 [oz_av] 3344 [oz_av] TEE ([facility]) Systolic blood pressure 121 mm[Hg] 121 mm[Hg] A [facility] ([facility]) Body height 61 [in_i] 61 [in_i] TEE ([facility]) Diastolic blood pressure 76 mm[Hg] 76 mm[Hg] TEE ([facility]) Body weight 3344 [oz_av] 3344 [oz_av] TEE ([facility]) Systolic blood pressure 121 mm[Hg] 121 mm[Hg] A [facility] ([facility]) Body height 61 [in_i] 61 [in_i] TEE ([facility]) Diastolic blood pressure 76 mm[Hg] 76 mm[Hg] TEE ([facility]) Body weight 3344 [oz_av] 3344 [oz_av] TEE ([facility]) Systolic blood pressure 121 mm[Hg] 121 mm[Hg] A [facility] ([facility]) Body height 61 [in_i] 61 [in_i] TEE ([facility]) Diastolic blood pressure 76 mm[Hg] 76 mm[Hg] TEE ([facility]) Body weight 3344 [oz_av] 3344 [oz_av] TEE ([facility]) Systolic blood pressure 121 mm[Hg] 121 mm[Hg] A [facility] ([facility]) Body height 61 [in_i] 61 [in_i] TEE ([facility]) Diastolic blood pressure 76 mm[Hg] 76 mm[Hg] TEE ([facility]) Body weight 3344 [oz_av] 3344 [oz_av] TEE ([facility]) Systolic blood pressure 121 mm[Hg] 121 mm[Hg] A [facility] ([facility]) Body height 61 [in_i] 61 [in_i] TEE ([facility]) Diastolic blood pressure 76 mm[Hg] 76 mm[Hg] TEE ([facility]) Body weight 3344 [oz_av] 3344 [oz_av] TEE ([facility]) Systolic blood pressure 121 mm[Hg] 121 mm[Hg] A [facility] ([facility]) Body height 61 [in_i] 61 [in_i] TEE ([facility]) Diastolic blood pressure 76 mm[Hg] 76 mm[Hg] TEE ([facility]) Body weight 3344 [oz_av] 3344 [oz_av] TEE ([facility]) Systolic blood pressure 121 mm[Hg] 121 mm[Hg] A [facility] ([facility]) Body height 61 [in_i] 61 [in_i] TEE ([facility]) Diastolic blood pressure 76 mm[Hg] 76 mm[Hg] TEE ([facility]) Body weight 3344 [oz_av] 3344 [oz_av] TEE ([facility]) Systolic blood pressure 121 mm[Hg] 121 mm[Hg] A THENA ([facility]) Body height 61 [in_i] 61 [in_i] TEE ([facility]) Diastolic blood pressure 76 mm[Hg] 76 mm[Hg] TEE ([facility]) Body weight 3344 [oz_av] 3344 [oz_av] TEE ([facility]) Systolic blood pressure 121 mm[Hg] 121 mm[Hg] A [facility] ([facility]) Body height 61 [in_i] 61 [in_i] TEE ([facility]) Diastolic blood pressure 76 mm[Hg] 76 mm[Hg] TEE ([facility]) Body weight 3344 [oz_av] 3344 [oz_av] TEE ([facility]) Systolic blood pressure 121 mm[Hg] 121 mm[Hg] A [facility] ([facility]) Body height 61 [in_i] 61 [in_i] TEE ([facility]) Diastolic blood pressure 76 mm[Hg] 76 mm[Hg] TEE ([facility]) Body weight 3344 [oz_av] 3344 [oz_av] TEE ([facility]) Systolic blood pressure 121 mm[Hg] 121 mm[Hg] A [facility] ([facility]) Body height 61 [in_i] 61 [in_i] TEE ([facility]) Diastolic blood pressure 76 mm[Hg] 76 mm[Hg] TEE ([facility]) Body weight 3344 [oz_av] 3344 [oz_av] TEE ([facility]) Systolic blood pressure 121 mm[Hg] 121 mm[Hg] A [facility] ([facility]) Body height 61 [in_i] 61 [in_i] TEE ([facility]) Diastolic blood pressure 76 mm[Hg] 76 mm[Hg] TEE ([facility]) Patient Treatment Plan of Care Planned Activity Planned Date Details Description Data Source (s) lisdexamfetamine dimesylate 30 MG Oral Capsule [Vyvanse] TEE ([facility]) 24 HR venlafaxine 75 MG Extended Release Oral Capsule TEE ([facility]) Sumatriptan 25 MG Oral Tablet TEE ([facility]) quetiapine 50 MG Oral Tablet TEE ([facility]) Prednisone 5 MG Oral Tablet TEE ([facility]) Prednisone 20 MG Oral Tablet TEE ([facility]) Prednisone 10 MG Oral Tablet TEE ([facility]) Oseltamivir 75 MG Oral Capsule TEE ([facility]) Niacin 500 MG Oral Tablet AT [facility]) Loratadine 10 MG Oral Tablet TEE ([facility]) Ketoprofen 25 MG Oral Capsule TEE ([facility]) Hydroxyzine Hydrochloride 25 MG Oral Tablet TEE ([facility]) Fluoxetine 20 MG Oral Capsule TEE ([facility]) Escitalopram 20 MG Oral Tablet TEE ([facility]) Escitalopram 10 MG Oral Tablet TEE ([facility]) duloxetine 30 MG Delayed Release Oral Capsule TEE ([facility]) duloxetine 20 MG Delayed Release Oral Capsule TEE ([facility]) 24 HR Amphetamine aspartate 2.5 MG / Amp hetamine Sulfate 2.5 MG / Dextroamphetamine saccharate 2.5 MG / Dextroamphetamine Sulfate 2.5 MG Extended Release Oral Capsule TEE ([facility]) Chantix Starting Month Box 0.5 mg (11)-1 mg (42) tablets in dose pa ck TEE ([facility]) varenicline 1 MG Oral Tablet TEE ([facility]) Betamethasone 0.0005 MG/MG Topical Ointment TEE ([facility]) benzonatate 200 MG Oral Capsule TEE ([facility]) Diphenhydramine Hydrochloride 50 MG Oral Capsule [Banophen] TEE ([facility]) Azithromycin 250 MG Oral Tablet TEE ([facility]) Amoxicillin 875 MG / Clavulanate 125 MG Oral Tablet TEE ([facility]) lisdexamfetamine dimesylate 30 MG Oral Capsule [Vyvanse] TEE ([facility]) 24 HR venlafaxine 75 MG Extended Release Oral Capsule TEE ([facility]) Sumatriptan 25 MG Oral Tablet TEE ([facility]) quetiapine 50 MG Oral Tablet TEE ([facility]) Prednisone 5 MG Oral Tablet TEE ([facility]) Prednisone 10 MG Oral Tablet TEE ([facility]) Oseltamivir 75 MG Oral Capsule TEE ([facility]) Niacin 500 MG Oral Tablet AT [facility] ([facility]) Loratadine 10 MG Oral Tablet TEE ([facility]) Ketoprofen 25 MG Oral Capsule TEE ([facility]) Hydroxyzine Hydrochloride 25 MG Oral Tablet TEE ([facility]) fluticasone propionate 50 mcg/actuation nasal spray,suspension TEE ([facility]) Fluoxetine 20 MG Oral Capsule TEE ([facility]) Escitalopram 20 MG Oral Tablet TEE ([facility]) Escitalopram 10 MG Oral Tablet TEE ([facility]) duloxetine 30 MG Delayed Release Oral Capsule TEE ([facility]) duloxetine 20 MG Delayed Release Oral Capsule ETE ([facility]) 24 HR Amphetamine aspartate 2.5 MG / Amp hetamine Sulfate 2.5 MG / Dextroamphetamine saccharate 2.5 MG / Dextroamphetamine Sulfate 2.5 MG Extended Release Oral Capsule TEE ([facility]) Chantix Starting Month Box 0.5 mg (11)-1 mg (42) tablets in dose pa ck TEE ([facility]) varenicline 1 MG Oral Tablet TEE ([facility]) Betamethasone 0.0005 MG/MG Topical Ointment TEE ([facility]) benzonatate 200 MG Oral Capsule TEE ([facility]) Diphenhydramine Hydrochloride 50 MG Oral Capsule [Banophen] TEE ([facility]) Azithromycin 250 MG Oral Tablet TEE ([facility]) lisdexamfetamine dimesylate [facility] venlafaxine 75 MG Extended Release Oral Capsule TEE ([facility]) Sumatriptan 25 MG Oral Tablet TEE ([facility]) quetiapine 50 MG Oral Tablet TEE ([facility]) Prednisone 5 MG Oral Tablet TEE ([facility]) Prednisone 10 MG Oral Tablet TEE ([facility]) Oseltamivir 75 MG Oral Capsule TEE ([facility]) Niacin 500 MG Oral Tablet AT [facility] ([facility]) Loratadine 10 MG Oral Tablet TEE ([facility]) Ketoprofen 25 MG Oral Capsule TEE ([facility]) Hydroxyzine Hydrochloride 25 MG Oral Tablet TEE ([facility]) fluticasone propionate 50 mcg/actuation nasal spray,suspension TEE ([facility]) Fluoxetine 20 MG Oral Capsule TEE ([facility]) Escitalopram 20 MG Oral Tablet TEE ([facility]) Escitalopram 10 MG Oral Tablet TEE ([facility]) duloxetine 30 MG Delayed Release Oral Capsule TEE ([facility]) duloxetine 20 MG Delayed Release Oral Capsule TEE ([facility]) 24 HR Amphetamine aspartate 2.5 MG / Amp hetamine Sulfate 2.5 MG / Dextroamphetamine saccharate 2.5 MG / Dextroamphetamine Sulfate 2.5 MG Extended Release Oral Capsule TEE ([facility]) Chantix Starting Month Box 0.5 mg (11)-1 mg (42) tablets in dose pa ck TEE ([facility]) varenicline 1 MG Oral Tablet TEE ([facility]) Betamethasone 0.0005 MG/MG Topical Ointment TEE ([facility]) benzonatate 200 MG Oral Capsule TEE ([facility]) Diphenhydramine Hydrochloride 50 MG Oral Capsule [Banophen] TEE ([facility]) Azithromycin 250 MG Oral Tablet TEE ([facility]) lisdexamfetamine dimesylate 30 MG Oral Capsule [Vyvanse] TEE ([facility]) 24 HR venlafaxine 75 MG Extended Release Oral Capsule TEE ([facility]) Prednisone 5 MG Oral Tablet TEE ([facility]) Prednisone 10 MG Oral Tablet TEE ([facility]) Oseltamivir 75 MG Oral Capsule TEE ([facility]) Niacin 500 MG Oral Tablet AT [facility] ([facility]) Loratadine 10 MG Oral Tablet TEE ([facility]) Ketoprofen 25 MG Oral Capsule TEE ([facility]) Hydroxyzine Hydrochloride 25 MG Oral Tablet TEE ([facility]) fluticasone propionate 50 mcg/actuation nasal spray,suspension ETE ([facility]) Fluoxetine 20 MG Oral Capsule TEE ([facility]) Escitalopram 20 MG Oral Tablet TEE ([facility]) Escitalopram 10 MG Oral Tablet TEE ([facility]) duloxetine 30 MG Delayed Release Oral Capsule TEE ([facility]) duloxetine 20 MG Delayed Release Oral Capsule TEE ([facility]) 24 HR Amphetamine aspartate 2.5 MG / Amp hetamine Sulfate 2.5 MG / Dextroamphetamine saccharate 2.5 MG / Dextroamphetamine Sulfate 2.5 MG Extended Release Oral Capsule TEE ([facility]) Chantix Starting Month Box 0.5 mg (11)-1 mg (42) tablets in dose pa ck TEE ([facility]) varenicline 1 MG Oral Tablet TEE ([facility]) Betamethasone 0.0005 MG/MG Topical Ointment TEE ([facility]) benzonatate 200 MG Oral Capsule TEE ([facility]) Diphenhydramine Hydrochloride 50 MG Oral Capsule [Banophen] TEE ([facility]) Azithromycin 250 MG Oral Tablet TEE ([facility]) lisdexamfetamine dimesylate [facility] venlafaxine 75 MG Extended Release Oral Capsule TEE ([facility]) Prednisone 5 MG Oral Tablet ESPERANCE ([facility]) Prednisone 10 MG Oral Tablet ESPERANCE ([facility]) Oseltamivir 75 MG Oral Capsule TEE ([facility]) Niacin 500 MG Oral Tablet AT [facility] ([facility]) Loratadine 10 MG Oral Tablet ESPERANCE ([facility]) Ketoprofen 25 MG Oral Capsule ESPERANCE ([facility]) Hydroxyzine Hydrochloride 25 MG Oral Tablet ESPERANCE ([facility]) fluticasone propionate 50 mcg/actuation nasal spray,suspension TEE ([facility]) Fluoxetine 20 MG Oral Capsule TEE ([facility]) Escitalopram 20 MG Oral Tablet TEE ([facility]) Escitalopram 10 MG Oral Tablet TEE ([facility]) duloxetine 30 MG Delayed Release Oral Capsule TEE ([facility]) duloxetine 20 MG Delayed Release Oral Capsule TEE ([facility]) 24 HR Amphetamine aspartate 2.5 MG / Amp hetamine Sulfate 2.5 MG / Dextroamphetamine saccharate 2.5 MG / Dextroamphetamine Sulfate 2.5 MG Extended Release Oral Capsule TEE ([facility]) Chantix Starting Month Box 0.5 mg (11)-1 mg (42) tablets in dose pa ck TEE ([facility]) varenicline 1 MG Oral Tablet TEE ([facility]) Betamethasone 0.0005 MG/MG Topical Ointment TEE ([facility]) benzonatate 200 MG Oral Capsule TEE ([facility]) Diphenhydramine Hydrochloride 50 MG Oral Capsule [Banophen] TEE ([facility]) Azithromycin 250 MG Oral Tablet TEE ([facility]) lisdexamfetamine dimesylate [facility] venlafaxine 75 MG Extended Release Oral Capsule TEE ([facility]) Prednisone 5 MG Oral Tablet TEE ([facility]) Prednisone 10 MG Oral Tablet TEE ([facility]) Oseltamivir 75 MG Oral Capsule TEE ([facility]) Niacin 500 MG Oral Tablet AT [facility] ([facility]) Loratadine 10 MG Oral Tablet TEE ([facility]) Ketoprofen 25 MG Oral Capsule TEE ([facility]) Hydroxyzine Hydrochloride 25 MG Oral Tablet TEE ([facility]) fluticasone propionate 50 mcg/actuation nasal spray,suspension TEE ([facility]) Fluoxetine 20 MG Oral Capsule TEE ([facility]) Fluconazole 150 MG Oral Tablet TEE ([facility]) Escitalopram 20 MG Oral Tablet TEE ([facility]) Escitalopram 10 MG Oral Tablet TEE ([facility]) duloxetine 30 MG Delayed Release Oral Capsule TEE ([facility]) duloxetine 20 MG Delayed Release Oral Capsule TEE ([facility]) 24 HR Amphetamine aspartate 2.5 MG / Amp hetamine Sulfate 2.5 MG / Dextroamphetamine saccharate 2.5 MG / Dextroamphetamine Sulfate 2.5 MG Extended Release Oral Capsule TEE ([facility]) Chantix Starting Month Box 0.5 mg (11)-1 mg (42) tablets in dose pa ck TEE ([facility]) varenicline 1 MG Oral Tablet TEE ([facility]) Betamethasone 0.0005 MG/MG Topical Ointment TEE ([facility]) benzonatate 200 MG Oral Capsule TEE ([facility]) Diphenhydramine Hydrochloride 50 MG Oral Capsule [Banophen] TEE ([facility]) Azithromycin 250 MG Oral Tablet TEE ([facility]) lisdexamfetamine dimesylate 30 MG Oral Capsule [Vyvanse] TEE ([facility]) 24 HR venlafaxine 75 MG Extended Release Oral Capsule TEE ([facility]) Prednisone 5 MG Oral Tablet TEE ([facility]) Prednisone 10 MG Oral Tablet TEE ([facility]) Oseltamivir 75 MG Oral Capsule TEE ([facility]) Niacin 500 MG Oral Tablet AT [facility]) Loratadine 10 MG Oral Tablet TEE ([facility]) Ketoprofen 25 MG Oral Capsule TEE ([facility]) Hydroxyzine Hydrochloride 25 MG Oral Tablet TEE ([facility]) fluticasone propionate 50 mcg/actuation nasal spray,suspension TEE ([facility]) Fluoxetine 20 MG Oral Capsule TEE ([facility]) Fluconazole 150 MG Oral Tablet TEE ([facility]) Escitalopram 20 MG Oral Tablet TEE ([facility]) Escitalopram 10 MG Oral Tablet TEE ([facility]) duloxetine 30 MG Delayed Release Oral Capsule TEE ([facility]) duloxetine 20 MG Delayed Release Oral Capsule TEE ([facility]) 24 HR Amphetamine aspartate 2.5 MG / Amp hetamine Sulfate 2.5 MG / Dextroamphetamine saccharate 2.5 MG / Dextroamphetamine Sulfate 2.5 MG Extended Release Oral Capsule TEE ([facility]) Chantix Starting Month Box 0.5 mg (11)-1 mg (42) tablets in dose pa ck TEE ([facility]) varenicline 1 MG Oral Tablet TEE ([facility]) Betamethasone 0.0005 MG/MG Topical Ointment TEE ([facility]) benzonatate 200 MG Oral Capsule TEE ([facility]) Diphenhydramine Hydrochloride 50 MG Oral Capsule [Banophen] TEE ([facility]) Azithromycin 250 MG Oral Tablet TEE ([facility]) Prednisone 20 MG Oral Tablet TEE ([facility]) Prednisone 10 MG Oral Tablet TEE ([facility]) Oseltamivir 75 MG Oral Capsule TEE ([facility]) Niacin 500 MG Oral Tablet AT [facility] ([facility]) Loratadine 10 MG Oral Tablet TEE ([facility]) Ketoprofen 25 MG Oral Capsule TEE ([facility]) Hydroxyzine Hydrochloride 25 MG Oral Tablet TEE ([facility]) fluticasone propionate 50 mcg/actuation nasal spray,suspension TEE ([facility]) Fluoxetine 20 MG Oral Capsule TEE ([facility]) Fluconazole 150 MG Oral Tablet TEE ([facility]) Escitalopram 20 MG Oral Tablet TEE ([facility]) Escitalopram 10 MG Oral Tablet TEE ([facility]) duloxetine 20 MG Delayed Release Oral Capsule TEE ([facility]) 24 HR Amphetamine aspartate 2.5 MG / Amp hetamine Sulfate 2.5 MG / Dextroamphetamine saccharate 2.5 MG / Dextroamphetamine Sulfate 2.5 MG Extended Release Oral Capsule TEE ([facility]) Chantix Starting Month Box 0.5 mg (11)-1 mg (42) tablets in dose pa ck TEE ([facility]) varenicline 1 MG Oral Tablet TEE ([facility]) Betamethasone 0.0005 MG/MG Topical Ointment ESPERANCE ([facility]) benzonatate 200 MG Oral Capsule TEE ([facility]) Diphenhydramine Hydrochloride [facility] C[facility] Azith[facility] 250 MG Oral Tablet TEE ([facility]) Amoxicillin 875 MG / Clavulanate 125 MG Oral Tablet TEE ([facility]) lisdexamfetamine dimesylate 30 [facility] venlafaxine 75 MG [facility] Prednisone 5 MG Oral Tablet TEE ([facility]) Prednisone 20 MG Oral Tablet TEE ([facility]) Prednisone 10 MG Oral Tablet TEE ([facility]) Oseltamivir 75 MG Oral Capsule TEE ([facility]) Niacin 500 MG Oral Tablet AT [facility] ([facility]) Loratadine 10 MG Oral Tablet TEE ([facility]) Ketoprofen 25 MG Oral Capsule TEE ([facility]) Hydroxyzine Hydrochloride 25 MG Oral Tablet TEE ([facility]) fluticasone propionate 50 mcg/actuation nasal spray,suspension TEE ([facility]) Fluoxetine 20 MG Oral Capsule TEE ([facility]) Fluconazole 150 MG Oral Tablet TEE ([facility]) Escitalopram 20 MG Oral Tablet TEE ([facility]) Escitalopram 10 MG Oral Tablet TEE ([facility]) 24 HR Amphetamine aspartate 2.5 MG / Amp hetamine Sulfate 2.5 MG / Dextroamphetamine saccharate 2.5 MG / Dextroamphetamine Sulfate 2.5 MG Extended Release Oral Capsule TEE ([facility]) Chantix Starting Month Box 0.5 mg (11)-1 mg (42) tablets in dose pa ck TEE ([facility]) varenicline 1 MG Oral Tablet TEE ([facility]) Betamethasone 0.0005 MG/MG Topical Ointment TEE ([facility]) benzonatate 200 MG Oral Capsule TEE ([facility]) Diphenhydramine Hydrochloride [facility] Azith[facility] 250 MG Oral Tablet TEE ([facility]) Amoxicillin 875 MG / Clavulanate 125 MG Oral Tablet TEE ([facility]) lisdexamfetamine dimesylate 30 MG Oral Capsule [Vyvanse] TEE ([facility]) 24 HR venlafaxine 75 MG Extended Release Oral Capsule TEE ([facility]) Prednisone 5 MG Oral Tablet TEE ([facility]) Prednisone 20 MG Oral Tablet TEE ([facility]) Prednisone 10 MG Oral Tablet TEE ([facility]) [facility] Niacin 500 MG Oral Tablet AT [facility] ([facility]) Loratadine 10 MG Oral Tablet TEE ([facility]) Ketoprofen 25 MG Oral Capsule TEE ([facility]) Hydroxyzine Hydrochloride 25 MG Oral Tablet TEE ([facility]) fluticasone propionate 50 mcg/actuation nasal spray,suspension TEE ([facility]) Fluoxetine 20 MG Oral Capsule TEE ([facility]) Fluconazole 150 MG Oral Tablet TEE ([facility]) Escitalopram 20 MG Oral Tablet TEE ([facility]) Escitalopram 10 MG Oral Tablet TEE ([facility]) 24 HR Amphetamine aspartate 2.5 MG / Amp hetamine Sulfate 2.5 MG / Dextroamphetamine saccharate 2.5 MG / Dextroamphetamine Sulfate 2.5 MG Extended Release Oral Capsule TEE ([facility]) Chantix Starting Month Box 0.5 mg (11)-1 mg (42) tablets in dose pa ck TEE ([facility]) varenicline 1 MG Oral Tablet TEE ([facility]) Betamethasone 0.0005 MG/MG Topical Ointment TEE ([facility]) benzonatate 200 MG Oral Capsule TEE ([facility]) Diphenhydramine Hydrochloride [facility] Azith[facility] 250 MG Oral Tablet TEE ([facility]) Amoxicillin 875 MG / Clavulanate 125 MG Oral Tablet TEE ([facility]) lisdexamfetamine dimesylate 30 [facility] venlafaxine 75 MG Extended Release Oral Capsule TEE ([facility]) Prednisone 5 MG Oral Tablet TEE ([facility]) Prednisone 10 MG Oral Tablet TEE ([facility]) [facility] Niacin 500 MG Oral Tablet AT [facility] ([facility]) Loratadine 10 MG Oral Tablet TEE ([facility]) Ketoprofen 25 MG Oral Capsule TEE ([facility]) Hydroxyzine Hydrochloride 25 MG Oral Tablet TEE ([facility]) Fluoxetine 20 MG Oral Capsule TEE ([facility]) Fluconazole 150 MG Oral Tablet TEE ([facility]) Escitalopram 20 MG Oral Tablet TEE ([facility]) Escitalopram 10 MG Oral Tablet TEE ([facility]) 24 HR Amphetamine aspartate 2.5 MG / Amp hetamine Sulfate 2.5 MG / Dextroamphetamine saccharate 2.5 MG / Dextroamphetamine Sulfate 2.5 MG Extended Release Oral Capsule TEE ([facility]) Chantix Starting Month Box 0.5 mg (11)-1 mg (42) tablets in dose pa ck TEE ([facility]) varenicline 1 MG Oral Tablet TEE ([facility]) benzonatate 200 MG Oral Capsule TEE ([facility]) Diphenhydramine Hydrochloride 50 MG Oral Capsule [Banophen] TEE ([facility]) Azithromycin 250 MG Oral Tablet TEE ([facility]) Amoxicillin 875 MG / Clavulanate 125 MG Oral Tablet TEE ([facility]) lisdexamfetamine dimesylate 30 [facility] venlafaxine 75 MG Extended Release Oral Capsule TEE ([facility]) Prednisone 5 MG Oral Tablet TEE ([facility]) Prednisone 10 MG Oral Tablet TEE ([facility]) Oseltamivir 75 MG Oral Capsule TEE ([facility]) Niacin 500 MG Oral Tablet AT [facility] ([facility]) Loratadine 10 MG Oral Tablet TEE ([facility]) Ketoprofen 25 MG Oral Capsule TEE ([facility]) Hydroxyzine Hydrochloride 25 MG Oral Tablet TEE ([facility]) Fluoxetine 20 MG Oral Capsule TEE ([facility]) Fluconazole 150 MG Oral Tablet TEE ([facility]) Escitalopram 20 MG Oral Tablet TEE ([facility]) Escitalopram 10 MG Oral Tablet TEE ([facility]) 24 HR Amphetamine aspartate 2.5 MG / Amp hetamine Sulfate 2.5 MG / Dextroamphetamine saccharate 2.5 MG / Dextroamphetamine Sulfate 2.5 MG Extended Release Oral Capsule TEE ([facility]) Chantix Starting Month Box 0.5 mg (11)-1 mg (42) tablets in dose pa ck TEE ([facility]) varenicline 1 MG Oral Tablet TEE ([facility]) benzonatate 200 MG Oral Capsule TEE ([facility]) Diphenhydramine Hydrochloride 50 MG Oral Capsule [Banophen] TEE ([facility]) Azithromycin 250 MG Oral Tablet TEE ([facility]) Amoxicillin 875 MG / Clavulanate 125 MG Oral Tablet TEE ([facility]) lisdexamfetamine dimesylate 30 MG Oral Capsule [Vyvanse] TEE ([facility]) 24 HR venlafaxine 75 MG Extended Release Oral Capsule TEE ([facility]) Prednisone 5 MG Oral Tablet TEE ([facility]) Prednisone 10 MG Oral Tablet TEE ([facility]) Oseltamivir 75 MG Oral Capsule TEE ([facility]) Niacin 500 MG Oral Tablet AT [facility]) Loratadine 10 MG Oral Tablet TEE ([facility]) Ketoprofen 25 MG Oral Capsule TEE ([facility]) Hydroxyzine Hydrochloride 25 MG Oral Tablet TEE ([facility]) Fluoxetine 20 MG Oral Capsule TEE ([facility]) Fluconazole 150 MG Oral Tablet TEE ([facility]) Escitalopram 20 MG Oral Tablet TEE ([facility]) Escitalopram 10 MG Oral Tablet TEE ([facility]) 24 HR Amphetamine aspartate 2.5 MG / Amp hetamine Sulfate 2.5 MG / Dextroamphetamine saccharate 2.5 MG / Dextroamphetamine Sulfate 2.5 MG Extended Release Oral Capsule TEE ([facility]) Chantix Starting Month Box 0.5 mg (11)-1 mg (42) tablets in dose pa ck TEE ([facility]) varenicline 1 MG Oral Tablet TEE ([facility]) benzonatate 200 MG Oral Capsule TEE ([facility]) Diphenhydramine Hydrochloride 50 MG Oral Capsule [Banophen] TEE ([facility]) Azithromycin 250 MG Oral Tablet TEE ([facility]) Amoxicillin 875 MG / Clavulanate 125 MG Oral Tablet TEE ([facility]) lisdexamfetamine dimesylate 30 MG Oral Capsule [Vyvanse] TEE ([facility]) 24 HR venlafaxine 75 MG Extended Release Oral Capsule TEE [facility]) Prednisone 5 MG Oral Tablet TEE ([facility])
--- OUTSIDE RECORDS SUMMARY | 2021-01-11 13:38 | CCD ---
Author Author [facility] Organization [facility] Address Unknown Phone Unavailable Care Team Providers Care Trimming Caser Name Role Phone LINDER, ELADIA PETEY RPA-C [...] ELADIA PETEY RPA-C Unavailable Unavailable MONSERRAT, RADHA ENCEPHALOGRAPHER Unavailable Unavailable MONSERRAT, RADHA ENCEPHALOGRAPHER Unavailable Unavailable MONSERRAT, RADHA ENCEPHALOGRAPHER Unavailable Unavailable MONSERRAT, RADHA ENCEPHALOGRAPHER Unavailable Unavailable MONSERRAT, RADHA ENCEPHALOGRAPHER Unavailable Unavailable MONSERRAT, RADHA ENCEPHALOGRAPHER Unavailable Unavailable Sarah Qiu MD Unavailable Unavailable [...] Loraine PA Unavailable Unavailable Pupillo, Hafsa Unavailable [phone] Sarah Qiu MD Unavailable Unavailable Sarah Qiu [...] Unavailable Unavailable Sarah Qiu MD Unavailable Unavailable Sylvie Jones MD Unavailable Unavailable Sylvie Jones MD Unavailable Unavailable MollSylvie wilson MD Unavailable Unavailable MollSylvie wilson MD Unavailable Unavailable MollSylvie wilson MD Unavailable Unavailable MollSylvie wilson MD Unavailable Unavailable Sylvie Jones MD Unavailable [...] Unavailable Unavailable Damaso MOSER MD Unavailable Unavailable LINDER, ELADIA PETEY RPA-C Unavailable [...] PETEY RPA-C Unavailable Unavailable Connie Lambert Unavailable [phone] Connie Lambert Unavailable [phone] [facility], RFROST LINDER PA PETEY Unavailable Unavailable [...] is protected by Article 27-F of the [facility] Public Health law. If you continue you may have access to information: Regarding HIV / AIDS; Provided by facilities licensed or operated by the [facility] Office of Mental Health; or Provided by the [facility] Office for People With Developmental Disabilities. If such information is present, then the following [facility] mandated warning applies: This information has [...] law may result in a fine or fdc sentence or both. A general authorization for the release of medical or other information is NOT sufficient authorization for further disc losure. Encounters Encounter Providers Location Date Indications Data Source(s ) Connie Lambert MD: [address], [place] [address], Ph. Attender: Connie Lambert [facility] 12/25/2020 12:00:00 AM EST TEE ([facility]) Hafsa Merida LMSW: [address], [place] [address], Ph. Attender: Hafsa Merida [facility] 12/21/2020 12:00:00 AM EST TEE ([facility]) Hafsa Merida [facility]: [address], [address], [place] [address], Ph. Attender: Hafsajeff Merida [facility] 12/21/2020 12:00:00 AM EST TEE ([facility]) Radha German, NPP: [address], [place] [address], Ph. Attender: RADHA GERMAN NP [facility] Medical 12/11/2020 12:00:00 AM EST TEE ([facility]) Radha German NPP: [address], [place] [address], Ph. Attender: RADHA GERMAN NP [facility] Medical 12/11/2020 12:00:00 AM EST TEE ([facility]) Radha German NPP: [address], [place] [address], Ph. Attender: RADHA GERMAN NP [facility] Medical 12/11/2020 12:00:00 AM EST TEE ([facility]) SNEHAL BarajasC: [address], [place] [address], Ph. Attender: Loraine KRAUS [facility] Medical 12/07/2020 12:00:00 AM EST TEE ([facility]) Hafsa Pablocarl, [facility]: [address], [address], [place] [address], Ph. Attender: Hafsa Merida [facility] 12/07/2020 12:00:00 AM EST TEE ([facility]) SNEHAL BarajasC: [address], [place] [address], Ph. Attender: Loraine KRAUS [facility] Medical 12/07/2020 12:00:00 AM EST TEE ([facility]) Hafsa Merida, RELAY TELEGRAPHER: [address], [address], [place] [address], Ph. Attender: Hafsa Pablocarl [facility] 12/07/2020 12:00:00 AM EST TEE ([facility]) Loraine Marie PA-C: [address], [place] [address], Ph. Attender: Loraine KRAUS [facility] Medical 12/07/2020 12:00:00 AM EST TEE ([facility]) Hafsa Shahcarl, RELAY TELEGRAPHER: [address], [address], [place] [address], Ph. Attender: Hafsa Pablocarl [facility] 12/07/2020 12:00:00 AM EST TEE ([facility]) Loraine Marie PA-C: [address], [place] [address], Ph. Attender: Loraine KRAUS [facility] Medical 12/07/2020 12:00:00 AM EST TEE ([facility]) Hafsa Merida, RELAY TELEGRAPHER: [address], [address], [place] [address], Ph. Attender: Hafsa Shahcarl [facility] 12/07/2020 12:00:00 AM EST TEE ([facility]) Loraine Marie PA-C: [address], [place] [address], Ph. Attender: Loraine KRAUS [facility] Medical 12/07/2020 12:00:00 AM EST TEE ([facility]) Hafsa Merida, RELAY TELEGRAPHER: [address], [address], [place] [address], Ph. Attender: Hafsa Merida [facility] 12/07/2020 12:00:00 AM EST TEE ([facility]) Hafsa Merida, RELAY TELEGRAPHER: [address], [address], [place] [address], Ph. Attender: Hafsa Pablocarl [facility] 11/30/2020 12:00:00 AM EST TEE ([facility]) Loraine Marie PA-C: [address], [place] [address], Ph. Attender: Loraine KRAUS [facility] Medical 11/30/2020 12:00:00 AM EST TEE ([facility]) Hafsa Merida, RELAY TELEGRAPHER: [address], [address], [place] [address], Ph. Attender: Hafsa Merida [facility] 11/30/2020 12:00:00 AM EST TEE ([facility]) SNEHAL BarajasC: [address], [place] [address], Ph. Attender: Loraine KRAUS [facility] Medical 11/30/2020 12:00:00 AM EST TEE ([facility]) Hafsa Merida, RELAY TELEGRAPHER: [address], [address], [place] [address], Ph. Attender: Hafsa Merida [facility] 11/30/2020 12:00:00 AM EST TEE ([facility]) Loraine Marie PA-C: [address], [place] [address], Ph. Attender: Loraine KRAUS [facility] Medical 11/30/2020 12:00:00 AM EST TEE ([facility]) Hafsa Fuad, RELAY TELEGRAPHER: [address], [address], [place] [address], Ph. Attender: Hafsa Merida [facility] 11/30/2020 12:00:00 AM EST TEE ([facility]) Loraine Marie PA-C: [address], [place] [address], Ph. Attender: Loraine KRAUS [facility] Medical 11/30/2020 12:00:00 AM EST TEE ([facility]) Hafsajeff Merida, RELAY TELEGRAPHER: [address], [address], [place] [address], Ph. Attender: Hafsa Merida [facility] 11/30/2020 12:00:00 AM EST TEE ([facility]) Loraine Marie PA-C: [address], [place] [address], Ph. Attender: Loraine KRAUS [facility] Medical 11/30/2020 12:00:00 AM EST TEE ([facility]) Hafsajeff Merida, RELAY TELEGRAPHER: [address], [address], [place] [address], Ph. Attender: Hafsa Merida [facility] 11/30/2020 12:00:00 AM EST TEE ([facility]) Loraine Marie PA-C: [address], [place] [address], Ph. Attender: Loraine KRAUS [facility] Medical 11/30/2020 12:00:00 AM EST TEE ([facility]) Hafsa Shahcarl, [facility]: [address], [address], [place] [address], Ph. Attender: Hafsa Merida [facility] 11/30/2020 12:00:00 AM EST TEE ([facility]) Loraine Marie PA-C: [address], [place] [address], Ph. Attender: Loraine KRAUS [facility] Medical 11/30/2020 12:00:00 AM EST TEE ([facility]) Loraine Marie PA-C: [address], [address], [place] [address], Ph. Attender: Loraine KRAUS [facility] Medical 11/27/2020 12:00:00 AM EST TEE ([facility]) Loraine Marie PA-C: [address], [address], [place] [address], Ph. Attender: Loraine KRAUS [facility] Medical 11/27/2020 12:00:00 AM EST TEE ([facility]) Loraine Marie PA-C: [address], [address], [place] [address], Ph. Attender: Loraine KRAUS [facility] Medical 11/27/2020 12:00:00 AM EST TEE ([facility]) Loraine Marie PA-C: [address], [address], [place] [address], Ph. Attender: Loraine KRAUS [facility] Medical 11/27/2020 12:00:00 AM EST TEE ([facility]) Loraine Marie PA-C: [address], [address], [place] [address], Ph. Attender: Loraine KRAUS [facility] Medical 11/27/2020 12:00:00 AM EST TEE ([facility]) Loraine Marie PA-C: [address], [address], [place] [address], Ph. Attender: Loraine KRAUS [facility] Medical 11/27/2020 12:00:00 AM EST TEE ([facility]) Loraine Marie PA-C: [address], [address], [place] [address], Ph. Attender: Loraine KRAUS [facility] Medical 11/27/2020 12:00:00 AM EST TEE ([facility]) Loraine Marie PA-C: [address], [address], [place] [address], Ph. Attender: Loraine KRAUS [facility] Medical 11/27/2020 12:00:00 AM EST TEE ([facility]) Hafsa Merida LMSW: [address], [address], [place] [address], Ph. Attender: Hafsa Merida [facility] 11/06/2020 12:00:00 AM EST TEE ([facility]) Hafsa Merida, RELAY TELEGRAPHER: [address], [address], [place] [address], Ph. Attender: Hafsa Merida [facility] 11/06/2020 12:00:00 AM EST TEE ([facility]) Hafsa Merida, [facility]: [address], [address], [place] [address], Ph. Attender: Hafsa Merida [facility] 11/06/2020 12:00:00 AM EST TEE ([facility]) Hafsa Merida, [facility]: [address], [address], [place] [address], Ph. Attender: Hafsa Merida [facility] 11/06/2020 12:00:00 AM EST TEE ([facility]) Hafsa Merida, [facility]: [address], [address], [place] [address], Ph. Attender: Hafsa Merida [facility] 11/06/2020 12:00:00 AM EST TEE ([facility]) Hafsa Merida, RELAY TELEGRAPHER: [address], [address], [place] [address], Ph. Attender: Hafsa Merida [facility] 11/06/2020 12:00:00 AM EST TEE ([facility]) Hafsa Merida, RELAY TELEGRAPHER: [address], [address], [place] [address], Ph. Attender: Hafsa Merida [facility] 11/06/2020 12:00:00 AM EST TEE ([facility]) Hafsa Merida, RELAY TELEGRAPHER: [address], [address], [place] [address], Ph. Attender: Hafsa Merida [facility] 11/06/2020 12:00:00 AM EST TEE ([facility]) Hafsa Merida, [facility]: [address], [address], [place] [address], Ph. Attender: Hafsa Merida [facility] 11/06/2020 12:00:00 AM EST TEE ([facility]) Hfasa Merida, [facility]: [address], [address], [place] [address], Ph. Attender: Hafsa Merida [facility] 11/06/2020 12:00:00 AM EST TEE ([facility]) Petey Linder RPA-C: [address], [address], [place] [address], Ph. Attender: PETEY LINDER RPA-C [facility] Medical 11/02/2020 12:00:00 AM EST TEE ([facility]) Petey Linder RPA-C: [address], [address], [place] [address], Ph. Attender: PETEY LINDER RPA-C [facility] 11/02/2020 12:00:00 AM EST TEE ([facility]) Petey Linder RPA-C: [address], [address], [place] [address], Ph. Attender: PETEY LINDER RPA-C [facility] Medical 11/02/2020 12:00:00 AM EST TEE ([facility]) Petey Linder RPA-C: [address], [address], [place] [address], Ph. Attender: PETEY LINDER RPA-C [facility] Medical 11/02/2020 12:00:00 AM EST TEE ([facility]) Petey Linder RPA-C: [address], [address], [place] [address], Ph. Attender: PETEY LINDER RPA-C [facility] Medical 11/02/2020 12:00:00 AM EST TEE ([facility]) Petey Linder RPA-C: [address], [address], [place] [address], Ph. Attender: PETEY LINDER RPA-C [facility] Medical 11/02/2020 12:00:00 AM EST TEE ([facility]) Petey Linder RPA-C: [address], [address], [place] [address], Ph. Attender: PETEY LINDER RPA-C [facility] Medical 11/02/2020 12:00:00 AM EST TEE ([facility]) Petey Linder RPA-C: [address], [address], [place] [address], Ph. Attender: PETEY LINDER RPA-C [facility] Medical 11/02/2020 12:00:00 AM EST TEE ([facility]) Petey Linder RPA-C: [address], [address], [place] [address], Ph. Attender: PETEY LINDER RPA-C [facility] Medical 11/02/2020 12:00:00 AM EST TEE ([facility]) Petey Linder RPA-C: [address], [address], [place] [address], Ph. Attender: PETEY LINDER RPA-C [facility] Medical 11/02/2020 12:00:00 AM EST TEE ([facility]) Melecio Qiu MD: [address] [place] [address], Ph. Attender: Melecio Qiu MD [facility] Medical 11/01/2020 12:00:00 AM EST TEE ([facility]) Melecio Qiu MD: [address] [place] [address], Ph. Attender: Melecio Qiu MD [facility] Medical 11/01/2020 12:00:00 AM EST TEE ([facility]) Melecio Qiu MD: [address] [place] [address], Ph. Attender: Melecio Qiu MD [facility] Medical 11/01/2020 12:00:00 AM EST TEE ([facility]) Melecio Qiu MD: [address] [place] [address], Ph. Attender: Melecio Qiu MD [facility] Medical 11/01/2020 12:00:00 AM EST TEE ([facility]) Melecio Qiu MD: [address] [place] [address], Ph. Attender: Melecio Qiu MD [facility] Medical 11/01/2020 12:00:00 AM EST TEE ([facility]) Melecio Qiu MD: [address] [place] [address], Ph. Attender: Melecio Qiu MD [facility] Medical 11/01/2020 12:00:00 AM EST TEE ([facility]) Melecio Qiu MD: [address] [place] [address], Ph. Attender: Melecio Qiu MD [facility] Medical 11/01/2020 12:00:00 AM EST TEE ([facility]) Melecio Qiu MD: [address] [place] [address], Ph. Attender: Melecio Qiu MD [facility] Medical 11/01/2020 12:00:00 AM EST TEE ([facility]) Melecio Qiu MD: [address] [place] [address], Ph. Attender: Melecio Qiu MD [facility] Medical 11/01/2020 12:00:00 AM EST TEE ([facility]) Melecio Qiu MD: [address] [place] [address], Ph. Attender: Melecio Qiu MD [facility] Medical 11/01/2020 12:00:00 AM EST TEE ([facility]) Melecio Qiu MD: [address] [place] [address], Ph. Attender: Melecio Qiu MD [facility] Medical 11/01/2020 12:00:00 AM EST TEE ([facility]) Hafsa Merida, [facility]: [address], [address], [place] [address], Ph. Attender: Hafsa Merida [facility] 10/12/2020 12:00:00 AM EST TEE ([facility]) Petey Linder RPA-C: [address], [address], [place] [address], Ph. Attender: PETEY LINDER RPA-C [facility] Medical 10/12/2020 12:00:00 AM EST TEE ([facility]) Hafsa Merida, RELAY TELEGRAPHER: [address], [address], [place] [address], Ph. Attender: Hafsa Shahcarl [facility] 10/12/2020 12:00:00 AM EST TEE ([facility]) Petey Linder RPA-C: [address], [address], [place] [address], Ph. Attender: PETEY LINDER RPA-C [facility] Medical 10/12/2020 12:00:00 AM EST TEE ([facility]) Hafsa Shahcarl, RELAY TELEGRAPHER: [address], [address], [place] [address], Ph. Attender: Hafsajeff Merida [facility] 10/12/2020 12:00:00 AM EST TEE ([facility]) Petey Linder RPA-C: [address], [address], [place] [address], Ph. Attender: PETEY LINDER RPA-C [facility] Medical 10/12/2020 12:00:00 AM EST TEE ([facility]) Hafsa Shahacrl, RELAY TELEGRAPHER: [address], [address], [place] [address], Ph. Attender: Hafsa Merida [facility] 10/12/2020 12:00:00 AM EST TEE ([facility]) Petey Linder RPA-C: [address], [address], [place] [address], Ph. Attender: PETEY LINDER RPA-C [facility] Medical 10/12/2020 12:00:00 AM EST TEE ([facility]) Hafsa Merida, RELAY TELEGRAPHER: [address], [address], [place] [address], Ph. Attender: Hafsa Merida [facility] 10/12/2020 12:00:00 AM EST TEE ([facility]) Petey Linder RPA-C: [address], [address], [place] [address], Ph. Attender: PETEY LINDER RPA-C [facility] Medical 10/12/2020 12:00:00 AM EST TEE ([facility]) Hafsa Merida, RELAY TELEGRAPHER: [address], [address], [place] [address], Ph. Attender: Hafsa Merida [facility] 10/12/2020 12:00:00 AM EST TEE ([facility]) Petey Linder RPA-C: [address], [address], [place] [address], Ph. Attender: PETEY LINDER RPA-C [facility] Medical 10/12/2020 12:00:00 AM EST TEE ([facility]) Hafsa Merida, RELAY TELEGRAPHER: [address], [address], [place] [address], Ph. Attender: Hafsa Merida [facility] 10/12/2020 12:00:00 AM EST TEE ([facility]) Petey Linder RPA-C: [address], [address], [place] [address], Ph. Attender: PETEY LINDER RPA-C [facility] Medical 10/12/2020 12:00:00 AM EST TEE ([facility]) Hafsa Merida, RELAY TELEGRAPHER: [address], [address], [place] [address], Ph. Attender: Hafsa Merida [facility] 10/12/2020 12:00:00 AM EST TEE ([facility]) Petey Linder RPA-C: [address], [address], [place] [address], Ph. Attender: PETEY LINDER RPA-C [facility] Medical 10/12/2020 12:00:00 AM EST TEE ([facility]) Hafsa Merida, RELAY TELEGRAPHER: [address], [address], [place] [address], Ph. Attender: Hafsa Merida [facility] 10/12/2020 12:00:00 AM EST TEE ([facility]) Petey Linder RPA-C: [address], [address], [place] [address], Ph. Attender: PETEY LINDER RPA-C [facility] Medical 10/12/2020 12:00:00 AM EST TEE ([facility]) Hafsa Merida, RELAY TELEGRAPHER: [address], [address], [place] [address], Ph. Attender: Hafsa Merida [facility] 10/12/2020 12:00:00 AM EST TEE ([facility]) Petey Linder RPA-C: [address], [address], [place] [address], Ph. Attender: PETEY LINDER RPA-C [facility] Medical 10/12/2020 12:00:00 AM EST TEE ([facility]) Hafsa Merida, RELAY TELEGRAPHER: [address], [address], [place] [address], Ph. Attender: Hafsa Merida [facility] 10/12/2020 12:00:00 AM EST TEE ([facility]) Petey Linder RPA-C: [address], [address], [place] [address], Ph. Attender: PETEY LINDER RPA-C [facility] Medical 10/12/2020 12:00:00 AM EST TEE ([facility]) Hafsa Merida, RELAY TELEGRAPHER: [address], [address], [place] [address], Ph. Attender: Hafsa Merida [facility] 10/12/2020 12:00:00 AM EST TEE ([facility]) Petey Linder RPA-C: [address], [address], [place] [address], Ph. Attender: PETEY LINDER RPA-C [facility] Medical 10/12/2020 12:00:00 AM EST TEE ([facility]) Petey Linder RPA-C: [address], [address], [place] [address], Ph. Attender: PETEY LINDER RPA-C [facility] 10/12/2020 12:00:00 AM EST TEE ([facility]) Outpatient Attender: RFROST LINDER PA [facility] 08/23 08:01:03 PM EDT [facility] Outpatient Attender: RFROST LINDER PA [facility] 08/23 05:20:02 PM EDT [facility] Outpatient Attender: RFROST LINDER PA [facility] 08/23 05:10:59 PM EDT [facility] Outpatient Attender: RFROST LINDER PA [facility] 08/23 04:31:01 PM EDT [facility] Outpatient Attender: RFROST LINDER PA [facility] 07/2020 10:34:01 AM EDT [facility] Outpatient Attender[facility] RFROST LINDER PA [facility] 12/2019 02:57:01 PM EDT [facility] Outpatient Attender: RFROST LINDER PA [facility] 12/2019 02:55:02 PM EDT [facility] Outpatient Attender: PETEY NUNOST [facility] 08/22/2020 04:28:02 PM EDT [facility] Outpatient Attender: RFROST LINDER PA [facility] 07/24 09:28:00 AM EDT [facility] Outpatient Attender: RFROST LINDER PA [facility] 07/24 08:01:05 PM EDT [facility] Outpatient Attender: PETE[facility] NUNOST [facility] 08/03/2020 09:48:01 AM EDT [facility] Outpatient Attender: RFROST LINDER PA [facility] 07/24 08:05:01 AM EDT [facility] Outpatient Attender: PETEY NUNOST RPA-C 08/02/2020 03:45:01 PM EDT [facility] Outpatient Attender: PETEY NUNOST RPA-C 08/02/2020 03:41:00 PM EDT [facility] Outpatient Attender: SANDRA KEYS RAZIAGABY FP 08/02/2020 02:50:48 PM EDT [facility] Outpatient Attender: PETEY BEATA RPA-C FP 07/31/2020 08:01:07 PM EDT [facility] Outpatient Attender: PETEY LINDER RPA-C FP 07/27/2020 03:49:00 PM EDT [facility] Outpatient Attender: SANDRA KEYS COMPA FP 07/09/2020 11:58:02 AM EDT [facility] Outpatient Attender: PETEY LINDER RPA-C FP 07/06/2020 12:34:01 PM EDT [facility] Outpatient Attender: Melecio Liu/Carisa/Taran/Re indl 06/28/2020 09:40:00 AM EDT [facility] ([facility]) Outpatient Attender: SANDRA LINDER NAYANA FLOWERIN COMPA FP 05/18/2020 08:01:06 PM EDT [facility] Outpatient Attender: PETEY LINDER RPA-C FP 05/18/2020 08:01:03 PM EDT [facility] Outpatient Attender: SANDRA KRAUS PETEY COMPA FP 05/18/2020 01:11:00 PM EDT [facility] Outpatient Attender: PETEY LINDER RPA-C FP 05/18/2020 01:02:00 PM EDT [facility] Outpatient 05/18/2020 11:35:00 AM EDT [facility] Outpatient Attender: Melecio Qiu MD FP 05/17/2020 01:44:00 PM EDT [facility] Outpatient Attender: Melecio Liu/Carisa/Taran/Re indl 05/15/2020 02:00:00 PM EDT [facility] ([facility]) Outpatient Attender: Melecio Qiu MD FP 05/15/2020 09:08:01 AM EDT [facility] Outpatient Attender: Melecio Qiu MD FP 05/14/2020 04:11:00 PM EDT [facility] Outpatient Attender: Melecio Qiu MD FP 05/11/2020 11:21:00 AM EDT [facility] Outpatient Attender: Melecio Qiu MD FP 05/03/2020 03:41:01 PM EDT [facility] Outpatient Attender: Melecio Qiu MD FP 05/01/2020 08:01:04 PM EDT [facility] Outpatient Attender: Melecio Qiu MD FP 05/01/2020 09:37:01 AM EDT [facility] Outpatient Attender: Melecio Qiu MD FP 04/30/2020 04:58:01 PM EDT [facility] Outpatient Attender: Melecio Qiu MD FP 04/13/2020 11:23:59 AM EDT [facility] Outpatient Attender: Melecio Qiu MD FP 04/11/2020 02:04:00 PM EDT [facility] Outpatient Attender: Melecio Qiu MD FP 03/29/2020 03:42:00 PM EDT [facility] Outpatient Attender: Melecio Qiu MD FP 03/29/2020 01:58:01 PM EDT [facility] Outpatient Attender: Melecio Qiu MD FP 03/29/2020 01:08:00 PM EDT [facility] Outpatient Attender: Melecio Qiu MD FP 03/12/2020 08:01:03 PM EDT [facility] Outpatient Attender: Melecio Qiu MD FP 03/12/2020 08:01:02 PM EDT [facility] Outpatient Attender: Melecio Qiu MD FP 03/12/2020 10:33:01 AM EDT [facility] Outpatient Attender: Melecio Qiu MD FP 03/05/2020 04:15:01 PM EDT [facility] Outpatient Attender: Melecio Qiu MD FP 03/05/2020 12:16:01 PM EDT [facility] Outpatient Attender: Melecio Qiu MD FP 03/01/2020 03:25:00 PM EDT [facility] Outpatient Attender: Melecio Qiu MD FP 02/23/2020 11:12:00 AM EDT [facility] Outpatient Attender: Melecio Qiu MD FP 02/10/2020 04:30:04 PM EDT [facility] Outpatient Attender: Melecio Qiu MD FP 02/08/2020 10:32:01 AM EDT [facility] Outpatient Attender: Melecio Qiu MD FP 02/07/2020 10:43:01 AM EDT [facility] Outpatient Attender: Melecio Qiu MD FP 02/07/2020 10:21:01 AM EDT [facility] Outpatient Attender: Melecio Qiu MD FP 02/03/2020 09:18:03 AM [facility] Outpatient Attender: Melecio Qiu MD 01/30/2020 09:32:01 AM [facility] Outpatient Attender: Melecio Qiu MD 01/20/2020 10:22:01 AM [facility] Outpatient Attender: Melecio Qiu MD 01/20/2020 09:57:01 AM [facility] Outpatient Attender: Melecio Qiu MD 01/18/2020 11:39:02 AM [facility] Outpatient Attender: Melecio Qiu MD 01/18/2020 10:39:01 AM [facility] Outpatient Attender: Melecio Qiu MD 01/16/2020 03:30:01 PM [facility] Outpatient Attender: GUERA MOSER MD 01/10/2020 11:54:02 A [facility] Outpatient Attender: GUERA MOSER MD 01/10/2020 11:54:01 A [facility] Outpatient Attender: GUERA MOSER MD 01/10/2020 10:44:01 A [facility] Outpatient Attender: GUERA MOSER MD 01/06/2020 09:28:07 A [facility] Outpatient Attender: GUERA MOSER MD 01/06/2020 09:25:28 A [facility] Outpatient Attender: GUERA MOSER MD 01/06/2020 09:16:55 A [facility] Outpatient Attender: GUERA MOSER MD 01/04/2020 01:51:00 P [facility] Outpatient Attender: GUERA MOSER MD 12/29/2019 06:03:59 P [facility] Outpatient Attender: GUERA MOSER MD 12/29/2019 06:03:01 P [facility] Outpatient Attender: GUERA MOSER MD 12/28/2019 11:23:00 A [facility] Outpatient Attender: GUERA MOSER MD 12/26/2019 03:57:01 P [facility] Outpatient Attender: GUERA MOSER MD 12/26/2019 01:32:11 P [facility] Outpatient Attender: GUERA MOSER MD 12/21/2019 04:46:02 P M EST [facility] Outpatient Attender: GUERA MOSER MD FP 12/21/2019 04:45:02 P [facility] Outpatient Attender: GUERA MOSER MD FP 12/20/2019 03:50:01 P [facility] Outpatient Attender: GUERA MOSER MD FP 12/13/2019 10:37:01 A [facility] Outpatient Attender: GUERA MOSER MD FP 12/12/2019 02:52:00 P [facility] Outpatient Attender: GUERA MOSER MD FP 12/07/2019 02:07:00 P [facility] Outpatient Attender: GUERA MOSER MD 11/18/2019 03:42:01 P [facility] Immunizations Vaccine Date Status Description Data Source(s) New in 2011. IIV4 08/22/2020 12:00:00 AM EDT completed .5 mL TEE ([facility]) New in 2011. IIV4 12/28/2019 12:00:00 AM EST completed .5 mL TEE ([facility]) New in 2011. IIV4 12/28/2019 12:00:00 AM EST completed .5 mL TEE ([facility]) New in 2011. IIV4 12/28/2019 12:00:00 AM EST completed .5 mL TEE ([facility]) New in 2011. IIV4 12/28/2019 12:00:00 AM EST completed .5 mL TEE ([facility]) New in 2011. IIV4 12/28/2019 12:00:00 AM EST completed .5 mL TEE ([facility] er) New in 2011. IIV4 12/28/2019 12:00:00 AM EST completed .5 mL TEE ([facility] er) New in 2011. IIV4 12/28/2019 12:00:00 AM EST completed .5 mL TEE ([facility]) New in 2011. IIV4 12/28/2019 12:00:00 AM EST completed 0.5 mL TEE ([facility]) New in 2011. IIV4 12/28/2019 12:00:00 AM EST completed 0.5 mL TEE ([facility] er) New in 2011. IIV4 12/28/2019 12:00:00 AM EST completed 0.5 mL TEE ([facility]) New in 2011. IIV4 12/28/2019 12:00:00 AM EST completed 0.5 mL TEE ([facility]) New in 2011. IIV4 12/28/2019 12:00:00 AM EST completed .5 mL TEE ([facility]) New in 2011. IIV4 12/28/2019 12:00:00 AM EST completed 0.5 mL TEE ([facility]) This CVX code allows reporting of a vacc ination when formulation is unknown (for example, when recording a Influenza vaccination when noted on a vaccination card) 12/21/2019 12:00:00 AM EST completed 12/21/2019 NATE Christensen ([facility]) This CVX code allows reporting of a vacc ination when formulation is unknown (for example, when recording a Influenza vaccination when noted on a vaccination card) 12/21/2019 12:00:00 AM EST completed 12/21/2019 NATE Christensen ([facility]) This CVX code allows reporting of a vacc ination when formulation is unknown (for example, when recording a Influenza vaccination when noted on a vaccination card) 12/21/2019 12:00:00 AM EST completed 12/21/2019 NATE Christensen ([facility]) This CVX code allows reporting of a vacc ination when formulation is unknown (for example, when recording a Influenza vaccination when noted on a vaccination card) 12/21/2019 12:00:00 AM EST completed 12/21/2019 NATE Christensen ([facility]) This CVX code allows reporting of a vacc ination when formulation is unknown (for example, when recording a Influenza vaccination when noted on a vaccination card) 12/21/2019 12:00:00 AM EST [facility] 12[facility]21/2019 [facility] This CVX code allows reporting of a vacc ination when formulation is unknown (for example, when recording a Influenza vaccination when noted on a vaccination card) 12/21/2019 12:00:00 AM EST completed 12/21/2019 [facility] ([facility]) This CVX code allows reporting of a vacc ination when formulation is unknown (for example, when recording a Influenza vaccination when noted on a vaccination card) 12/21/2019 12:00:00 AM EST completed 12/21/2019 [facility] ([facility]) This CVX code allows reporting of a vacc ination when formulation is unknown (for example, when recording a Influenza vaccination when noted on a vaccination card) 12/21/2019 12:00:00 AM EST completed 12/21/2019 [facility] ([facility]) This CVX code allows reporting of a vacc ination when formulation is unknown (for example, when recording a Influenza vaccination when noted on a vaccination card) 12/21/2019 12:00:00 AM EST completed 12/21/2019 [facility] ([facility]) This CVX code allows reporting of a vacc ination when formulation is unknown (for example, when recording a Influenza vaccination when noted on a vaccination card) 12/21/2019 12:00:00 AM EST completed 12/21/2019 [facility] ([facility]) This CVX code allows reporting of a vacc ination when formulation is unknown (for example, when recording a Influenza vaccination when noted on a vaccination card) 12/21/2019 12:00:00 AM EST completed 12/21/2019 [facility] ([facility]) This CVX code allows reporting of a vacc ination when formulation is unknown (for example, when recording a Influenza vaccination when noted on a vaccination card) 12/21/2019 12:00:00 AM EST completed 12/21/2019 [facility] ([facility]) This CVX code allows reporting of a vacc ination when formulation is unknown (for example, when recording a Influenza vaccination when noted on a vaccination card) 12/21/2019 12:00:00 AM EST completed 12/21/2019 [facility] ([facility]) Medications Medication Brand Name Start Date Product [...] DAY NEEDED FOR BREAKTHROUGH RASH SOLD: 02/03/2020 [facility] 10 mg 01/21/2020 12:00:00 AM EST tablet 30 TAKE ONE TABLET BY MOUTH EVERY DAY NEEDED BREAK THROUGH RASH TAKE ONE TABLET BY MOUTH EVERY DAY NE EDED BREAK THROUGH RASH SOLD: 01/22/2020 [facility] Escitalopram 20 MG Oral Tablet ESCITALOPRAM [...] 2.5 MG Extended Release Oral Capsule TEE ([facility]) Amoxicillin 875 MG / Clavulanate 125 MG Oral Tablet amoxicillin 875 mg-potassium clavulanate 125 mg tablet amoxicillin 875 mg-potassium clavulanate 125 mg tablet completed amoxicillin 875 MG / clavulanate 125 MG Oral Tablet TEE ([facility]) Niacin 500 MG Oral Tablet niacin 500 mg tablet niacin 500 mg tablet completed niacin 500 MG Oral Tablet TEE ([facility]) 24 HR venlafaxine 75 MG Extended Release Oral Capsule venlafaxine ER 75 mg capsule,extended release 24 hr venlafaxine ER 75 mg capsule,extended re lease 24 hr completed 24 HR v enlafaxine 75 MG Extended Release Oral Capsule TEE ([facility]) Escitalopram 20 MG Oral Tablet escitalopram 20 mg tabl et escitalopram 20 mg tablet completed escitalopram 20 MG Oral Tablet TEE ([facility]) Escitalopram 20 MG Oral Tablet escitalopram 20 mg tabl et escitalopram 20 mg tablet completed escitalopram 20 MG Oral Tablet TEE ([facility]) Prednisone 5 MG Oral Tablet prednisone 5 mg tablet prednisone 5 mg ta blet completed prednisone 5 MG Oral Tablet RECTOR ([facility]) 24 HR Amphetamine aspartate 2.5 MG / [...] 2.5 MG Extended Release Oral Capsule TEE ([facility]) Azithromycin 250 MG Oral Tablet azithromycin 250 mg ta blet azithromycin 250 mg tablet completed azithromycin 25 0 MG Oral Tablet RECTOR ([facility]) lisdexamfetamine dimesylate 30 MG Oral Capsule [Vyvans e] Vyvanse 30 mg capsule Vyvanse 30 mg capsule completed lisdexamfetamine dimesylate 30 MG Oral Capsule [Vyvanse] TEE ([facility]) 24 HR Amphetamine aspartate 2.5 MG / [...] 2.5 MG Extended Release Oral Capsule TEE ([facility]) Fluoxetine 20 MG Oral Capsule fluoxetine 20 mg capsule fluox etine 20 mg capsule completed fluoxetine 20 MG Oral Capsule TEE ([facility]) Prednisone 5 MG Oral Tablet prednisone 5 mg tablet prednisone 5 mg ta blet completed prednisone 5 MG Oral Tablet TEE ([facility]) Prednisone 20 MG Oral Tablet prednisone 20 mg tablet prednisone 20 mg tablet completed prednisone 20 MG Oral Tablet TEE ([facility]) Prednisone 20 MG Oral Tablet prednisone 20 mg tablet prednisone 20 mg tablet completed prednisone 20 MG Oral Tablet TEE ([facility]) Escitalopram 10 MG Oral Tablet escitalopram 10 mg tabl et escitalopram 10 mg tablet completed escitalopram 10 MG Oral Tablet TEE ([facility]) Chantix Starting Month Box 0.5 mg (11)-1 mg (42) tablets in dose pack [id number] completed Chantix Starti ng Month Box 0.5 mg (11)-1 mg (42) tablets in dose pack TEE ([facility]) varenicline 1 MG Oral Tablet Chantix Continuing Month Box 1 mg tablet Chantix Continuing Month Box 1 mg tablet compl eted varenicline 1 MG Oral Tablet TEE ([facility]) Ketoprofen 25 MG Oral Capsule ketoprofen 25 mg capsule ketop rofen 25 mg capsule completed ketoprofen 25 MG Oral Capsule RECTOR ([facility]) lisdexamfetamine dimesylate 30 MG Oral Capsule [Vyvans e] Vyvanse 30 mg capsule Vyvanse 30 mg capsule completed lisdexamfetamine dimesylate 30 MG Oral Capsule [Vyvanse] TEE ([facility]) Escitalopram 10 MG Oral Tablet escitalopram 10 mg tabl et escitalopram 10 mg tablet completed escitalopram 10 MG Oral Tablet TEE ([facility]) Fluoxetine 20 MG Oral Capsule fluoxetine 20 mg capsule fluox etine 20 mg capsule completed fluoxetine 20 MG Oral Capsule TEE ([facility]) Chantix Starting Month Box 0.5 mg (11)-1 mg (42) tablets in dose pack [id number] completed Chantix Starti ng Month Box 0.5 mg (11)-1 mg (42) tablets in dose pack TEE ([facility]) Loratadine 10 MG Oral Tablet loratadine 10 mg tablet loratadine 10 mg tablet completed loratadine 10 MG Oral Tablet TEE ([facility]) Betamethasone 0.0005 MG/MG Topical Ointm ent betamethasone dipropionate 0.05 % topical ointment betamethasone dipropionate 0.05 % topical ointment completed betamethasone 0.0005 MG/MG Topic al Ointment TEE ([facility]) 24 HR Amphetamine aspartate 2.5 MG / [...] 2.5 MG Extended Release Oral Capsule TEE ([facility]) Hydroxyzine Hydrochloride 25 MG Oral Tablet hydroxyzin e HCl 25 mg tablet hydroxyzine HCl 25 mg tablet completed hydroxyzine hydrochloride 25 MG Oral Tablet TEE ([facility]) varenicline 1 MG Oral Tablet Chantix Continuing Month Box 1 mg tablet Chantix Continuing Month Box 1 mg tablet compl eted varenicline 1 MG Oral Tablet TEE ([facility]) 24 HR Amphetamine aspartate 2.5 MG / [...] 2.5 MG Extended Release Oral Capsule TEE ([facility]) 24 HR venlafaxine 75 MG Extended Release Oral Capsule venlafaxine ER 75 mg capsule,extended release 24 hr venlafaxine ER 75 mg capsule,extended re lease 24 hr completed 24 HR v enlafaxine 75 MG Extended Release Oral Capsule TEE ([facility]) benzonatate 200 MG Oral Capsule benzonatate 200 mg cap herlinda benzonatate 200 mg capsule completed benzonatate 20 0 MG Oral Capsule RECTOR ([facility]) Fluconazole 150 MG Oral Tablet fluconazole 150 mg tabl et fluconazole 150 mg tablet completed fluconazole 150 MG Oral Tablet RECTOR ([facility]) Hydroxyzine Hydrochloride 25 MG Oral Tablet hydroxyzin e HCl 25 mg tablet hydroxyzine HCl 25 mg tablet completed hydroxyzine hydrochloride 25 MG Oral Tablet TEE ([facility]) benzonatate 200 MG Oral Capsule benzonatate 200 mg cap herlinda benzonatate 200 mg capsule completed benzonatate 20 0 MG Oral Capsule RECTOR ([facility]) varenicline 1 MG Oral Tablet Chantix Continuing Month Box 1 mg tablet Chantix Continuing Month Box 1 mg tablet compl eted varenicline 1 MG Oral Tablet RECTOR ([facility]) lisdexamfetamine dimesylate 30 MG Oral Capsule [Vyvans e] Vyvanse 30 mg capsule Vyvanse 30 mg capsule completed lisdexamfetamine dimesylate 30 MG Oral Capsule [Vyvanse] RECTOR ([facility]) Niacin 500 MG Oral Tablet niacin 500 mg tablet niacin 500 mg tablet completed niacin 500 MG Oral Tablet RECTOR ([facility]) Oseltamivir 75 MG Oral Capsule oseltamivir 75 mg capsu le oseltamivir 75 mg capsule completed oseltamivir 75 MG Oral Capsule RECTOR ([facility]) Escitalopram 20 MG Oral Tablet escitalopram 20 mg tabl et escitalopram 20 mg tablet completed escitalopram 20 MG Oral Tablet RECTOR ([facility]) Amoxicillin 875 MG / Clavulanate 125 MG Oral Tablet amoxicillin 875 mg-potassium clavulanate 125 mg tablet amoxicillin 875 mg-potassium clavulanate 125 mg tablet completed amoxici llin 875 MG / clavulanate 125 MG Oral Tablet TEE ([facility]) lisdexamfetamine dimesylate 30 MG Oral Capsule [Vyvans e] Vyvanse 30 mg capsule Vyvanse 30 mg capsule completed lisdexamfetamine dimesylate 30 MG Oral Capsule [Vyvanse] RECTOR ([facility]) Prednisone 5 MG Oral Tablet prednisone 5 mg tablet prednisone 5 mg ta blet completed prednisone 5 MG Oral Tablet RECTOR ([facility]) Oseltamivir 75 MG Oral Capsule oseltamivir 75 mg capsu le oseltamivir 75 mg capsule completed oseltamivir 75 MG Oral Capsule RECTOR ([facility]) duloxetine 30 MG Delayed Release Oral Ca psule duloxetine 30 mg capsule,delayed release duloxetine 30 mg capsule,delayed release completed duloxetine 30 MG Delayed Release Oral Capsule RECTOR ([facility]) Escitalopram 10 MG Oral Tablet escitalopram 10 mg tabl et escitalopram 10 mg tablet completed escitalopram 10 MG Oral Tablet RECTOR ([facility]) Chantix Starting Month Box 0.5 mg (11)-1 mg (42) tablets in dose pack [id number] completed Chantix Starti ng Month Box 0.5 mg (11)-1 mg (42) tablets in dose pack RECTOR ([facility]) duloxetine 20 MG Delayed Release Oral Ca psule duloxetine 20 mg capsule,delayed release TAKE ONE CAPSULE BY MOUTH EVERY DAY duloxetine 20 mg capsule,delayed release TAKE ONE CAPSULE BY MOUTH EVERY DAY completed duloxetine 20 MG Delayed Release Oral Capsule RECTOR ([facility]) Diphenhydramine Hydrochloride 50 MG Oral Capsule [Banophen] Banophen 50 mg capsule Banophen 50 mg capsule completed diphenhydramine hydrochloride 50 MG Oral Capsule [Banophen] RECTOR ([facility]) Azithromycin 250 MG Oral Tablet azithromycin 250 mg ta blet azithromycin 250 mg tablet completed azithromycin 25 0 MG Oral Tablet [facility]) Hydroxyzine Hydrochloride 25 MG Oral Tablet hydroxyzin e HCl 25 mg tablet hydroxyzine HCl 25 mg tablet completed hydroxyzine hydrochloride 25 MG Oral Tablet RECTOR ([facility]) Escitalopram 10 MG Oral Tablet escitalopram 10 mg tabl et escitalopram 10 mg tablet completed escitalopram 10 MG Oral Tablet RECTOR ([facility]) Amoxicillin 875 MG / Clavulanate 125 MG Oral Tablet amoxicillin 875 mg-potassium clavulanate 125 mg tablet amoxicillin 875 mg-potassium clavulanate 125 mg tablet completed amoxici llin 875 MG / clavulanate 125 MG Oral Tablet [facility]) Ketoprofen 25 MG Oral Capsule ketoprofen 25 mg capsule ketop rofen 25 mg capsule completed ketoprofen 25 MG Oral Capsule [facility]) Niacin 500 MG Oral Tablet niacin 500 mg tablet niacin 500 mg tablet completed niacin 500 MG Oral Tablet TEE ([facility]) Prednisone 5 MG Oral Tablet prednisone 5 mg tablet prednisone 5 mg ta blet completed prednisone 5 MG Oral Tablet TEE ([facility]) Ketoprofen 25 MG Oral Capsule ketoprofen 25 mg capsule ketop rofen 25 mg capsule completed ketoprofen 25 MG Oral Capsule TEE ([facility]) Prednisone 5 MG Oral Tablet prednisone 5 mg tablet prednisone 5 mg ta blet completed prednisone 5 MG Oral Tablet TEE ([facility]) 24 HR venlafaxine 75 MG Extended Release Oral Capsule venlafaxine ER 75 mg capsule,extended release 24 hr venlafaxine ER 75 mg capsule,extended re lease 24 hr completed 24 HR v enlafaxine 75 MG Extended Release Oral Capsule RECTOR ([facility]) Betamethasone 0.0005 MG/MG Topical Ointm ent betamethasone dipropionate 0.05 % topical ointment betamethasone dipropionate 0.05 % topical ointment completed betamethasone 0.0005 MG/MG Topic al Ointment RECTOR ([facility]) Niacin 500 MG Oral Tablet niacin 500 mg tablet niacin 500 mg tablet completed niacin 500 MG Oral Tablet RECTOR ([facility]) Prednisone 10 MG Oral Tablet prednisone 10 mg tablet prednisone 10 mg tablet completed prednisone 10 MG Oral Tablet [facility]CTOR ([facility]) varenicline 1 MG Oral Tablet Chantix Continuing Month Box 1 mg tablet Chantix Continuing Month Box 1 mg tablet compl eted varenicline 1 MG Oral Tablet TEE ([facility]) Niacin 500 MG Oral Tablet niacin 500 mg tablet niacin 500 mg tablet completed niacin 500 MG Oral Tablet TEE ([facility]) 24 HR Amphetamine aspartate 2.5 MG / [...] 2.5 MG Extended Release Oral Capsule TEE ([facility]) Fluoxetine 20 MG Oral Capsule fluoxetine 20 mg capsule fluox etine 20 mg capsule completed fluoxetine 20 MG Oral Capsule TEE ([facility]) fluticasone propionate 50 mcg/actuation nasal spray,suspension [id number] completed fluticasone propionate 0.05 MG/ACTUAT Metered Dose Nasal Morral [facility]CTOR ([facility]) duloxetine 30 MG Delayed Release Oral Ca psule duloxetine 30 mg capsule,delayed release duloxetine 30 mg capsule,delayed release completed duloxetine 30 MG Delayed Release Oral Capsule TEE ([facility]) Amoxicillin 875 MG / Clavulanate 125 MG Oral Tablet amoxicillin 875 mg-potassium clavulanate 125 mg tablet TAKE ONE TABLET BY MOUTH EVERY 12 HOURS FOR 14 DAYS amoxicillin 875 mg-potassium clavulanate 125 mg tablet TAKE ONE TABLET BY MOUTH EVERY 12 HOURS FOR 14 DAYS completed amoxicillin 875 MG / clavulanate 125 MG Oral Tablet TEE ([facility]) Hydroxyzine Hydrochloride 25 MG Oral Tablet hydroxyzin e HCl 25 mg tablet hydroxyzine HCl 25 mg tablet completed hydroxyzine hydrochloride 25 MG Oral Tablet TEE ([facility]) Chantix Starting Month Box 0.5 mg (11)-1 mg (42) tablets in dose pack [id number] completed Chantix Starti ng Month Box 0.5 mg (11)-1 mg (42) tablets in dose pack TEE ([facility]) Prednisone 10 MG Oral Tablet prednisone 10 mg tablet prednisone 10 mg tablet completed prednisone 10 MG Oral Tablet RECTOR ([facility]) Loratadine 10 MG Oral Tablet loratadine 10 mg tablet loratadine 10 mg tablet completed loratadine 10 MG Oral Tablet TEE ([facility]) Ketoprofen 25 MG Oral Capsule ketoprofen 25 mg capsule ketop rofen 25 mg capsule completed ketoprofen 25 MG Oral Capsule RECTOR ([facility]) lisdexamfetamine dimesylate 30 MG Oral Capsule [Vyvans e] Vyvanse 30 mg capsule Vyvanse 30 mg capsule completed lisdexamfetamine dimesylate 30 MG Oral Capsule [Vyvanse] TEE ([facility]) Sumatriptan 25 MG Oral Tablet sumatripta n 25 mg tablet TAKE ONE TABLET BY MOUTH AT ONSET OF HEADACHE REPEAT IN 2 HOURS NEEDED sumatriptan 25 mg tablet TAKE ONE TABLET BY MOUTH AT ONSET OF HEADACHE REPEAT IN 2 HOURS NEEDED completed sumatriptan 25 MG Oral Table t RECTOR ([facility]) Loratadine 10 MG Oral Tablet loratadine 10 mg tablet loratadine 10 mg tablet completed loratadine 10 MG Oral Tablet RECTOR ([facility]) fluticasone propionate 50 mcg/actuation nasal spray,suspension [id number] completed fluticasone propionate 0.05 MG/ACTUAT Metered Dose Nasal Morral RECTOR ([facility]) Chantix Starting Month Box 0.5 mg (11)-1 mg (42) tablets in dose pack [id number] completed Chantix Starti ng Month Box 0.5 mg (11)-1 mg (42) tablets in dose pack RECTOR ([facility]) Ketoprofen 25 MG Oral Capsule ketoprofen 25 mg capsule ketop rofen 25 mg capsule completed ketoprofen 25 MG Oral Capsule RECTOR ([facility]) Chantix Starting Month Box 0.5 mg (11)-1 mg (42) tablets in dose pack [id number] completed Chantix Starti ng Month Box 0.5 mg (11)-1 mg (42) tablets in dose pack RECTOR ([facility]) Betamethasone 0.0005 MG/MG Topical Ointm ent betamethasone dipropionate 0.05 % topical ointment betamethasone dipropionate 0.05 % topical ointment completed betamethasone 0.0005 MG/MG Topic al Ointment RECTOR ([facility]) Diphenhydramine Hydrochloride 50 MG Oral Capsule [Banophen] Banophen 50 mg capsule Banophen 50 mg capsule completed diphenhydramine hydrochloride 50 MG Oral Capsule [Banophen] RECTOR ([facility]) 24 HR venlafaxine 75 MG Extended Release Oral Capsule venlafaxine ER 75 mg capsule,extended release 24 hr venlafaxine ER 75 mg capsule,extended re lease 24 hr completed 24 HR v enlafaxine 75 MG Extended Release Oral Capsule [facility]) benzonatate 200 MG Oral Capsule benzonatate 200 mg cap herlinda benzonatate 200 mg capsule completed benzonatate 20 0 MG Oral Capsule RECTOR ([facility]) Betamethasone 0.0005 MG/MG Topical Ointm ent betamethasone dipropionate 0.05 % topical ointment betamethasone dipropionate 0.05 % topical ointment completed betamethasone 0.0005 MG/MG Topic al Ointment RECTOR ([facility]) Sumatriptan 25 MG Oral Tablet sumatripta n 25 mg tablet TAKE ONE TABLET BY MOUTH AT ONSET OF HEADACHE REPEAT IN 2 HOURS NEEDED sumatriptan 25 mg tablet TAKE ONE TABLET BY MOUTH AT ONSET OF HEADACHE REPEAT IN 2 HOURS NEEDED completed sumatriptan 25 MG Oral Table t RECTOR ([facility]) duloxetine 20 MG Delayed Release Oral Ca psule duloxetine 20 mg capsule,delayed release TAKE ONE CAPSULE BY MOUTH EVERY DAY duloxetine 20 mg capsule,delayed release TAKE ONE CAPSULE BY MOUTH EVERY DAY completed duloxetine 20 MG Delayed Release Oral Capsule RECTOR ([facility]) Escitalopram 10 MG Oral Tablet escitalopram 10 mg tabl et escitalopram 10 mg tablet completed escitalopram 10 MG Oral Tablet RECTOR ([facility]) Betamethasone 0.0005 MG/MG Topical Ointm ent betamethasone dipropionate 0.05 % topical ointment betamethasone dipropionate 0.05 % topical ointment completed betamethasone 0.0005 MG/MG Topic al Ointment RECTOR ([facility]) Fluconazole 150 MG Oral Tablet fluconazole 150 mg tabl et fluconazole 150 mg tablet completed fluconazole 150 MG Oral Tablet RECTOR ([facility]) lisdexamfetamine dimesylate 30 MG Oral Capsule [Vyvans e] Vyvanse 30 mg capsule Vyvanse 30 mg capsule completed lisdexamfetamine dimesylate 30 MG Oral Capsule [Vyvanse] RECTOR ([facility]) Azithromycin 250 MG Oral Tablet azithromycin 250 mg ta blet azithromycin 250 mg tablet completed azithromycin 25 0 MG Oral Tablet RECTOR ([facility]) Oseltamivir 75 MG Oral Capsule oseltamivir 75 mg capsu le oseltamivir 75 mg capsule completed oseltamivir 75 MG Oral Capsule RECTOR ([facility]) Escitalopram 20 MG Oral Tablet escitalopram 20 mg tabl et escitalopram 20 mg tablet completed escitalopram 20 MG Oral Tablet RECTOR ([facility]) Ketoprofen 25 MG Oral Capsule ketoprofen 25 mg capsule ketop rofen 25 mg capsule completed ketoprofen 25 MG Oral Capsule TEE ([facility]) varenicline 1 MG Oral Tablet Chantix Continuing Month Box 1 mg tablet Chantix Continuing Month Box 1 mg tablet compl eted varenicline 1 MG Oral Tablet TEE ([facility]) fluticasone propionate 50 mcg/actuation nasal spray,suspension [id number] completed fluticasone propionate 0.05 MG/ACTUAT Metered Dose Nasal Morral RECTOR ([facility]) duloxetine 30 MG Delayed Release Oral Ca psule duloxetine 30 mg capsule,delayed release duloxetine 30 mg capsule,delayed release completed duloxetine 30 MG Delayed Release Oral Capsule RECTOR ([facility]) 24 HR Amphetamine aspartate 2.5 MG / [...] 2.5 MG Extended Release Oral Capsule TEE ([facility]) 24 HR venlafaxine 75 MG Extended Release Oral Capsule venlafaxine ER 75 mg capsule,extended release 24 hr venlafaxine ER 75 mg capsule,extended re lease 24 hr completed 24 HR v enlafaxine 75 MG Extended Release Oral Capsule TEE ([facility]) Chantix Starting Month Box 0.5 mg (11)-1 mg (42) tablets in dose pack [id number] completed Chantix Starti ng Month Box 0.5 mg (11)-1 mg (42) tablets in dose pack TEE ([facility]) Azithromycin 250 MG Oral Tablet azithromycin 250 mg ta blet azithromycin 250 mg tablet completed azithromycin 25 0 MG Oral Tablet RECTOR ([facility]) Betamethasone 0.0005 MG/MG Topical Ointm ent betamethasone dipropionate 0.05 % topical ointment betamethasone dipropionate 0.05 % topical ointment completed betamethasone 0.0005 MG/MG Topic al Ointment TEE ([facility]) duloxetine 30 MG Delayed Release Oral Ca psule duloxetine 30 mg capsule,delayed release duloxetine 30 mg capsule,delayed release completed duloxetine 30 MG Delayed Release Oral Capsule RECTOR ([facility]) Fluoxetine 20 MG Oral Capsule fluoxetine 20 mg capsule fluox etine 20 mg capsule completed fluoxetine 20 MG Oral Capsule RECTOR ([facility]) Prednisone 10 MG Oral Tablet prednisone 10 mg tablet prednisone 10 mg tablet completed prednisone 10 MG Oral Tablet RECTOR ([facility]) 24 HR Amphetamine aspartate 2.5 MG / [...] sulfate 2.5 MG Extended Release Oral Capsule RECTOR ([facility]) Fluoxetine 20 MG Oral Capsule fluoxetine 20 mg capsule fluox etine 20 mg capsule completed fluoxetine 20 MG Oral Capsule RECTOR ([facility]) Niacin 500 MG Oral Tablet niacin 500 mg tablet niacin 500 mg tablet completed niacin 500 MG Oral Tablet RECTOR ([facility]) Escitalopram 20 MG Oral Tablet escitalopram 20 mg tabl et escitalopram 20 mg tablet completed escitalopram 20 MG Oral Tablet [facility]) Escitalopram 20 MG Oral Tablet escitalopram 20 mg tabl et escitalopram 20 mg tablet completed escitalopram 20 MG Oral Tablet RECTOR ([facility]) Chantix Starting Month Box 0.5 mg (11)-1 mg (42) tablets in dose pack [id number] completed Chantix Starti ng Month Box 0.5 mg (11)-1 mg (42) tablets in dose pack RECTOR ([facility]) varenicline 1 MG Oral Tablet Chantix Continuing Month Box 1 mg tablet Chantix Continuing Month Box 1 mg tablet compl eted varenicline 1 MG Oral Tablet [facility]) 24 HR Amphetamine aspartate 2.5 MG [...] sulfate 2.5 MG Extended Release Oral Capsule RECTOR ([facility]) quetiapine 50 MG Oral Tablet quetiapine 50 mg tablet TAKE ONE TABLET BY MOUTH AT BEDTIME quetiapine 50 mg tablet TAKE ONE TABLET BY MOUTH AT BEDTIME completed quetiapine 50 MG Oral Tablet RECTOR ([facility]) Hydroxyzine Hydrochloride 25 MG Oral Tablet hydroxyzin e HCl 25 mg tablet hydroxyzine HCl 25 mg tablet completed hydroxyzine hydrochloride 25 MG Oral Tablet RECTOR ([facility]) Fluconazole 150 MG Oral Tablet fluconazole 150 mg tabl et fluconazole 150 mg tablet completed fluconazole 150 MG Oral Tablet [facility]) Oseltamivir 75 MG Oral Capsule oseltamivir 75 mg capsu le oseltamivir 75 mg capsule completed oseltamivir 75 MG Oral Capsule [facility]) Fluoxetine 20 MG Oral Capsule fluoxetine 20 mg capsule fluox etine 20 mg capsule completed fluoxetine 20 MG Oral Capsule [facility]) Oseltamivir 75 MG Oral Capsule oseltamivir 75 mg capsu le oseltamivir 75 mg capsule completed oseltamivir 75 MG Oral Capsule RECTOR ([facility]) Diphenhydramine Hydrochloride 50 MG Oral Capsule [Banophen] Banophen 50 mg capsule Banophen 50 mg capsule completed diphenhydramine hydrochloride 50 MG Oral Capsule [Banophen] RECTOR ([facility]) Escitalopram 20 MG Oral Tablet escitalopram 20 mg tabl et escitalopram 20 mg tablet completed escitalopram 20 MG Oral Tablet RECTOR ([facility]) varenicline 1 MG Oral Tablet Chantix Continuing Month Box 1 mg tablet Chantix Continuing Month Box 1 mg tablet compl eted varenicline 1 MG Oral Tablet RECTOR ([facility]) Azithromycin 250 MG Oral Tablet azithromycin 250 mg ta blet azithromycin 250 mg tablet completed azithromycin 25 0 MG Oral Tablet [facility]) 24 HR Amphetamine aspartate 2.5 MG / [...] 2.5 MG Extended Release Oral Capsule TEE ([facility]) Hydroxyzine Hydrochloride 25 MG Oral Tablet hydroxyzin e HCl 25 mg tablet hydroxyzine HCl 25 mg tablet completed hydroxyzine hydrochloride 25 MG Oral Tablet TEE ([facility]) Chantix Starting Month Box 0.5 mg (11)-1 mg (42) tablets in dose pack [id number] completed Chantix Starti ng Month Box 0.5 mg (11)-1 mg (42) tablets in dose pack TEE ([facility]) Oseltamivir 75 MG Oral Capsule oseltamivir 75 mg capsu le oseltamivir 75 mg capsule completed oseltamivir 75 MG Oral Capsule RECTOR ([facility]) Fluconazole 150 MG Oral Tablet fluconazole 150 mg tabl et fluconazole 150 mg tablet completed fluconazole 150 MG Oral Tablet RECTOR ([facility]) Azithromycin 250 MG Oral Tablet azithromycin 250 mg ta blet azithromycin 250 mg tablet completed azithromycin 25 0 MG Oral Tablet TEE ([facility]) Azithromycin 250 MG Oral Tablet azithromycin 250 mg ta blet azithromycin 250 mg tablet completed azithromycin 25 0 MG Oral Tablet RECTOR ([facility]) Prednisone 5 MG Oral Tablet prednisone 5 mg tablet prednisone 5 mg ta blet completed prednisone 5 MG Oral Tablet RECTOR ([facility]) Ketoprofen 25 MG Oral Capsule ketoprofen 25 mg capsule ketop rofen 25 mg capsule completed ketoprofen 25 MG Oral Capsule RECTOR ([facility]) benzonatate 200 MG Oral Capsule benzonatate 200 mg cap herlinda benzonatate 200 mg capsule completed benzonatate 20 0 MG Oral Capsule RECTOR ([facility]) Loratadine 10 MG Oral Tablet loratadine 10 mg tablet loratadine 10 mg tablet completed loratadine 10 MG Oral Tablet RECTOR ([facility]) benzonatate 200 MG Oral Capsule benzonatate 200 mg cap herlinda benzonatate 200 mg capsule completed benzonatate 20 0 MG Oral Capsule RECTOR ([facility]) duloxetine 30 MG Delayed Release Oral Ca psule duloxetine 30 mg capsule,delayed release duloxetine 30 mg capsule,delayed release completed duloxetine 30 MG Delayed Release Oral Capsule RECTOR ([facility]) Sumatriptan 25 MG Oral Tablet sumatripta n 25 mg tablet TAKE ONE TABLET BY MOUTH AT ONSET OF HEADACHE REPEAT IN 2 HOURS NEEDED sumatriptan 25 mg tablet TAKE ONE TABLET BY MOUTH AT ONSET OF HEADACHE REPEAT IN 2 HOURS NEEDED completed sumatriptan 25 MG Oral Table t RECTOR ([facility]) Prednisone 10 MG Oral Tablet prednisone 10 mg tablet prednisone 10 mg tablet completed prednisone 10 MG Oral Tablet RECTOR ([facility]) 24 HR Amphetamine aspartate 2.5 MG / [...] sulfate 2.5 MG Extended Release Oral Capsule RECTOR ([facility]) varenicline 1 MG Oral Tablet Chantix Continuing Month Box 1 mg tablet Chantix Continuing Month Box 1 mg tablet compl eted varenicline 1 MG Oral Tablet RECTOR ([facility]) Niacin 500 MG Oral Tablet niacin 500 mg tablet niacin 500 mg tablet completed niacin 500 MG Oral Tablet RECTOR ([facility]) Oseltamivir 75 MG Oral Capsule oseltamivir 75 mg capsu le oseltamivir 75 mg capsule completed oseltamivir 75 MG Oral Capsule RECTOR ([facility]) Escitalopram 20 MG Oral Tablet escitalopram 20 mg tabl et escitalopram 20 mg tablet completed escitalopram 20 MG Oral Tablet RECTOR ([facility]) lisdexamfetamine dimesylate 30 MG Oral Capsule [Vyvans e] Vyvanse 30 mg capsule Vyvanse 30 mg capsule completed lisdexamfetamine dimesylate 30 MG Oral Capsule [Vyvanse] RECTOR ([facility]) Prednisone 5 MG Oral Tablet prednisone 5 mg tablet prednisone 5 mg ta blet completed prednisone 5 MG Oral Tablet TEE ([facility]) Azithromycin 250 MG Oral Tablet azithromycin 250 mg ta blet azithromycin 250 mg tablet completed azithromycin 25 0 MG Oral Tablet TEE ([facility]) benzonatate 200 MG Oral Capsule benzonatate 200 mg cap herlinda benzonatate 200 mg capsule completed benzonatate 20 0 MG Oral Capsule TEE ([facility]) varenicline 1 MG Oral Tablet Chantix Continuing Month Box 1 mg tablet Chantix Continuing Month Box 1 mg tablet compl eted varenicline 1 MG Oral Tablet TEE ([facility]) Prednisone 10 MG Oral Tablet prednisone 10 mg tablet prednisone 10 mg tablet completed prednisone 10 MG Oral Tablet TEE ([facility]) Hydroxyzine Hydrochloride 25 MG Oral Tablet hydroxyzin e HCl 25 mg tablet hydroxyzine HCl 25 mg tablet completed hydroxyzine hydrochloride 25 MG Oral Tablet TEE ([facility]) Niacin 500 MG Oral Tablet niacin 500 mg tablet niacin 500 mg tablet completed niacin 500 MG Oral Tablet TEE ([facility]) Escitalopram 10 MG Oral Tablet escitalopram 10 mg tabl et escitalopram 10 mg tablet completed escitalopram 10 MG Oral Tablet TEE ([facility]) Prednisone 5 MG Oral Tablet prednisone 5 mg tablet prednisone 5 mg ta blet completed prednisone 5 MG Oral Tablet TEE ([facility]) varenicline 1 MG Oral Tablet Chantix Continuing Month Box 1 mg tablet Chantix Continuing Month Box 1 mg tablet compl eted varenicline 1 MG Oral Tablet TEE ([facility]) duloxetine 20 MG Delayed Release Oral Ca psule duloxetine 20 mg capsule,delayed release TAKE ONE CAPSULE BY MOUTH EVERY DAY duloxetine 20 mg capsule,delayed release TAKE ONE CAPSULE BY MOUTH EVERY DAY completed duloxetine 20 MG Delayed Release Oral Capsule TEE ([facility]) 24 HR venlafaxine 75 MG Extended Release Oral Capsule venlafaxine ER 75 mg capsule,extended release 24 hr venlafaxine ER 75 mg capsule,extended re lease 24 hr completed 24 HR v enlafaxine 75 MG Extended Release Oral Capsule TEE ([facility]) Loratadine 10 MG Oral Tablet loratadine 10 mg tablet loratadine 10 mg tablet completed loratadine 10 MG Oral Tablet TEE ([facility]) Niacin 500 MG Oral Tablet niacin 500 mg tablet niacin 500 mg tablet completed niacin 500 MG Oral Tablet RECTOR ([facility]) Azithromycin 250 MG Oral Tablet azithromycin 250 mg ta blet azithromycin 250 mg tablet completed azithromycin 25 0 MG Oral Tablet RECTOR ([facility]) Oseltamivir 75 MG Oral Capsule oseltamivir 75 mg capsu le oseltamivir 75 mg capsule completed oseltamivir 75 MG Oral Capsule RECTOR ([facility]) Diphenhydramine Hydrochloride 50 MG Oral Capsule [Banophen] Banophen 50 mg capsule Banophen 50 mg capsule completed diphenhydramine hydrochloride 50 MG Oral Capsule [Banophen] RECTOR ([facility]) Oseltamivir 75 MG Oral Capsule oseltamivir 75 mg capsu le oseltamivir 75 mg capsule completed oseltamivir 75 MG Oral Capsule RECTOR ([facility]) duloxetine 20 MG Delayed Release Oral Ca psule duloxetine 20 mg capsule,delayed release TAKE ONE CAPSULE BY MOUTH EVERY DAY duloxetine 20 mg capsule,delayed release TAKE ONE CAPSULE BY MOUTH EVERY DAY completed duloxetine 20 MG Delayed Release Oral Capsule RECTOR ([facility]) Hydroxyzine Hydrochloride 25 MG Oral Tablet hydroxyzin e HCl 25 mg tablet hydroxyzine HCl 25 mg tablet completed hydroxyzine hydrochloride 25 MG Oral Tablet [facility]) Prednisone 5 MG Oral Tablet prednisone 5 mg tablet prednisone 5 mg ta blet completed prednisone 5 MG Oral Tablet RECTOR ([facility]) Prednisone 5 MG Oral Tablet prednisone 5 mg tablet prednisone 5 mg ta blet completed prednisone 5 MG Oral Tablet RECTOR ([facility]) 24 HR venlafaxine 75 MG Extended Release Oral Capsule venlafaxine ER 75 mg capsule,extended release 24 hr venlafaxine ER 75 mg capsule,extended re lease 24 hr completed 24 HR v enlafaxine 75 MG Extended Release Oral Capsule RECTOR ([facility]) Fluconazole 150 MG Oral Tablet fluconazole 150 mg tabl et fluconazole 150 mg tablet completed fluconazole 150 MG Oral Tablet RECTOR ([facility]) Diphenhydramine Hydrochloride 50 MG Oral Capsule [Banophen] Banophen 50 mg capsule Banophen 50 mg capsule completed diphenhydramine hydrochloride 50 MG Oral Capsule [Banophen] [facility]) Loratadine 10 MG Oral Tablet loratadine 10 mg tablet loratadine 10 mg tablet completed loratadine 10 MG Oral Tablet RECTOR ([facility]) Loratadine 10 MG Oral Tablet loratadine 10 mg tablet loratadine 10 mg tablet completed loratadine 10 MG Oral Tablet RECTOR ([facility]) benzonatate 200 MG Oral Capsule benzonatate 200 mg cap herlinda benzonatate 200 mg capsule completed benzonatate 20 0 MG Oral Capsule RECTOR ([facility]) Fluconazole 150 MG Oral Tablet fluconazole 150 mg tabl et fluconazole 150 mg tablet completed fluconazole 150 MG Oral Tablet RECTOR ([facility]) lisdexamfetamine dimesylate 30 MG Oral Capsule [Vyvans e] Vyvanse 30 mg capsule Vyvanse 30 mg capsule completed lisdexamfetamine dimesylate 30 MG Oral Capsule [Vyvanse] RECTOR ([facility]) Escitalopram 20 MG Oral Tablet escitalopram 20 mg tabl et escitalopram 20 mg tablet completed escitalopram 20 MG Oral Tablet RECTOR ([facility]) Betamethasone 0.0005 MG/MG Topical Ointm ent betamethasone dipropionate 0.05 % topical ointment betamethasone dipropionate 0.05 % topical ointment completed betamethasone 0.0005 MG/MG Topic al Ointment [facility]) Hydroxyzine Hydrochloride 25 MG Oral Tablet hydroxyzin e HCl 25 mg tablet hydroxyzine HCl 25 mg tablet completed hydroxyzine hydrochloride 25 MG Oral Tablet [facility]) Prednisone 10 MG Oral Tablet prednisone 10 mg tablet prednisone 10 mg tablet completed prednisone 10 MG Oral Tablet RECTOR ([facility]) fluticasone propionate 50 mcg/actuation nasal spray,suspension [id number] completed fluticasone propionate 0.05 MG/ACTUAT Metered Dose Nasal Morral RECTOR ([facility]) Oseltamivir 75 MG Oral Capsule oseltamivir 75 mg capsu le oseltamivir 75 mg capsule completed oseltamivir 75 MG Oral Capsule [facility]) Escitalopram 10 MG Oral Tablet escitalopram 10 mg tabl et escitalopram 10 mg tablet completed escitalopram 10 MG Oral Tablet [facility]) quetiapine 50 MG Oral Tablet quetiapine 50 mg tablet TAKE ONE TABLET BY MOUTH AT BEDTIME quetiapine 50 mg tablet TAKE ONE TABLET BY MOUTH AT BEDTIME completed quetiapine 50 MG Oral Tablet TEE ([facility]) Escitalopram 10 MG Oral Tablet escitalopram 10 mg tabl et escitalopram 10 mg tablet completed escitalopram 10 MG Oral Tablet TEE ([facility]) Chantix Starting Month Box 0.5 mg (11)-1 mg (42) tablets in dose pack [id number] completed Chantix Starti ng Month Box 0.5 mg (11)-1 mg (42) tablets in dose pack TEE ([facility]) Diphenhydramine Hydrochloride 50 MG Oral Capsule [Banophen] Banophen 50 mg capsule Banophen 50 mg capsule completed diphenhydramine hydrochloride 50 MG Oral Capsule [Banophen] TEE ([facility]) lisdexamfetamine dimesylate 30 MG Oral Capsule [Vyvans e] Vyvanse 30 mg capsule Vyvanse 30 mg capsule completed lisdexamfetamine dimesylate 30 MG Oral Capsule [Vyvanse] TEE ([facility]) duloxetine 20 MG Delayed Release Oral Ca psule duloxetine 20 mg capsule,delayed release TAKE ONE CAPSULE BY MOUTH EVERY DAY duloxetine 20 mg capsule,delayed release TAKE ONE CAPSULE BY MOUTH EVERY DAY completed duloxetine 20 MG Delayed Release Oral Capsule TEE ([facility]) Chantix Starting Month Box 0.5 mg (11)-1 mg (42) tablets in dose pack [id number] completed Chantix Starti ng Month Box 0.5 mg (11)-1 mg (42) tablets in dose pack TEE ([facility]) benzonatate 200 MG Oral Capsule benzonatate 200 mg cap herlinda benzonatate 200 mg capsule completed benzonatate 20 0 MG Oral Capsule TEE ([facility]) Diphenhydramine Hydrochloride 50 MG Oral Capsule [Banophen] Banophen 50 mg capsule Banophen 50 mg capsule completed diphenhydramine hydrochloride 50 MG Oral Capsule [Banophen] TEE ([facility]) Hydroxyzine Hydrochloride 25 MG Oral Tablet hydroxyzin e HCl 25 mg tablet hydroxyzine HCl 25 mg tablet completed hydroxyzine hydrochloride 25 MG Oral Tablet TEE ([facility]) Chantix Starting Month Box 0.5 mg (11)-1 mg (42) tablets in dose pack [id number] completed Chantix Starti ng Month Box 0.5 mg (11)-1 mg (42) tablets in dose pack TEE ([facility]) Prednisone 20 MG Oral Tablet prednisone 20 mg tablet TAKE TWO TABLETS BY MOUTH EVERY DAY WITH A MEAL FOR 5 DAYS prednisone 20 mg tablet TAKE TWO TABLETS BY MOUTH EVERY DAY WITH A MEAL FOR 5 DAYS completed prednisone 20 MG Oral Tablet TEE ([facility]) Diphenhydramine Hydrochloride 50 MG Oral Capsule [Banophen] Banophen 50 mg capsule Banophen 50 mg capsule completed diphenhydramine hydrochloride 50 MG Oral Capsule [Banophen] TEE ([facility]) Prednisone 5 MG Oral Tablet prednisone 5 mg tablet prednisone 5 mg ta blet completed prednisone 5 MG Oral Tablet RECTOR ([facility]) Escitalopram 10 MG Oral Tablet escitalopram 10 mg tabl et escitalopram 10 mg tablet completed escitalopram 10 MG Oral Tablet RECTOR ([facility]) Ketoprofen 25 MG Oral Capsule ketoprofen 25 mg capsule ketop rofen 25 mg capsule completed ketoprofen 25 MG Oral Capsule RECTOR ([facility]) duloxetine 20 MG Delayed Release Oral Ca psule duloxetine 20 mg capsule,delayed release TAKE ONE CAPSULE BY MOUTH EVERY DAY duloxetine 20 mg capsule,delayed release TAKE ONE CAPSULE BY MOUTH EVERY DAY completed duloxetine 20 MG Delayed Release Oral Capsule RECTOR ([facility]) quetiapine 50 MG Oral Tablet quetiapine 50 mg tablet TAKE ONE TABLET BY MOUTH AT BEDTIME quetiapine 50 mg tablet TAKE ONE TABLET BY MOUTH AT BEDTIME completed quetiapine 50 MG Oral Tablet TEE ([facility]) Betamethasone 0.0005 MG/MG Topical Ointm ent betamethasone dipropionate 0.05 % topical ointment betamethasone dipropionate 0.05 % topical ointment completed betamethasone 0.0005 MG/MG Topic al Ointment RECTOR ([facility]) Fluoxetine 20 MG Oral Capsule fluoxetine 20 mg capsule fluox etine 20 mg capsule completed fluoxetine 20 MG Oral Capsule RECTOR ([facility]) Betamethasone 0.0005 MG/MG Topical Ointm ent betamethasone dipropionate 0.05 % topical ointment betamethasone dipropionate 0.05 % topical ointment completed betamethasone 0.0005 MG/MG Topic al Ointment RECTOR ([facility]) lisdexamfetamine dimesylate 30 MG Oral Capsule [Vyvans e] Vyvanse 30 mg capsule Vyvanse 30 mg capsule completed lisdexamfetamine dimesylate 30 MG Oral Capsule [Vyvanse] RECTOR ([facility]) benzonatate 200 MG Oral Capsule benzonatate 200 mg cap herlinda benzonatate 200 mg capsule completed benzonatate 20 0 MG Oral Capsule RECTOR ([facility]) lisdexamfetamine dimesylate 30 MG Oral Capsule [Vyvans e] Vyvanse 30 mg capsule Vyvanse 30 mg capsule completed lisdexamfetamine dimesylate 30 MG Oral Capsule [Vyvanse] RECTOR ([facility]) Diphenhydramine Hydrochloride 50 MG Oral Capsule [Banophen] Banophen 50 mg capsule Banophen 50 mg capsule completed diphenhydramine hydrochloride 50 MG Oral Capsule [Banophen] RECTOR ([facility]) Ketoprofen 25 MG Oral Capsule ketoprofen 25 mg capsule ketop rofen 25 mg capsule completed ketoprofen 25 MG Oral Capsule RECTOR ([facility]) Fluoxetine 20 MG Oral Capsule fluoxetine 20 mg capsule fluox etine 20 mg capsule completed fluoxetine 20 MG Oral Capsule RECTOR ([facility]) Diphenhydramine Hydrochloride 50 MG Oral Capsule [Banophen] Banophen 50 mg capsule Banophen 50 mg capsule completed diphenhydramine hydrochloride 50 MG Oral Capsule [Banophen] RECTOR ([facility]) benzonatate 200 MG Oral Capsule benzonatate 200 mg cap herlinda benzonatate 200 mg capsule completed benzonatate 20 0 MG Oral Capsule RECTOR ([facility]) Loratadine 10 MG Oral Tablet loratadine 10 mg tablet loratadine 10 mg tablet completed loratadine 10 MG Oral Tablet RECTOR ([facility]) Niacin 500 MG Oral Tablet niacin 500 mg tablet niacin 500 mg tablet completed niacin 500 MG Oral Tablet RECTOR ([facility]) duloxetine 30 MG Delayed Release Oral Ca psule duloxetine 30 mg capsule,delayed release duloxetine 30 mg capsule,delayed release completed duloxetine 30 MG Delayed Release Oral Capsule RECTOR ([facility]) varenicline 1 MG Oral Tablet Chantix Continuing Month Box 1 mg tablet Chantix Continuing Month Box 1 mg tablet compl eted varenicline 1 MG Oral Tablet RECTOR ([facility]) benzonatate 200 MG Oral Capsule benzonatate 200 mg cap herlinda benzonatate 200 mg capsule completed benzonatate 20 0 MG Oral Capsule RECTOR ([facility]) Ketoprofen 25 MG Oral Capsule ketoprofen 25 mg capsule ketop rofen 25 mg capsule completed ketoprofen 25 MG Oral Capsule RECTOR ([facility]) Azithromycin 250 MG Oral Tablet azithromycin 250 mg ta blet azithromycin 250 mg tablet completed azithromycin 25 0 MG Oral Tablet [facility]) Fluconazole 150 MG Oral Tablet fluconazole 150 mg tabl et fluconazole 150 mg tablet completed fluconazole 150 MG Oral Tablet RECTOR ([facility]) Ketoprofen 25 MG Oral Capsule ketoprofen 25 mg capsule ketop rofen 25 mg capsule completed ketoprofen 25 MG Oral Capsule RECTOR ([facility]) Prednisone 10 MG Oral Tablet prednisone 10 mg tablet prednisone 10 mg tablet completed prednisone 10 MG Oral Tablet RECTOR ([facility]) Escitalopram 10 MG Oral Tablet escitalopram 10 mg tabl et escitalopram 10 mg tablet completed escitalopram 10 MG Oral Tablet [facility]) Amoxicillin 875 MG / Clavulanate 125 MG Oral Tablet amoxicillin 875 mg-potassium clavulanate 125 mg tablet amoxicillin 875 mg-potassium clavulanate 125 mg tablet completed amoxici llin 875 MG / clavulanate 125 MG Oral Tablet RECTOR ([facility]) Amoxicillin 875 MG / Clavulanate 125 MG Oral Tablet amoxicillin 875 mg-potassium clavulanate 125 mg tablet amoxicillin 875 mg-potassium clavulanate 125 mg tablet completed amoxici llin 875 MG / clavulanate 125 MG Oral Tablet RECTOR ([facility]) 24 HR Amphetamine aspartate 2.5 MG / [...] 2.5 MG Extended Release Oral Capsule TEE ([facility]) 24 HR venlafaxine 75 MG Extended Release Oral Capsule venlafaxine ER 75 mg capsule,extended release 24 hr venlafaxine ER 75 mg capsule,extended re lease 24 hr completed 24 HR v enlafaxine 75 MG Extended Release Oral Capsule TEE ([facility]) fluticasone propionate 50 mcg/actuation nasal spray,suspension [id number] completed fluticasone propionate 0.05 MG/ACTUAT Metered Dose Nasal Morral TEE ([facility]) fluticasone propionate 50 mcg/actuation nasal spray,suspension [id number] completed fluticasone propionate 0.05 MG/ACTUAT Metered Dose Nasal Morral RECTOR ([facility]) Prednisone 10 MG Oral Tablet prednisone 10 mg tablet prednisone 10 mg tablet completed prednisone 10 MG Oral Tablet TEE ([facility]) Ketoprofen 25 MG Oral Capsule ketoprofen 25 mg capsule ketop rofen 25 mg capsule completed ketoprofen 25 MG Oral Capsule TEE ([facility]) 24 HR venlafaxine 75 MG Extended Release Oral Capsule venlafaxine ER 75 mg capsule,extended release 24 hr venlafaxine ER 75 mg capsule,extended re lease 24 hr completed 24 HR v enlafaxine 75 MG Extended Release Oral Capsule TEE ([facility]) 24 HR Amphetamine aspartate 2.5 MG [...] 2.5 MG Extended Release Oral Capsule TEE ([facility]) Loratadine 10 MG Oral Tablet loratadine 10 mg tablet loratadine 10 mg tablet completed loratadine 10 MG Oral Tablet TEE ([facility]) Chantix Starting Month Box 0.5 mg (11)-1 mg (42) tablets in dose pack [id number] completed Chantix Starti ng Month Box 0.5 mg (11)-1 mg (42) tablets in dose pack TEE ([facility]) Oseltamivir 75 MG Oral Capsule oseltamivir 75 mg capsu le oseltamivir 75 mg capsule completed oseltamivir 75 MG Oral Capsule TEE ([facility]) Prednisone 10 MG Oral Tablet prednisone 10 mg tablet prednisone 10 mg tablet completed prednisone 10 MG Oral Tablet TEE ([facility]) Hydroxyzine Hydrochloride 25 MG Oral Tablet hydroxyzin e HCl 25 mg tablet hydroxyzine HCl 25 mg tablet completed hydroxyzine hydrochloride 25 MG Oral Tablet TEE ([facility]) duloxetine 30 MG Delayed Release Oral Ca psule duloxetine 30 mg capsule,delayed release duloxetine 30 mg capsule,delayed release completed duloxetine 30 MG Delayed Release Oral Capsule RECTOR ([facility]) varenicline 1 MG Oral Tablet Chantix Continuing Month Box 1 mg tablet Chantix Continuing Month Box 1 mg tablet compl eted varenicline 1 MG Oral Tablet RECTOR ([facility]) Loratadine 10 MG Oral Tablet loratadine 10 mg tablet loratadine 10 mg tablet completed loratadine 10 MG Oral Tablet RECTOR ([facility]) Diphenhydramine Hydrochloride 50 MG Oral Capsule [Banophen] Banophen 50 mg capsule Banophen 50 mg capsule completed diphenhydramine hydrochloride 50 MG Oral Capsule [Banophen] RECTOR ([facility]) Fluoxetine 20 MG Oral Capsule fluoxetine 20 mg capsule fluox etine 20 mg capsule completed fluoxetine 20 MG Oral Capsule RECTOR ([facility]) Prednisone 5 MG Oral Tablet prednisone 5 mg tablet prednisone 5 mg ta blet completed prednisone 5 MG Oral Tablet RECTOR ([facility]) Fluoxetine 20 MG Oral Capsule fluoxetine 20 mg capsule fluox etine 20 mg capsule completed fluoxetine 20 MG Oral Capsule RECTOR ([facility]) Escitalopram 20 MG Oral Tablet escitalopram 20 mg tabl et escitalopram 20 mg tablet completed escitalopram 20 MG Oral Tablet RECTOR ([facility]) Hydroxyzine Hydrochloride 25 MG Oral Tablet hydroxyzin e HCl 25 mg tablet hydroxyzine HCl 25 mg tablet completed hydroxyzine hydrochloride 25 MG Oral Tablet TEE ([facility]) Prednisone 10 MG Oral Tablet prednisone 10 mg tablet prednisone 10 mg tablet completed prednisone 10 MG Oral Tablet RECTOR ([facility]) Prednisone 10 MG Oral Tablet prednisone 10 mg tablet prednisone 10 mg tablet completed prednisone 10 MG Oral Tablet RECTOR ([facility]) duloxetine 20 MG Delayed Release Oral Ca psule duloxetine 20 mg capsule,delayed release TAKE ONE CAPSULE BY MOUTH EVERY DAY duloxetine 20 mg capsule,delayed release TAKE ONE CAPSULE BY MOUTH EVERY DAY completed duloxetine 20 MG Delayed Release Oral Capsule RECTOR ([facility]) Escitalopram 10 MG Oral Tablet escitalopram 10 mg tabl et escitalopram 10 mg tablet completed escitalopram 10 MG Oral Tablet RECTOR ([facility]) Fluconazole 150 MG Oral Tablet fluconazole 150 mg tabl et fluconazole 150 mg tablet completed fluconazole 150 MG Oral Tablet RECTOR ([facility]) fluticasone propionate 50 mcg/actuation nasal spray,suspension [id number] completed fluticasone propionate 0.05 MG/ACTUAT Metered Dose Nasal Morral RECTOR ([facility]) Fluoxetine 20 MG Oral Capsule fluoxetine 20 mg capsule fluox etine 20 mg capsule completed fluoxetine 20 MG Oral Capsule RECTOR ([facility]) 24 HR venlafaxine 75 MG Extended Release Oral Capsule venlafaxine ER 75 mg capsule,extended release 24 hr venlafaxine ER 75 mg capsule,extended re lease 24 hr completed 24 HR v enlafaxine 75 MG Extended Release Oral Capsule RECTOR ([facility]) Prednisone 10 MG Oral Tablet prednisone 10 mg tablet prednisone 10 mg tablet completed prednisone 10 MG Oral Tablet RECTOR ([facility]) fluticasone propionate 50 mcg/actuation nasal spray,suspension [id number] completed fluticasone propionate 0.05 MG/ACTUAT Metered Dose Nasal Morral RECTOR ([facility]) 24 HR venlafaxine 75 MG Extended Release Oral Capsule venlafaxine ER 75 mg capsule,extended release 24 hr venlafaxine ER 75 mg capsule,extended re lease 24 hr completed 24 HR v enlafaxine 75 MG Extended Release Oral Capsule RECTOR ([facility]) Fluoxetine 20 MG Oral Capsule fluoxetine 20 mg capsule fluox etine 20 mg capsule completed fluoxetine 20 MG Oral Capsule [facility]) Azithromycin 250 MG Oral Tablet azithromycin 250 mg ta blet azithromycin 250 mg tablet completed [facility]ith[facility] 25 0 [facility] Escitalopram 20 MG Oral Tablet escitalopram 20 mg tabl et escitalopram 20 mg tablet completed escitalopram 20 MG Oral Tablet RECTOR ([facility]) Amoxicillin 875 MG / Clavulanate 125 MG Oral Tablet amoxicillin 875 mg-potassium clavulanate 125 mg tablet amoxicillin 875 mg-potassium clavulanate 125 mg tablet completed amoxici llin 875 MG / clavulanate 125 MG Oral Tablet RECTOR ([facility]) varenicline 1 MG Oral Tablet Chantix Continuing Month Box 1 mg tablet Chantix Continuing Month Box 1 mg tablet compl eted varenicline 1 MG Oral Tablet RECTOR ([facility]) Niacin 500 MG Oral Tablet niacin 500 mg tablet niacin 500 mg tablet completed niacin 500 MG Oral Tablet RECTOR ([facility]) Betamethasone 0.0005 MG/MG Topical Ointm ent betamethasone dipropionate 0.05 % topical ointment betamethasone dipropionate 0.05 % topical ointment completed betamethasone 0.0005 MG/MG Topic al Ointment [facility]) Diphenhydramine Hydrochloride 50 MG Oral Capsule [Banophen] Banophen 50 mg capsule Banophen 50 mg capsule completed diphenhydramine hydrochloride 50 MG Oral Capsule [Banophen] RECTOR ([facility]) Fluoxetine 20 MG Oral Capsule fluoxetine 20 mg capsule fluox etine 20 mg capsule completed fluoxetine 20 MG Oral Capsule [facility]) Loratadine 10 MG Oral Tablet loratadine 10 mg tablet loratadine 10 mg tablet completed loratadine 10 MG Oral Tablet [facility]) Oseltamivir 75 MG Oral Capsule oseltamivir 75 mg capsu le oseltamivir 75 mg capsule completed oseltamivir 75 MG Oral Capsule [facility]) Escitalopram 10 MG Oral Tablet escitalopram 10 mg tabl et escitalopram 10 mg tablet completed escitalopram 10 MG Oral Tablet RECTOR ([facility]) Azithromycin 250 MG Oral Tablet azithromycin 250 mg ta blet azithromycin 250 mg tablet completed azithromycin 25 0 MG Oral Tablet [facility]) Azithromycin 250 MG Oral Tablet azithromycin 250 mg ta blet azithromycin 250 mg tablet completed azithromycin 25 0 MG Oral Tablet [facility]) Loratadine 10 MG Oral Tablet loratadine 10 mg tablet loratadine 10 mg tablet completed loratadine 10 MG Oral Tablet RECTOR ([facility]) Loratadine 10 MG Oral Tablet loratadine 10 mg tablet loratadine 10 mg tablet completed loratadine 10 MG Oral Tablet RECTOR ([facility]) Prednisone 10 MG Oral Tablet prednisone 10 mg tablet prednisone 10 mg tablet completed prednisone 10 MG Oral Tablet RECTOR ([facility]) Escitalopram 20 MG Oral Tablet escitalopram 20 mg tabl et escitalopram 20 mg tablet completed escitalopram 20 MG Oral Tablet RECTOR ([facility]) Hydroxyzine Hydrochloride 25 MG Oral Tablet hydroxyzin e HCl 25 mg tablet hydroxyzine HCl 25 mg tablet completed hydroxyzine hydrochloride 25 MG Oral Tablet RECTOR ([facility]) lisdexamfetamine dimesylate 30 MG Oral Capsule [Vyvans e] Vyvanse 30 mg capsule Vyvanse 30 mg capsule completed lisdexamfetamine dimesylate 30 MG Oral Capsule [Vyvanse] RECTOR ([facility]) Escitalopram 20 MG Oral Tablet escitalopram 20 mg tabl et escitalopram 20 mg tablet completed escitalopram 20 MG Oral Tablet RECTOR ([facility]) benzonatate 200 MG Oral Capsule benzonatate 200 mg cap herlinda benzonatate 200 mg capsule completed benzonatate 20 0 MG Oral Capsule [facility]) 24 HR venlafaxine 75 MG Extended Release Oral Capsule venlafaxine ER 75 mg capsule,extended release 24 hr venlafaxine ER 75 mg capsule,extended re lease 24 hr completed 24 HR v enlafaxine 75 MG Extended Release Oral Capsule RECTOR ([facility]) Oseltamivir 75 MG Oral Capsule oseltamivir 75 mg capsu le oseltamivir 75 mg capsule completed oseltamivir 75 MG Oral Capsule RECTOR ([facility]) 24 HR venlafaxine 75 MG Extended Release Oral Capsule venlafaxine ER 75 mg capsule,extended release 24 hr venlafaxine ER 75 mg capsule,extended re lease 24 hr completed 24 HR v enlafaxine 75 MG Extended Release Oral Capsule RECTOR ([facility]) Niacin 500 MG Oral Tablet niacin 500 mg tablet niacin 500 mg tablet completed niacin 500 MG Oral Tablet RECTOR ([facility]) duloxetine 20 MG Delayed Release Oral Ca psule duloxetine 20 mg capsule,delayed release TAKE ONE CAPSULE BY MOUTH EVERY DAY duloxetine 20 mg capsule,delayed release TAKE ONE CAPSULE BY MOUTH EVERY DAY completed duloxetine 20 MG Delayed Release Oral Capsule RECTOR ([facility]) benzonatate 200 MG Oral Capsule benzonatate 200 mg cap herlinda benzonatate 200 mg capsule completed benzonatate 20 0 MG Oral Capsule RECTOR ([facility]) Prednisone 20 MG Oral Tablet prednisone 20 mg tablet prednisone 20 mg tablet completed prednisone 20 MG Oral Tablet TEE ([facility]) Prednisone 5 MG Oral Tablet prednisone 5 mg tablet prednisone 5 mg ta blet completed prednisone 5 MG Oral Tablet RECTOR ([facility]) Niacin 500 MG Oral Tablet niacin 500 mg tablet niacin 500 mg tablet completed niacin 500 MG Oral Tablet RECTOR ([facility]) fluticasone propionate 50 mcg/actuation nasal spray,suspension [id number] completed fluticasone propionate 0.05 MG/ACTUAT Metered Dose Nasal Morral RECTOR ([facility]) lisdexamfetamine dimesylate 30 MG Oral Capsule [Vyvans e] Vyvanse 30 mg capsule Vyvanse 30 mg capsule completed lisdexamfetamine dimesylate 30 MG Oral Capsule [Vyvanse] RECTOR ([facility]) Escitalopram 10 MG Oral Tablet escitalopram 10 mg tabl et escitalopram 10 mg tablet completed escitalopram 10 MG Oral Tablet RECTOR ([facility]) Ketoprofen 25 MG Oral Capsule ketoprofen 25 mg capsule ketop rofen 25 mg capsule completed ketoprofen 25 MG Oral Capsule RECTOR ([facility]) Diphenhydramine Hydrochloride 50 MG Oral Capsule [Banophen] Banophen 50 mg capsule Banophen 50 mg capsule completed diphenhydramine hydrochloride 50 MG Oral Capsule [Banophen] TEE ([facility]) Insurance Providers Payer name Policy type / Coverage type Policy ID Covered republican ID Covered republican's relationship to rae Policy Rae [id number] [id number] [facility] [id number] S [id number] [place] DE[place] [id number] SP [id number] Medicaid S [id number] Managed Care - MVP P [id number] S [id number] HOME DEPOT O [id number] S [id number] HOME DEPOT [id number] SP [id number] MVP [id number] SP [id number] [facility] [id number] SP [id number] Medicaid S [id number] S [id number] Managed Care - MVP P [id number] S [id number] Managed Care - MVP S UNAVAILABLE S UNAVAILABLE Self Pay P UNAVAILABLE S UNAVAILA BLE Problems, Conditions, and Diagnoses Code Display Name Description Problem Type Effective Dates Data Source(s) 25761048 Bipolar II disorder, most recent episode major depressive Bipolar II Disorder, Most Recent Episode Major Depressive Problem 12:00:00 AM EST TEE ([facility]) [id number] Bipolar II disorder, most recent episode major depressive Bipolar II Disorder, Most Recent Episode Major Depressive Problem 12:00:00 AM EST TEE ([facility]) [id number] Bipolar II disorder, most recent episode major depressive Bipolar II Disorder, Most Recent Episode Major Depressive Problem 12:00:00 AM EST TEE ([facility]) [id number] Bipolar II disorder, most recent episode major depressive Bipolar II Disorder, Most Recent Episode Major Depressive Problem 12:00:00 AM EST TEE ([facility]) [id number] Bipolar II disorder, most recent episode major depressive Bipolar II Disorder, Most Recent Episode Major Depressive Problem 12:00:00 AM EST TEE ([facility]) [id number] Bipolar II disorder, most recent episode major depressive Bipolar II Disorder, Most Recent Episode Major Depressive Problem 12:00:00 AM EST TEE ([facility]) [id number] Bipolar II disorder, most recent episode major depressive Bipolar II Disorder, Most Recent Episode Major Depressive Problem 12:00:00 AM EST TEE ([facility]) [id number] Migraine Migraine Problem 11/02/2020 12:00:00 AM THEA OLIVEIRA ([facility]) [id number] Migraine Migraine Problem 11/02/2020 12:00:00 AM ES Damaso TEE ([facility]) [id number] Migraine Migraine Problem 11/02/2020 12:00:00 AM ES Damaso TEE ([facility]) [id number] Migraine Migraine Problem 11/02/2020 12:00:00 AM ES T TEE ([facility]) [id number] Migraine Migraine Problem 11/02/2020 12:00:00 AM ES T TEE ([facility]) [id number] Migraine Migraine Problem 11/02/2020 12:00:00 AM ES T TEE ([facility]) [id number] Migraine Migraine Problem 11/02/2020 12:00:00 AM ES T TEE ([facility]) [id number] Migraine Migraine Problem 11/02/2020 12:00:00 AM ES Damaso TEE ([facility]) [id number] Migraine Migraine Problem 11/02/2020 12:00:00 AM ES Damaso TEE ([facility]) [id number] Migraine Migraine Problem 11/02/2020 12:00:00 AM ES Damaso TEE ([facility]) [id number] Mild intermittent asthma Mild Intermittent Asthma Prob sal 10/12/2020 12:00:00 AM EST TEE ([facility]) [id number] Mild intermittent asthma Mild Intermittent Asthma Prob sal 10/12/2020 12:00:00 AM EST TEE ([facility]) [id number] Mild intermittent asthma Mild Intermittent Asthma Prob sal 10/12/2020 12:00:00 AM EST TEE ([facility]) [id number] Mild intermittent asthma Mild Intermittent Asthma Prob sal 10/12/2020 12:00:00 AM EST TEE ([facility]) [id number] Mild intermittent asthma Mild Intermittent Asthma Prob sal 10/12/2020 12:00:00 AM EST TEE ([facility]) [id number] Mild intermittent asthma Mild Intermittent Asthma Prob sal 10/12/2020 12:00:00 AM EST TEE ([facility]) [id number] Mild intermittent asthma Mild Intermittent Asthma Prob sal 10/12/2020 12:00:00 AM EST TEE ([facility]) [id number] Mild intermittent asthma Mild Intermittent Asthma Prob sal 10/12/2020 12:00:00 AM EST TEE ([facility]) [id number] Mild intermittent asthma Mild Intermittent Asthma Prob sal 10/12/2020 12:00:00 AM EST TEE ([facility]) [id number] Mild intermittent asthma Mild Intermittent Asthma Prob sal 10/12/2020 12:00:00 AM EST TEE ([facility]) [id number] Mild intermittent asthma Mild Intermittent Asthma Prob sal 10/12/2020 12:00:00 AM EST TEE ([facility]) [id number] Mild intermittent asthma Mild Intermittent Asthma Prob sal 10/12/2020 12:00:00 AM EST TEE ([facility]) [id number] Mild intermittent asthma Mild Intermittent Asthma Prob sal 10/12/2020 12:00:00 AM EST TEE ([facility]) [id number] Allergic rhinitis, unspecified Allergic rhinitis, unsp ecified 08/22/2020 04:27:56 PM EDT [facility] [id number] Allergic rhinitis Allergic Rhinitis Problem 08/22/2020 12:00:00 AM EDT [facility]) V01.79 Contact with and (suspected) exposure to other viral communicable diseases Contact with and (suspected) exposure to other viral communicable diseases 08/03/2020 09:46:52 AM EDT [facility] R22.41 Localized swelling, mass and lump, right lower limb Mass of subcutaneous tissue of right lower limb 04/13/2020 11:23:37 AM EDT [facility] 314.01 Attention-deficit hyperactivity disorder , predominantly hyperactive type Attention-deficit hyperactivity disorder, predominantly hyperactive type 04/13/2020 11:23:37 AM EDT [facility] [id number] Finding of lower limb Finding of Lower Limb Problem 04/13/2020 12:00:00 AM EDT - 11/27/2020 12:00:00 AM EST RECTOR ([facility]) [id number] Attention deficit hyperactiv ity disorder, predominantly hyperactive impulsive type Attention Deficit Hyperactivity Disorder , Predominantly Hyperactive Impulsive Type Problem 04/13/2020 12:00:00 AM EDT RECTOR ([facility]) [id number] Finding of lower limb Finding of Lower Limb Problem 04/13/2020 12:00:00 AM EDT - 11/27/2020 12:00:00 AM EST TEE ([facility]) [id number] Attention deficit hyperactiv ity disorder, predominantly hyperactive impulsive type Attention Deficit Hyperactivity Disorder , Predominantly Hyperactive Impulsive Type Problem 04/13/2020 12:00:00 AM EDT TEE ([facility]) [id number] Finding of lower limb Finding of Lower Limb Problem 04/13/2020 12:00:00 AM EDT - 11/27/2020 12:00:00 AM EST TEE ([facility]) [id number] Attention deficit hyperactiv ity disorder, predominantly hyperactive impulsive type Attention Deficit Hyperactivity Disorder , Predominantly Hyperactive Impulsive Type Problem 04/13/2020 12:00:00 AM EDT TEE ([facility]) [id number] Finding of lower limb Finding of Lower Limb Problem 04/13/2020 12:00:00 AM EDT - 11/27/2020 12:00:00 AM EST TEE ([facility]) [id number] Attention deficit hyperactiv ity disorder, predominantly hyperactive impulsive type Attention Deficit Hyperactivity Disorder , Predominantly Hyperactive Impulsive Type Problem 04/13/2020 12:00:00 AM EDT TEE ([facility]) [id number] Finding of lower limb Finding of Lower Limb Problem 04/13/2020 12:00:00 AM EDT - 11/27/2020 12:00:00 AM EST TEE ([facility]) [id number] Attention deficit hyperactiv ity disorder, predominantly hyperactive impulsive type Attention Deficit Hyperactivity Disorder , Predominantly Hyperactive Impulsive Type Problem 04/13/2020 12:00:00 AM EDT TEE ([facility]) [id number] Finding of lower limb Finding of Lower Limb Problem 04/13/2020 12:00:00 AM EDT - 11/27/2020 12:00:00 AM EST TEE ([facility]) [id number] Attention deficit hyperactiv ity disorder, predominantly hyperactive impulsive type Attention Deficit Hyperactivity Disorder , Predominantly Hyperactive Impulsive Type Problem 04/13/2020 12:00:00 AM EDT TEE ([facility]) [id number] Finding of lower limb Finding of Lower Limb Problem 04/13/2020 12:00:00 AM EDT - 11/27/2020 12:00:00 AM EST TEE ([facility]) [id number] Attention deficit hyperactiv ity disorder, predominantly hyperactive impulsive type Attention Deficit Hyperactivity Disorder , Predominantly Hyperactive Impulsive Type Problem 04/13/2020 12:00:00 AM EDT TEE ([facility]) [id number] Finding of lower limb Finding of Lower Limb Problem 04/13/2020 12:00:00 AM EDT - 11/27/2020 12:00:00 AM EST TEE ([facility]) [id number] Attention deficit hyperactiv ity disorder, predominantly hyperactive impulsive type Attention Deficit Hyperactivity Disorder , Predominantly Hyperactive Impulsive Type Problem 04/13/2020 12:00:00 AM EDT TEE ([facility]) [id number] Finding of lower limb Finding of Lower Limb Problem 04/13/2020 12:00:00 AM EDT TEE ([facility]) [id number] Attention deficit hyperactiv ity disorder, predominantly hyperactive impulsive type Attention Deficit Hyperactivity Disorder , Predominantly Hyperactive Impulsive Type Problem 04/13/2020 12:00:00 AM EDT TEE ([facility]) [id number] Finding of lower limb Finding of Lower Limb Problem 04/13/2020 12:00:00 AM EDT TEE ([facility]) [id number] Attention deficit hyperactiv ity disorder, predominantly hyperactive impulsive type Attention Deficit Hyperactivity Disorder , Predominantly Hyperactive Impulsive Type Problem 04/13/2020 12:00:00 AM EDT TEE ([facility]) [id number] Finding of lower limb Finding of Lower Limb Problem 04/13/2020 12:00:00 AM EDT TEE ([facility]) 2528556 Attention deficit hyperactiv ity disorder, predominantly hyperactive impulsive type Attention Deficit Hyperactivity Disorder , Predominantly Hyperactive Impulsive Type Problem 04/13/2020 12:00:00 AM EDT TEE ([facility]) [id number] Finding of lower limb Finding of Lower Limb Problem 04/13/2020 12:00:00 AM EDT TEE ([facility]) [id number] Attention deficit hyperactiv ity disorder, predominantly hyperactive impulsive type Attention Deficit Hyperactivity Disorder , Predominantly Hyperactive Impulsive Type Problem 04/13/2020 12:00:00 AM EDT TEE ([facility]) [id number] Finding of lower limb Finding of Lower Limb Problem 04/13/2020 12:00:00 AM EDT TEE ([facility]) 1613523 Attention deficit hyperactiv ity disorder, predominantly hyperactive impulsive type Attention Deficit Hyperactivity Disorder , Predominantly Hyperactive Impulsive Type Problem 04/13/2020 12:00:00 AM EDT TEE ([facility]) 300.02 GENERALIZED ANXIETY DISORDER GENERALIZED ANXIETY DISOR DONAL 03/05/2020 12:15:23 PM EDT [facility] F33.2 Major depressive disorder, recurrent sev ere without psychotic features DEPRESSIVE DISORDER, MAJOR, RECURRENT EPISODE, SEVERE 03/05/2020 12:15:23 PM EDT [facility] [id number] Generalized anxiety disorder Generalized Anxiety Disor odnal Problem 03/05/2020 12:00:00 AM EDT - 11/30/2020 12:00:00 AM EST TEE ([facility]) [id number] Severe recurrent major depression withou t psychotic features Severe Recurrent Major Depression without Psychotic Features Problem 03/05/2020 12:00:00 AM EDT - 11/30/2020 12:00:00 AM EST TEE ([facility]) [id number] Generalized anxiety disorder Generalized Anxiety Disor donal Problem 03/05/2020 12:00:00 AM EDT - 11/30/2020 12:00:00 AM EST TEE ([facility]) [id number] Severe recurrent major depression withou t psychotic features Severe Recurrent Major Depression without Psychotic Features Problem 03/05/2020 12:00:00 AM EDT - 11/30/2020 12:00:00 AM EST TEE ([facility]) [id number] Generalized anxiety disorder Generalized Anxiety Disor donal Problem 03/05/2020 12:00:00 AM EDT - 11/30/2020 12:00:00 AM EST TEE ([facility]) [id number] Severe recurrent major depression withou t psychotic features Severe Recurrent Major Depression without Psychotic Features Problem 03/05/2020 12:00:00 AM EDT - 11/30/2020 12:00:00 AM EST TEE ([facility]) [id number] Generalized anxiety disorder Generalized Anxiety Disor donal Problem 03/05/2020 12:00:00 AM EDT - 11/30/2020 12:00:00 AM EST TEE ([facility]) [id number] Severe recurrent major depression withou t psychotic features Severe Recurrent Major Depression without Psychotic Features Problem 03/05/2020 12:00:00 AM EDT - 11/30/2020 12:00:00 AM EST TEE ([facility]) 29726064 Generalized anxiety disorder Generalized Anxiety Disor donal Problem 03/05/2020 12:00:00 AM EDT - 11/30/2020 12:00:00 AM EST TEE ([facility]) 23988654 Severe recurrent major depression withou t psychotic features Severe Recurrent Major Depression without Psychotic Features Problem 03/05/2020 12:00:00 AM EDT - 11/30/2020 12:00:00 AM EST TEE ([facility]) [id number] Generalized anxiety disorder Generalized Anxiety Disor donal Problem 03/05/2020 12:00:00 AM EDT - 11/30/2020 12:00:00 AM EST TEE ([facility]) [id number] Severe recurrent major depression withou t psychotic features Severe Recurrent Major Depression without Psychotic Features Problem 03/05/2020 12:00:00 AM EDT - 11/30/2020 12:00:00 AM EST TEE ([facility]) 26756629 Generalized anxiety disorder Generalized Anxiety Disor donal Problem 03/05/2020 12:00:00 AM EDT - 11/30/2020 12:00:00 AM EST TEE ([facility]) 11502213 Severe recurrent major depression withou t psychotic features Severe Recurrent Major Depression without Psychotic Features Problem 03/05/2020 12:00:00 AM EDT - 11/30/2020 12:00:00 AM EST TEE ([facility]) 37065947 Generalized anxiety disorder Generalized Anxiety Disor donal Problem 03/05/2020 12:00:00 AM EDT TEE ([facility]) 65271214 Severe recurrent major depression withou t psychotic features Severe Recurrent Major Depression without Psychotic Features Problem 03/05/2020 12:00:00 AM EDT TEE ([facility]) [id number] Generalized anxiety disorder Generalized Anxiety Disor donal Problem 03/05/2020 12:00:00 AM EDT TEE ([facility]) 05198427 Severe recurrent major depression withou t psychotic features Severe Recurrent Major Depression without Psychotic Features Problem 03/05/2020 12:00:00 AM EDT TEE ([facility]) 94005091 Generalized anxiety disorder Generalized Anxiety Disor donal Problem 03/05/2020 12:00:00 AM EDT TEE ([facility]) 63674446 Severe recurrent major depression withou t psychotic features Severe Recurrent Major Depression without Psychotic Features Problem 03/05/2020 12:00:00 AM EDT TEE ([facility]) 30038257 Generalized anxiety disorder Generalized Anxiety Disor donal Problem 03/05/2020 12:00:00 AM EDT TEE ([facility]) 35034404 Severe recurrent major depression withou t psychotic features Severe Recurrent Major Depression without Psychotic Features Problem 03/05/2020 12:00:00 AM EDT TEE ([facility]) 45090997 Generalized anxiety disorder Generalized Anxiety Disor donal Problem 03/05/2020 12:00:00 AM EDT TEE ([facility]) 60787821 Severe recurrent major depression withou t psychotic features Severe Recurrent Major Depression without Psychotic Features Problem 03/05/2020 12:00:00 AM EDT TEE ([facility]) 04063379 Generalized anxiety disorder Generalized Anxiety Disor donal Problem 03/05/2020 12:00:00 AM EDT TEE ([facility]) 99681156 Severe recurrent major depression withou t psychotic features Severe Recurrent Major Depression without Psychotic Features Problem 03/05/2020 12:00:00 AM EDT TEE ([facility]) L50.8 Other urticaria Chronic idiopathic urticaria 10:51:32 AM EST [facility] 07254892 Chronic urticaria Chronic Urticaria Problem 01/05/2020 12:00:00 AM EST TEE ([facility]) 89363503 Chronic urticaria Chronic Urticaria Problem 01/05/2020 12:00:00 AM EST TEE ([facility]) 44628602 Chronic urticaria Chronic Urticaria Problem 01/05/2020 12:00:00 AM EST TEE ([facility]) 10821707 Chronic urticaria Chronic Urticaria Problem 01/05/2020 12:00:00 AM EST TEE ([facility]) 33792574 Chronic urticaria Chronic Urticaria Problem 01/05/2020 12:00:00 AM EST TEE ([facility]) 99713711 Chronic urticaria Chronic Urticaria Problem 01/05/2020 12:00:00 AM EST TEE ([facility]) 63781636 Chronic urticaria Chronic Urticaria Problem 01/05/2020 12:00:00 AM EST TEE ([facility]) 41697116 Chronic urticaria Chronic Urticaria Problem 01/05/2020 12:00:00 AM EST TEE ([facility]) 46060395 Chronic urticaria Chronic Urticaria Problem 01/05/2020 12:00:00 AM EST TEE ([facility]) 52951600 Chronic urticaria Chronic Urticaria Problem 01/05/2020 12:00:00 AM EST TEE ([facility]) 79354345 Chronic urticaria Chronic Urticaria Problem 01/05/2020 12:00:00 AM EST TEE ([facility]) 25033757 Chronic urticaria Chronic Urticaria Problem 01/05/2020 12:00:00 AM EST TEE ([facility]) 32827335 Chronic urticaria Chronic Urticaria Problem 01/05/2020 12:00:00 AM EST RECTOR ([facility]) V05.9 Vaccination Vaccination 12/29/2019 06:02:37 PM [facility] [id number] Influenza vaccine needed Influenza Vaccine Needed Pro blem 12/28/2019 12:00:00 AM [facility] - 10/12/2020 12:00:00 AM EST TEE ([facility]) [id number] Influenza vaccine needed Influenza Vaccine Needed Pro blem 12/28/2019 12:00:00 AM [facility] - 10/12/2020 12:00:00 AM EST TEE ([facility]) [id number] Influenza vaccine needed Influenza Vaccine Needed Pro blem 12/28/2019 12:00:00 AM [facility] - 10/12/2020 12:00:00 AM EST TEE ([facility]) [id number] Influenza vaccine needed Influenza Vaccine Needed Pro blem 12/28/2019 12:00:00 AM [facility] - 10/12/2020 12:00:00 AM EST TEE ([facility]) [id number] Influenza vaccine needed Influenza Vaccine Needed Pro blem 12/28/2019 12:00:00 AM EST - 10/12/2020 12:00:00 AM EST TEE ([facility]) [id number] Influenza vaccine needed Influenza Vaccine Needed Pro blem 12/28/2019 12:00:00 AM EST - 10/12/2020 12:00:00 AM EST TEE ([facility]) [id number] Influenza vaccine needed Influenza Vaccine Needed Pro blem 12/28/2019 12:00:00 AM EST - 10/12/2020 12:00:00 AM EST TEE ([facility]) [id number] Influenza vaccine needed Influenza Vaccine Needed Pro blem 12/28/2019 12:00:00 AM EST - 10/12/2020 12:00:00 AM EST TEE ([facility]) [id number] Influenza vaccine needed Influenza Vaccine Needed Pro blem 12/28/2019 12:00:00 AM EST - 10/12/2020 12:00:00 AM EST TEE ([facility]) [id number] Influenza vaccine needed Influenza Vaccine Needed Pro blem 12/28/2019 12:00:00 AM EST - 10/12/2020 12:00:00 AM EST TEE ([facility]) [id number] Influenza vaccine needed Influenza Vaccine Needed Pro blem 12/28/2019 12:00:00 AM EST - 10/12/2020 12:00:00 AM EST TEE ([facility]) [id number] Influenza vaccine needed Influenza Vaccine Needed Pro blem 12/28/2019 12:00:00 AM [facility] - 10/12/2020 12:00:00 AM EST TEE ([facility]) [id number] Influenza vaccine needed Influenza Vaccine Needed Pro blem 12/28/2019 12:00:00 AM [facility] - 10/12/2020 12:00:00 AM EST TEE ([facility]) 782.1 Eruption Eruption 12/21/2019 04:44:44 PM ES T [facility] [id number] Encounter for general adult medical examination without abnormal findings Encounter for general adult medical exam ination without abnormal findings 12/21/2019 04:44:44 PM EST [facility] [id number] SNOMED CT Concept SNOMED CT Concept Problem 12/21 12:00:00 AM [facility] - 10/12/2020 12:00:00 AM EST TEE ([facility]) [id number] Eruption Eruption Problem 12/21/2019 12:0 0:00 AM EST - 10/12/2020 12:00:00 AM EST TEE ([facility]) 557300710 SNOMED CT Concept SNOMED CT Concept Problem 12/21 12:00:00 AM EST - 10/12/2020 12:00:00 AM EST TEE ([facility]) 257339364 Eruption Eruption Problem 12/21/2019 12:0 0:00 AM EST - 10/12/2020 12:00:00 AM EST TEE ([facility]) 195297787 SNOMED CT Concept SNOMED CT Concept Problem 12/21 12:00:00 AM EST - 10/12/2020 12:00:00 AM EST TEE ([facility]) 441220544 Eruption Eruption Problem 12/21/2019 12:0 0:00 AM EST - 10/12/2020 12:00:00 AM EST TEE ([facility]) 796694555 SNOMED CT Concept SNOMED CT Concept Problem 12/21 12:00:00 AM EST - 10/12/2020 12:00:00 AM EST TEE ([facility]) 349552431 Eruption Eruption Problem 12/21/2019 12:0 0:00 AM EST - 10/12/2020 12:00:00 AM EST TEE ([facility]) 669799532 SNOMED CT Concept SNOMED CT Concept Problem 12/21 12:00:00 AM EST - 10/12/2020 12:00:00 AM EST TEE ([facility]) 167934862 Eruption Eruption Problem 12/21/2019 12:0 0:00 AM EST - 10/12/2020 12:00:00 AM EST TEE ([facility]) 691148277 SNOMED CT Concept SNOMED CT Concept Problem 12/21 12:00:00 AM EST - 10/12/2020 12:00:00 AM EST TEE ([facility]) 193145730 Eruption Eruption Problem 12/21/2019 12:0 0:00 AM EST - 10/12/2020 12:00:00 AM EST TEE ([facility]) 493496782 SNOMED CT Concept SNOMED CT Concept Problem 12/21 12:00:00 AM EST - 10/12/2020 12:00:00 AM EST TEE ([facility]) 069606406 Eruption Eruption Problem 12/21/2019 12:0 0:00 AM EST - 10/12/2020 12:00:00 AM EST TEE ([facility]) 024102806 SNOMED CT Concept SNOMED CT Concept Problem 12/21 12:00:00 AM EST - 10/12/2020 12:00:00 AM EST TEE ([facility]) 715619169 Eruption Eruption Problem 12/21/2019 12:0 0:00 AM EST - 10/12/2020 12:00:00 AM EST TEE ([facility]) 610997543 SNOMED CT Concept SNOMED CT Concept Problem 12/21 12:00:00 AM EST - 10/12/2020 12:00:00 AM EST TEE ([facility]) 844273527 Eruption Eruption Problem 12/21/2019 12:0 0:00 AM EST - 10/12/2020 12:00:00 AM EST TEE ([facility]) 453433898 SNOMED CT Concept SNOMED CT Concept Problem 12/21 12:00:00 AM EST - 10/12/2020 12:00:00 AM EST TEE ([facility]) 662339832 Eruption Eruption Problem 12/21/2019 12:0 0:00 AM EST - 10/12/2020 12:00:00 AM EST TEE ([facility]) 577285583 SNOMED CT Concept SNOMED CT Concept Problem 12/21 12:00:00 AM EST - 10/12/2020 12:00:00 AM EST TEE ([facility]) 871321753 Eruption Eruption Problem 12/21/2019 12:0 0:00 AM EST - 10/12/2020 12:00:00 AM EST TEE ([facility]) 350600181 SNOMED CT Concept SNOMED CT Concept Problem 12/21 12:00:00 AM EST - 10/12/2020 12:00:00 AM EST TEE ([facility]) 186907666 Eruption Eruption Problem 12/21/2019 12:0 0:00 AM EST - 10/12/2020 12:00:00 AM EST TEE ([facility]) 228930314 SNOMED CT Concept SNOMED CT Concept Problem 12/21 12:00:00 AM EST - 10/12/2020 12:00:00 AM EST TEE ([facility]) 604914682 Eruption Eruption Problem 12/21/2019 12:0 0:00 AM EST - 10/12/2020 12:00:00 AM EST TEE ([facility]) 637765604 Screening for malignant neoplasm of cerv ix Screening for Malignant Neoplasm of Cervix Problem 11/08/2019 12:00:00 AM EST - 10/12/2020 12:00:00 AM EST TEE ([facility]) 876796594 Screening for malignant neoplasm of cerv ix Screening for Malignant Neoplasm of Cervix Problem 11/08/2019 12:00:00 AM EST - 10/12/2020 12:00:00 AM EST TEE ([facility]) 287405169 Screening for malignant neoplasm of cerv ix Screening for Malignant Neoplasm of Cervix Problem 11/08/2019 12:00:00 AM EST - 10/12/2020 12:00:00 AM EST TEE ([facility]) 614361152 Screening for malignant neoplasm of cerv ix Screening for Malignant Neoplasm of Cervix Problem 11/08/2019 12:00:00 AM EST - 10/12/2020 12:00:00 AM EST TEE ([facility]) 426867478 Screening for malignant neoplasm of cerv ix Screening for Malignant Neoplasm of Cervix Problem 11/08/2019 12:00:00 AM EST - 10/12/2020 12:00:00 AM EST TEE ([facility]) 504932361 Screening for malignant neoplasm of cerv ix Screening for Malignant Neoplasm of Cervix Problem 11/08/2019 12:00:00 AM EST - 10/12/2020 12:00:00 AM EST TEE ([facility]) 782346352 Screening for malignant neoplasm of cerv ix Screening for Malignant Neoplasm of Cervix Problem 11/08/2019 12:00:00 AM EST - 10/12/2020 12:00:00 AM EST TEE ([facility]) 582089982 Screening for malignant neoplasm of cerv ix Screening for Malignant Neoplasm of Cervix Problem 11/08/2019 12:00:00 AM EST - 10/12/2020 12:00:00 AM EST TEE ([facility]) 253637333 Screening for malignant neoplasm of cerv ix Screening for Malignant Neoplasm of Cervix Problem 11/08/2019 12:00:00 AM EST - 10/12/2020 12:00:00 AM EST TEE ([facility]) 348874980 Screening for malignant neoplasm of cerv ix Screening for Malignant Neoplasm of Cervix Problem 11/08/2019 12:00:00 AM EST - 10/12/2020 12:00:00 AM EST TEE ([facility]) 640716399 Screening for malignant neoplasm of cerv ix Screening for Malignant Neoplasm of Cervix Problem 11/08/2019 12:00:00 AM EST - 10/12/2020 12:00:00 AM EST TEE ([facility]) 502411120 Screening for malignant neoplasm of cerv ix Screening for Malignant Neoplasm of Cervix Problem 11/08/2019 12:00:00 AM EST - 10/12/2020 12:00:00 AM EST TEE ([facility]) 218599447 Screening for malignant neoplasm of cerv ix Screening for Malignant Neoplasm of Cervix Problem 11/08/2019 12:00:00 AM EST - 10/12/2020 12:00:00 AM EST TEE ([facility]) Surgeries/Procedures Procedure Description Date Indications Data Source(s) X-Ray Foot Complete 05/15/2020 12:00:00 AM EDT [facility] ([facility]) RADEX FOOT COMPLETE MINIMUM 3 VIEWS 05/15/2020 12:00:0 0 AM EDT [facility] ([facility]) Results ID Date Data Source [id number] 11/15/2020 05:41:00 PM ROGER OLIVEIRA ([facility]) Name Value Range Interpretation Code Description Data Michelle rce(s) Supporting Document(s) istat B-HCG < 5.0 normal Istat B-HCG TEE ([facility]) ID Date Data Source [id number] 11/15/2020 05:41:00 PM EST TEE ([facility]) Name Value Range Interpretation Code Description Data Michelle rce(s) Supporting Document(s) istat B-HCG < 5.0 normal Istat B-HCG TEE ([facility]) ID Date Data Source [id number] 11/15/2020 05:41:00 PM EST TEE ([facility]) Name Value Range Interpretation Code Description Data Michelle rce(s) Supporting Document(s) istat B-HCG < 5.0 normal Istat B-HCG TEE ([facility]) ID Date Data Source [id number] 11/15/2020 05:41:00 PM EST TEE ([facility]) Name Value Range Interpretation Code Description Data Michelle rce(s) Supporting Document(s) istat B-HCG < 5.0 normal Istat B-HCG TEE ([facility]) ID Date Data Source [id number] 11/15/2020 05:41:00 PM EST TEE ([facility]) Name Value Range Interpretation Code Description Data Michelle rce(s) Supporting Document(s) istat B-HCG < 5.0 normal Istat B-HCG TEE ([facility]) ID Date Data Source [id number] 11/15/2020 05:41:00 PM EST TEE ([facility]) Name Value Range Interpretation Code Description Data Michelle rce(s) Supporting Document(s) istat B-HCG < 5.0 normal Istat B-HCG TEE ([facility]) ID Date Data Source [id number] 11/15/2020 05:41:00 PM EST TEE ([facility]) Name Value Range Interpretation Code Description Data Michelle rce(s) Supporting Document(s) istat B-HCG < 5.0 normal Istat B-HCG TEE ([facility]) ID Date Data Source [id number] 11/15/2020 05:41:00 PM EST TEE ([facility]) Name Value Range Interpretation Code Description Data Michelle rce(s) Supporting Document(s) istat B-HCG < 5.0 normal Istat B-HCG TEE ([facility]) ID Date Data Source [id number] 11/15/2020 05:21:00 PM EST [facility] Name Value Range Interpretation Code Description Data Michelle rce(s) Supporting Document(s) SARS coronavirus 2 RNA [Presence] in Res piratory specimen by DRAKE with probe detection [facility] This lab was ordered by [facility] a nd reported by [facility]. ID Date Data Source [id number] 11/02/2020 03:43:00 PM EST TEE ([facility]) Name Value Range Interpretation Code Description Data Michelle rce(s) Supporting Document(s) Flu negative Flu TEE ([facility]) ID Date Data Source [id number] 11/02/2020 03:43:00 PM EST TEE ([facility]) Name Value Range Interpretation Code Description Data Michelle rce(s) Supporting Document(s) Flu negative Flu TEE ([facility]) ID Date Data Source [id number] 11/02/2020 03:43:00 PM EST TEE ([facility]) Name Value Range Interpretation Code Description Data Michelle rce(s) Supporting Document(s) Flu negative Flu TEE ([facility]) ID Date Data Source [id number] 11/02/2020 03:43:00 PM EST TEE ([facility]) Name Value Range Interpretation Code Description Data Michelle rce(s) Supporting Document(s) Flu negative Flu TEE ([facility]) ID Date Data Source [id number] 11/02/2020 03:43:00 PM EST TEE ([facility]) Name Value Range Interpretation Code Description Data Michelle rce(s) Supporting Document(s) Flu negative Flu TEE ([facility]) ID Date Data Source [id number] 11/02/2020 03:43:00 PM EST TEE ([facility]) Name Value Range Interpretation Code Description Data Michelle rce(s) Supporting Document(s) Flu negative Flu TEE ([facility]) ID Date Data Source [id number] 11/02/2020 03:43:00 PM EST TEE ([facility]) Name Value Range Interpretation Code Description Data Michelle rce(s) Supporting Document(s) Flu negative Flu TEE ([facility]) ID Date Data Source [id number] 11/02/2020 03:43:00 PM EST TEE ([facility]) Name Value Range Interpretation Code Description Data Michelle rce(s) Supporting Document(s) Flu negative Flu TEE ([facility]) ID Date Data Source [id number] 11/02/2020 03:43:00 PM EST TEE ([facility]) Name Value Range Interpretation Code Description Data Michelle rce(s) Supporting Document(s) Flu negative Flu TEE ([facility]) ID Date Data Source [id number] 11/02/2020 03:43:00 PM EST TEE ([facility]) Name Value Range Interpretation Code Description Data Michelle rce(s) Supporting Document(s) Flu negative Flu TEE ([facility]) ID Date Data Source [id number] 11/01/2020 02:54:00 PM EST [facility] Name Value Range Interpretation Code Description Data Michelle rce(s) Supporting Document(s) SARS coronavirus 2 RdRp gene [Presence] in Respiratory specimen by DRAKE with probe detection [facility] This lab was ordered by [facility] and reported by [facility]. ID Date Data Source [id number] 11/01/2020 02:53:00 PM EST [facility] ([facility]) Name Value Range Interpretation Code Description Data Michelle rce(s) Supporting Document(s) sars-cov-2 negative negative normal Sars-cov-2 [facility] ([facility]) ID Date Data Source [id number] 11/01/2020 02:53:00 PM EST RECTOR ([facility]) Name Value Range Interpretation Code Description Data Michelle rce(s) Supporting Document(s) sars-cov-2 negative negative normal Sars-cov-2 RECTOR ([facility]) ID Date Data Source [id number] 11/01/2020 02:53:00 PM EST RECTOR ([facility]) Name Value Range Interpretation Code Description Data Michelle rce(s) Supporting Document(s) sars-cov-2 negative negative normal Sars-cov-2 RECTOR ([facility]) ID Date Data Source [id number] 11/01/2020 02:53:00 PM EST TEE ([facility]) Name Value Range Interpretation Code Description Data Michelle rce(s) Supporting Document(s) sars-cov-2 negative negative normal Sars-cov-2 RECTOR ([facility]) ID Date Data Source [id number] 11/01/2020 02:53:00 PM EST TEE ([facility]) Name Value Range Interpretation Code Description Data Michelle rce(s) Supporting Document(s) sars-cov-2 negative negative normal Sars-cov-2 TEE ([facility]) ID Date Data Source [id number] 11/01/2020 02:53:00 PM EST TEE ([facility]) Name Value Range Interpretation Code Description Data Michelle rce(s) Supporting Document(s) sars-cov-2 negative negative normal Sars-cov-2 TEE ([facility]) ID Date Data Source [id number] 11/01/2020 02:53:00 PM EST TEE ([facility]) Name Value Range Interpretation Code Description Data Michelle rce(s) Supporting Document(s) sars-cov-2 negative negative normal Sars-cov-2 RECTOR ([facility]) ID Date Data Source [id number] 11/01/2020 02:53:00 PM EST TEE ([facility]) Name Value Range Interpretation Code Description Data Michelle rce(s) Supporting Document(s) sars-cov-2 negative negative normal Sars-cov-2 TEE ([facility]) ID Date Data Source [id number] 11/01/2020 02:53:00 PM EST TEE ([facility]) Name Value Range Interpretation Code Description Data Michelle rce(s) Supporting Document(s) sars-cov-2 negative negative normal Sars-cov-2 TEE ([facility]) ID Date Data Source [id number] 11/01/2020 02:53:00 PM EST TEE ([facility]) Name Value Range Interpretation Code Description Data Michelle rce(s) Supporting Document(s) sars-cov-2 negative negative normal Sars-cov-2 [facility]) ID Date Data Source [id number] 11/01/2020 02:53:00 PM EST TEE ([facility]) Name Value Range Interpretation Code Description Data Michelle rce(s) Supporting Document(s) sars-cov-2 negative negative normal Sars-cov-2 TEE ([facility]) ID Date Data Source [id number] 08/22/2020 03:57:41 PM EDT [facility] Measurements & CalculationsHeight: 61 inches [...] Syringe 0.5 MLMfr / Lot# / Exp.Date: [employer] / [id number] 1Amt. Given / Route / Site: 0.5 mL / IM / Left DeltoidNDC / CVX: [id number] / 150Administered Date: 08/22/2020 16:30VFC Eligibility: Not [...] 4:02 PMPatient History Medical History:ADHDAnxietyDepressionSurgical History:c- section y0Qqgvvy History:Cancer- Both SidesSocial/Personal History: Advised to Quit/Tobacco [...] to schedule an updated appt with her PROGRESS CLERK. Pt is interested in allergy medicine, but is unsure of what allergy medication to use. Pt feels postnasal drainage, sneezing 4-5 times daily, and sinus pressure that is nearly constant. Transitions of Care InboundProblem ReviewProblem List was reviewed and/or updated during this visit.Medication Reconciliation & ReviewMedication List was reviewed and/or updated during this visit, including review of any isoe-zqg-gxbzpok medications, herbal therapies, and/or supplements.Allergy ReviewAllergy List [...] DISORDER, MAJOR, RECURRENT EPISODE, SEVERE (ICD- 296.33) (XFB86-A47.2) Assessment: Instructions: Take Prozac at bedtime and evaluate if your fatigue improves. If not, call next week to discuss alternative medication options.GENERALIZED ANXIETY DISORDER (ICD-300.02) (ICD10- F41.1) Assessment: Instructions: As above. Continue per [facility]af[facility].Vaccination (ICD-V05.9) (PRU88-X69) Assessment: Instructions: Flu vaccine today.Removed:Contact with and (suspected) exposure to other viral communicable diseases (ICD-V01.79) (YRW71-E68.828)Patient Instructions/Care Plan: DEPRESSIVE DISORDER- MAJOR- RECURRENT EPISODE- [...] po QDAllergies:* LATEX (Moderate)Orders:FluLaval Quadrivalent, preservative free [CPT-67321] Adult - Ofc Vst, EST, Level III [CPT-01895] Follow-Up Return to clinic: in 30 days for follow upAdditional Follow-Up: med checkClinical Visit Summary Completed Name Value Range Interpretation Code Description Data Michelle rce(s) Supporting Document(s) ID Date Data Source [id number] 08/03/2020 10:00:00 AM EDT [facility] In-House Lab TestsDate/Time Collect ed: August 03, 2020 10:00 AMDate/Time Received: August 03, 2020 10:00 AMComments: Covid testing performed without difficulty in left nostril. Patient tolerated procedure well. Patient education given.Amparo Escobar SURVEY SUPERVISOR, August 06, 2020 8:36 PMAssessment & Plan Orders:Specimen Handling [CPT-15992] Name Value Range Interpretation Code Description Data Michelle rce(s) Supporting Document(s) ID Date Data Source [id number] 08/03/2020 12:00:00 AM EDT [facility] Name Value Range Interpretation Code Description Data Michelle rce(s) Supporting Document(s) SARS-COV-2 RNA RESP QL DRAKE+PROBE [facility] This lab was ordered by [facility] and reported by [facility]. ID Date Data Source [id number] 07/18/2020 03:49:59 PM EDT [facility] Measurements & CalculationsHeight: 61 inches [...] 2020 3:55 PMPatient History Medical History:ADHDAnxietyDepressionSurgical History: k6Cbkojj History:Cancer- Both SidesSocial/Personal History: Advised to Quit/Tobacco [...] during this visit, including review of any hwvu-wke-bbaesbi medications, herbal therapies, and/or supplements.Allergy ReviewAllergy List [...] Problems:Assessed:Attention-deficit hyperactivity disorder, predominantly hyperactive type (ICD-314.01) (NGI56-R53.1) Assessment: The [facility] Prescription Monitoring Program was consulted to day prior to prescribing controlledsubstances for the patient. Instructions: Tolerating well, will increase to 40mg daily for improved effect. Follow-up in 1 month for med check.DEPRESSIVE DISORDER, MAJOR, RECURRENT EPISODE, SEVERE (ICD-296.33) (LCW40-B37.2) Assessment: Instructions: Taper off Lexapro (1/2 tablet daily x 7 days then stop), and replace with Prozac daily. Reschedule with [facility] for counseling services.GENERALIZED ANXIETY DISORDER (ICD-300.02) (UYG70-O84.1) Assessment: Instructions: As above.Chronic idiopathic urticaria (ICD-708.1) (CPV40-L80.8) Assessment: Instructions: Switch from Loratidine to Zyrtec daily. Continue Singulair daily.Nicotine dependence (ICD- 305.1) (ATI27-D90.200) Assessment: Instructions: Chantix Starter pack again. Call when ready for continuing pack.Mass of subcutaneous tissue of right lower limb (PFU37-Y30.41) Assessment: Instructions: Likely lipoma. Monitor. If they get to a point of wanting removal, call for surgical referral .Attention-deficit hyperactivity disorder, predominantly hyperactive type (ICD- 314.01) (VER02-S60.1) Assessment: Resent with corrected Sig for Vyvanse.Removed:Anxiety disorder, unspecified (PEK91-N49.9)Patient Instructions/Care Plan: Attention-deficit hyperactivity disorder- predominantly hyperactive [...] LORAT ADINE 10 MG ORAL TABLET Qty: [id number] To: ZYRTEC ALLERGY 10 MG ORAL TABLET-1 tab po daily To: CHANTIX STARTING MONTH ANJALI 0.5 MG X 11 & 1 MG X 42 ORAL TABLET-use as directed Qty: 1[Kit] Refills: 0From: ORAL VYVANSE 30 MG ORAL CAPSULE Qty: [id number] Refills: 30[Capsule] To: VYVANSE 40 MG ORAL CAPSULE- Take 1 capsule po daily in the morning; MDD 30mg Qty: 30[Capsule] Refills: 0From: ORAL VYVANSE 40 MG ORAL CAPSULE Qty: [id number] Refills: 30[Capsule] To: VYVANSE 40 MG ORAL CAPSULE-Take 1 capsule po daily in the morning; MDD 40mg Qty: 30[Capsule] Refills: 0Allergies:* LATEX (Moderate)Orders:Adult - Ofc Vst, EST, Level III [CPT-25196] Follow-Up Return to clinic: in 4 weeks for follow upAdditional Follow-Up: med checkClinical Visit Summary CompletedMedications:VYVANSE 40 MG ORAL CAPSULE (LISDEXAMFETAMINE DIMESYLATE) Take 1 capsule po daily in the morning; MDD 40mg #30[Capsule] x 0 Route:ORAL Entered and Authorized by: Petey KRAUS Method used: Electronically to [facility] (retail) [address] [place] [address] Fax: Note to Pharmacy: Route: ORAL; Indications: ATTENTION-DEFICIT HYPERACTIVITY DISORDER, PREDOMINANTLY HYPERACTIVE TYPE RxID: [id number] 20 MG ORAL CAPSULE (FLUOXETINE HCL) Take 1 capsule po daily #30[Capsule] x 1 Route:ORAL Entered and Authorized by: Petey KRAUS Method used: Electronically to [facility] (retail) [address] [place] [address] Note to Pharmacy: Route: ORAL; Indications: ATTENTION-DEFICIT HYPERACTIVITY DISORDER, PREDOMINANTLY HYPERACTIVE TYPE;GENERALIZED ANXIETY DISORDER RxID: [id number] LEXAPRO 20 MG ORAL TABLET (ESCITALOPRAM OXALATE) One tablet by mouth every day #30[Tablet] x 5 Entered by: Petey KRAUS Authorized by: Melecio Qiu MD Method used: Electronically to [facility] (retail) [address] [place] [address] RxID: [id number] 40 MG ORAL CAPSULE (LISDEXAMFETAMINE DIMESYLATE) Take 1 capsule po daily in the morning; MDD 30mg #30[Capsule] x 0 Route:ORAL Entered and Authorized by: Petey KRAUS Method used: Electronically to [facility] (retail) [address] [place] [address] Note to Pharmacy: Route: ORAL; Indications: ATTENTION-DEFICIT HYPERACTIVITY DISORDER, PREDOMINANTLY HYPERACTIVE TYPE RxID: [id number] STARTING MONTH ANJALI 0.5 MG X 11 & 1 MG X 42 ORAL TABLET (VARENICLINE TARTRATE) use as directed #1[Kit] x 0 Entered and Authorized by: Petey KRAUS Method used: Electronically to [facility] (retail) [address] [place] [address] Indications: NICOTINE DEPENDENCE RxID: [id number] signed by Petey KRAUS on 08/03/2020 at 8:04 AM Name Value Range Interpretation Code Description Data Michelle rce(s) Supporting Document(s) ID Date Data Source [id number] 05/18/2020 12:40:48 PM EDT [facility] Measurements & CalculationsWeight: unable to [...] 2020 12:44 PMPatient History Medical History:ADHDAnxietyDepressionSurgical History: c1Izyrkn History:Cancer- Both SidesSocial/Personal History: Advised to Quit/Tobacco [...] during this visit, including review of any ybov-ffm-nodtryq medications, herbal therapies, and/or supplements.Allergy ReviewAllergy List [...] Problems:Assessed:Attention-deficit hyperactivity disorder, predominantly hyperactive type (ICD-314.01) (HOM37-Z05.1) Assessment: Instructions: Failed multiple doses of Adderall due to ineffectiveness. Will send for Vyvanse as family has responded well. Reviewed how to take, common side effects, when to stop and call for evaluation. Follow-up 1 month after starting medication in person for appointment to check vitals.GENERALIZED ANXIETY DISORDER (ICD-300.02) (CYA59-G90.1) Assessment: Instructions: Continue Lexapro, tolerating well with good effect.DEPRESSIVE DISORDER, MAJOR, RECURRENT EPISODE, SEVERE (ICD- 296.33) (SEN67-W94.2) Assessment: Instructions: Continue Lexapro, tolerating well with [...] LATEX (Moderate)Orders:Telephone E&M 5-10 min Medical Discussion [CPT-42086] Follow-Up Return to clinic: in 30 days for follow upAdditional Follow-Up: ADHDClinical Visit Summary DeclinedMedications:VYVANSE 30 MG ORAL CAPSULE (LISDEXAMFETAMINE DIMESYLATE) Take 1 capsule po daily in the morning; MDD 30mg #30[Capsule] x 0 Route:ORAL Entered and Authorized by: Petey KRAUS Method used: Electronically to [facility] (retail) [address] [place] [address] Note to Pharmacy: Route: ORAL; Indications: ATTENTION-DEFICIT HYPERACTIVITY DISORDER, PREDOMINANTLY HYPERACTIVE TYPE RxID: [id number] ADDERALL XR 10 MG ORAL CAPSULE EXTENDED RELEASE 24 HOUR (AMPHETAMINE-DEXTROAMPHETAMINE) Take 1 tablet po daily in the AM; MDD 10mg #30[Capsule] x 0 Route:ORAL Entered and Authorized by: Petey KRAUS Method used: Electronically to [facility] (retail) [address] [place] [address] RxID: [id number] signed by Petey KRAUS on 05/18/2020 at 1:10 PM Time spent 8-9 minutes on the phone with patient. Name Value Range Interpretation Code Description Data Michelle rce(s) Supporting Document(s) ID Date Data Source [id number] 04/13/2020 10:50:49 AM EDT [facility] Measurements & CalculationsHeight: 61 inches [...] 2020 10:56 AMPatient History Medical History:ADHDAnxietyDepressionSurgical History: q8Csbvkr History:Cancer- Both SidesSocial/Personal History: Advised to Quit/Tobacco Education: YesChief Complaintmed checkHistory of Present Illness (HPI)34 yo female here for ADHD medication. Telemedicine visit with patient's location at their home and provider's location at [facility]. Additional person(s)participating in the visit: none. ULYSSES [...] during this visit, including review of any oahu-ltb-pirgrzj medications, herbal therapies, and/or supplements.Allergy ReviewAllergy List [...] deficit hyperactivity disorder, predominantly hyperactive type (ICD-314.01) (TCO71-E42.1) Assessment: Instructions: Start Adderall. Reviewed how to [...] . Keep out of the reach of [facility] of subcutaneous tissue of right lower limb (XHL94-P15.41) Assessment: Instructions: Unable to assess over telehealth. Recommend in- office appointment. Possibly cyst versus lipoma.Assessed:GENERALIZED ANXIETY DISORDER (ICD-300.02) (UAF48-P56.1) Assessment: Instructions: Continue with your mental health counselor.DEPRESSIVE DISORDER, MAJOR, RECURRENT EPISODE, SEVERE (ICD-296.33) (UAN28-F74.2) Assessment: Instructions: As above.Nicotine dependence (ICD-305.1) (CDI89-W89.200) Assessment: Instructions: Finish Starter Pack of Chantix, [...] to patient.Orders:Office Visit - Established, Level 3 [CPT-66419DU] Follow-Up Return to clinic: in 30 days for follow upAdditional Follow-Up: ADHD follow-upMedications:ADDERALL XR 10 MG ORAL CAPSULE EXTENDED RELEASE 24 HOUR (AMPHETAMINE-DEXTROAMPHETAMINE) Take 1 tablet po daily in the AM; MDD 10mg #30[Capsule] x 0 Route:ORAL Entered and Authorized by: Petey KRAUS Method used: Electronically to [facility] (retail) [address] [place] [address] Note to Pharmacy: Route: ORAL; Indications: ATTENTION-DEFICIT HYPERACTIVITY DISORDER, PREDOMINANTLY HYPERACTIVE TYPE RxID: [id number] CONTINUING MONTH ANJALI 1 MG ORAL TABLET (VARENICLINE TARTRATE) Take 1 tablet daily #1[Package] x 3 Route:ORAL Entered and Authorized by: Petey KRAUS Method used: Electronically to [facility] (retail) [address] [place] [address] Note to Pharmacy: Route: ORAL; Indications: NICOTINE DEPENDENCE RxID: [id number] FLUCONAZOLE 150 MG ORAL TABLET (FLUCONAZOLE) one tab QD X 2 days #2[Tablet] x 0 Route:ORAL Entered by: Renay Tian LPN Authorized by: Kendell Whipple DO Method used: Electronically to [facility] (retail) [address] [place] [address] RxID: [id number] signed by Petey KRAUS on 04/30/2020 at 4:57 PM Name Value Range Interpretation Code Description Data Michelle rce(s) Supporting Document(s) ID Date Data Source [id number] 01/20/2020 10:05:17 AM [facility] Measurements & CalculationsHeight: 61 inches (5 [...] 2020 10:08 AMPatient History Medical History:ADHDAnxietyDepressionSurgical History:csection s6Lxcfdv History:Cancer- Both SidesSocial/Personal History: Chief Complaintfollow-up visit [...] during this visit, including review of any wzyv-gvn-eum nter medications, herbal therapies, and/or supplements.Allergy ReviewAllergy [...] & Plan Assessment not SavedChronic idiopathic urticaria (STU09-X93.8): Medications:EQ LORATADINE 10 MG ORAL TABLETSINGULAIR 10 [...] rce(s) Supporting Document(s) ID Date Data Source [id number] 01/18/2020 10:51:12 AM [facility] Measurements & CalculationsHeight: 61 inches (5 [...] 2020 10:55 AMPatient History Medical History:ADHDAnxietyDepressionSurgical History:csection e3Oxmako History:Cancer- Both SidesSocial/Personal History: Advised to Quit/Tobacco [...] the rash.Telemedicine visit with patient's location at [facility] and provider's location at offsite office. Additional person(s)participating in the visit: Children.HPI performed by: Melecio Qiu MD, January 18, 2020 11:00 AMTransitions of Care InboundProblem ReviewProblem List was reviewed and/or updated during this visit.Medication Reconciliation & ReviewMedication List was reviewed and/or updated during this visit, including review of any eghu-zph-kzrneke medications, herbal therapies, and/or supplements.Allergy ReviewAllergy List [...] is? GoodAssessment & Plan Problems:Assessed:Anxiety disorder, unspecified (QLK35-D81.9) Assessment: Instructions: In partial reission.No relief with [...] 1[Tablet] Refills: 5Allergies:* LATEX (Moderate)Orders:Mental Health Consult [CPT-55502] Adult - Ofc Vst, EST, Level III [CPT-64343] Telemedicine - Site Fee [CPT-Q3014] Telepsychiatry Consult [CPT- 22436] Medications:LEXAPRO 20 MG ORAL TABLET (ESCITALOPRAM OXALATE) One tablet by mouth every day #30[Tablet] x 5 Entered and Authorized by: Melecio Qiu MD Method used: Electronically to [facility] (retail) [address] [place] [address] RxID: [id number] CHANTIX CONTINUING MONTH ANJALI 1 MG ORAL TABLET (VARENICLINE TARTRATE) uad- begin after starter pack completed #1[Tablet] x 5 Route:ORAL Entered by: Nannette Ruiz MA Authorized by: Guera Moser MD Method used: Electronically to [facility] (retail) [address] [place] [address] RxID: [id number]] Name Value Range Interpretation Code Description Data Michelle rce(s) Supporting Document(s) ID Date Data Source [id number] 01/05/2020 10:35:00 AM [facility] Name Value Range Interpretation Code Description Data Michelle rce(s) Supporting Document(s) HCT 44.6 % 36.0-47.0 N [facility] HGB 14.8 g/dL 12.0-15.5 [facility] MCH 33.2 G/DL pg 32.0-36.5 N [facility] MCHC 30.1 PG % 27.0-33.0 [facility] PLATELETS 226 10 10*3/mm3 150-450 N [facility] Family [facility] RBC 4.91 10 10*6/mm3 4.00-5.40 [facility] RDW 12.2 % 11.5-14.5 [facility] WBC TOTAL 7.8 4.0-10.0 [facility] ID Date Data Source [id number] 01/05/2020 10:35:00 AM [facility] Name Value Range Interpretation Code Description Data Michelle rce(s) Supporting Document(s) BG FASTING 75 mg/dL 70-100 N [facility] y Health TSH 2.690 microintl units/mL 0.358-3.740 N [facility] ID Date Data Source [id number] 01/05/2020 10:05:57 AM [facility] Measurements & CalculationsHeight: 61 inches 154.94 cm Weight: 209.4 pounds 95.18 kg Body Mass Index (BMI): 39.71BMI Interpretation: ObeseBody Surface Area (BSA): 1.93Weight Management Education Done (Nutrition/Physical Activity)Vital SignsTemperature: 98.1F oral Pulse Rate: 75 beats/minuteRespiratory Rate: 20 respirations/minuteBlood Pressure: 118/76 right arm sitting automaticO2 Saturation: 97% room airVital Signs performed by: Chris Bejarano MA, January 05, 2020 10:17 AMInitial [facility] 14Smoking, Tobacco, Vaping or Smoke Exposure [...] 2020 10:20 AMPatient History Medical History:ADHDAnxietyDepressionSurgical History:csection g3Bweflh History:Cancer- Both SidesSocial/Personal History: Chief Complainthives all over body History of Present Illness (HPI)I, Tequila Majano MA, am scribing for and in the presence of, Dr Kendell Whipple, DOpt has hives all over body pt [...] and she [facility] - this could be the cause. Transitions of Care InboundProblem ReviewProblem List was reviewed and/or updated during this visit.Medication Reconciliation & ReviewMedication List was reviewed and/or updated during this visit, including review of any tqkk-meh-jtomknl medications, herbal therapies, and/or supplements.Allergy ReviewAllergy List [...] Plan Problems:Added: Chronic idiopathic urticaria (ICD- 708.1) (JNK40-V30.8)Assessment not SavedChronic idiopathic urticaria (ICD10- L50.8): prescribed [...] 0 Method: ElectronicRemoved:* BUPROPION 10 MG-bidAllergies:* LATEX (Moderate)Orders:[id number] Vst-Est Level I [CPT- 12001] 42613 - Venipuncture [CPT-02095] Adult - Ofc Vst, EST, Level IV [CPT- 71759] Medications:PREDNISONE 10 MG ORAL TABLET (PREDNISONE) 40mg po QD, decrease by 10mg q 3d #30[Tablet] x 0 Route:ORAL Entered and Authorized by: Kendell Whipple DO Method used: Electronically to [facility] (retail) [address] [place] [address] Note to Pharmacy: Route: ORAL; RxID: [id number] 10 MG ORAL TABLET (MONTELUKAST SODIUM) one tab po QD #30[Tablet] x 5 Route:ORAL Entered and Authorized by: Kendell Whipple DO Method used: Electronically to [facility] (retail) [address] [place] [address] Note to Pharmacy: Route: ORAL; RxID: [id number]]Labs In-House Blood TestsDate/Time Collected: January 05, 2020 10:35 AMTest Result Reference Range Normal ValueComments: lood draw done in offcie done in the right ac tolerated well Ravi Shipley MA, January 05, 2020 10:35 AM Name Value Range Interpretation Code Description Data Michelle rce(s) Supporting Document(s) ID Date Data Source [id number] 12/28/2019 01:10:13 PM EST [facility] Initial Intake Chief Complaintflu vaccin e Vaccines Administered/Entered:Vaccination Group: InfluenzaSeries: 2Vaccination: Flulaval Quadrivalent Intramuscular Suspension Prefilled Syringe 0.5 MLMfr / Lot# / Exp.Date: Glax[place]rigg / [id number] / 05/22/2020Amt. Given / Route / Site: 0.5 mL / IM / Left DeltoidNDC / CVX: [id number] / 150Administered Date: 12/28/2019 13:11VFC Eligibility: Not VFC EligibleVIS Date: 07/07/2019VIS Given / VIS Given On: Yes / 12/28/2019Comments: Administered by: Isidra Quiros LPN Assessment & Plan Problems:Added: Vaccination (ICD-V05.9) (UMU95-R61)Orders:87314-[id number] Vst-Est Level I [CPT-39452] FluLaval Quadrivalent, preservative free [CPT-95289] 57836 - Immo Admin (under 19 yrs), 1st Toxoid [CPT-87265] Name Value Range Interpretation Code Description Data Michelle rce(s) Supporting Document(s) ID Date Data Source [id number] 12/21/2019 03:53:30 PM [facility] Measurements & CalculationsHeight: 61 inches (5 [...] 2019 3:54 PMPatient History Medical History:ADHDAnxietyDepressionSurgical History:csection e0Bvcbiz History:Cancer- Both SidesSocial/Personal History: Smoking Status: current [...] multiple edications for treatment wihtou much success. 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 Reauesting dermatology referral.Telemedicine visit with patient's location at [facility] and provider's location at offsite office. Additional person(s)participating in the visit: Her four young children.HPI performed by: Melecio Qiu MD, December 21, 2019 4:38 PMTransitions of Care InboundProblem ReviewProblem List was reviewed and/or updated during this visit.Medication Reconciliation & ReviewMedication List was reviewed and/or updated during this visit, including review of any cfot-fhb-qtlgvxp medications, herbal therapies, and/or supplements.Allergy ReviewAllergy List [...] general adult medical examination without abnormal findings (NKL32-S40.00)Eruption (ICD-782.1) (ICD10- R21) Assessment: Instructions: Chronic urticarial [...] 10[Tablet] Refills: 1Allergies:* LATEX (Moderate)Orders:COMP METABOLIC PANEL [CPT-61052] LIPID PANEL [CPT-65666] TSH [C PT-00242] CBC W/DIFF [CPT-28524] Telepsychiatry Consult [CPT-48513] Adult - Ofc Vst, EST, Level III [CPT-08768] Dermatology Consult [CPT-78250] Telemedicine - Site Fee [CPT-Q3014] Medications:Cancelled VENLAFAXINE HCL ER 225 MG ORAL TABLET EXTENDED RELEASE 24 HOUR (VENLAFAXINE HCL) 1 po qod x 1 wk, then 1 po every 3 days x 1 wk, then 1 po every 4 days for 1 wk then stop #10[Tablet] x 1 Route:ORAL Entered by: Melecio iQu MD Authorized by: Guera Moser MD Method used: Electronically to [facility] (retail) [address] [place] [address] RxID: [id number] PREDNISONE 10 MG ORAL TABLET (PREDNISONE) 3 tabs daily x 3 d, then 2 x 3d, then 1 3 d, then 1/2 x 3 d #20[Tablet] x 2 Route:ORAL Entered by: Dalila Canales MA Authorized by: Guera Moser MD Method used: Electronically to [facility] (retail) [address] [place] [address] RxID: [id number] PREDNISONE 5 MG ORAL TABLET (PREDNISONE) 1/2 tab daily x 3 d once 10 mg tabs completed #30[Tablet] x 2 Route:ORAL Entered by: Dalila Canales MA Authorized by: Guera Moser MD Method used: Electronically to [facility] (retail) [address] [place] [address] RxID: [id number] LEXAPRO 10 MG ORAL TABLET (ESCITALOPRAM OXALATE) 1 po qday #30[Tablet] x 5 Route:ORAL Entered by: Dalila Canales MA Authorized by: Guera Moser MD Method used: Electronically to [facility] (retail) [address] [place] [address] RxID: [id number] patient was counseled by the physician on [...] Body height 61 [in_i] 61 [in_i] TEE ([facility]) Body weight 3552 [oz_av] 3552 [oz_av] TEE ([facility]) Body mass index (BMI) [Ratio] 41.9 kg/m2 41.9 k g/m2 TEE ([facility]) Body height 61 [in_i] 61 [in_i] TEE ([facility]) Body weight 3552 [oz_av] 3552 [oz_av] TEE ([facility]) Body mass index (BMI) [Ratio] 41.9 kg/m2 41.9 k g/m2 TEE ([facility]) Body height 61 [in_i] 61 [in_i] TEE ([facility]) Body weight 3552 [oz_av] 3552 [oz_av] TEE ([facility]) Body mass index (BMI) [Ratio] 41.9 kg/m2 41.9 k g/m2 TEE ([facility]) Body height 61 [in_i] 61 [in_i] TEE ([facility]) Body height 61 [in_i] 61 [in_i] TEE ([facility]) Body height 61 [in_i] 61 [in_i] TEE ([facility]) Body height 61 [in_i] 61 [in_i] TEE ([facility]) Body height 61 [in_i] 61 [in_i] TEE ([facility]) Body height 61 [in_i] 61 [in_i] TEE ([facility]) Body weight 3600 [oz_av] 3600 [oz_av] TEE ([facility]) Systolic blood pressure 133 mm[Hg] 133 mm[Hg] A THENA ([facility]) Body mass index (BMI) [Ratio] 42.5 kg/m2 42.5 k g/m2 TEE ([facility]) Body height 61 [in_i] 61 [in_i] TEE ([facility]) Diastolic blood pressure 79 mm[Hg] 79 mm[Hg] TEE ([facility]) Body weight 3600 [oz_av] 3600 [oz_av] TEE ([facility]) Systolic [facility] 133 mm[Hg] 133 mm[facility]Hg[facility] Body mass index (BMI) [Ratio] 42.5 kg/m2 42.5 k g/m2 TEE ([facility]) Body height 61 [in_i] 61 [in_i] TEE ([facility]) Diastolic blood pressure 79 mm[Hg] 79 mm[Hg] TEE ([facility]) Body weight 3600 [oz_av] 3600 [oz_av] TEE ([facility]) Systolic blood pressure 133 mm[Hg] 133 mm[Hg] A THENA ([facility]) Body mass index (BMI) [Ratio] 42.5 kg/m2 42.5 k g/m2 TEE ([facility]) Body height 61 [in_i] 61 [in_i] TEE ([facility]) Diastolic blood pressure 79 mm[Hg] 79 mm[Hg] TEE ([facility]) Body weight 3600 [oz_av] 3600 [oz_av] TEE ([facility]) Systolic blood pressure 133 mm[Hg] 133 mm[Hg] A THEN ([facility]) Body mass index (BMI) [Ratio] 42.5 kg/m2 42.5 k g/m2 TEE ([facility]) Body height 61 [in_i] 61 [in_i] TEE ([facility]) Diastolic blood pressure 79 mm[Hg] 79 mm[Hg] TEE ([facility]) Body weight 3600 [oz_av] 3600 [oz_av] TEE ([facility]) Systolic blood pressure 133 mm[Hg] 133 mm[Hg] A THENA ([facility]) Body mass index (BMI) [Ratio] 42.5 kg/m2 42.5 k g/m2 TEE ([facility]) Body height 61 [in_i] 61 [in_i] TEE ([facility]) Diastolic blood pressure 79 mm[Hg] 79 mm[Hg] TEE ([facility]) Body weight 3600 [oz_av] 3600 [oz_av] TEE ([facility]) Systolic blood pressure 133 mm[Hg] 133 mm[Hg] A THENA ([facility]) Body mass index (BMI) [Ratio] 42.5 kg/m2 42.5 k g/m2 TEE ([facility]) Body height 61 [in_i] 61 [in_i] TEE ([facility]) Diastolic blood pressure 79 mm[Hg] 79 mm[Hg] TEE ([facility]) Body weight 3600 [oz_av] 3600 [oz_av] TEE ([facility]) Systolic blood pressure 133 mm[Hg] 133 mm[Hg] A THENA ([facility]) Body mass index (BMI) [Ratio] 42.5 kg/m2 42.5 k g/m2 TEE ([facility]) Body height 61 [in_i] 61 [in_i] TEE ([facility]) Diastolic blood pressure 79 mm[Hg] 79 mm[Hg] TEE ([facility]) Body height 61 [in_i] 61 [in_i] TEE ([facility]) Body height 61 [in_i] 61 [in_i] TEE ([facility]) Body height 61 [in_i] 61 [in_i] TEE ([facility]) Body height 61 [in_i] 61 [in_i] TEE ([facility]) Body height 61 [in_i] 61 [in_i] TEE ([facility]) Body height 61 [in_i] 61 [in_i] TEE ([facility]) Body height 61 [in_i] 61 [in_i] TEE ([facility]) Body height 61 [in_i] 61 [in_i] TEE ([facility]) Body height 61 [in_i] 61 [in_i] TEE ([facility]) Body height 61 [in_i] 61 [in_i] TEE ([facility]) Body height 61 [in_i] 61 [in_i] TEE ([facility]) Body height 61 [in_i] 61 [in_i] TEE ([facility]) Body height 61 [in_i] 61 [in_i] TEE ([facility]) Body height 61 [in_i] 61 [in_i] TEE ([facility]) Body height 61 [in_i] 61 [in_i] TEE ([facility]) Body height 61 [in_i] 61 [in_i] TEE ([facility]) Body height 61 [in_i] 61 [in_i] TEE ([facility]) Body height 61 [in_i] 61 [in_i] TEE ([facility]) Body weight 3462.4 [oz_av] 3462.4 [oz_av] ATHEN A ([facility]) Systolic blood pressure 167 mm[Hg] 167 mm[Hg] A THENA ([facility]) Body mass index (BMI) [Ratio] 41.04 kg/m2 41.04 kg/m2 TEE ([facility]) Body height 61 [in_i] 61 [in_i] TEE ([facility]) Diastolic blood pressure 93 mm[Hg] 93 mm[Hg] TEE ([facility]) Body weight 3385.6 [oz_av] 3385.6 [oz_av] ATHEN A ([facility]) Systolic blood pressure 104 mm[Hg] 104 mm[Hg] [facility] Body mass index (BMI) [Ratio] 40.13 kg/m2 40.13 kg/m2 TEE ([facility]) Body height 61 [in_i] 61 [in_i] TEE ([facility]) Diastolic blood pressure 65 mm[Hg] 65 mm[Hg] TEE ([facility]) Body weight 3385.6 [oz_av] 3385.6 [oz_av] ATHEN A ([facility]) Systolic blood pressure 104 mm[Hg] 104 mm[Hg] [facility] Body height 61 [in_i] 61 [in_i] TEE ([facility]) Diastolic blood pressure 65 mm[Hg] 65 mm[Hg] TEE ([facility]) Body weight 3385.6 [oz_av] 3385.6 [oz_av] ATHEN A ([facility]) Systolic blood pressure 104 mm[Hg] 104 mm[Hg] [facility] Body height 61 [in_i] 61 [in_i] TEE ([facility]) Diastolic blood pressure 65 mm[Hg] 65 mm[Hg] TEE ([facility]) Body weight 3385.6 [oz_av] 3385.6 [oz_av] ATHEN A ([facility]) Systolic blood pressure 104 mm[Hg] 104 mm[Hg] [facility] Body height 61 [in_i] 61 [in_i] TEE ([facility]) Diastolic blood pressure 65 mm[Hg] 65 mm[Hg] TEE ([facility]) Body weight 3385.6 [oz_av] 3385.6 [oz_av] ATHEN A ([facility]) Systolic blood pressure 104 mm[Hg] 104 mm[Hg] [facility] Body height 61 [in_i] 61 [in_i] TEE ([facility]) Diastolic blood pressure 65 mm[Hg] 65 mm[Hg] TEE ([facility]) Body weight 3385.6 [oz_av] 3385.6 [oz_av] ATHEN A ([facility]) Systolic blood pressure 104 mm[Hg] 104 mm[Hg] [facility] Body height 61 [in_i] 61 [in_i] TEE ([facility]) Diastolic blood pressure 65 mm[Hg] 65 mm[Hg] TEE ([facility]) Body weight 3385.6 [oz_av] 3385.6 [oz_av] ATHEN A ([facility]) Systolic blood pressure 104 mm[Hg] 104 mm[Hg] [facility] Body height 61 [in_i] 61 [in_i] TEE ([facility]) Diastolic blood pressure 65 mm[Hg] 65 mm[Hg] TEE ([facility]) Body weight 3385.6 [oz_av] 3385.6 [oz_av] ATHEN A ([facility]) Systolic blood pressure 104 mm[Hg] 104 mm[Hg] A [facility] ([facility]) Body height 61 [in_i] 61 [in_i] TEE ([facility]) Diastolic blood pressure 65 mm[Hg] 65 mm[Hg] TEE ([facility]) Body weight 3385.6 [oz_av] 3385.6 [oz_av] ATHEN A ([facility]) Systolic blood pressure 104 mm[Hg] 104 mm[Hg] [facility] Body height 61 [in_i] 61 [in_i] TEE ([facility]) Diastolic blood pressure 65 mm[Hg] 65 mm[Hg] TEE ([facility]) Body weight 3385.6 [oz_av] 3385.6 [oz_av] ATHEN A ([facility]) Systolic blood pressure 104 mm[Hg] 104 mm[Hg] [facility] Body height 61 [in_i] 61 [in_i] TEE ([facility]) Diastolic blood pressure 65 mm[Hg] 65 mm[Hg] TEE ([facility]) Body weight 3385.6 [oz_av] 3385.6 [oz_av] ATHEN A ([facility]) Systolic blood pressure 104 mm[Hg] 104 mm[Hg] A THENA ([facility]) Body height 61 [in_i] 61 [in_i] TEE ([facility]) Diastolic blood pressure 65 mm[Hg] 65 mm[Hg] TEE ([facility]) Body weight 3385.6 [oz_av] 3385.6 [oz_av] ATHEN A ([facility]) Systolic blood pressure 104 mm[Hg] 104 mm[Hg] A THENA ([facility]) Body height 61 [in_i] 61 [in_i] TEE ([facility]) Diastolic blood pressure 65 mm[Hg] 65 mm[Hg] TEE ([facility]) Body weight 3385.6 [oz_av] 3385.6 [oz_av] ATHEN A ([facility]) Systolic blood pressure 104 mm[Hg] 104 mm[Hg] A THENA ([facility]) Body height 61 [in_i] 61 [in_i] ETE ([facility]) Diastolic blood pressure 65 mm[Hg] 65 mm[Hg] TEE ([facility]) Body weight 87.545 kg 87.545 kg KENNY ([facility] ) Body mass index (BMI) [Ratio] 35.9 kg/m2 35.9 k g/m2 KENNY ([facility], ) Body weight 193.00 [lb_av] 193.00 [lb_av] YOANA T ([facility], ) Body height 61.5 [in_i] 61.5 [in_i] KENNY ([facility], ) 5'1.50" Body temperature 96.8 [degF] 96.8 [degF] MEDSUMMER ([facility], ) Body height 61 [in_i] 61 [in_i] TEE ([facility]) Body height 61 [in_i] 61 [in_i] TEE ([facility]) Body height 61 [in_i] 61 [in_i] TEE ([facility]) Body height 61 [in_i] 61 [in_i] TEE ([facility]) Body height 61 [in_i] 61 [in_i] TEE ([facility]) Body height 61 [in_i] 61 [in_i] TEE ([facility]) Body height 61 [in_i] 61 [in_i] TEE ([facility]) Body height 61 [in_i] 61 [in_i] TEE ([facility]) Body height 61 [in_i] 61 [in_i] TEE ([facility]) Body height 61 [in_i] 61 [in_i] TEE ([facility]) Body height 61 [in_i] 61 [in_i] TEE ([facility]) Body height 61 [in_i] 61 [in_i] TEE ([facility]) Body height 61 [in_i] 61 [in_i] TEE ([facility]) Body weight 3408 [oz_av] 3408 [oz_av] TEE ([facility]) Systolic blood pressure 103 mm[Hg] 103 mm[Hg] A [facility] ([facility]) Body mass index (BMI) [Ratio] 40.39 kg/m2 40.39 kg/m2 TEE ([facility]) Body height 61 [in_i] 61 [in_i] TEE ([facility]) Diastolic blood pressure 68 mm[Hg] 68 mm[Hg] TEE ([facility]) Body weight 3408 [oz_av] 3408 [oz_av] TEE ([facility]) Systolic blood pressure 103 mm[Hg] 103 mm[Hg] A THENA ([facility]) Body height 61 [in_i] 61 [in_i] TEE ([facility]) Diastolic blood pressure 68 mm[Hg] 68 mm[Hg] TEE ([facility]) Body weight 3408 [oz_av] 3408 [oz_av] TEE ([facility]) Systolic blood pressure 103 mm[Hg] 103 mm[Hg] A THENA ([facility]) Body height 61 [in_i] 61 [in_i] TEE ([facility]) Diastolic blood pressure 68 mm[Hg] 68 mm[Hg] TEE ([facility]) Body weight 3408 [oz_av] 3408 [oz_av] TEE ([facility]) Systolic blood pressure 103 mm[Hg] 103 mm[Hg] [facility] Body height 61 [in_i] 61 [in_i] TEE ([facility]) Diastolic blood pressure 68 mm[Hg] 68 mm[Hg] TEE ([facility]) Body weight 3408 [oz_av] 3408 [oz_av] TEE ([facility]) Systolic blood pressure 103 mm[Hg] 103 mm[Hg] A [facility] ([facility]) Body height 61 [in_i] 61 [in_i] TEE ([facility]) Diastolic blood pressure 68 mm[Hg] 68 mm[Hg] TEE ([facility]) Body weight 3408 [oz_av] 3408 [oz_av] TEE ([facility]) Systolic blood pressure 103 mm[Hg] 103 mm[Hg] [facility] Body height 61 [in_i] 61 [in_i] TEE ([facility]) Diastolic blood pressure 68 mm[Hg] 68 mm[Hg] TEE ([facility]) Body weight 3408 [oz_av] 3408 [oz_av] TEE ([facility]) Systolic blood pressure 103 mm[Hg] 103 mm[Hg] A THENA ([facility]) Body height 61 [in_i] 61 [in_i] TEE ([facility]) Diastolic blood pressure 68 mm[Hg] 68 mm[Hg] TEE ([facility]) Body weight 3408 [oz_av] 3408 [oz_av] TEE ([facility]) Systolic blood pressure 103 mm[Hg] 103 mm[Hg] A [facility] ([facility]) Body height 61 [in_i] 61 [in_i] TEE ([facility]) Diastolic blood pressure 68 mm[Hg] 68 mm[Hg] TEE ([facility]) Body weight 3408 [oz_av] 3408 [oz_av] TEE ([facility]) Systolic blood pressure 103 mm[Hg] 103 mm[Hg] [facility] Body height 61 [in_i] 61 [in_i] TEE ([facility]) Diastolic blood pressure 68 mm[Hg] 68 mm[Hg] TEE ([facility]) Body weight 3408 [oz_av] 3408 [oz_av] TEE ([facility]) Systolic blood pressure 103 mm[Hg] 103 mm[Hg] [facility] Body height 61 [in_i] 61 [in_i] TEE ([facility]) Diastolic blood pressure 68 mm[Hg] 68 mm[Hg] TEE ([facility]) Body weight 3408 [oz_av] 3408 [oz_av] TEE ([facility]) Systolic blood pressure 103 mm[Hg] 103 mm[Hg] [facility] Body height 61 [in_i] 61 [in_i] TEE ([facility]) Diastolic blood pressure 68 mm[Hg] 68 mm[Hg] TEE ([facility]) Body weight 3408 [oz_av] 3408 [oz_av] TEE ([facility]) Systolic blood pressure 103 mm[Hg] 103 mm[Hg] [facility] Body height 61 [in_i] 61 [in_i] TEE ([facility]) Diastolic blood pressure 68 mm[Hg] 68 mm[Hg] TEE ([facility]) Body weight 3408 [oz_av] 3408 [oz_av] TEE ([facility]) Systolic blood pressure 103 mm[Hg] 103 mm[Hg] [facility] Body height 61 [in_i] 61 [in_i] TEE ([facility]) Diastolic blood pressure 68 mm[Hg] 68 mm[Hg] TEE ([facility]) Body weight 3408 [oz_av] 3408 [oz_av] TEE ([facility]) Systolic blood pressure 150 mm[Hg] 150 mm[Hg] A [facility] ([facility]) Body mass index (BMI) [Ratio] 40.39 kg/m2 40.39 kg/m2 TEE ([facility]) Body height 61 [in_i] 61 [in_i] TEE ([facility]) Diastolic blood pressure 69 mm[Hg] 69 mm[Hg] TEE ([facility]) Body weight 3408 [oz_av] 3408 [oz_av] TEE ([facility]) Systolic blood pressure 150 mm[Hg] 150 mm[Hg] A [facility] ([facility]) Body height 61 [in_i] 61 [in_i] TEE ([facility]) Diastolic blood pressure 69 mm[Hg] 69 mm[Hg] TEE ([facility]) Body weight 3408 [oz_av] 3408 [oz_av] TEE ([facility]) Systolic blood pressure 150 mm[Hg] 150 mm[Hg] A [facility] ([facility]) Body height 61 [in_i] 61 [in_i] TEE ([facility]) Diastolic blood pressure 69 mm[Hg] 69 mm[Hg] TEE ([facility]) Body weight 3408 [oz_av] 3408 [oz_av] TEE ([facility]) Systolic blood pressure 150 mm[Hg] 150 mm[Hg] A [facility] ([facility]) Body height 61 [in_i] 61 [in_i] TEE ([facility]) Diastolic blood pressure 69 mm[Hg] 69 mm[Hg] TEE ([facility]) Body weight 3408 [oz_av] 3408 [oz_av] TEE ([facility]) Systolic blood pressure 150 mm[Hg] 150 mm[Hg] [facility] Body height 61 [in_i] 61 [in_i] TEE ([facility]) Diastolic blood pressure 69 mm[Hg] 69 mm[Hg] TEE ([facility]) Body weight 3408 [oz_av] 3408 [oz_av] TEE ([facility]) Systolic blood pressure 150 mm[Hg] 150 mm[Hg] [facility] Body height 61 [in_i] 61 [in_i] TEE ([facility]) Diastolic blood pressure 69 mm[Hg] 69 mm[Hg] TEE ([facility]) Body weight 3408 [oz_av] 3408 [oz_av] TEE ([facility]) Systolic blood pressure 150 mm[Hg] 150 mm[Hg] [facility] Body height 61 [in_i] 61 [in_i] TEE ([facility]) Diastolic blood pressure 69 mm[Hg] 69 mm[Hg] TEE ([facility]) Body weight 3408 [oz_av] 3408 [oz_av] TEE ([facility]) Systolic blood pressure 150 mm[Hg] 150 mm[Hg] A [facility] ([facility]) Body height 61 [in_i] 61 [in_i] TEE ([facility]) Diastolic blood pressure 69 mm[Hg] 69 mm[Hg] TEE ([facility]) Body weight 3408 [oz_av] 3408 [oz_av] TEE ([facility]) Systolic blood pressure 150 mm[Hg] 150 mm[Hg] A [facility] ([facility]) Body height 61 [in_i] 61 [in_i] TEE ([facility]) Diastolic blood pressure 69 mm[Hg] 69 mm[Hg] TEE ([facility]) Body weight 3408 [oz_av] 3408 [oz_av] TEE ([facility]) Systolic blood pressure 150 mm[Hg] 150 mm[Hg] [facility] Body height 61 [in_i] 61 [in_i] TEE ([facility]) Diastolic blood pressure 69 mm[Hg] 69 mm[Hg] TEE ([facility]) Body weight 3408 [oz_av] 3408 [oz_av] TEE ([facility]) Systolic blood pressure 150 mm[Hg] 150 mm[Hg] [facility] Body height 61 [in_i] 61 [in_i] TEE ([facility]) Diastolic blood pressure 69 mm[Hg] 69 mm[Hg] TEE ([facility]) Body weight 3408 [oz_av] 3408 [oz_av] TEE ([facility]) Systolic blood pressure 150 mm[Hg] 150 mm[Hg] A THENA ([facility]) Body height 61 [in_i] 61 [in_i] TEE ([facility]) Diastolic blood pressure 69 mm[Hg] 69 mm[Hg] TEE ([facility]) Body weight 3408 [oz_av] 3408 [oz_av] TEE ([facility]) Systolic blood pressure 150 mm[Hg] 150 mm[Hg] A [facility] ([facility]) Body height 61 [in_i] 61 [in_i] TEE ([facility]) Diastolic blood pressure 69 mm[Hg] 69 mm[Hg] TEE ([facility]) Body weight 3350.4 [oz_av] 3350.4 [oz_av] ATHEN A ([facility]) Systolic blood pressure 118 mm[Hg] 118 mm[Hg] A [facility] ([facility]) Body mass index (BMI) [Ratio] 39.71 kg/m2 39.71 kg/m2 TEE ([facility]) Body height 61 [in_i] 61 [in_i] TEE ([facility]) Diastolic blood pressure 76 mm[Hg] 76 mm[Hg] TEE ([facility]) Body weight 3350.4 [oz_av] 3350.4 [oz_av] ATHEN A ([facility]) Systolic blood pressure 118 mm[Hg] 118 mm[Hg] A THENA ([facility]) Body height 61 [in_i] 61 [in_i] TEE ([facility]) Diastolic blood pressure 76 mm[Hg] 76 mm[Hg] TEE ([facility]) Body weight 3350.4 [oz_av] 3350.4 [oz_av] ATHEN A ([facility]) Systolic blood pressure 118 mm[Hg] 118 mm[Hg] [facility] Body height 61 [in_i] 61 [in_i] TEE ([facility]) Diastolic blood pressure 76 mm[Hg] 76 mm[Hg] TEE ([facility]) Body weight 3350.4 [oz_av] 3350.4 [oz_av] ATHEN A ([facility]) Systolic blood pressure 118 mm[Hg] 118 mm[Hg] [facility] Body height 61 [in_i] 61 [in_i] TEE ([facility]) Diastolic blood pressure 76 mm[Hg] 76 mm[Hg] TEE ([facility]) Body weight 3350.4 [oz_av] 3350.4 [oz_av] ATHEN A ([facility]) Systolic blood pressure 118 mm[Hg] 118 mm[Hg] A [facility] ([facility]) Body height 61 [in_i] 61 [in_i] TEE ([facility]) Diastolic blood pressure 76 mm[Hg] 76 mm[Hg] TEE ([facility]) Body weight 3350.4 [oz_av] 3350.4 [oz_av] ATHEN A ([facility]) Systolic blood pressure 118 mm[Hg] 118 mm[Hg] [facility] Body height 61 [in_i] 61 [in_i] TEE ([facility]) Diastolic blood pressure 76 mm[Hg] 76 mm[Hg] TEE ([facility]) Body weight 3350.4 [oz_av] 3350.4 [oz_av] ATHEN A ([facility]) Systolic blood pressure 118 mm[Hg] 118 mm[Hg] [facility] Body height 61 [in_i] 61 [in_i] ETE ([facility]) Diastolic blood pressure 76 mm[Hg] 76 mm[Hg] TEE ([facility]) Diastolic blood pressure 76 mm[Hg] 76 mm[Hg] TEE ([facility]) Body weight 3350.4 [oz_av] 3350.4 [oz_av] ATHEN A ([facility]) Systolic blood pressure 118 mm[Hg] 118 mm[Hg] [facility] Body height 61 [in_i] 61 [in_i] TEE ([facility]) Diastolic blood pressure 76 mm[Hg] 76 mm[Hg] TEE ([facility]) Body weight 3350.4 [oz_av] 3350.4 [oz_av] ATHEN A ([facility]) Systolic blood pressure 118 mm[Hg] 118 mm[Hg] [facility] Body height 61 [in_i] 61 [in_i] TEE ([facility]) Diastolic blood pressure 76 mm[Hg] 76 mm[Hg] TEE ([facility]) Body weight 3350.4 [oz_av] 3350.4 [oz_av] ATHEN A ([facility]) Systolic blood pressure 118 mm[Hg] 118 mm[Hg] A [facility] ([facility]) Body height 61 [in_i] 61 [in_i] TEE ([facility]) Diastolic blood pressure 76 mm[Hg] 76 mm[Hg] TEE ([facility]) Body weight 3350.4 [oz_av] 3350.4 [oz_av] ATHEN A ([facility]) Systolic blood pressure 118 mm[Hg] 118 mm[Hg] [facility] Body height 61 [in_i] 61 [in_i] TEE ([facility]) Diastolic blood pressure 76 mm[Hg] 76 mm[Hg] TEE ([facility]) Body weight 3350.4 [oz_av] 3350.4 [oz_av] ATHEN A ([facility]) Systolic blood pressure 118 mm[Hg] 118 mm[Hg] [facility] Body height 61 [in_i] 61 [in_i] TEE ([facility]) Diastolic blood pressure 76 mm[Hg] 76 mm[Hg] TEE ([facility]) Body weight 3350.4 [oz_av] 3350.4 [oz_av] ATHEN A ([facility]) Systolic blood pressure 118 mm[Hg] 118 mm[Hg] [facility] Body height 61 [in_i] 61 [in_i] TEE ([facility]) Body weight 3344 [oz_av] 3344 [oz_av] TEE ([facility]) Systolic blood pressure 121 mm[Hg] 121 mm[Hg] A [facility] ([facility]) Body mass index (BMI) [Ratio] 39.63 kg/m2 39.63 kg/m2 TEE ([facility]) Body height 61 [in_i] 61 [in_i] TEE ([facility]) Diastolic blood pressure 76 mm[Hg] 76 mm[Hg] TEE ([facility]) Body weight 3344 [oz_av] 3344 [oz_av] TEE ([facility]) Systolic blood pressure 121 mm[Hg] 121 mm[Hg] A [facility] ([facility]) Body height 61 [in_i] 61 [in_i] TEE ([facility]) Diastolic blood pressure 76 mm[Hg] 76 mm[Hg] TEE ([facility]) Body weight 3344 [oz_av] 3344 [oz_av] TEE ([facility]) Systolic blood pressure 121 mm[Hg] 121 mm[Hg] A [facility] ([facility]) Body height 61 [in_i] 61 [in_i] TEE ([facility]) Diastolic blood pressure 76 mm[Hg] 76 mm[Hg] TEE ([facility]) Body weight 3344 [oz_av] 3344 [oz_av] TEE ([facility]) Systolic blood pressure 121 mm[Hg] 121 mm[Hg] A [facility] ([facility]) Body height 61 [in_i] 61 [in_i] TEE ([facility]) Diastolic blood pressure 76 mm[Hg] 76 mm[Hg] TEE ([facility]) Body weight 3344 [oz_av] 3344 [oz_av] TEE ([facility]) Systolic blood pressure 121 mm[Hg] 121 mm[Hg] A [facility] ([facility]) Body height 61 [in_i] 61 [in_i] TEE ([facility]) Diastolic blood pressure 76 mm[Hg] 76 mm[Hg] TEE ([facility]) Body weight 3344 [oz_av] 3344 [oz_av] TEE ([facility]) Systolic blood pressure 121 mm[Hg] 121 mm[Hg] [facility] Body height 61 [in_i] 61 [in_i] TEE ([facility]) Diastolic blood pressure 76 mm[Hg] 76 mm[Hg] TEE ([facility]) Body weight 3344 [oz_av] 3344 [oz_av] TEE ([facility]) Systolic blood pressure 121 mm[Hg] 121 mm[facility]Hg[facility] Body height 61 [in_i] 61 [in_i] TEE ([facility]) Diastolic blood pressure 76 mm[Hg] 76 mm[Hg] TEE ([facility]) Body weight 3344 [oz_av] 3344 [oz_av] TEE ([facility]) Systolic blood pressure 121 mm[Hg] 121 mm[Hg] [facility] Body height 61 [in_i] 61 [in_i] TEE ([facility]) Diastolic blood pressure 76 mm[Hg] 76 mm[Hg] TEE ([facility]) Body weight 3344 [oz_av] 3344 [oz_av] TEE ([facility]) Systolic blood pressure 121 mm[Hg] 121 mm[Hg] A THENA ([facility]) Body height 61 [in_i] 61 [in_i] TEE ([facility]) Diastolic blood pressure 76 mm[Hg] 76 mm[Hg] TEE ([facility]) Body weight 3344 [oz_av] 3344 [oz_av] TEE ([facility]) Systolic blood pressure 121 mm[Hg] 121 mm[Hg] [facility] Body height 61 [in_i] 61 [in_i] TEE ([facility]) Diastolic blood pressure 76 mm[Hg] 76 mm[Hg] TEE ([facility]) Body weight 3344 [oz_av] 3344 [oz_av] TEE ([facility]) Systolic blood pressure 121 mm[Hg] 121 mm[Hg] A [facility] ([facility]) Body height 61 [in_i] 61 [in_i] TEE ([facility]) Diastolic blood pressure 76 mm[Hg] 76 mm[Hg] TEE ([facility]) Body weight 3344 [oz_av] 3344 [oz_av] TEE ([facility]) Systolic blood pressure 121 mm[Hg] 121 mm[Hg] A [facility] ([facility]) Body height 61 [in_i] 61 [in_i] TEE ([facility]) Diastolic blood pressure 76 mm[Hg] 76 mm[Hg] TEE ([facility]) Body weight 3344 [oz_av] 3344 [oz_av] TEE ([facility]) Systolic blood pressure 121 mm[Hg] 121 mm[Hg] A [facility] ([facility]) Body height 61 [in_i] 61 [in_i] TEE ([facility]) Diastolic blood pressure 76 mm[Hg] 76 mm[Hg] TEE ([facility]) Patient Treatment Plan of Care Planned Activity Planned Date Details Description Data Source (s) lisdexamfetamine dimesylate 30 MG Oral Capsule [Vyvanse] TEE ([facility]) 24 HR venlafaxine 75 MG Extended Release Oral Capsule TEE ([facility]) Sumatriptan 25 MG Oral Tablet TEE ([facility]) quetiapine 50 MG Oral Tablet TEE ([facility]) Prednisone 5 MG Oral Tablet TEE ([facility]) Prednisone 20 MG Oral Tablet TEE ([facility]) Prednisone 10 MG Oral Tablet TEE ([facility]) Oseltamivir 75 MG Oral Capsule TEE ([facility]) Niacin 500 MG Oral Tablet AT [facility] ([facility]) Loratadine 10 MG Oral Tablet TEE ([facility]) Ketoprofen 25 MG Oral Capsule TEE ([facility]) Hydroxyzine Hydrochloride 25 MG Oral Tablet TEE ([facility]) Fluoxetine 20 MG Oral Capsule TEE ([facility]) Escitalopram 20 MG Oral Tablet TEE ([facility]) Escitalopram 10 MG Oral Tablet TEE ([facility]) duloxetine 30 MG Delayed Release Oral Capsule TEE ([facility]) duloxetine 20 MG Delayed Release Oral Capsule TEE ([facility]) 24 HR Amphetamine aspartate 2.5 MG / Amp hetamine Sulfate 2.5 MG / Dextroamphetamine saccharate 2.5 MG / Dextroamphetamine Sulfate 2.5 MG Extended Release Oral Capsule TEE ([facility]) Chantix Starting Month Box 0.5 mg (11)-1 mg (42) tablets in dose pa ck TEE ([facility]) varenicline 1 MG Oral Tablet TEE ([facility]) Betamethasone 0.0005 MG/MG Topical Ointment TEE ([facility]) benzonatate 200 MG Oral Capsule TEE ([facility]) Diphenhydramine Hydrochloride 50 MG Oral Capsule [Banophen] TEE ([facility]) Azithromycin 250 MG Oral Tablet TEE ([facility]) Amoxicillin 875 MG / Clavulanate 125 MG Oral Tablet TEE ([facility]) lisdexamfetamine dimesylate 30 MG Oral Capsule [Vyvanse] TEE ([facility]) 24 HR venlafaxine 75 MG Extended Release Oral Capsule TEE ([facility]) Sumatriptan 25 MG Oral Tablet TEE ([facility]) quetiapine 50 MG Oral Tablet TEE ([facility]) Prednisone 5 MG Oral Tablet TEE ([facility]) Prednisone 10 MG Oral Tablet TEE ([facility]) Oseltamivir 75 MG Oral Capsule TEE ([facility]) Niacin 500 MG Oral Tablet AT [facility] ([facility]) Loratadine 10 MG Oral Tablet TEE ([facility]) Ketoprofen 25 MG Oral Capsule TEE ([facility]) Hydroxyzine Hydrochloride 25 MG Oral Tablet TEE ([facility]) fluticasone propionate 50 mcg/actuation nasal spray,suspension TEE ([facility]) Fluoxetine 20 MG Oral Capsule TEE ([facility]) Escitalopram 20 MG Oral Tablet TEE ([facility]) Escitalopram 10 MG Oral Tablet TEE ([facility]) duloxetine 30 MG Delayed Release Oral Capsule TEE ([facility]) duloxetine 20 MG Delayed Release Oral Capsule TEE ([facility]) 24 HR Amphetamine aspartate 2.5 MG / Amp hetamine Sulfate 2.5 MG / Dextroamphetamine saccharate 2.5 MG / Dextroamphetamine Sulfate 2.5 MG Extended Release Oral Capsule TEE ([facility]) Chantix Starting Month Box 0.5 mg (11)-1 mg (42) tablets in dose pa ck TEE ([facility]) varenicline 1 MG Oral Tablet TEE ([facility]) Betamethasone 0.0005 MG/MG Topical Ointment TEE ([facility]) benzonatate 200 MG Oral Capsule TEE ([facility]) Diphenhydramine Hydrochloride 50 MG Oral Capsule [Banophen] TEE ([facility]) Azithromycin 250 MG Oral Tablet TEE ([facility]) lisdexamfetamine dimesylate [facility] venlafaxine 75 MG Extended Release Oral Capsule TEE ([facility]) Sumatriptan 25 MG Oral Tablet TEE ([facility]) quetiapine 50 MG Oral Tablet TEE ([facility]) Prednisone 5 MG Oral Tablet TEE ([facility]) Prednisone 10 MG Oral Tablet TEE ([facility]) Oseltamivir 75 MG Oral Capsule TEE ([facility]) Niacin 500 MG Oral Tablet AT [facility] ([facility]) Loratadine 10 MG Oral Tablet TEE ([facility]) Ketoprofen 25 MG Oral Capsule TEE ([facility]) Hydroxyzine Hydrochloride 25 MG Oral Tablet TEE ([facility]) fluticasone propionate 50 mcg/actuation nasal spray,suspension TEE ([facility]) Fluoxetine 20 MG Oral Capsule TEE ([facility]) Escitalopram 20 MG Oral Tablet TEE ([facility]) Escitalopram 10 MG Oral Tablet TEE ([facility]) duloxetine 30 MG Delayed Release Oral Capsule TEE ([facility]) duloxetine 20 MG Delayed Release Oral Capsule TEE ([facility]) 24 HR Amphetamine aspartate 2.5 MG / Amp hetamine Sulfate 2.5 MG / Dextroamphetamine saccharate 2.5 MG / Dextroamphetamine Sulfate 2.5 MG Extended Release Oral Capsule TEE ([facility]) Chantix Starting Month Box 0.5 mg (11)-1 mg (42) tablets in dose pa ck TEE ([facility]) varenicline 1 MG Oral Tablet TEE ([facility]) Betamethasone 0.0005 MG/MG Topical Ointment TEE ([facility]) benzonatate 200 MG Oral Capsule TEE ([facility]) Diphenhydramine Hydrochloride 50 MG Oral Capsule [Banophen] TEE ([facility]) Azithromycin 250 MG Oral Tablet TEE ([facility]) lisdexamfetamine dimesylate 30 MG Oral Capsule [Vyvanse] TEE ([facility]) 24 HR venlafaxine 75 MG Extended Release Oral Capsule TEE ([facility]) Prednisone 5 MG Oral Tablet TEE ([facility]) Prednisone 10 MG Oral Tablet TEE ([facility]) Oseltamivir 75 MG Oral Capsule TEE ([facility]) Niacin 500 MG Oral Tablet AT [facility] ([facility]) Loratadine 10 MG Oral Tablet TEE ([facility]) Ketoprofen 25 MG Oral Capsule TEE ([facility]) Hydroxyzine Hydrochloride 25 MG Oral Tablet TEE ([facility]) fluticasone propionate 50 mcg/actuation nasal spray,suspension TEE ([facility]) Fluoxetine 20 MG Oral Capsule TEE ([facility]) Escitalopram 20 MG Oral Tablet TEE ([facility]) Escitalopram 10 MG Oral Tablet TEE ([facility]) duloxetine 30 MG Delayed Release Oral Capsule TEE ([facility]) duloxetine 20 MG Delayed Release Oral Capsule TEE ([facility]) 24 HR Amphetamine aspartate 2.5 MG / Amp hetamine Sulfate 2.5 MG / Dextroamphetamine saccharate 2.5 MG / Dextroamphetamine Sulfate 2.5 MG Extended Release Oral Capsule TEE ([facility]) Chantix Starting Month Box 0.5 mg (11)-1 mg (42) tablets in dose pa ck TEE ([facility]) varenicline 1 MG Oral Tablet TEE ([facility]) Betamethasone 0.0005 MG/MG Topical Ointment TEE ([facility]) benzonatate 200 MG Oral Capsule TEE ([facility]) Diphenhydramine Hydrochloride 50 MG Oral Capsule [Banophen] TEE ([facility]) Azithromycin 250 MG Oral Tablet TEE ([facility]) lisdexamfetamine dimesylate [facility] venlafaxine 75 MG Extended Release Oral Capsule TEE ([facility]) Prednisone 5 MG Oral Tablet TEE ([facility]) Prednisone 10 MG Oral Tablet TEE ([facility]) Oseltamivir 75 MG Oral Capsule TEE ([facility]) Niacin 500 MG Oral Tablet AT [facility] ([facility]) Loratadine 10 MG Oral Tablet TEE ([facility]) Ketoprofen 25 MG Oral Capsule RECTOR ([facility]) Hydroxyzine Hydrochloride 25 MG Oral Tablet RECTOR ([facility]) fluticasone propionate 50 mcg/actuation nasal spray,suspension TEE ([facility]) Fluoxetine 20 MG Oral Capsule TEE ([facility]) Escitalopram 20 MG Oral Tablet TEE ([facility]) Escitalopram 10 MG Oral Tablet TEE ([facility]) duloxetine 30 MG Delayed Release Oral Capsule TEE ([facility]) duloxetine 20 MG Delayed Release Oral Capsule TEE ([facility]) 24 HR Amphetamine aspartate 2.5 MG / Amp hetamine Sulfate 2.5 MG / Dextroamphetamine saccharate 2.5 MG / Dextroamphetamine Sulfate 2.5 MG Extended Release Oral Capsule TEE ([facility]) Chantix Starting Month Box 0.5 mg (11)-1 mg (42) tablets in dose pa ck TEE ([facility]) varenicline 1 MG Oral Tablet TEE ([facility]) Betamethasone 0.0005 MG/MG Topical Ointment TEE ([facility]) benzonatate 200 MG Oral Capsule TEE ([facility]) Diphenhydramine Hydrochloride 50 MG Oral Capsule [Banophen] TEE ([facility]) Azithromycin 250 MG Oral Tablet TEE ([facility]) lisdexamfetamine dimesylate 30 [facility] venlafaxine 75 MG Extended Release Oral Capsule TEE ([facility]) Prednisone 5 MG Oral Tablet TEE ([facility]) Prednisone 10 MG Oral Tablet TEE ([facility]) Oseltamivir 75 MG Oral Capsule TEE ([facility]) Niacin 500 MG Oral Tablet AT [facility] ([facility]) Loratadine 10 MG Oral Tablet TEE ([facility]) Ketoprofen 25 MG Oral Capsule RECTOR ([facility]) Hydroxyzine Hydrochloride 25 MG Oral Tablet TEE ([facility]) fluticasone propionate 50 mcg/actuation nasal spray,suspension TEE ([facility]) Fluoxetine 20 MG Oral Capsule TEE ([facility]) Fluconazole 150 MG Oral Tablet TEE ([facility]) Escitalopram 20 MG Oral Tablet TEE ([facility]) Escitalopram 10 MG Oral Tablet TEE ([facility]) duloxetine 30 MG Delayed Release Oral Capsule TEE ([facility]) duloxetine 20 MG Delayed Release Oral Capsule TEE ([facility]) 24 HR Amphetamine aspartate 2.5 MG / Amp hetamine Sulfate 2.5 MG / Dextroamphetamine saccharate 2.5 MG / Dextroamphetamine Sulfate 2.5 MG Extended Release Oral Capsule TEE ([facility]) Chantix Starting Month Box 0.5 mg (11)-1 mg (42) tablets in dose pa ck TEE ([facility]) varenicline 1 MG Oral Tablet TEE ([facility]) Betamethasone 0.0005 MG/MG Topical Ointment TEE ([facility]) benzonatate 200 MG Oral Capsule TEE ([facility]) Diphenhydramine Hydrochloride 50 MG Oral Capsule [Banophen] TEE ([facility]) Azithromycin 250 MG Oral Tablet TEE ([facility]) lisdexamfetamine dimesylate 30 MG Oral Capsule [Vyvanse] TEE ([facility]) 24 HR venlafaxine 75 MG Extended Release Oral Capsule TEE ([facility]) Prednisone 5 MG Oral Tablet TEE ([facility]) Prednisone 10 MG Oral Tablet TEE ([facility]) Oseltamivir 75 MG Oral Capsule TEE ([facility]) Niacin 500 MG Oral Tablet AT [facility]) Loratadine 10 MG Oral Tablet TEE ([facility]) Ketoprofen 25 MG Oral Capsule RECTOR ([facility]) Hydroxyzine Hydrochloride 25 MG Oral Tablet RECTOR ([facility]) fluticasone propionate 50 mcg/actuation nasal spray,suspension TEE ([facility]) Fluoxetine 20 MG Oral Capsule RECTOR ([facility]) Fluconazole 150 MG Oral Tablet TEE ([facility]) Escitalopram 20 MG Oral Tablet TEE ([facility]) Escitalopram 10 MG Oral Tablet TEE ([facility]) duloxetine 30 MG Delayed Release Oral Capsule TEE ([facility]) duloxetine 20 MG Delayed Release Oral Capsule TEE ([facility]) 24 HR Amphetamine aspartate 2.5 MG / Amp hetamine Sulfate 2.5 MG / Dextroamphetamine saccharate 2.5 MG / Dextroamphetamine Sulfate 2.5 MG Extended Release Oral Capsule TEE ([facility]) Chantix Starting Month Box 0.5 mg (11)-1 mg (42) tablets in dose pa ck TEE ([facility]) varenicline 1 MG Oral Tablet TEE ([facility]) Betamethasone 0.0005 MG/MG Topical Ointment TEE ([facility]) benzonatate 200 MG Oral Capsule TEE ([facility]) Diphenhydramine Hydrochloride 50 MG Oral Capsule [Banophen] TEE ([facility]) Azithromycin 250 MG Oral Tablet TEE ([facility]) Prednisone 20 MG Oral Tablet TEE ([facility]) Prednisone 10 MG Oral Tablet TEE ([facility]) Oseltamivir 75 MG Oral Capsule TEE ([facility]) Niacin 500 MG Oral Tablet AT [facility] ([facility]) Loratadine 10 MG Oral Tablet TEE ([facility]) Ketoprofen 25 MG Oral Capsule TEE ([facility]) Hydroxyzine Hydrochloride 25 MG Oral Tablet TEE ([facility]) fluticasone propionate 50 mcg/actuation nasal spray,suspension TEE ([facility]) Fluoxetine 20 MG Oral Capsule TEE ([facility]) Fluconazole 150 MG Oral Tablet TEE ([facility]) Escitalopram 20 MG Oral Tablet TEE ([facility]) Escitalopram 10 MG Oral Tablet TEE ([facility]) duloxetine 20 MG [facility] Amphetamine aspartate 2.5 MG / Amp hetamine Sulfate 2.5 MG / Dextroamphetamine saccharate 2.5 MG / Dextroamphetamine Sulfate 2.5 MG Extended Release Oral Capsule TEE ([facility]) Chantix Starting Month Box 0.5 mg (11)-1 mg (42) tablets in dose pa ck TEE ([facility]) varenicline 1 MG Oral Tablet TEE ([facility]) Betamethasone 0.0005 MG/MG Topical Ointment RECTOR ([facility]) benzonatate 200 MG Oral Capsule TEE ([facility]) Diphenhydramine Hydrochloride 50 [facility] C[facility] Amoxicillin 875 MG / Clavulanate 125 MG Oral Tablet TEE ([facility]) lisdexamfetamine dimesylate 30 MG [facility] venlafaxine 75 MG Extended [facility] Prednisone 20 MG Oral Tablet TEE ([facility]) Prednisone 10 MG Oral Tablet TEE ([facility]) [facility]amivir [facility] Niacin [facility] Table[facility] AT [facility]) Loratadine 10 MG Oral Tablet TEE ([facility]) Ketoprofen 25 MG Oral Capsule TEE ([facility]) Hydroxyzine Hydrochloride 25 MG Oral Tablet TEE ([facility]) fluticasone propionate 50 mcg/actuation nasal spray,suspension TEE ([facility]) Fluoxetine 20 MG Oral Capsule TEE ([facility]) Fluconazole 150 MG Oral Tablet ETE ([facility]) Escitalopram 20 MG Oral Tablet TEE ([facility]) Escitalopram 10 MG Oral Tablet TEE ([facility]) 24 HR Amphetamine aspartate 2.5 MG / Amp hetamine Sulfate 2.5 MG / Dextroamphetamine saccharate 2.5 MG / Dextroamphetamine Sulfate 2.5 MG Extended Release Oral Capsule TEE ([facility]) Chantix Starting Month Box 0.5 mg (11)-1 mg (42) tablets in dose pa ck TEE ([facility]) varenicline 1 MG Oral Tablet TEE ([facility]) Betamethasone 0.0005 MG/MG Topical Ointment TEE ([facility]) benzonatate 200 MG Oral Capsule TEE ([facility]) Diphenhydramine Hydrochloride 50 [facility] Azith[facility] 250 MG Oral Tablet TEE ([facility]) Amoxicillin 875 MG / Clavulanate 125 MG Oral Tablet TEE ([facility]) lisdexamfetamine dimesylate 30 [facility] venlafaxine 75 MG Extended Release Oral Capsule TEE ([facility]) Prednisone 5 MG Oral Tablet TEE ([facility]) Prednisone 20 MG Oral Tablet TEE ([facility]) Prednisone 10 MG Oral Tablet TEE ([facility]) [facility]amivir [facility] Niacin 500 MG Oral Tablet AT [facility] ([facility]) Loratadine 10 MG Oral Tablet TEE ([facility]) Ketoprofen 25 MG Oral Capsule TEE ([facility]) Hydroxyzine Hydrochloride 25 MG Oral Tablet TEE ([facility]) fluticasone propionate 50 mcg/actuation nasal spray,suspension TEE ([facility]) Fluoxetine 20 MG Oral Capsule TEE ([facility]) Fluconazole 150 MG Oral Tablet TEE ([facility]) Escitalopram 20 MG Oral Tablet TEE ([facility]) Escitalopram 10 MG Oral Tablet TEE ([facility]) 24 HR Amphetamine aspartate 2.5 MG / Amp hetamine Sulfate 2.5 MG / Dextroamphetamine saccharate 2.5 MG / Dextroamphetamine Sulfate 2.5 MG Extended Release Oral Capsule TEE ([facility]) Chantix Starting Month Box 0.5 mg (11)-1 mg (42) tablets in dose pa ck TEE ([facility]) varenicline 1 MG Oral Tablet TEE ([facility]) Betamethasone 0.0005 MG/MG Topical Ointment TEE ([facility]) benzonatate 200 MG Oral Capsule TEE ([facility]) Diphenhydramine Hydrochloride 50 [facility] Azith[facility] 250 MG Oral Tablet TEE ([facility]) Amoxicillin 875 MG / Clavulanate 125 MG Oral Tablet TEE ([facility]) lisdexamfetamine dimesylate 30 [facility] venlafaxine 75 MG Extended Release Oral Capsule TEE ([facility]) Prednisone 5 MG Oral Tablet TEE ([facility]) Prednisone 10 MG Oral Tablet TEE ([facility]) Oseltamivir 75 MG Oral Capsule TEE ([facility]) Niacin 500 MG Oral Tablet AT [facility] ([facility]) Loratadine 10 MG Oral Tablet TEE ([facility]) Ketoprofen 25 MG Oral Capsule TEE ([facility]) Hydroxyzine Hydrochloride 25 MG Oral Tablet TEE ([facility]) Fluoxetine 20 MG Oral Capsule TEE ([facility]) Fluconazole 150 MG Oral Tablet TEE ([facility]) Escitalopram 20 MG Oral Tablet TEE ([facility]) Escitalopram 10 MG Oral Tablet TEE ([facility]) 24 HR Amphetamine aspartate 2.5 MG / Amp hetamine Sulfate 2.5 MG / Dextroamphetamine saccharate 2.5 MG / Dextroamphetamine Sulfate 2.5 MG Extended Release Oral Capsule TEE ([facility]) Chantix Starting Month Box 0.5 mg (11)-1 mg (42) tablets in dose pa ck TEE ([facility]) varenicline 1 MG Oral Tablet TEE ([facility]) benzonatate 200 MG Oral Capsule TEE ([facility]) Diphenhydramine Hydrochloride 50 MG Oral Capsule [Banophen] TEE ([facility]) Azithromycin 250 MG Oral Tablet TEE ([facility]) Amoxicillin 875 MG / Clavulanate 125 MG Oral Tablet TEE ([facility]) lisdexamfetamine dimesylate 30 [facility] venlafaxine 75 MG Extended Release Oral Capsule TEE ([facility]) Prednisone 5 MG Oral Tablet TEE ([facility]) Prednisone 10 MG Oral Tablet TEE ([facility]) Oseltamivir 75 MG Oral Capsule TEE ([facility]) Niacin 500 MG Oral Tablet AT [facility] ([facility]) Loratadine 10 MG Oral Tablet TEE ([facility]) Ketoprofen 25 MG Oral Capsule TEE ([facility]) Hydroxyzine Hydrochloride 25 MG Oral Tablet TEE ([facility]) Fluoxetine 20 MG Oral Capsule TEE ([facility]) Fluconazole 150 MG Oral Tablet TEE ([facility]) Escitalopram 20 MG Oral Tablet TEE ([facility]) Escitalopram 10 MG Oral Tablet TEE ([facility]) 24 HR Amphetamine aspartate 2.5 MG / Amp hetamine Sulfate 2.5 MG / Dextroamphetamine saccharate 2.5 MG / Dextroamphetamine Sulfate 2.5 MG Extended Release Oral Capsule TEE ([facility]) Chantix Starting Month Box 0.5 mg (11)-1 mg (42) tablets in dose pa ck TEE ([facility]) varenicline 1 MG Oral Tablet TEE ([facility]) benzonatate 200 MG Oral Capsule TEE ([facility]) Diphenhydramine Hydrochloride 50 MG Oral Capsule [Banophen] TEE ([facility]) Azithromycin 250 MG Oral Tablet TEE ([facility]) Amoxicillin 875 MG / Clavulanate 125 MG Oral Tablet TEE ([facility]) lisdexamfetamine dimesylate 30 MG Oral Capsule [Vyvanse] TEE ([facility]) 24 HR venlafaxine 75 MG Extended Release Oral Capsule TEE ([facility]) Prednisone 5 MG Oral Tablet TEE ([facility]) Prednisone 10 MG Oral Tablet TEE ([facility]) Oseltamivir 75 MG Oral Capsule TEE ([facility]) Niacin 500 MG Oral Tablet AT [facility]) Loratadine 10 MG Oral Tablet TEE ([facility]) Ketoprofen 25 MG Oral Capsule TEE ([facility]) Hydroxyzine Hydrochloride 25 MG Oral Tablet TEE ([facility]) Fluoxetine 20 MG Oral Capsule TEE ([facility]) Fluconazole 150 MG Oral Tablet TEE ([facility]) Escitalopram 20 MG Oral Tablet TEE ([facility]) Escitalopram 10 MG Oral Tablet TEE ([facility]) 24 HR Amphetamine aspartate 2.5 MG / Amp hetamine Sulfate 2.5 MG / Dextroamphetamine saccharate 2.5 MG / Dextroamphetamine Sulfate 2.5 MG Extended Release Oral Capsule TEE ([facility]) Chantix Starting Month Box 0.5 mg (11)-1 mg (42) tablets in dose pa ck TEE ([facility]) varenicline 1 MG Oral Tablet TEE ([facility]) benzonatate 200 MG Oral Capsule TEE ([facility]) Diphenhydramine Hydrochloride 50 MG Oral Capsule [Banophen] TEE ([facility]) Azithromycin 250 MG Oral Tablet TEE ([facility]) Amoxicillin 875 MG / Clavulanate 125 MG Oral Tablet TEE ([facility]) lisdexamfetamine dimesylate 30 MG Oral Capsule [Vyvanse] TEE ([facility]) 24 HR venlafaxine 75 MG Extended Release Oral Capsule TEE ([facility]) Prednisone 5 MG Oral Tablet TEE ([facility])
[2021-01-11 14:16] LABS: BASO % 0.3 % (0.0-1.0); EOS # 0.3 10^3/uL (0.0-0.5); HEMATOCRIT 48.9 % (36.0-47.0); HEMOGLOBIN 15.4 g/dl (12.0-15.5); LYMPH # 1.1 10^3/uL (1.5-5.0); LYMPH % 17.2 % (24.0-44.0); MEAN CORPUSCULAR HGB CONC 31.5 g/dl (32.0-36.5); MEAN CORPUSCULAR VOLUME 92.1 fl (80.0-96.0); MONO # 0.5 10^3/uL (0.0-0.8); MONO % 8.3 % (2.0-8.0); NEUTROPHILS # 4.6 10^3/uL (1.5-8.5); NEUTROPHILS % 69.6 % (36.0-66.0); PLATELET COUNT, AUTOMATED 233 10^3/uL (150-450); RED BLOOD COUNT 5.31 10^6/uL (4.00-5.40); WHITE BLOOD COUNT 6.5 10^3/uL (4.0-10.0)
[2021-01-11 14:28] LABS: INR 0.9; PROTHROMBIN TIME 12.3 SECONDS (12.5-14.3)
[2021-01-11 14:29] LABS: PARTIAL THROMBOPLASTIN TIME 27.4 SECONDS (24.2-38.5)
[2021-01-11 14:52] LABS: ERYTHROCYTE SEDIMENTATION RATE 7 mm/hr (0-20)
[2021-01-11 15:00] LABS: ALBUMIN 3.9 GM/DL (3.2-5.2); ALT/SGPT 31 U/L (12-78); BILIRUBIN,DIRECT < 0.1 MG/DL (0.0-0.2); BILIRUBIN,TOTAL 0.1 MG/DL (0.2-1.0); BLOOD UREA NITROGEN 14 MG/DL (7-18); C REACTIVE PROTEIN QUANTITATIV 2.34 MG/DL (0.00-0.30); CALCIUM LEVEL 9.2 MG/DL (8.5-10.1); CARBON DIOXIDE LEVEL 24 MEQ/L (21-32); CHLORIDE LEVEL 110 MEQ/L (98-107); CREATININE FOR GFR 0.78 MG/DL (0.55-1.30); GLOMERULAR FILTRATION RATE > 60.0 (>60); GLUCOSE, FASTING 77 MG/DL (70-100); POTASSIUM SERUM 3.8 MEQ/L (3.5-5.1); SODIUM LEVEL 142 MEQ/L (136-145); TOTAL PROTEIN 7.7 GM/DL (6.4-8.2)
[2021-01-11] MEDS ORDERED: PRED20TA PO (15:23)
[2021-01-11] MEDS ORDERED: CLAR10CA3 PO (15:23)
[2021-01-11 15:33] VITALS: BP 108/78
[2021-01-12 12:08] LABS: ANTINUCLEAR ANTIBODIES DIRECT Negative (Negative)
== END 2021-01-11 15:36 | disposition home or self-care (01) ==
LOC: M ED 12:53
DX: R21 Rash and other nonspecific skin eruption (principal); J45.909 Unspecified asthma, uncomplicated; F33.9 Major depressive disorder, recurrent, unspecified; F41.9 Anxiety disorder, unspecified; N80.9 Endometriosis, unspecified; Z79.899 Other long term (current) drug therapy; Z91.040 Latex allergy status; F17.210 Nicotine dependence, cigarettes, uncomplicated

== ENCOUNTER 2021-05-22 16:48 | Emergency (ER) | payer OTHER ==
[~2021-05-22] VITALS: Ht 154.9 cm; Wt 100.7 kg
[~2021-05-22 16:48] MED LIST changes: +CLAR10CA3 PO; +PRED20TA PO
[2021-05-22] MEDS ORDERED: MONT10TA10 (17:05)
[2021-05-22] MEDS ORDERED: LAMO25TA4 (17:05)
[2021-05-22] MEDS ORDERED: CLON1TAB8 (17:05)
[2021-05-22] MEDS ORDERED: VYVA40CA3 (17:05)
[2021-05-22] MEDS ORDERED: FLUTISP (17:05)
[2021-05-22 18:09] LABS: BASO % 0.2 % (0.0-1.0); HEMATOCRIT 43.3 % (36.0-47.0); HEMOGLOBIN 14.4 g/dl (12.0-15.5); LYMPH # 1.5 10^3/uL (1.5-5.0); LYMPH % 11.7 % (24.0-44.0); MEAN CORPUSCULAR HEMOGLOBIN 29.9 pg (27.0-33.0); MEAN CORPUSCULAR HGB CONC 33.3 g/dl (32.0-36.5); MEAN CORPUSCULAR VOLUME 89.8 fl (80.0-96.0); MONO # 0.6 10^3/uL (0.0-0.8); NEUTROPHILS # 10.5 10^3/uL (1.5-8.5); NEUTROPHILS % 82.8 % (36.0-66.0); PLATELET COUNT, AUTOMATED 248 10^3/uL (150-450); RED BLOOD COUNT 4.82 10^6/uL (4.00-5.40); WHITE BLOOD COUNT 12.7 10^3/uL (4.0-10.0)
[2021-05-22] MEDS ORDERED: MECLIZINE 25 MG TABLET PO ONE (18:45)
[2021-05-22 18:54] VITALS: BP 117/56
[2021-05-22 19:27] LABS: ALBUMIN 3.6 GM/DL (3.2-5.2); ALT/SGPT 23 U/L (12-78); BILIRUBIN,DIRECT < 0.1 MG/DL (0.0-0.2); BILIRUBIN,TOTAL 0.1 MG/DL (0.2-1.0); LIPASE 211 U/L (73-393); TOTAL PROTEIN 6.5 GM/DL (6.4-8.2)
[2021-05-22] MEDS ORDERED: MECL1TAB31 PO (19:51)
--- NOTE | 2021-05-23 17:57 | ECGEPIP ---
[facility] - ED Test Date: 2021-05-22 Pat Name: KIRSTIN MERRILL Department: Room: - Gender: Female Junior Electrical Engineer: REN : 1985 Requested By: POLINA Kurtz Order Number: [id number] Reading MD: Sheridan Bates Measurements Intervals [place] Rate: 78 P: 53 IN: 148 QRS: 55 QRSD: 80 T: 38 QT: 396 QTc: 451 Interpretive Statements Normal sinus rhythm with sinus arrhythmia NSTTW abnormalities increased rate 11/15/20 Electronically Signed on 05-23-2021 17:57:19 EDT by Sheridan Bates
== END 2021-05-22 20:42 | disposition home or self-care (01) ==
LOC: M ED 16:48
DX: R42 Dizziness and giddiness (principal); J45.909 Unspecified asthma, uncomplicated; F31.9 Bipolar disorder, unspecified; F41.9 Anxiety disorder, unspecified; N80.9 Endometriosis, unspecified; E66.9 Obesity, unspecified; Z79.899 Other long term (current) drug therapy; F17.210 Nicotine dependence, cigarettes, uncomplicated

== ENCOUNTER → 2022-03-14 | Outpatient (CLI) | payer OTHER ==
[~2022-03-14] MED LIST changes: +CLON1TAB8; +FLUTISP; +LAMO25TA4; +MECL1TAB31 PO; -MONT10TA10; +MONT10TA97; -QUET50TA3; +QUET50TA4; +VYVA40CA3
[2022-03-14 10:52] LABS: FOLLICLE STIMULATING HORMONE 4.3 mIU/mL; LUTEINIZING HORMONE 10.8 mIU/mL; PROGESTERONE 6.26 NG/ML; THYROID STIMULATING HORMONE 2.62 uIU/ML (0.358-3.740)
== END ==
LOC: M LAB 09:05
PROVIDERS: ATTEND Physician Assistant
DX: N92.6 Irregular menstruation, unspecified (principal); L68.0 Hirsutism

== ENCOUNTER 2022-04-27 20:30 | Emergency (ER) | payer OTHER ==
[~2022-04-27] VITALS: Ht 154.9 cm; Wt 104.2 kg
[2022-04-27 20:32] VITALS: BP 135/88
== END 2022-04-27 21:06 | disposition left against medical advice (07) ==
LOC: M ED 20:30
DX: Z53.29 Procedure and treatment not carried out because of patient's decision for other reasons (principal)

== ENCOUNTER → 2022-06-24 | Outpatient (CLI) | payer OTHER | LOC: M WHC 14:27 | PROVIDERS: ATTEND Physician Assistant | DX: R92.8 Other abnormal and inconclusive findings on diagnostic imaging of breast (principal) ==

== ENCOUNTER → 2023-07-06 | Outpatient (REF) | payer OTHER ==
[~2023-07-06] MED LIST changes: +FLUT50SP17; -FLUTISP
== END ==
LOC: M LAB REF 17:44
PROVIDERS: ATTEND Physician Assistant
DX: Z12.4 Encounter for screening for malignant neoplasm of cervix (principal); R87.618 Other abnormal cytological findings on specimens from cervix uteri

== ENCOUNTER → 2024-03-08 | Outpatient (REF) | payer OTHER ==
[~2024-03-08] MED LIST changes: -FLUT50SP17; +FLUTISP; +LORA-1041; -LORA-674; +MECL-209 PO; -MECL1TAB31 PO
== END ==
LOC: M LAB REF 16:32
PROVIDERS: ATTEND Physician Assistant
DX: J02.9 Acute pharyngitis, unspecified (principal)

== ENCOUNTER 2024-05-31 13:07 | Emergency (ER) | payer OTHER ==
[~2024-05-31] VITALS: Ht 154.9 cm; Wt 108.8 kg
[2024-05-31 14:35] LABS: BASO % 0.2 % (0.0-1.0); HEMATOCRIT 42.6 % (36.0-47.0); HEMOGLOBIN 14.3 g/dl (12.0-15.5); LYMPH # 1.9 10^3/uL (1.5-5.0); LYMPH % 12.6 % (24.0-44.0); MEAN CORPUSCULAR HEMOGLOBIN 29.6 pg (27.0-33.0); MEAN CORPUSCULAR HGB CONC 33.6 g/dl (32.0-36.5); MEAN CORPUSCULAR VOLUME 88.2 fl (80.0-96.0); MONO % 6.8 % (2.0-8.0); NEUTROPHILS # 11.7 10^3/uL (1.5-8.5); NEUTROPHILS % 79.9 % (36.0-66.0); PLATELET COUNT, AUTOMATED 302 10^3/uL (150-450); RED BLOOD COUNT 4.83 10^6/uL (4.00-5.40); WHITE BLOOD COUNT 14.7 10^3/uL (4.0-10.0)
[2024-05-31 14:56] LABS: LIPASE 24 U/L (12-53)
[2024-05-31 14:59] LABS: ALBUMIN 3.4 G/DL (3.2-5.2); ALKALINE PHOSPHATASE 73 U/L (46-116); ALT/SGPT 24 U/L (7.0-40); AST/SGOT 9 U/L (<34); BILIRUBIN,DIRECT < 0.1 MG/DL (<0.4); BILIRUBIN,TOTAL 0.3 MG/DL (0.3-1.2); BLOOD UREA NITROGEN 16 MG/DL (9-23); CALCIUM LEVEL 9.5 MG/DL (8.5-10.1); CARBON DIOXIDE LEVEL 27 MMOL/L (20-31); CHLORIDE LEVEL 105 MMOL/L (98-107); CREATININE FOR GFR 0.76 MG/DL (0.55-1.30); GLOMERULAR FILTRATION RATE > 60.0 (>60); GLUCOSE, FASTING 92 MG/DL (60-100); POTASSIUM SERUM 3.8 MMOL/L (3.5-5.1); SODIUM LEVEL 139 MMOL/L (136-145)
[2024-05-31 15:40] LABS: HCG, SERUM QUALITATIVE NEGATIVE (NEGATIVE)
[2024-05-31] MEDS: NS 1,000 ML IV ONE (15:44)
[2024-05-31 16:04] VITALS: BP 129/61; TEMP 98.5; O2SAT 96
[2024-05-31] MEDS ORDERED: CEFD300C PO (16:57)
== END 2024-05-31 17:06 | disposition home or self-care (01) ==
LOC: M ED 13:07
DX: N30.90 Cystitis, unspecified without hematuria (principal); R11.2 Nausea with vomiting, unspecified; R19.7 Diarrhea, unspecified; F41.9 Anxiety disorder, unspecified; F32.A Depression, unspecified; F17.210 Nicotine dependence, cigarettes, uncomplicated; F12.10 Cannabis abuse, uncomplicated; Z91.040 Latex allergy status; Z79.51 Long term (current) use of inhaled steroids; Z79.2 Long term (current) use of antibiotics; Z79.899 Other long term (current) drug therapy

== ENCOUNTER → 2024-06-08 | Outpatient (REF) | payer OTHER ==
[~2024-06-08] MED LIST changes: +CEFD300C PO
== END ==
LOC: M LAB REF 16:15
PROVIDERS: ATTEND Nurse Practitioner Family
DX: R19.7 Diarrhea, unspecified (principal); R10.84 Generalized abdominal pain